=== PATIENT | male | born 1965 | race Caucasian/White ===

== ENCOUNTER → 2019-12-12 10:27 | Outpatient (BNVA) | payer OTHER, MEDICARE, SELFPAY | PROVIDERS: Family Provider Nurse Practitioner; PCP Nurse Practitioner; Visit Provider Nurse Practitioner | DX: E11.65 Type 2 diabetes mellitus with hyperglycemia (principal) | CPT/HCPCS: 80053; 80061; 81003; 82044; 83036 ==

== ENCOUNTER → 2020-04-13 14:04 | Outpatient (BNVA) | payer OTHER, MEDICARE, SELFPAY | PROVIDERS: Family Provider Nurse Practitioner; PCP Nurse Practitioner; Visit Provider Nurse Practitioner | DX: E11.65 Type 2 diabetes mellitus with hyperglycemia (principal); I10 Essential (primary) hypertension; I25.10 Atherosclerotic heart disease of native coronary artery without angina pectoris; F41.9 Anxiety disorder, unspecified; E11.42 Type 2 diabetes mellitus with diabetic polyneuropathy | CPT/HCPCS: 80053; 80061; 81000; 83036 ==

== ENCOUNTER → 2020-07-15 09:10 | Outpatient (BNVA) | payer OTHER, MEDICARE, SELFPAY | PROVIDERS: Family Provider Nurse Practitioner; PCP Nurse Practitioner; Visit Provider Nurse Practitioner | DX: E11.65 Type 2 diabetes mellitus with hyperglycemia (principal); I10 Essential (primary) hypertension; F41.9 Anxiety disorder, unspecified; I25.10 Atherosclerotic heart disease of native coronary artery without angina pectoris | CPT/HCPCS: 80053; 80061; 81000; 83036 ==

== ENCOUNTER 2020-09-03 09:31 | Emergency (ER) | payer OTHER, MEDICARE, SELFPAY ==
[2020-09-03 09:47] VITALS: BP 98/57; PULSE 80; RESP 18; TEMP 36.6; O2SAT 94; BMI 44.3
--- NOTE | 2020-09-03 09:51 | ECG_ITS ---
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 Measurements Intervals [place] Rate: 79 P: -83 VT: 176 QRS: 99 QRSD: 96 T: 185 QT: 373 QTc: 429 Interpretive Statements ECTOPIC ATRIAL RHYTHM BORDERLINE RIGHT AXIS DEVIATION [QRS AXIS > 90] LOW QRS VOLTAGE IN PRECORDIAL LEADS [QRS DEFLECTION < 1.0 mV IN CHEST LEADS] MODERATE T-WAVE ABNORMALITY, CONSIDER INFERIOR ISCHEMIA [-0.1+ mV T WAVE IN II/aVF] No previous ECG available for comparison Electronically Signed On 09-03-2020 20:29:55 CDT by Tim Palma M.D. [id number]
[2020-09-03 10:06] VITALS: BP 125/58; PULSE 77; RESP 18; O2SAT 94
--- NOTE | 2020-09-03 10:10 | ED_ITS ---
HPI - General Adult General: Chief complaint: General Medical Stated complaint: low bp Time Seen by Provider: 09/03/20 09:52 Source: patient Mode of arrival: ambulatory Limitations: no limitations History of Present Illness: HPI narrative: Fariba is a very nice 55-year-old male who comes in with a complaint of generalized malaise and weakness. Patient started a new blood pressure medication yesterday and believes he may have accidentally taken 2 of these this morning. The prescription was by Dr. Helm for hydralazine. Patient denies any headache, chest pain, shortness of breath, abdominal pain, back pain, fever, cough or urinary symptoms. Patient states he thinks he does accidentally took too much of this medication and wanted to be certain that everything was going to be okay. Associated symptoms: Reports malaise; Deny chest pain, confusion, diaphoresis, dyspnea, headache(s), nausea, rash, palpitations, syncope or vomiting Review of Systems Const: Reports: malaise; Denies: fever(s), chills, body aches, fatigue or diaphoresis Eyes: Denies: change in vision, blurry vision, photophobia, eye discomfort, eye discharge, eye redness or yellow eyes ENMT: Denies: throat pain, odynophagia, hoarseness, swelling of lips/tongue, ear or mastoid pain, ear discharge, change in hearing or nasal discharge Card: Denies: chest pain, palpitations, irregular heart rhythm, edema, lightheadedness, syncope, pre-syncope, dyspnea on exertion or orthopnea Resp: Denies: dyspnea, productive cough, non-productive cough, wheezing, hemoptysis or chest congestion GI: Denies: abdominal pain, nausea, vomiting, hematemesis, coffee ground emesis, heartburn, diarrhea, constipation, GI cramping, hematochezia or melena : Denies: flank pain, dysuria, urinary frequency, urinary urgency or hematuria Musc: Denies: neck pain, back pain, extremity pain, extremity swelling, joint pain, joint swelling, joint redness, joint warmth or joint stiffness Skin/Breast: Denies: rash, pruritus, erythema, skin pain or skin tenderness Neuro: Denies: headache(s), numbness in extremities, weakness in extremities, sensory changes, lack of coordination, difficulty walking, dizziness, vertigo, confusion, Slurred speech present or seizure-like activity [place]y/Lymph: Denies: easy bruising, easy bleeding, petechiae, purpura or enlarged lymph nodes All/Imm: Denies: urticaria, throat swelling, tongue swelling, facial swelling or acute wheezing PFSH ED PFSH: Medical History Anxiety Arteriosclerotic coronary artery disease Diabetes mellitus type II, uncontrolled Dietary noncompliance Essential (primary) hypertension Neuropathy Surgical History H/O heart artery stent 09/2011 History of carpal tunnel surgery of right wrist 2011 History of colonoscopy Family History Father , AGE 74 Diabetes Heart disease Mother , LUNG CANCER AGE 55 Cancer Social History Smoking and tobacco status: former smoker Second hand smoke exposure: No Smoking risk assessment/counseling performed?: No Alcohol intake: current Alcohol intake frequency: holidays/special occasions only Desire information about alcohol rehabilitation?: No Counseling given: No Desire information about substance/drug rehabilitation?: No Counseling given: No Adopted: No Caregiver/support person: No Lives independently: Yes Household members: spouse Housing: House Marital status: Number of children: 2 service: No Current occupational status: disabled Pets and animals: Yes History of recent travel: No Current gender identity: Male and Female Physical Exam Const: COMMON NORMALS: no acute distress, patient oriented x3, no limitations and alert GENERAL APPEARANCE: cooperative HENMT: COMMON NORMALS: normocephalic, atraumatic, external ears normal, EAC's normal and Normal external nose present HEAD & SCALP: normal to inspection, normocephalic and atraumatic FACE & SINUS: normal facial exam and face symmetric NOSE: Normal external nose present and Normal nares present EXTERNAL EAR: Yes external ears normal EXTERNAL AUDITORY CANAL: EAC's normal MOUTH: Normal oral and palatal mucosa present, lip normal and tongue normal Eye: COMMON NORMALS: Equal, round and reactive pupils present and conjunctivae normal GENERAL EYE: appearance normal, both eyes and all related structures ALIGNMENT: Yes alignment normal PERIORBITAL: periorbital findings normal EYELID: eyelids normal CONJUNCTIVA: Yes conjunctivae normal SCLERA: sclerae normal PUPIL: Yes Equal, round and reactive pupils present Neck/C-Spine: COMMON NORMALS: full ROM, no lymphadenopathy, supple, no meningeal signs and no JVD GENERAL: Yes normal visual inspection and Yes trachea midline Chest: COMMONS NORMALS: normal inspection of the chest and normal palpation of entire chest wall Resp: COMMON NORMALS: normal respiratory effort, No retractions, No use of accessory muscles and clear to auscultation bilaterally EFFORT & INSPECTION: Yes able to speak in complete sentences and Yes symmetric chest movement AUS CULTATION: clear to auscultation bilaterally, no crackles, no rales, no rhonchi and no wheezes Cardio: COMMON NORMALS: no JVD, regular rate, regular rhythm, S1 normal heart sound present and S2 normal heart sound present RATE: regular rate RHYTHM: regular rhythm HEART SOUNDS: S1 normal heart sound present, S2 normal heart sound present, no click, no gallops, no murmurs and no rubs GI: COMMON NORMALS: Soft to palpation and No hepatosplenomegaly present PALPATION: Yes Soft to palpation, No Tenderness to palpation present (GI), No Guarding due to palpation present (GI), No Rigid due to palpation, Yes No hepatosplenomegaly present, No Hernia present, No Palpable mass present and No Pulsatile mass present : COMMON NORMALS: Yes no CVA tenderness BLADDER/KIDNEY EXAM: Yes no CVA tenderness Back/Pelvis: COMMON NORMALS: no CVA tenderness, thoracic and lumbar spine normal to inspection, no thoracic nor lumbar tenderness and thoraco-lumbar ROM normal Extremity: COMMON NORMALS: normal to inspection, full ROM, capillary refill normal, no joint enlargement, no clubbing, cyanosis or edema and no calf tenderness Neuro: COMMON NORMALS: patient oriented x3, CN's II-XII intact bilaterally, moves all extremities, no focal motor deficits and no sensory deficits noted SENSORIUM/ORIENTATION: Yes alert MENINGEAL SIGNS: Yes no meningeal signs SPEECH: speech normal Psych: COMMON NORMALS: mental status grossly normal, Normal thought process present, cooperative, normal affect, speech normal and activity/motor behavior normal SPEECH: Yes normal speech THOUGHT PROCESS: Normal thought process present Skin: COMMON NORMALS: no rashes or lesions noted, turgor normal, no jaundice, no petechiae and no mottling GENERAL SKIN EXAM: no rashes or lesions noted and turgor normal Course Vital Signs: Vital signs: Vital Signs Temperature 97.9 F 09/03/20 09:47 Pulse Rate 79 09/03/20 13:38 Respiratory Rate 19 H 09/03/20 13:38 Blood Pressure 147/98 09/03/20 13:38 Pulse Oximetry 94 09/03/20 13:38 MDM - General Adult MDM Narrative: Medical decision making narrative: 1313 -the patient's case had been previously reviewed with poison control. They recommended the patient skip his nighttime dose of hydralazine but otherwise they felt the peak was long since passed and the patient would likely be okay. I elected to keep him for a second EKG and troponin. He is completely asymptomatic as far as any cardiac symptoms go. He denies any current fatigue or malaise he states his symptoms have resolved. I have no old EKG to compare to he does have some T wave inversions but he is not having chest pain or shortness of breath. EKGs have not changed. His baseline troponin is slightly elevated but trended down on his second. Patient denies any complaints or concerns at this time. I offered to put him in the hospital for further observation but he refuses. He states he is going to go home and pick his of after work he states he feels fine. He understands he needs to hold his next dose of hydralazine but he will follow-up with his doctor if he continues to have further problems but he also understands he can return here at any time. Lab Data: Attestation: I reviewed the patient's lab results. Labs: Lab Results 09/03/20 09/03/20 09/03/20 Range/Units 10:24 10:24 10:24 WBC 8.4 (4.0-10.0) 10^3/ uL RBC 4.48 (4.1-5.3) 10^6/u L Hgb 12.8 (11.7-16.6) g/dL Hct 39.8 L (42.0-52.0) % MCV 88.8 (80-94) fL MCH 28.6 (28.0-34.0) pg MCHC 32.2 (30.0-36.0) g/dL RDW 13.7 (12.1-15.1) % Plt Count 302 (130-400) 10^3/c mm MPV 9.8 (7.4-10.4) fL Neut % (Auto) 66.4 % Lymph % (Auto) 24.4 % [place] % (Auto) 6.8 % Eos % (Auto) 1.8 % Baso % (Auto) 0.4 % Neut # (Auto) 5.59 (1.8-7.7) 10^3/u L Lymph # (Auto) 2.1 (0.8-4.8) 10^3/u L [place] # (Auto) 0.6 (0.2-0.9) 10^3/u L Eos # (Auto) 0.2 (0.0-0.8) 10^3/u L Baso # (Auto) 0.0 (0.0-0.1) 10^3/u L Nucleated RBC % (a uto) 0 % Nucleated RBCs # 0.0 /100WBC Sodium 139 (136-145) mmol/L Potassium 3.8 (3.5-5.1) mmol/L Chloride 101 (98-107) mmol/L Carbon Dioxide 26 (22-29) mmol/L Anion Gap 15.8 (5-19) BUN 21 H (6-20) mg/dL Creatinine 0.8 (0.7-1.2) mg/dL GFR Calculation 100.0 (90-130) mL/min Glucose 209 H (65-115) mg/dL Calculated Osmolal ity 297 H (285-295) mOsm/k g Lactic Acid (0.5-2.2) mmol/L Calcium 9.1 (8.5-10.5) mg/dL Total Bilirubin 0.3 (0.15-1.2) mg/dL AST 17 (0-40) U/L ALT 23 (0-41) U/L Alkaline Phosphata se 113 (40-130) IU/L Troponin T Baselin e 35 H (0-15) ng/L Troponin T 120 Min [place] (0-15) ng/L Delta Troponin T (0-10) ABS# Total Protein 6.7 (6.6-8.7) g/dL Albumin 4.0 (3.5-5.2) g/dL Globulin 2.7 (1.3-4.6) g/dL 09/03/20 09/03/20 Range/Units 10:43 12:28 WBC (4.0-10.0) 10^3/ uL RBC (4.1-5.3) 10^6/u L Hgb (11.7-16.6) g/dL Hct (42.0-52.0) % MCV (80-94) fL MCH (28.0-34.0) pg MCHC (30.0-36.0) g/dL RDW (12.1-15.1) % Plt Count (130-400) 10^3/c mm MPV (7.4-10.4) fL Neut % (Auto) % Lymph % (Auto) % [place] % (Auto) % Eos % (Auto) % Baso % (Auto) % Neut # (Auto) (1.8-7.7) 10^3/u L Lymph # (Auto) (0.8-4.8) 10^3/u L [place] # (Auto) (0.2-0.9) 10^3/u L Eos # (Auto) (0.0-0.8) 10^3/u L Baso # (Auto) (0.0-0.1) 10^3/u L Nucleated RBC % (a uto) % Nucleated RBCs # /100WBC Sodium (136-145) mmol/L Potassium (3.5-5.1) mmol/L Chloride (98-107) mmol/L Carbon Dioxide (22-29) mmol/L Anion Gap (5-19) BUN (6-20) mg/dL Creatinine (0.7-1.2) mg/dL GFR Calculation (90-130) mL/min Glucose (65-115) mg/dL Calculated Osmolal ity (285-295) mOsm/k g Lactic Acid 2.0 (0.5-2.2) mmol/L Calcium (8.5-10.5) mg/dL Total Bilirubin (0.15-1.2) mg/dL AST (0-40) U/L ALT (0-41) U/L Alkaline Phosphata se (40-130) IU/L Troponin T Baselin e (0-15) ng/L Troponin T 120 Min [place] 31.27 H (0-15) ng/L Delta Troponin T -3.73 L (0-10) ABS# Total Protein (6.6-8.7) g/dL Albumin (3.5-5.2) g/dL Globulin (1.3-4.6) g/dL EKG Data^: EKG 1: Attestation: I personally reviewed and interpreted this EKG as follows: EKG interpretation date: 09/03/20 EKG interpretation time: 09:59 Interpretation: Normal sinus rhythm at 79 beats a minute, no blocks, normal intervals, T waves inverted in room and rolled to and aVF along with T wave inversions in V5 and V6. No old for comparison. EKG 2: Attestation: I personally reviewed and interpreted this EKG as follows: EKG interpretation date: 09/03/20 EKG interpretation time: 12:08 Interpretation: Normal sinus rhythm at 74 beats a minute, first-degree AV block, otherwise normal intervals, T wave inversions II, aVF, V5 and V6. Unchanged from previous. Discharge Plan Discharge Patient Disposition: Home Clinical Impression: Overdose Qualifiers: Encounter type: initial encounter Injury intent: accidental or unintentional Qualified Code(s): T50.901A - Poisoning by unspecified drugs, medicaments and biological substances, accidental (unintentional), initial encounter Condition: Stable Prescriptions: No Action amlodipine [Norvasc] 10 mg tablet 10 mg PO DAILY Qty: 90 RF: 0 empagliflozin 25 mg tablet 25 mg PO QAM Qty: 30 RF: 2 doxepin 10 mg capsule 10 mg PO TID Qty: 270 RF: 0 fluoxetine [Prozac] 20 mg capsule 20 mg PO BID Qty: 180 RF: 0 furosemide [Lasix] 20 mg tablet 20 mg PO BID Qty: 180 RF: 0 Levemir FlexTouch U-100 Insuln 100 unit/mL (3 mL) insulin pen 30 unit SUBCUT BID Qty: 15 RF: 2 Novolin R Flexpen 100 unit/mL (3 mL) insulin pen 18 - 32 unit SUBCUT DAILY Qty: 15 RF: 2 losartan 100 mg tablet 100 mg PO DAILY Qty: 90 RF: 0 magnesium oxide 400 mg magnesium capsule 400 mg PO DAILY Qty: 90 RF: 0 metformin 500 mg tablet extended release 24 hr 2,000 mg PO DAILY Qty: 360 RF: 0 propranolol 80 mg capsule,extended release 24 hr 80 mg PO DAILY Qty: 90 RF: 0 Ozempic 1 mg/dose (2 mg/1.5 mL) pen injector 1 mg SUBCUT .weekly Qty: 3 RF: 2 atorvastatin 40 mg tablet 40 mg PO DAILY Qty: 90 RF: 0 aspirin [Aspir-Elvia] 325 mg tablet,delayed release (DR/EC) 325 mg PO DAILY RF: 0 albuterol sulfate 2.5 mg /3 mL (0.083 %) solution for nebulization 2.5 mg INHALATION QID PRN (Reason: bronchospasm) RF: 0 lidocaine 5 % adhesive patch,medicated 1 patch TOPICAL .COMPLEX RF: 0 nystatin-triamcinolone Cream TOPICAL RF: 0 budesonide [Pulmicort] 0.5 mg/2 mL suspension for nebulization 0.5 mg INHALATION BID RF: 0 triamcinolone acetonide 0.1 % cream 1 applic TOPICAL BID RF: 0 levalbuterol tartrate [Xopenex HFA] 45 mcg/actuation HFA aerosol inhaler 2 inh INHALATION Q4H RF: 0 tadalafil [Cialis] 20 mg tablet 20 mg PO QDAY PRNRF: 0 (DME) OneTouch Ultra Blue Test Strip Strip See Rx Instructions .ROUTE .MEDSUPPLY Qty: 200 RF: 5 (DME) lancets [OneTouch Delica Lancets] 33 gauge misc See Rx Instructions .ROUTE .MEDSUPPLY Qty: 200 RF: 5 (DME) blood-glucose meter [OneTouch Ultra2 Meter] Kit See Rx Instructions .ROUTE .MEDSUPPLY Qty: 1 RF: 0 hydralazine 100 mg tablet 100 mg PO BID Qty: 90 RF: 0 Discharge Orders: Discharge Order (Routine); Ordered 09/03/20 Ordered By: Fabiola Ho Referrals: Mateo Sifuentes, STATION ATTENDANT-C [Primary Care Provider] - 1-3 days Discharge Diet: Advance as tolerated Discharge Activity: Increase activity as tolerated Activity Restrictions/Additional Instructions: Please return to the ER immediately for any of the signs or symptoms listed on your discharge instruction sheets, worsening/changing of your symptoms, you are not getting better as quickly as expected, or for ANY other cause or concerns. Do not take your nighttime dose of hydralazine, skip it tonight but she can resume the medication tomorrow as prescribed. Return to the ER for chest pain, shortness of breath, weakness, or for any other cause for concern. Discharge Date/Time: 09/03/20 13:38 Coding Level of Care Code ED Record Producer for Chg Fwd Exam Comprehensive
[2020-09-03] MEDS: sodium chloride 0.9% 1,000 ML 100 ML IV (10:34)
[2020-09-03 10:37] LABS: Basophils % 0.4 %; Eosinophils # 0.2 10^3/uL (0.0-0.8); Eosinophils % 1.8 %; Hematocrit 39.8 % (42.0-52.0); Hemoglobin 12.8 g/dL (11.7-16.6); Lymphocytes # 2.1 10^3/uL (0.8-4.8); Lymphocytes % 24.4 %; Mean Corpuscular HGB Conc 32.2 g/dL (30.0-36.0); Mean Corpuscular Hemoglobin 28.6 pg (28.0-34.0); Mean Corpuscular Volume 88.8 fL (80-94); Mean Platelet Volume 9.8 fL (7.4-10.4); Monocytes # 0.6 10^3/uL (0.2-0.9); Monocytes % 6.8 %; Neutrophils # 5.59 10^3/uL (1.8-7.7); Neutrophils % 66.4 %; Nucleated Red Blood Cells % 0 %; Platelet Count 302 10^3/cmm (130-400); Red Blood Count 4.48 10^6/uL (4.1-5.3); Red Cell Distribution Width 13.7 % (12.1-15.1); White Blood Count 8.4 10^3/uL (4.0-10.0)
[2020-09-03 10:53] LABS: Alanine Aminotransferase 23 U/L (0-41); Alkaline Phosphatase 113 IU/L (40-130); Anion Gap 15.8 (5-19); Aspartate Amino Transferase 17 U/L (0-40); Blood Urea Nitrogen 21 mg/dL (6-20); Calcium 9.1 mg/dL (8.5-10.5); Carbon Dioxide 26 mmol/L (22-29); Chloride 101 mmol/L (98-107); Globulin 2.7 g/dL (1.3-4.6); Glucose 209 mg/dL (65-115); Osmolality Calculated 297 mOsm/kg (285-295); Potassium 3.8 mmol/L (3.5-5.1); Sodium 139 mmol/L (136-145); Total Bilirubin 0.3 mg/dL (0.15-1.2); Total Protein 6.7 g/dL (6.6-8.7)
[2020-09-03 10:56] LABS: Troponin(5th) Baseline 35 ng/L (0-15)
[2020-09-03 11:00] VITALS: BP 123/65; PULSE 73; RESP 14; O2SAT 94
[2020-09-03 12:00] VITALS: BP 154/82; PULSE 76; RESP 15; O2SAT 95
[2020-09-03 12:52] LABS: Troponin 5 2HR 31.27 ng/L (0-15)
[2020-09-03 12:58] LABS: Troponin 5 2HR Delta -3.73 ABS# (0-10)
[2020-09-03 13:38] VITALS: BP 147/98; PULSE 79; RESP 19; O2SAT 94
--- NOTE | 2020-09-03 15:51 | ECG_ITS ---
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 Measurements Intervals [place] Rate: 74 P: 25 [place]: 233 QRS: 102 QRSD: 93 T: 211 QT: 387 QTc: 430 Interpretive Statements SINUS RHYTHM WITH FIRST DEGREE AV BLOCK RIGHT AXIS DEVIATION [QRS AXIS > 100] LOW QRS VOLTAGE IN PRECORDIAL LEADS [QRS DEFLECTION < 1.0 mV IN CHEST LEADS] INCOMPLETE RIGHT BUNDLE BRANCH BLOCK [90+ ms QRS DURATION, TERMINAL R IN V1/V2, 40+ ms S IN I/aVL/V4/V5/V6] POSSIBLE ANTERIOR MYOCARDIAL INFARCTION , OF INDETERMINATE AGE [30 ms Q WAVE IN V3/V4, OR R < 0.2 mV IN V4] MODERATE T-WAVE ABNORMALITY, CONSIDER INFERIOR ISCHEMIA [-0.1+ mV T WAVE IN II/aVF] Compared to ECG 09/03/2020 09:59:54 First degree AV block now present Myocardial infarct finding now present.Ectopic atrial rhythm no longer present T-wave abnormality still present.Possible ischemia still present Electronically Signed On 09-03-2020 20:38:13 CDT by Tim Palma M.D. [id number]
== END 2020-09-03 13:38 | disposition home or self-care (01) ==
PROVIDERS: Emergency Provider Emergency Medicine; Family Provider Nurse Practitioner; PCP Nurse Practitioner
DX: T50.901A Poisoning by unspecified drugs, medicaments and biological substances, accidental (unintentional), initial encounter (principal); Z79.82 Long term (current) use of aspirin; Z79.4 Long term (current) use of insulin; I10 Essential (primary) hypertension; E11.40 Type 2 diabetes mellitus with diabetic neuropathy, unspecified; Z87.891 Personal history of nicotine dependence
CPT/HCPCS: 12345; 80053; 83605; 84484; 85025; 93005; 99283; J7030

== ENCOUNTER → 2020-09-09 15:40 | Outpatient (BNVA) | payer OTHER, MEDICARE, SELFPAY | PROVIDERS: Family Provider Nurse Practitioner; PCP Nurse Practitioner; Visit Provider Nurse Practitioner Family | DX: Z11.59 Encounter for screening for other viral diseases (principal) | CPT/HCPCS: 87635 ==

== ENCOUNTER → 2020-10-21 15:35 | Outpatient (BNVA) | payer OTHER, MEDICARE, SELFPAY | PROVIDERS: Family Provider Nurse Practitioner; PCP Nurse Practitioner; Visit Provider Nurse Practitioner | DX: E11.65 Type 2 diabetes mellitus with hyperglycemia (principal); I10 Essential (primary) hypertension; I25.10 Atherosclerotic heart disease of native coronary artery without angina pectoris; F41.9 Anxiety disorder, unspecified | CPT/HCPCS: 80053; 81000; 83036 ==

== ENCOUNTER → 2020-12-01 10:43 | Outpatient (BNVA) | payer OTHER, MEDICARE, SELFPAY | PROVIDERS: Family Provider Nurse Practitioner; PCP Nurse Practitioner; Visit Provider Nurse Practitioner | DX: R06.02 Shortness of breath (principal); E11.65 Type 2 diabetes mellitus with hyperglycemia; I25.10 Atherosclerotic heart disease of native coronary artery without angina pectoris; I70.90 Unspecified atherosclerosis; I51.7 Cardiomegaly | CPT/HCPCS: 71046; 80053; 83880; 85025; 85379 ==

== ENCOUNTER 2020-12-06 14:28 | Outpatient (CLI) | payer OTHER, MEDICARE, SELFPAY | END 2020-12-06 15:00 | disposition home or self-care (01) | LOC: LAB 08-25 12:36 | PROVIDERS: PCP Nurse Practitioner; Visit Provider Nurse Practitioner | DX: D64.9 Anemia, unspecified (principal) | CPT/HCPCS: 82607; 82746; 83550 ==

== ENCOUNTER → 2020-12-20 11:53 | Outpatient (BNVA) | payer OTHER, MEDICARE, SELFPAY | PROVIDERS: PCP Nurse Practitioner; Visit Provider Nurse Practitioner | DX: D64.9 Anemia, unspecified (principal) | CPT/HCPCS: 82270 ==

== ENCOUNTER → 2021-01-18 09:01 | Outpatient (BNVA) | payer OTHER, MEDICARE, SELFPAY | PROVIDERS: PCP Nurse Practitioner; Visit Provider Nurse Practitioner | DX: I10 Essential (primary) hypertension (principal); I25.10 Atherosclerotic heart disease of native coronary artery without angina pectoris; E11.65 Type 2 diabetes mellitus with hyperglycemia; F41.9 Anxiety disorder, unspecified; J98.09 Other diseases of bronchus, not elsewhere classified; F39 Unspecified mood [affective] disorder | CPT/HCPCS: 80053; 80061; 81000; 82043; 83036 ==

== ENCOUNTER → 2021-04-19 08:50 | Outpatient (BNVA) | payer OTHER, MEDICARE, SELFPAY | PROVIDERS: PCP Nurse Practitioner; Visit Provider Nurse Practitioner | DX: E11.65 Type 2 diabetes mellitus with hyperglycemia (principal); I10 Essential (primary) hypertension; I25.10 Atherosclerotic heart disease of native coronary artery without angina pectoris; F41.9 Anxiety disorder, unspecified; J98.09 Other diseases of bronchus, not elsewhere classified | CPT/HCPCS: 80053; 81000; 83036 ==

== ENCOUNTER 2021-05-04 12:13 | Outpatient (CLI) | payer OTHER, MEDICARE, SELFPAY ==
--- NOTE | 2021-05-04 12:45 | USCV_ITS ---
Fariba Rossi Age: 55 Gender: M : 1965 Exam Date: 05/04/2021 12:37 Ordering Phys: Mateo Sifuentes Technologist: Exam Location: [place] Indication: HX OF STENTS CAD BP: 150 / 101 HR: 85 Rhythm: Sinus Technical Quality: Poor MEASUREMENTS (Male / Female) Normal Values 2D ECHO LV Diastolic Diameter PLAX 3.9 cm 4.2 - 5.9 / 3.9 - 5.3 cm LV Systolic Diameter PLAX 2.4 cm IVS Diastolic Thickness 1.2 cm 0.6 - 1.0 / 0.6 - 0.9 cm IVS Systolic Thickness 1.8 cm LVPW Diastolic Thickness 1.0 cm 0.6 - 1.0 / 0.6 - 0.9 cm LVPW Systolic Thickness 1.7 cm LVOT Diameter 2.0 cm LV Ejection Fraction 2D Teich 68.3 % LV Ejection Fraction MOD 2C 56.4 % LV Ejection Fraction 2C AL 56.7 % LA Diameter 5.2 cm LA Width 4.2 cm LA Height 4.3 cm RA Width 3.8 cm RA Height 4.3 cm Aorta at Sinotubular Diameter 3.4 cm DOPPLER AV Peak Velocity 243.0 cm/s LVOT Peak Velocity 87.0 cm/s AV Area Cont Eq vti 1.2 cm squared AV Area Cont Eq pk 1.2 cm squared MV Area PHT 5.0 cm squared Mitral E to A Ratio 2.2 MV E' Velocity 64.5 cm/s Mitral E to MV E' Ratio 19.1 Mitral E to LV E' Lateral Ratio 18.0 Mitral E to LV E' Septal Ratio 20.4 TR Peak Velocity 131.3 cm/s TR Peak Gradient 6.9 mmHg TV Peak E Velocity 93.0 cm/s Right Atrial Pressure 3.0 mmHg Pulmonary Artery Systolic Pressu 9.9 mmHg FINDINGS Left Ventricle Normal left ventricular cavity size. Normal left ventricular systolic function. Left ventricular ejection fraction is estimated at 60 %. Although no diagnostic regional wall motion abnormality could be advised, this possibility cannot be completely excluded based on the study. Grade II diastolic dysfunction, moderately elevated filling pressures. Right Ventricle Normal right ventricular size and systolic function. RVSP could not be calculated due to incomplete tricuspid regurgitation velocity profile. Right Atrium Normal right atrial size. Left Atrium Left atrium not well visualized. Probably normal left atrial size. Mitral Valve Grossly normal mitral valve. No mitral valve stenosis. No significant mitral valve regurgitation. Aortic Valve Aortic valve not well visualized. Possibly sclerotic aortic valve. Tricuspid Valve Tricuspid valve not well visualized. Pulmonic Valve Pulmonic valve not well visualized. No pulmonary valve stenosis. Pericardium No pericardial effusion. Aorta Normal size aortic root and proximal ascending aorta. CONCLUSIONS 1. This is a technically very difficult study. 2. Normal left ventricular cavity size and systolic function. Left ventricular ejection fraction is estimated at 60 %. Although no diagnostic regional wall motion abnormality could be advised, this possibility cannot be completely excluded based on the study. Grade II diastolic dysfunction, moderately elevated filling pressures. 3. Normal right ventricular size and systolic function. 4. Possibly sclerotic aortic valve. Interpretation limited by poor visualization of the valve. 5. No significant change when compared to prior echocardiogram report from 20 April 2016. Betty Harrison MD (Electronically Signed) Final Date: 06 May 2021 15:08 S
== END 2021-05-04 12:14 | disposition home or self-care (01) ==
LOC: RAD 12:17
PROVIDERS: PCP Nurse Practitioner; Visit Provider Nurse Practitioner
DX: I25.10 Atherosclerotic heart disease of native coronary artery without angina pectoris (principal); R06.02 Shortness of breath; I50.9 Heart failure, unspecified
CPT/HCPCS: 93306

== ENCOUNTER → 2021-07-12 08:41 | Outpatient (BNVA) | payer OTHER, MEDICARE, SELFPAY | PROVIDERS: PCP Nurse Practitioner; Visit Provider Nurse Practitioner | DX: E11.65 Type 2 diabetes mellitus with hyperglycemia (principal); E61.1 Iron deficiency; E55.9 Vitamin D deficiency, unspecified; I10 Essential (primary) hypertension; I25.10 Atherosclerotic heart disease of native coronary artery without angina pectoris; F41.9 Anxiety disorder, unspecified; J98.09 Other diseases of bronchus, not elsewhere classified; G62.9 Polyneuropathy, unspecified | CPT/HCPCS: 80053; 80061; 81000; 82306; 83036; 83540; 83721 ==

== ENCOUNTER 2021-09-08 08:50 | Emergency (ER) | payer OTHER, MEDICARE, SELFPAY ==
--- NOTE | 2021-09-08 09:59 | XR_ITS ---
WS: [id number] Exam: XR chest 1V portable [id number] Date/Time of Exam: 09/08/2021 10:07 AM Reason For Exam: dyspnea/cough Comparison 12/01/2020. The lungs are clear and fully expanded. Cardiomediastinal structures are unremarkable for portable [place]. No pleural effusions. There may be an old fracture deformity of the superior right scapula. Remaining bony structures are intact. XR/XR chest 1V portable [id number] IMPRESSION: 1. No acute cardiopulmonary finding.
[2021-09-08 10:19] VITALS: PULSE 81
[2021-09-08 10:21] VITALS: TEMP 37.1
[2021-09-08 10:26] VITALS: BMI 45.1
--- NOTE | 2021-09-08 10:27 | ED_ITS ---
HPI - SOB/Dyspnea General: Chief Complaint: Shortness of Breath/Dyspnea Stated Complaint: SOB PAIN ALL OVER Time Seen by Provider: 09/08/21 08:59 History of Present Illness: HPI Narrative: 56-year-old male presents emergency room complaining of shortness of breath and all over pain. Generalized aches and pains he has not had any fever sweats or chills she is not had a productive cough he has history of diabetes mellitus and hypertension he also has a history of heart disease. He is not normally on oxygen he is not requiring any at this time. He denies any recent medication changes MD elicited complaint: shortness of breath Pertinent past history: COPD Onset (ago): day(s) Context: recent illness Timing: constant Severity: mild Exacerbating factors: exertion and coughing Relieving factors: rest Known history of: COPD Associated symptoms: Deny abdominal pain, chest congestion, chest pain, cough, diaphoresis, dizziness, extremity pain, fever(s), hemoptysis, lightheadedness, myalgias, nausea, orthopnea, palpitations, paresthesias, polydipsia, polyuria, rash, sense of impending doom, syncope or vomiting Treatment prior to arrival: none Review of Systems Const: Denies: fever(s) or diaphoresis ENMT: Denies: throat pain, ear or mastoid pain, nasal discharge or nasal congestion Card: Denies: chest pain, palpitations, lightheadedness, syncope or orthopnea Resp: Denies: hemoptysis or chest congestion GI: Denies: abdominal pain, nausea or vomiting : Denies: flank pain, dysuria, urinary frequency or urinary urgency Musc: Denies: extremity pain Skin/Breast: Denies: rash or pruritus Neuro: Denies: dizziness Endo: Denies: polyuria or polydipsia PFSH ED PFSH: Medical History Anxiety Arteriosclerotic coronary artery disease Diabetes mellitus type II, uncontrolled Dietary noncompliance Essential (primary) hypertension Iron deficiency Neuropathy Recurrent bronchospasm Surgical History H/O heart artery stent 09/2011 History of carpal tunnel surgery of right wrist 2011 History of colonoscopy Family History Father , AGE 74 Diabetes Heart disease Mother , LUNG CANCER AGE 55 Cancer Social History Smoking and tobacco status: never smoked Second hand smoke exposure: No Smoking risk assessment/counseling performed?: No Alcohol intake: current Alcohol intake frequency: holidays/special occasions only Desire information about alcohol rehabilitation?: No Counseling given: No Desire information about substance/drug rehabilitation?: No Counseling given: No Adopted: No Caregiver/support person: No Lives independently: Yes Household members: spouse Housing: House Marital status: Number of children: 2 service: No Current occupational status: disabled Pets and animals: Yes History of recent travel: No Current gender identity: Male and Female Physical Exam Const: COMMON NORMALS: no acute distress GENERAL APPEARANCE: cooperative and comfortable ORIENTATION/CONSCIOUSNESS: Yes awake, Yes oriented to person, Yes oriented to place and Yes oriented to time HENMT: COMMON NORMALS: normocephalic, atraumatic and hearing grossly normal bilaterally HEAD & SCALP: normocephalic and atraumatic Neck/C-Spine: COMMON NORMALS: no JVD Resp: AUSCULTATION: wheezes Cardio: COMMON NORMALS: no JVD, regular rate, regular rhythm and No murmurs present (Cardio) RATE: regular rate RHYTHM: regular rhythm GI: COMMON NORMALS: Soft to palpation and No hepatosplenomegaly present AUSCULTATION: Yes normoactive bowel sounds PALPATION: Yes Soft to palpation, No Tenderness to palpation present (GI), No Guarding due to palpation present (GI) and Yes No hepatosplenomegaly present Extremity: COMMON NORMALS: normal to inspection, capillary refill normal, no clubbing, cyanosis or edema, no calf tenderness and no pedal edema Neuro: SENSORIUM/ORIENTATION: Yes oriented to person, Yes oriented to place and Yes oriented to time Skin: COMMON NORMALS: no rashes or lesions noted GENERAL SKIN EXAM: no rashes or lesions noted Course Vital Signs: Vital signs: Vital Signs Temperature 98.8 F 09/08/21 10:36 Pulse Rate 84 09/08/21 13:39 Respiratory Rate 16 09/08/21 13:39 Blood Pressure 125/70 09/08/21 10:36 Pulse Oximetry 93 09/08/21 13:39 MDM - SOB/Dyspnea MDM Narrative: Medical decision making narrative: Proved with nebulizers. Will start steroid taper doxycycline encourage regular use of albuterol if any worsening or change return. Lab Data: Labs: Lab Results 09/08/21 09/08/21 09/08/21 10:15 10:15 10:15 WBC 8.5 10^3/uL 10^3/ uL (4.0-10.0) RBC 4.81 10^6/uL 10^6 /uL (4.1-5.3) Hgb 14.2 g/dL g/dL (11.7-16.6) Hct 43.5 % % (42.0-52.0) MCV 90.4 fl fl (80-94) MCH 29.5 pg pg (28.0-34.0) MCHC 32.6 g/dL g/dL (30.0-36.0) RDW 13.3 % % (12.1-15.1) Plt Count 304 10^3/cmm 10^3 /cmm (130-400) MPV 9.9 fL fL (7.4-10.4) Neut % (Auto) 68.9 % % Lymph % (Auto) 22.2 % % Garrett % (Auto) 6.7 % % Eos % (Auto) 1.6 % % Baso % (Auto) 0.4 % % Neut # (Auto) 5.86 10^3/uL 10^3 /uL (1.8-7.7) Lymph # (Auto) 1.9 10^3/uL 10^3/ uL (0.8-4.8) Garrett # (Auto) 0.6 10^3/uL 10^3/ uL (0.2-0.9) Eos # (Auto) 0.1 10^3/uL 10^3/ uL (0.0-0.8) Baso # (Auto) 0.0 10^3/uL 10^3/ uL (0.0-0.1) Nucleated RBC % (a uto) 0 % % Nucleated RBCs # 0.0 /100WBC /100W BC Sodium 138 mmol/L mmol/L (136-145) Potassium 3.7 mmol/L mmol/L (3.5-5.1) Chloride 98 mmol/L mmol/L (98-107) Carbon Dioxide 31 mmol/L H mmol/ L (22-29) Anion Gap 12.7 (5-19) BUN 18 mg/dL mg/dL (6-20) Creatinine 0.8 mg/dL mg/dL (0.7-1.2) GFR Calculation 99.6 mL/min mL/mi n (90-130) Glucose 247 mg/dL H mg/dL (65-115) Calculated Osmolal ity 296 mOsm/kg H mOs m/kg (285-295) Lactic Acid 2.4 mmol/L H mmol /L (0.5-2.2) Calcium 9.2 mg/dL mg/dL (8.5-10.5) Total Bilirubin 0.3 mg/dL mg/dL (0.15-1.2) AST 14 U/L U/L (0-40) ALT 21 U/L U/L (0-41) Alkaline Phosphata se 90 IU/L IU/L (40-130) Creatine Kinase 167 U/L U/L (39-308) Total Protein 6.5 g/dL L g/dL (6.6-8.7) Albumin 4.2 g/dL g/dL (3.5-5.2) Globulin 2.3 g/dL g/dL (1.3-4.6) Urine Color Urine Appearance Urine pH Ur Specific Gravit y Urine Protein Urine Glucose (UA) Urine Ketones Urine Blood Urine Nitrate Urine Bilirubin Urine Urobilinogen Ur Leukocyte Felicia ase 09/08/21 10:25 WBC RBC Hgb Hct MCV MCH MCHC RDW Plt Count MPV Neut % (Auto) Lymph % (Auto) Garrett % (Auto) Eos % (Auto) Baso % (Auto) Neut # (Auto) Lymph # (Auto) Garrett # (Auto) Eos # (Auto) Baso # (Auto) Nucleated RBC % (a uto) Nucleated RBCs # Sodium Potassium Chloride Carbon Dioxide Anion Gap BUN Creatinine GFR Calculation Glucose Calculated Osmolal ity Lactic Acid Calcium Total Bilirubin AST ALT Alkaline Phosphata se Creatine Kinase Total Protein Albumin Globulin Urine Color Straw (Yellow) Urine Appearance Clear (CLEAR) Urine pH 5 (5-7) Ur Specific Gravit y 1.005 (1.005-1.030) Urine Protein Neg (Negative) Urine Glucose (UA) 4+ H (Normal) Urine Ketones Negative (Negative) Urine Blood Neg (Negative) Urine Nitrate Negative (Negative) Urine Bilirubin Neg (Negative) Urine Urobilinogen Norm mg/dL mg/dL (Negative) Ur Leukocyte Felicia ase Negative (Negative) Discharge Plan Discharge Patient Disposition: Home Clinical Impression: Acute exacerbation of chronic obstructive airways disease Condition: Stable Prescriptions: New doxycycline hyclate 100 mg capsule 100 mg PO BID 10 Days Qty: 20 RF: 0 Medrol (Elan) 4 mg tablets,dose pack See Rx Instructions .ROUTE .COMPLEX Qty: 21 RF: 0 No Action aspirin [Aspir-Elvia] 325 mg tablet,delayed release (DR/EC) 325 mg PO DAILY RF: 0 amlodipine 5 mg tablet 5 mg PO DAILY Qty: 90 RF: 0 atorvastatin 40 mg tablet 40 mg PO DAILY Qty: 90 RF: 0 doxepin 50 mg capsule 50 mg PO TID Qty: 270 RF: 0 empagliflozin 25 mg tablet 25 mg PO QAM Qty: 30 RF: 2 fluoxetine [Prozac] 20 mg capsule 20 mg PO BID Qty: 180 RF: 0 Flovent HFA 110 mcg/actuation HFA aerosol inhaler 2 puff inhalation BID Qty: 12 RF: 2 furosemide [Lasix] 20 mg tablet 20 mg PO BID Qty: 180 RF: 0 hydralazine 100 mg tablet 100 mg PO TID Qty: 270 RF: 0 Levemir FlexTouch U-100 Insuln 100 unit/mL (3 mL) insulin pen 30 unit SUBCUT BID Qty: 15 RF: 2 Novolin R Flexpen 100 unit/mL (3 mL) insulin pen 18 - 32 unit SUBCUT DAILY Qty: 15 RF: 2 levalbuterol tartrate [Xopenex HFA] 45 mcg/actuation HFA aerosol inhaler 2 inh INHALATION Q4H Qty: 15 RF: 2 losartan 100 mg tablet 100 mg PO DAILY Qty: 90 RF: 0 magnesium oxide 400 mg magnesium capsule 400 mg PO DAILY Qty: 90 RF: 0 metformin 500 mg tablet extended release 24 hr 2,000 mg PO DAILY Qty: 360 RF: 0 propranolol 80 mg capsule,extended release 24 hr 80 mg PO DAILY Qty: 90 RF: 0 Ozempic 1 mg/dose (2 mg/1.5 mL) pen injector 1 mg SUBCUT .weekly Qty: 3 RF: 2 lidocaine 5 % adhesive patch,medicated 1 patch TOPICAL .COMPLEX RF: 0 nystatin-triamcinolone Cream TOPICAL RF: 0 triamcinolone acetonide 0.1 % cream 1 applic TOPICAL BID RF: 0 (DME) lancets [OneTouch Delica Lancets] 33 gauge misc See Rx Instructions .ROUTE .MEDSUPPLY Qty: 200 RF: 5 budesonide [Pulmicort] 0.5 mg/2 mL suspension for nebulization 0.5 mg INHALATION BID PRN (Reason: wheezing) Qty: 60 RF: 2 Mucinex 1,200 mg tablet extended release 12hr 1,200 mg PO Q12H Qty: 20 RF: 0 (DME) OneTouch Ultra Blue Test Strip Strip See Rx Instructions .ROUTE .MEDSUPPLY Qty: 200 RF: 5 (DME) blood-glucose meter [OneTouch Ultra2 Meter] Kit See Rx Instructions .ROUTE .MEDSUPPLY Qty: 1 RF: 0 albuterol sulfate 2.5 mg /3 mL (0.083 %) solution for nebulization 2.5 mg INHALATION QID PRN (Reason: bronchospasm) Qty: 75 RF: 3 Discharge Orders: Discharge ED (Routine); Ordered 09/08/21 Ordered By: Byron Krause Referrals: Mateo Sifuentes, CHIEF OF SERVICE-C [Primary Care Provider] - Discharge Diet: Usual diet Discharge Activity: Increase activity as tolerated Patient Instructions: Opioid Safety Activity Restrictions/Additional Instructions: Follow-up with your primary care doctor if not improving the next 3 days. If worsens return to emergency room Coding Level of Care Code ED Slurry Mixer for Alycia Fwgordo Exam Comprehensive
[2021-09-08 10:30] LABS: Charge for UA Resulting for Rev
[2021-09-08 10:35] LABS: Basophils % 0.4 %; Eosinophils # 0.1 10^3/uL (0.0-0.8); Eosinophils % 1.6 %; Hematocrit 43.5 % (42.0-52.0); Hemoglobin 14.2 g/dL (11.7-16.6); Lymphocytes # 1.9 10^3/uL (0.8-4.8); Lymphocytes % 22.2 %; Mean Corpuscular HGB Conc 32.6 g/dL (30.0-36.0); Mean Corpuscular Hemoglobin 29.5 pg (28.0-34.0); Mean Corpuscular Volume 90.4 fl (80-94); Mean Platelet Volume 9.9 fL (7.4-10.4); Monocytes # 0.6 10^3/uL (0.2-0.9); Monocytes % 6.7 %; Neutrophils # 5.86 10^3/uL (1.8-7.7); Neutrophils % 68.9 %; Nucleated Red Blood Cells % 0 %; Platelet Count 304 10^3/cmm (130-400); Red Blood Count 4.81 10^6/uL (4.1-5.3); Red Cell Distribution Width 13.3 % (12.1-15.1); White Blood Count 8.5 10^3/uL (4.0-10.0)
[2021-09-08 10:36] VITALS: BP 125/70; PULSE 88; RESP 17; TEMP 37.1; O2SAT 92
[2021-09-08 10:45] LABS: Protein Urine Neg (Negative); Urine Appearance Clear (CLEAR); pH Urine 5 (5-7)
[2021-09-08 10:46] LABS: Bilirubin Urine Neg (Negative); Blood Urine Neg (Negative); Leukocyte Esterase Urine Negative (Negative); Nitrate Urine Negative (Negative)
[2021-09-08 10:52] LABS: Lactic Sepsis W/Reflex 2.4 mmol/L (0.5-2.2)
[2021-09-08 10:53] LABS: Alanine Aminotransferase 21 U/L (0-41); Albumin Level 4.2 g/dL (3.5-5.2); Alkaline Phosphatase 90 IU/L (40-130); Anion Gap 12.7 (5-19); Aspartate Amino Transferase 14 U/L (0-40); Blood Urea Nitrogen 18 mg/dL (6-20); Calcium 9.2 mg/dL (8.5-10.5); Carbon Dioxide 31 mmol/L (22-29); Chloride 98 mmol/L (98-107); Creatine Phosphokinase 167 U/L (39-308); Globulin 2.3 g/dL (1.3-4.6); Glomerular Filtration Rate 99.6 mL/min (90-130); Glucose 247 mg/dL (65-115); Osmolality Calculated 296 mOsm/kg (285-295); Potassium 3.7 mmol/L (3.5-5.1); Sodium 138 mmol/L (136-145); Total Bilirubin 0.3 mg/dL (0.15-1.2); Total Protein 6.5 g/dL (6.6-8.7)
--- NOTE | 2021-09-08 11:59 | ECG_ITS ---
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 Measurements Intervals [place] Rate: 79 P: 67 CA: 267 QRS: 115 QRSD: 99 T: 228 QT: 389 QTc: 447 Interpretive Statements SINUS RHYTHM WITH FIRST DEGREE AV BLOCK POSSIBLE RIGHT VENTRICULAR HYPERTROPHY [SOME/ALL OF: PROMINENT R IN V1, LATE TRANSITION, RAD, FLOR, SSS] MODERATE T-WAVE ABNORMALITY, CONSIDER INFERIOR ISCHEMIA [-0.1+ mV T-WAVE IN II/aVF] Compared to ECG 09/03/2020 12:08:47 Right-axis deviation no longer present Incomplete right bundle-branch block no longer present Myocardial infarct finding no longer present T-wave abnormality still present Possible ischemia still present Electronically Signed On 09-08-2021 23:56:30 CDT by Tim Palma M.D. [email or web address]
[2021-09-08 12:18] LABS: Reflex Lactate Order REFLEX LACTIC ORDERD
[2021-09-08] MEDS: sodium chloride 0.9% 1,000 ML 999 ML IV (12:57)
[2021-09-08 13:23] LABS: Urine Color Straw (Yellow)
[2021-09-08 13:24] LABS: Specific Gravity, Urine 1.005 (1.005-1.030)
[2021-09-08 13:25] LABS: Glucose Urine UA 4+ (Normal); Ketones Urine Negative (Negative); Urobilinogen Urine Norm (Negative)
[2021-09-08 13:30] LABS: Add Urine Microscopic? NO
[2021-09-08] MEDS: ipratropium-albuterol 3 mL Neb INHALATION (13:32)
[2021-09-08 13:34] VITALS: PULSE 81; RESP 16; O2SAT 93
[2021-09-08 13:39] VITALS: PULSE 84; RESP 16; O2SAT 93
== END 2021-09-08 14:41 | disposition home or self-care (01) ==
PROVIDERS: Emergency Provider Family Medicine; PCP Nurse Practitioner
DX: J44.1 Chronic obstructive pulmonary disease with (acute) exacerbation (principal); F41.9 Anxiety disorder, unspecified; E11.9 Type 2 diabetes mellitus without complications; I10 Essential (primary) hypertension; I25.10 Atherosclerotic heart disease of native coronary artery without angina pectoris; Z79.82 Long term (current) use of aspirin; Z79.84 Long term (current) use of oral hypoglycemic drugs
CPT/HCPCS: 71045; 80053; 81003; 82550; 83605; 85025; 93005; 94640; 96361; 96374; 99284; 99291; J2930; J7030

== ENCOUNTER → 2021-09-16 09:46 | Outpatient (BNVA) | payer OTHER, MEDICARE, SELFPAY | PROVIDERS: PCP Nurse Practitioner; Visit Provider Internal Medicine | DX: R06.02 Shortness of breath (principal) | CPT/HCPCS: 80048 ==

== ENCOUNTER → 2021-10-11 10:46 | Outpatient (BNVA) | payer OTHER, MEDICARE, SELFPAY | PROVIDERS: PCP Nurse Practitioner; Visit Provider Nurse Practitioner | DX: E11.65 Type 2 diabetes mellitus with hyperglycemia (principal); E61.1 Iron deficiency; E55.9 Vitamin D deficiency, unspecified; I10 Essential (primary) hypertension; I25.10 Atherosclerotic heart disease of native coronary artery without angina pectoris; F41.9 Anxiety disorder, unspecified; J98.09 Other diseases of bronchus, not elsewhere classified; I50.9 Heart failure, unspecified; G62.9 Polyneuropathy, unspecified; E66.9 Obesity, unspecified | CPT/HCPCS: 80053; 80061; 81000; 83036 ==

== ENCOUNTER 2021-10-24 11:40 | Outpatient (CLI) | payer OTHER, MEDICARE, SELFPAY ==
[2021-10-24 12:23] LABS: Basophils % 0.5 %; Eosinophils # 0.1 10^3/uL (0.0-0.8); Eosinophils % 1.7 %; Hematocrit 41.2 % (42.0-52.0); Hemoglobin 13.3 g/dL (11.7-16.6); Lymphocytes # 1.6 10^3/uL (0.8-4.8); Lymphocytes % 20.7 %; Mean Corpuscular HGB Conc 32.3 g/dL (30.0-36.0); Mean Corpuscular Hemoglobin 29.5 pg (28.0-34.0); Mean Corpuscular Volume 91.4 fl (80-94); Mean Platelet Volume 9.8 fL (7.4-10.4); Monocytes # 0.7 10^3/uL (0.2-0.9); Monocytes % 8.6 %; Neutrophils # 5.16 10^3/uL (1.8-7.7); Neutrophils % 67.8 %; Nucleated Red Blood Cells % 0 %; Platelet Count 328 10^3/cmm (130-400); Red Blood Count 4.51 10^6/uL (4.1-5.3); Red Cell Distribution Width 14.2 % (12.1-15.1); White Blood Count 7.6 10^3/uL (4.0-10.0)
[2021-10-25 16:07] LABS: Immunoglobulin E 167 kU/L (<OR=114)
[2021-10-25 16:13] LABS: Alternaria Alternata (M6) Ige <0.10 kU/L; Alternaria Class 0; Bermuda Class 0; Bermuda Grass (G2) Ige <0.10 kU/L; Cat Dander (E1) Ige <0.10 kU/L; Cat Dander Class 0; Common Ragweed (Short) (W1) Ig <0.10 kU/L; D. Farinae Class 0/1; Dermatophagoides Class 0; Dermatophagoides Farinae (D2) 0.22 kU/L; Dermatophagoides Pteronyssinus <0.10 kU/L; Dog Dander (E5) Ige <0.10 kU/L; Dog Dander Class 0; Elm (T8) Ige <0.10 kU/L; Elm Class 0; English Plantain (W9) Ige 0.14 kU/L; English Plantain Class 0/1; House Dust (Greer) (H1) Ige 0.12 kU/L; House Dust (Hollister- Stier) 0.51 kU/L; House Dust Class 0/1; House Dust Class 1; Immunoglobulin E 160 kU/L (<OR=114); Johnson Grass (G10) Ige <0.10 kU/L; Johnson Grass Cl 0; June Grass Class 0; June Grass(Kentucky Blue) (G8) <0.10 kU/L; Lamb'S Quarters (Goose Foot) 0.15 kU/L; Lamb'S Quarters Class 0/1; Maple (Box Elder) (T1) Ige <0.10 kU/L; Maple Class 0; Meadow Fescue (G4) Ige <0.10 kU/L; Meadow Fescue Class 0; Mucor Racemosus Class 0; Oak (T7) Ige 0.11 kU/L; Oak Class 0/1; Orchard Grass (Cocksfoot) (G3) <0.10 kU/L; Penicillium Class 0; Penicillium Notatum (M1) Ige <0.10 kU/L; Perennial Rye Grass (G5) Ige <0.10 kU/L; Perennial Rye Grass Class 0; Ragweeed Class 0; Rough Marsh Elder (W16) Ige <0.10 kU/L; Rough Marsh Elder Class 0; Sweet Vernal Class 0; Sweet Vernal Grass (G1) Ige <0.10 kU/L; Timothy Grass (G6) Ige <0.10 kU/L; Timothy Grass Class 0
[2021-10-27 22:53] LABS: Aspergillus Fumigatus, Igg Ab, <3.0 mg/L (<=102)
== END 2021-10-24 11:41 | disposition home or self-care (01) ==
LOC: LAB 11:43
PROVIDERS: PCP Nurse Practitioner; Visit Provider Internal Medicine Pulmonary Disease
DX: E66.9 Obesity, unspecified (principal); G47.33 Obstructive sleep apnea (adult) (pediatric); I50.9 Heart failure, unspecified; J44.9 Chronic obstructive pulmonary disease, unspecified; J45.909 Unspecified asthma, uncomplicated; R06.02 Shortness of breath
CPT/HCPCS: 36415; 82785; 85025; 86003

== ENCOUNTER → 2021-11-30 10:35 | Outpatient (BNVA) | payer OTHER, MEDICARE, SELFPAY | PROVIDERS: PCP Nurse Practitioner; Visit Provider Nurse Practitioner | DX: Z20.822 Contact with and (suspected) exposure to COVID-19 (principal); R05.9 Cough, unspecified | CPT/HCPCS: 87635 ==

== ENCOUNTER 2021-12-14 10:37 | Emergency (ER) | payer OTHER, MEDICARE, SELFPAY ==
[2021-12-14 10:42] VITALS: BP 119/59; PULSE 84; RESP 18; TEMP 36.6; O2SAT 97; BMI 43.7
--- NOTE | 2021-12-14 10:58 | XR_ITS ---
WS: [id number] XR chest 1V portable [id number] REASON FOR EXAM: sob, hypoxia FINDINGS: The chest is unchanged compared to previous examination of 09/08/2021. Mild/moderate tortuosity and ectasia of the thoracic aorta. Mild cardiomegaly. Calcified granulomatous disease in both hemithoraces. Chronic reticular nodular opacities predominating in the right lung. No acute pulmonary parenchymal o r pleural abnormality. There is prominence of the central pulmonary veins in the upper lobes. XR/XR chest 1V portable [id number] IMPRESSION: No acute chest abnormality.
[2021-12-14 11:12] LABS: Basophils % 0.6 %; Eosinophils # 0.1 10^3/uL (0.0-0.8); Eosinophils % 1.5 %; Hematocrit 42.6 % (42.0-52.0); Hemoglobin 13.4 g/dL (11.7-16.6); Lymphocytes # 1.8 10^3/uL (0.8-4.8); Mean Corpuscular HGB Conc 31.5 g/dL (30.0-36.0); Mean Corpuscular Hemoglobin 27.9 pg (28.0-34.0); Mean Corpuscular Volume 88.6 fl (80-94); Mean Platelet Volume 9.8 fL (7.4-10.4); Monocytes # 0.7 10^3/uL (0.2-0.9); Monocytes % 10.9 %; Neutrophils # 4.14 10^3/uL (1.8-7.7); Neutrophils % 60.7 %; Nucleated Red Blood Cells % 0 %; Platelet Count 399 10^3/cmm (130-400); Red Blood Count 4.81 10^6/uL (4.1-5.3); Red Cell Distribution Width 13.6 % (12.1-15.1); White Blood Count 6.8 10^3/uL (4.0-10.0)
--- NOTE | 2021-12-14 11:31 | ECG_ITS ---
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 Measurements Intervals [place] Rate: 80 P: GA: QRS: 117 QRSD: 87 T: 141 QT: 379 QTc: 439 Interpretive Statements ATRIAL FIBRILLATION POSSIBLE RIGHT VENTRICULAR HYPERTROPHY [SOME/ALL OF: PROMINENT R IN V1, LATE TRANSITION, RAD, FLOR, SSS] NONSPECIFIC T-WAVE ABNORMALITY Compared to ECG 09/08/2021 13:19:53 Sinus rhythm no longer present First degree AV block no longer present Possible ischemia no longer present T-wave abnormality still present Electronically Signed On 12-14-2021 18:28:36 SLICE PLUG CUTTER OPERATOR by Denis Helm M.D. [id number]
--- NOTE | 2021-12-14 11:39 | ED_ITS ---
HPI - General Adult General: Chief complaint: Shortness of Breath/Dyspnea Stated complaint: SOB/ DIZZY Time Seen by Provider: 12/14/21 11:10 History of Present Illness: Patient is a 56-year-old male with history of CHF, CAD s/p stents x 2, recent Covid infection 1 month aog who presents emergency room with complaints of acute onset dyspnea since 7 AM this morning. Patient woke up this morning feeling short of breath. Since, patient has had productive cough and phlegm. Patient tells me that he takes Lasix 60 mg daily. Denies any leg swelling, orthopnea or recent weight gain. Patient denies any associated chest pain, exertional chest pain, pleuritic chest pain, nausea/vomiting fever. Patient reports mild chills, denies any abdominal complaints with nausea/vomiting, diarrhea, melena/hematochezia, or abdominal pain. No urinary complaints at this time. Onset: earlier today Duration:ongoing for the last 4 hrs Location:home Severity:moderate Associated symptoms: Reports dyspnea; Deny chest pain, nausea, rash, palpitations or vomiting Review of Systems Const: Denies: fever(s) or chills Eyes: Denies: change in vision ENMT: Denies: mouth pain Card: Denies: chest pain or palpitations Resp: Reports: dyspnea and productive cough GI: Denies: abdominal pain, nausea, vomiting or diarrhea : Denies: dysuria Musc: Denies: extremity pain Skin/Breast: Denies: rash or new lesions Neuro: Denies: weakness in extremities Psych: Reports: other (Normal mood) Eddy/Lymph: Denies: easy bruising PFSH ED PFSH: Medical History Anxiety Arteriosclerotic coronary artery disease Diabetes mellitus type II, uncontrolled Dietary noncompliance Essential (primary) hypertension Iron deficiency Neuropathy Recurrent bronchospasm Surgical History H/O heart artery stent 09/2011 History of carpal tunnel surgery of right wrist 2011 History of colonoscopy Family History Father , AGE 74 Diabetes Heart disease Mother , LUNG CANCER AGE 55 Cancer CAD (coronary artery disease) Lung disease Heart disease Grandmother CAD (coronary artery disease) Cancer Dementia Heart disease Family/Other CAD (coronary artery disease) Heart disease Grandfather CAD (coronary artery disease) Heart disease Diabetes Sister Lung disease Denies family history of Clotting disorder Chronic kidney disease (CKD) Suicide Anesthesia complication Bleeding disorder Stroke Social History Smoking and tobacco status: former smoker Quit status (tobacco): has quit using tobacco Year quit tobacco: 2000 Former quit date comment: 4ppd x 22 years Second hand smoke exposure: No Smoking risk assessment/counseling performed?: No Alcohol intake: current Alcohol intake frequency: holidays/special occasions only Desire information about alcohol rehabilitation?: No Counseling given: No Desire information about substance/drug rehabilitation?: No Counseling given: No Adopted: No Caregiver/support person: No Lives independently: Yes Household members: spouse Housing: House Marital status: Number of children: 2 service: No Current occupational status: disabled Pets and animals: Yes History of recent travel: No Current gender identity: Male and Female Physical Exam Const: COMMON NORMALS: alert HENMT: COMMON NORMALS: atraumatic HEAD & SCALP: atraumatic MOUTH: moist mucous membranes not abnormal Eye: COMMON NORMALS: EOMs intact bilaterally and conjunctivae normal CONJUNCTIVA: Yes conjunctivae normal Neck/C-Spine: COMMON NORMALS: full ROM and supple Resp: COMMON NORMALS: normal respiratory effort OTHER: +coarse breath sounds b/l Cardio: COMMON NORMALS: regular rate RATE: regular rate GI: COMMON NORMALS: Soft to palpation and non-tender PALPATION: Yes Soft to palpation Extremity: COMMON NORMALS: full ROM Neuro: SENSORIUM/ORIENTATION: Yes alert MOTOR EXAM: No Abnormal motor strength present and Other motor observations present (no focal motor deficits) Psych: COMMON NORMALS: speech normal SPEECH: Yes normal speech MOOD & AFFECT: Yes euthymic mood Course Vital Signs: Vital signs: Vital Signs Temperature 97.9 F 12/14/21 10:42 Pulse Rate 84 12/14/21 12:48 Respiratory Rate 18 12/14/21 12:48 Blood Pressure 119/59 12/14/21 12:48 Pulse Oximetry 95 12/14/21 12:48 [facility] - General Adult Medical Decision Making Patient is a 56-year-old male who presents emergency room for evaluation of acute onset of dyspnea since 7 AM this morning with productive cough. On exam, patient is afebrile, lungs appears to be clear to auscultation. Patient satting well on room air without increased work of breathing. Work-up today showed troponin initial 50 with delta of 6. He has no active complaints of chest pain. BNP dimer within normal limit. Covid negative. X- ray did not show any focal signs of pneumonia. Given minimal white count, do not suspect acute infection at this time. No suspicion for aortic dissection given no widened mediastinum, 2+ upper extremity pulses, or tearing pain. No suspicion for PE given no pleuritic chest pain, recent immobilization or surgery hemoptysis, or other VTE risk factors. EKG is non-ischemic. XR normal. Patient was found to have a troponin with delta of 6. At 1:45pm, patient is likes to go home. Explained to the patient that normally when there is a delta of 6, patient needs a 6-hour troponin. However, upon hearing this, tells me that the weather is not looking fever when he would like to go home. Patient electing to leave AMA. Patient counseled regarding risks of leaving including severe morbidity, brain , hypoxia, arrythmia, , chest pain, or any other unwanted consequences of leaving against medical advice today. Patient verbalizes understanding of the risks and still wishes to leave AMA. Signed AMA paperwork. Patient advised that patient is welcome to return at any time. Was instructed that patient may come back if symptoms continue to persist and that emergent adverse conditions have not fully been ruled out. Patient is A&Ox3 and has capacity and is of sound mind to make decisions. I have given patient follow up with our employment case manager to be seen by Dr. Zarate for evaluation of angina equivalence of dyspnea. Patient aware of a call from our employment case manager to schedule for appointment(s) and verbalizes understanding of the importance of following up. Disposition: AMA Lab Data : 12/14/21 09:58 12/14/21 09:58 Radiology Impressions Chest X-Ray 12/14/21 10:58 IMPRESSION: No acute chest abnormality. Laboratory Results WBC 6.8 10^3/uL (4.0-10.0) 12/14/21 09:58 RBC 4.81 10^6/uL (4.1-5.3) 12/14/21 09:58 Hgb 13.4 g/dL (11.7-16.6) 12/14/21 09:58 Hct 42.6 % (42.0-52.0) 12/14/21 09:58 MCV 88.6 fl (80-94) 12/14/21 09:58 MCH 27.9 pg (28.0-34.0) L 12/14/21 09:58 MCHC 31.5 g/dL (30.0-36.0) 12/14/21 09:58 RDW 13.6 % (12.1-15.1) 12/14/21 09:58 Plt Count 399 10^3/cmm (130-400) 12/14/21 09:58 MPV 9.8 fL (7.4-10.4) 12/14/21 09:58 Neut % (Auto) 60.7 % 12/14/21 09:58 Lymph % (Auto) 26.0 % 12/14/21 09:58 Hughes % (Auto) 10.9 % 12/14/21 09:58 Eos % (Auto) 1.5 % 12/14/21 09:58 Baso % (Auto) 0.6 % 12/14/21 09:58 Neut # (Auto) 4.14 10^3/uL (1.8-7.7) 12/14/21 09:58 Lymph # (Auto) 1.8 10^3/uL (0.8-4.8) 12/14/21 09:58 Hughes # (Auto) 0.7 10^3/uL (0.2-0.9) 12/14/21 09:58 Eos # (Auto) 0.1 10^3/uL (0.0-0.8) 12/14/21 09:58 Baso # (Auto) 0.0 10^3/uL (0.0-0.1) 12/14/21 09:58 Nucleated RBC % (auto) 0 % 12/14/21 09:58 Nucleated RBCs # 0.0 /100WBC 12/14/21 09:58 D-Dimer <= 0.27 ug/mIFEU (0-0.59) 12/14/21 09:58 Sodium 136 mmol/L (136-145) 12/14/21 09:58 Potassium 4.0 mmol/L (3.5-5.1) 12/14/21 09:58 Chloride 101 mmol/L (98-107) 12/14/21 09:58 Carbon Dioxide 19 mmol/L (22-29) L 12/14/21 09:58 Anion Gap 20.0 (5-19) H 12/14/21 09:58 BUN 17 mg/dL (6-20) 12/14/21 09:58 Creatinine 0.8 mg/dL (0.7-1.2) 12/14/21 09:58 GFR Calculation 99.6 mL/min (90-130) 12/14/21 09:58 Glucose 236 mg/dL (65-115) H 12/14/21 09:58 Calculated Osmolality 291 mOsm/kg (285-295) 12/14/21 09:58 Lactic Acid 1.8 mmol/L (0.5-2.2) 12/14/21 11:23 Calcium 9.4 mg/dL (8.5-10.5) 12/14/21 09:58 Total Bilirubin 0.3 mg/dL (0.15-1.2) 12/14/21 09:58 AST 16 U/L (0-40) 12/14/21 09:58 ALT 18 U/L (0-41) 12/14/21 09:58 Alkaline Phosphatase 84 IU/L (40-130) 12/14/21 09:58 Troponin T Baseline 50 ng/L (0-15) H 12/14/21 09:58 Troponin T 120 Minute 56.88 ng/L (0-15) H 12/14/21 11:40 Delta Troponin T 6.88 ABS# (0-10) 12/14/21 11:40 NT-Pro-B Natriuret Pep 327 pg/mL (0-125) H 12/14/21 09:58 Total Protein 6.4 g/dL (6.6-8.7) L 12/14/21 09:58 Albumin 4.0 g/dL (3.5-5.2) 12/14/21 09:58 Globulin 2.4 g/dL (1.3-4.6) 12/14/21 09:58 Procalcitonin 0.04 ng/mL (0-0.5) 12/14/21 09:58 SARS-CoV-2 Ag (Rapid) Negative (Negative) 12/14/21 12:41 Imaging Data Other Imaging: Radiologist's impression: [address] [place] [address] XRay Report Signed Patient: Fariba Rossi Unit #: [id number] : 1965 Age/Sex: 56 / M ADM Date: 12/14/21 Loc: ER Room/Bed: Attending Dr: Ordering Provider/Ordering MD: Coty Olivier Date of Service: 12/14/21 Procedure(s): XR chest 1V portable [id number] Accession Number(s): [id number] Report Number: [id number] WS: [id number] XR chest 1V portable [id number] REASON FOR EXAM: sob, hypoxia FINDINGS: The chest is unchanged compared to previous examination of 09/08/2021. Mild/moderate tortuosity and ectasia of the thoracic aorta. Mild cardiomegaly. Calcified granulomatous disease in both hemithoraces. Chronic reticular nodular opacities predominating in the right lung. No acute pulmonary parenchymal or pleural abnormality.? There is prominence of the central pulmonary veins in the upper lobes. XR/XR chest 1V portable [id number] IMPRESSION: No acute chest abnormality. ? ? Dictated By: Christiano Ozuna Jr, MD Signed By: Christiano Ozuna Jr, MD Signed Date/Time: 12/14/21 1146 DD/ 1140 Discharge Plan Discharge Patient Disposition: Left Against Medical Advice Clinical Impression: Cough, Dyspnea Condition: Stable Prescriptions: No Action aspirin [Aspir-Elvia] 325 mg tablet,delayed release (DR/EC) 325 mg PO DAILY 0RF budesonide [Pulmicort] 0.5 mg/2 mL suspension for nebulization 0.5 mg INHALATION BID PRN (Reason: wheezing) Qty: 60 2RF lidocaine 5 % adhesive patch,medicated 1 patch TOPICAL .COMPLEX 0RF Rx Instructions: 1 patch topical ; nystatin-triamcinolone Cream TOPICAL 0RF triamcinolone acetonide 0.1 % cream 1 applic TOPICAL BID 0RF (DME) lancets [OneTouch Delica Lancets] 33 gauge misc See Rx Instructions .ROUTE .MEDSUPPLY Qty: 200 5RF Rx Instructions: 4 times daily Mucinex 1,200 mg tablet extended release 12hr 1,200 mg PO Q12H Qty: 20 0RF amlodipine 5 mg tablet 5 mg PO DAILY Qty: 90 0RF atorvastatin 40 mg tablet 40 mg PO DAILY Qty: 90 0RF (DME) OneTouch Ultra Blue Test Strip Strip See Rx Instructions .ROUTE .MEDSUPPLY Qty: 200 5RF Rx Instructions: 4 times a day as needed doxepin 50 mg capsule 50 mg PO TID Qty: 270 0RF empagliflozin 25 mg tablet 25 mg PO QAM Qty: 30 2RF fluoxetine [Prozac] 20 mg capsule 20 mg PO BID Qty: 180 0RF Flovent HFA 110 mcg/actuation HFA aerosol inhaler 2 puff inhalation BID Qty: 12 2RF Hold Instructions: Use nebulizer steroid hydralazine 100 mg tablet 100 mg PO TID Qty: 270 0RF Novolin R Flexpen 100 unit/mL (3 mL) insulin pen 18 - 32 unit SUBCUT DAILY Qty: 15 2RF Rx Instructions: 110-129=18U 130-150=20U 151-200=22U 201-250=24U 251-300=26U 301-350=28U 351-400=30U >400= 32U levalbuterol tartrate [Xopenex HFA] 45 mcg/actuation HFA aerosol inhaler 2 inh INHALATION Q4H Qty: 15 2RF magnesium oxide 400 mg magnesium capsule 400 mg PO DAILY Qty: 90 0RF metformin 500 mg tablet extended release 24 hr 2,000 mg PO DAILY Qty: 360 0RF propranolol 80 mg capsule,extended release 24 hr 80 mg PO DAILY Qty: 90 0RF semaglutide 1 mg/dose (4 mg/3 mL) pen injector 1 mg SUBCUT .weekly Qty: 3 2RF Entresto 49-51 mg tablet 1 tab PO BID Qty: 60 2RF Rx Instructions: Left ventricular ejection fraction is estimated at 60 %. (DME) blood-glucose meter [OneTouch Ultra2 Meter] Kit See Rx Instructions .ROUTE .MEDSUPPLY Qty: 1 0RF Rx Instructions: use daily albuterol sulfate 2.5 mg /3 mL (0.083 %) solution for nebulization 2.5 mg INHALATION QID PRN (Reason: bronchospasm) Qty: 75 3RF Levemir FlexTouch U-100 Insuln 100 unit/mL (3 mL) insulin pen 40 unit SUBCUT BID Qty: 30 2RF furosemide [Lasix] 20 mg tablet 20 mg PO TID Qty: 180 0RF Discharge Orders: Discharge ED (Routine); Ordered 12/14/21 Ordered By: Samira Murray Referrals: Mateo Sifuentes, [employer] [Primary Care Provider] - Patient Instructions: Dyspnea (ED) Activity Restrictions/Additional Instructions: Come back to the emergency room if your chest pain worsens, have any fever or chills, worsening shortness of breath, worsening exertional lightheadedness, or any new or concerning complaints. Coding Level of Care Code ED Hematology Oncology Consultant for Alycia Fwd Exam Comprehensive
[2021-12-14 11:44] LABS: NT Pro B Type Natriuretic Pept 327 pg/mL (0-125); Procalcitonin 0.04 ng/mL (0-0.5)
[2021-12-14 11:55] LABS: Alanine Aminotransferase 18 U/L (0-41); Alkaline Phosphatase 84 IU/L (40-130); Aspartate Amino Transferase 16 U/L (0-40); Blood Urea Nitrogen 17 mg/dL (6-20); Calcium 9.4 mg/dL (8.5-10.5); Carbon Dioxide 19 mmol/L (22-29); Chloride 101 mmol/L (98-107); Globulin 2.4 g/dL (1.3-4.6); Glomerular Filtration Rate 99.6 mL/min (90-130); Glucose 236 mg/dL (65-115); Osmolality Calculated 291 mOsm/kg (285-295); Sodium 136 mmol/L (136-145); Total Bilirubin 0.3 mg/dL (0.15-1.2); Total Protein 6.4 g/dL (6.6-8.7)
[2021-12-14 12:05] LABS: Lactic Sepsis W/Reflex 1.8 mmol/L (0.5-2.2)
[2021-12-14 12:08] LABS: D Dimer <= 0.27 ug/mIFEU (0-0.59)
[2021-12-14 12:15] LABS: Troponin 5 2HR 56.88 ng/L (0-15)
[2021-12-14 12:15] LABS: Troponin(5th) Baseline 50 ng/L (0-15)
[2021-12-14 12:16] LABS: Troponin 5 2HR Delta 6.88 ABS# (0-10)
[2021-12-14 12:48] VITALS: BP 119/59; PULSE 84; RESP 18; O2SAT 95
[2021-12-14 13:07] LABS: SARS Covid-2 Antigen Negative (Negative)
[2021-12-14 14:00] VITALS: BP 125/80; PULSE 82; RESP 17; O2SAT 94
--- NOTE | 2021-12-20 12:33 | DCPLANNER ---
Addendum entered by Marcy Lyle 01/02/22 15:54: Patient had an appointment scheduled for 12.28.21 with [facility] - patient did not attend appointment. Original Note: assistant casino shift manager had message to schedule a follow up appointment for patient with [facility]. assistant casino shift manager called [facility], spoke with Mary, gave clinic patients information. A follow up appointment was scheduled for Sunday, December 28, 2021 at 9:00 with Yolanda Taylor. assistant casino shift manager called patient and left a voicemail for patient with the appointment information.
== END 2021-12-14 13:57 | disposition left against medical advice (07) ==
PROVIDERS: Physician Assistant; Emergency Provider Emergency Medicine; PCP Nurse Practitioner
DX: R05.9 Cough, unspecified (principal); R06.00 Dyspnea, unspecified; Z53.21 Procedure and treatment not carried out due to patient leaving prior to being seen by health care provider; Z79.82 Long term (current) use of aspirin; Z79.4 Long term (current) use of insulin; I25.10 Atherosclerotic heart disease of native coronary artery without angina pectoris; E11.9 Type 2 diabetes mellitus without complications; I10 Essential (primary) hypertension; Z87.891 Personal history of nicotine dependence; Z20.822 Contact with and (suspected) exposure to COVID-19
CPT/HCPCS: 36415; 71045; 80053; 83605; 83880; 84145; 84484; 85025; 85378; 87426; 93005; 99283

== ENCOUNTER → 2021-12-28 12:17 | Outpatient (BNVA) | payer OTHER, MEDICARE, SELFPAY | PROVIDERS: PCP Nurse Practitioner; Visit Provider Internal Medicine Pulmonary Disease | DX: Z01.812 Encounter for preprocedural laboratory examination (principal); Z20.822 Contact with and (suspected) exposure to COVID-19 | CPT/HCPCS: 87635 ==

== ENCOUNTER → 2022-01-02 10:38 | Outpatient (BNVA) | payer OTHER, MEDICARE, SELFPAY | PROVIDERS: PCP Nurse Practitioner; Visit Provider Nurse Practitioner | DX: E11.65 Type 2 diabetes mellitus with hyperglycemia (principal) | CPT/HCPCS: 81000 ==

== ENCOUNTER 2022-01-03 13:46 | Outpatient (CLI) | payer OTHER, MEDICARE, SELFPAY ==
--- NOTE | 2022-01-03 14:27 | PFTS_ITS ---
Date of Study:01/03/22 Date of Dictation: MECHANICS: Forced vital capacity (FVC) is reduced. Forced expiratory volume in one second (FEV1) is reduced. FEV1/FVC is reduced. FLOW VOLUME LOOP: Reduced flow at all lung volumes with scooping. LUNG VOLUMES: Total lung capacity (TLC) is increased. Residual volume (RV) is increased. DIFFUSING CAPACITY FOR CARBON MONOXIDE: Mildly reduced. INTERPRETATION: The pulmonary function tests are consistent with severe airflow obstruction. No significant postbronchodilator response is present. Lung volumes are consistent with hyperinflation and air trapping. Gas exchange (DLCO) is mildly reduced. MTDD
== END 2022-01-03 13:47 | disposition home or self-care (01) ==
LOC: RT 13:47
PROVIDERS: PCP Nurse Practitioner; Visit Provider Internal Medicine Pulmonary Disease
DX: J44.9 Chronic obstructive pulmonary disease, unspecified (principal)
CPT/HCPCS: 94060; 94618; 94726; 94729; J7611

== ENCOUNTER → 2022-03-23 08:53 | Outpatient (BNVA) | payer OTHER, MEDICARE, SELFPAY | PROVIDERS: PCP Nurse Practitioner; Visit Provider Nurse Practitioner | DX: J06.9 Acute upper respiratory infection, unspecified (principal); E11.65 Type 2 diabetes mellitus with hyperglycemia; I11.0 Hypertensive heart disease with heart failure; I50.9 Heart failure, unspecified; I25.10 Atherosclerotic heart disease of native coronary artery without angina pectoris; F41.9 Anxiety disorder, unspecified; J98.09 Other diseases of bronchus, not elsewhere classified | CPT/HCPCS: 80053; 80061; 81000; 83036; 85025 ==

== ENCOUNTER 2022-04-22 12:26 | Emergency (ER) | payer OTHER, MEDICARE, SELFPAY ==
[2022-04-22 12:32] VITALS: BP 132/75; PULSE 110; RESP 16; TEMP 36.7; O2SAT 94; BMI 44.4
--- NOTE | 2022-04-22 12:38 | XRR_ITS ---
PROCEDURE INFORMATION: Exam: XR Chest Exam date and time: 04/22/2022 12:50 PM Age: 56 years old Clinical indication: Shortness of breath; Additional info: Cp TECHNIQUE: Imaging protocol: XR of the chest. Views: 1 view. COMPARISON: CR XR chest 1V portable [id number] 12/14/2021 11:02 AM FINDINGS: Lungs: Unremarkable. No consolidation. Pleural spaces: Unremarkable. No pleural effusion. No pneumothorax. Heart/Mediastinum: Unremarkable. No cardiomegaly. Bones/joints: Unremarkable. XR/XR chest 1V portable [id number] IMPRESSION: No acute findings.
--- NOTE | 2022-04-22 12:38 | ECG_ITS ---
[facility] Test Date: 2022-04-22 Pat Name: Fariba Rossi Department: Room: Gender: Male National Secretary: : 1965 Requested By: Pravin Sampson Order Number: [id number] Marion MD: Tim Palma M.D. Measurements Intervals [place] Rate: 97 P: 268 CO: 158 QRS: 106 QRSD: 82 T: -38 QT: 339 QTc: 432 Interpretive Statements SINUS RHYTHM POSSIBLE RIGHT VENTRICULAR HYPERTROPHY [SOME/ALL OF: PROMINENT R IN V1, LATE TRANSITION, RAD, FLOR, SSS] ANTEROSEPTAL MYOCARDIAL INFARCTION , OF INDETERMINATE AGE [40+ ms Q WAVE IN V1-V4] MODERATE T-WAVE ABNORMALITY, CONSIDER INFERIOR ISCHEMIA [-0.1+ mV T-WAVE IN II/aVF] Compared to ECG 12/14/2021 11:53:03 Myocardial infarct finding now present Possible ischemia now present Atrial fibrillation no longer present T-wave abnormality still present Electronically Signed On 04-22-2022 19:03:49 CDT by Tim Palma M.D. [id number]
[2022-04-22 13:07] VITALS: BP 110/72; PULSE 99; RESP 22; O2SAT 92
[2022-04-22 14:00] VITALS: BP 105/77; PULSE 98; RESP 24; O2SAT 94
--- NOTE | 2022-04-22 14:38 | ECG_ITS ---
[facility] Test Date: 2022-04-22 Pat Name: Fariba Rossi Department: Room: Gender: Male Machine Tailer: : 1965 Requested By: Pravin Sampson Order Number: [id number] Marion MD: Tim Palma M.D. Measurements Intervals [place] Rate: 87 P: 73 [place]: 240 QRS: 109 QRSD: 73 T: 150 QT: 360 QTc: 435 Interpretive Statements SINUS RHYTHM WITH FIRST DEGREE AV BLOCK. RIGHT AXIS DEVIATION [QRS AXIS > 100].LOW QRS VOLTAGE IN EXTREMITY LEADS [QRS DEFLECTION < 0.5 mV IN LIMB LEADS].POSSIBLE ANTERIOR MYOCARDIAL INFARCTION , OF INDETERMINATE AGE [30 ms Q WAVE INV3/V4, OR R < 0.2 mV IN V4] MODERATE T-WAVE ABNORMALITY, CONSIDER LATERAL ISCHEMIA [-0.1+ mV T-WAVE IN I/aVL/V5/V6] INTERPRETATION BASED ON A DEFAULT AGE OF 40 YEARS Compared to ECG 04/22/2022 12:43:59 First degree AV block now present.Right-axis deviation now present Low QRS voltage now present.Atrial abnormality no longer present Myocardial infarct finding still present.T-wave abnormality still present Possible ischemia still present Electronically Signed On 04-22-2022 19:07:11 CDT by Tim Palma M.D. [id number]
--- NOTE | 2022-04-22 14:52 | W.ED.CHESTPA ---
HPI - Chest Pain General: Chief Complaint: Chest Pain Stated Complaint: CP; UE pain; SOB Time Seen by Provider: 04/22/22 14:42 Source: patient Mode of arrival: ambulatory Limitations: no limitations History of Present Illness: This patient presents to emergency department because he thought he might be having a heart attack. He states that approximately 11 AM today when he was getting ready to lay down with his grandchildren he felt pain in his chest that he described as a heartburn type sensation. He states the pain seemed to radiate to his right arm and into his left arm and then somewhere in his neck. He states that he continue to have the symptoms until approximately 230 today so for a total of approximately 3-1/2 hours. He presented to the emergency department with the symptoms. He states he is taking his usual medication this morning. He admits to a history of coronary artery disease having had a stent placed approximately 11 years ago. He states he occasionally has chest pains but nothing like he had today. He denied any injury, cough, or recent illness. He does not smoke and have has quit approximately 20 years ago. He is a diabetic and states he has been faithful to hold his medications. He did take 325 mg of aspirin today. He did not take nitroglycerin. He takes furosemide daily as well. MD complaint: chest pain Pertinent past history: coronary artery disease Timing of current episode: constant Prior episodes: Yes Onset: during rest Pain location: substernal Pain radiation: right arm, left arm and neck Quality: burning Relieving factors: nothing Exacerbating factors: nothing Associated symptoms: Reports no associated symptoms; Deny abdominal pain, dyspnea, fever(s), nausea, palpitations, syncope or vomiting Review of Systems Const: Denies: fever(s), chills or body aches Eyes: Denies: change in vision ENMT: Denies: throat pain, odynophagia or nasal congestion Card: Denies: palpitations, irregular heart rhythm, lightheadedness or syncope Resp: Denies: dyspnea, productive cough or non-productive cough GI: Denies: abdominal pain, nausea, vomiting or diarrhea : Denies: flank pain, difficulty urinating, dysuria or urinary frequency Musc: Denies: neck pain, back pain, extremity pain or extremity swelling Skin/Breast: Denies: rash Neuro: Denies: headache(s), numbness in extremities or weakness in extremities Psych: Denies: anxiety Endo: Denies: polyuria or polydipsia PFSH ED PFSH: Medical History Anxiety Arteriosclerotic coronary artery disease Diabetes mellitus type II, uncontrolled Dietary noncompliance Essential (primary) hypertension Iron deficiency Neuropathy Recurrent bronchospasm Surgical History H/O heart artery stent 09/2011 History of carpal tunnel surgery of right wrist 2011 History of colonoscopy Family History Father , AGE 74 Diabetes Heart disease Mother , LUNG CANCER AGE 55 Cancer CAD (coronary artery disease) Lung disease Heart disease Grandmother CAD (coronary artery disease) Cancer Dementia Heart disease Family/Other CAD (coronary artery disease) Heart disease Grandfather CAD (coronary artery disease) Heart disease Diabetes Sister Lung disease Denies family history of Clotting disorder Chronic kidney disease (CKD) Suicide Anesthesia complication Bleeding disorder Stroke Social History Smoking and tobacco status: former smoker Quit status (tobacco): has quit using tobacco Year quit tobacco: 2000 Former quit date comment: 4ppd x 22 years Second hand smoke exposure: No Smoking risk assessment/counseling performed?: No Alcohol intake: current Alcohol intake frequency: holidays/special occasions only Desire information about alcohol rehabilitation?: No Counseling given: No Desire information about substance/drug rehabilitation?: No Counseling given: No Adopted: No Caregiver/support person: No Lives independently: Yes Household members: spouse Housing: House Marital status: Number of children: 2 service: No Current occupational status: disabled Pets and animals: Yes History of recent travel: No Current gender identity: Male and Female Physical Exam Narrative: EXAM NARRATIVE: Patient is alert makes good eye contact is no acute distress. He answers questions in a goal-directed fashion. Const: COMMON NORMALS: no acute distress and patient oriented x3 GENERAL APPEARANCE: comfortable NUTRITIONAL APPEARANCE: overweight HENMT: COMMON NORMALS: normocephalic, atraumatic, Normal nasal mucous membranes and turbinates present and moist oral mucous membranes HEAD & SCALP: normocephalic and atraumatic NOSE: Normal nasal mucous membranes and turbinates present Eye: COMMON NORMALS: Equal, round and reactive pupils present, EOMs intact bilaterally and conjunctivae normal CONJUNCTIVA: Yes conjunctivae normal PUPIL: Yes Equal, round and reactive pupils present Neck/C-Spine: COMMON NORMALS: full ROM, supple, no JVD and No carotid bruits Chest: COMMONS NORMALS: normal inspection of the chest and normal palpation of entire chest wall Resp: COMMON NORMALS: normal respiratory effort, No retractions, No use of accessory muscles and clear to auscultation bilaterally AUSCULTATION: clear to auscultation bilaterally Cardio: COMMON NORMALS: no JVD, regular rate, regular rhythm, No murmurs present (Cardio) and Peripheral pulses 2+ throughout RATE: regular rate RHYTHM: regular rhythm PERIPHERAL PULSES: Peripheral pulses 2+ throughout GI: COMMON NORMALS: Soft to palpation and non-tender PALPATION: Yes Soft to palpation : COMMON NORMALS: Yes no CVA tenderness BLADDER/KIDNEY EXAM: Yes no CVA tenderness Back/Pelvis: COMMON NORMALS: no CVA tenderness, thoracic and lumbar spine normal to inspection and no thoracic nor lumbar tenderness Extremity: COMMON NORMALS: normal to inspection, full ROM, capillary refill normal, no calf tenderness and no pedal edema Neuro: COMMON NORMALS: patient oriented x3, moves all extremities, no focal motor deficits and no sensory deficits noted Psych: COMMON NORMALS: mental status grossly normal and cooperative Skin: COMMON NORMALS: no rashes or lesions noted, turgor normal and no jaundice GENERAL SKIN EXAM: no rashes or lesions noted and turgor normal Course Reevaluation(s): Reevaluation #1: Patient remained clinically stable. His initial troponin was slightly elevated with a EKG that was essentially unchanged from prior EKGs. The patient had no ongoing chest pain symptoms. The patient has decided to leave the emergency department prior to completion of his second troponin which actually was scheduled to be drawn at this time. I discussed with the patient that he has not had a complete evaluation and we have been information as to whether he is having any ongoing cardiac ischemia. He responded that he did not think he was having a heart attack at this time and wanted to go home. He appeared to be not under the influence and could repeat that he understood that there was risks to leaving and that certainly he could have undiagnosed cardiac ischemia etc. that might result in loss of current lifestyle and/or . Time: 18:37 Vital Signs: Vital signs: Vital Signs Temperature 98.0 F 04/22/22 12:32 Pulse Rate 110 H 04/22/22 12:32 Respiratory Rate 16 04/22/22 12:32 Blood Pressure 132/75 04/22/22 12:32 Pulse Oximetry 94 04/22/22 12:32 MDM - Chest Pain Medical Decision Making Patient with history of coronary disease presented to our emergency department with chest pain approximately 3 hours duration prior to arrival but was having no chest pain symptoms at the time of his emergency department evaluation. The patient is initial troponin was elevated and the patient decided to leave prior to completion of a repeat troponin to in both her on trending to determine if there is any ongoing ischemia, etc. Despite counseling to the patient and with the patient regarding his incomplete evaluation he has decided to leave the emergency department prior to completion of treatment. He displayed no signs or clinical findings to suggest he had impaired decision-making capacity at this time and was welcome back to the emergency department at any time. Medical Records I reviewed the patient's medical records. Lab Data I reviewed the patient's lab results. : 04/22/22 15:00 04/22/22 16:32 Radiology Impressions Chest X-Ray 04/22/22 12:38 IMPRESSION: No acute findings. Laboratory Results WBC 7.4 10^3/uL (4.0-10.0) 04/22/22 15:00 RBC 5.05 10^6/uL (4.1-5.3) 04/22/22 15:00 Hgb 14.0 g/dL (11.7-16.6) 04/22/22 15:00 Hct 41.4 % (42.0-52.0) L 04/22/22 15:00 MCV 82.0 fl (80-94) 04/22/22 15:00 MCH 27.7 pg (28.0-34.0) L 04/22/22 15:00 MCHC 33.8 g/dL (30.0-36.0) 04/22/22 15:00 RDW 15.1 % (12.1-15.1) 04/22/22 15:00 Plt Count 348 10^3/cmm (130-400) 04/22/22 15:00 MPV 10.2 fL (7.4-10.4) 04/22/22 15:00 Neut % (Auto) 60.5 % 04/22/22 15:00 Lymph % (Auto) 27.7 % 04/22/22 15:00 [place] % (Auto) 8.3 % 04/22/22 15:00 Eos % (Auto) 2.2 % 04/22/22 15:00 Baso % (Auto) 0.8 % 04/22/22 15:00 Neut # (Auto) 4.47 10^3/uL (1.8-7.7) 04/22/22 15:00 Lymph # (Auto) 2.1 10^3/uL (0.8-4.8) 04/22/22 15:00 [place] # (Auto) 0.6 10^3/uL (0.2-0.9) 04/22/22 15:00 Eos # (Auto) 0.2 10^3/uL (0.0-0.8) 04/22/22 15:00 Baso # (Auto) 0.1 10^3/uL (0.0-0.1) 04/22/22 15:00 Nucleated RBC % (auto) 0 % 04/22/22 15:00 Nucleated RBCs # 0.0 /100WBC 04/22/22 15:00 Sodium 139 mmol/L (136-145) 04/22/22 16:32 Potassium 3.5 mmol/L (3.5-5.1) 04/22/22 16:32 Chloride 99 mmol/L (98-107) 04/22/22 16:32 Carbon Dioxide 26 mmol/L (22-29) 04/22/22 16:32 Anion Gap 17.5 (5-19) 04/22/22 16:32 BUN 15 mg/dL (6-20) 04/22/22 16:32 Creatinine 0.7 mg/dL (0.7-1.2) 04/22/22 16:32 GFR Calculation 116.2 mL/min (90-130) 04/22/22 16:32 Glucose 117 mg/dL (65-115) H 04/22/22 16:32 Calculated Osmolality 290 mOsm/kg (285-295) 04/22/22 16:32 Calcium 9.2 mg/dL (8.5-10.5) 04/22/22 16:32 Total Bilirubin 0.3 mg/dL (0.15-1.2) 04/22/22 16:32 AST 17 U/L (0-40) 04/22/22 16:32 ALT 27 U/L (0-41) 04/22/22 16:32 Alkaline Phosphatase 95 IU/L (40-130) 04/22/22 16:32 Troponin T Baseline 39 ng/L (0-15) H 04/22/22 16:32 NT-Pro-B Natriuret Pep 296 pg/mL (0-125) H 04/22/22 16:32 Total Protein 7.7 g/dL (6.6-8.7) 04/22/22 16:32 Albumin 4.2 g/dL (3.5-5.2) 04/22/22 16:32 Globulin 3.5 g/dL (1.3-4.6) 04/22/22 16:32 EKG Data EKG 1: I personally reviewed and interpreted this EKG as follows: Interpretation: His EKG reveals ventricular rate of 87 bpm. He has a prolonged MA interval of 240 ms consistent with a first-degree AV block. He has normal QRS duration and normal QTc interval. He has a leftward axis consistent with a left anterior hemiblock. He has some nonspecific ST-T wave changes noted in the precordial leads. Compared with prior EKG of December 2021 he has no longer in atrial fibrillation. His ST changes seem to be consistent with those on the previous EKG. Discharge Plan Discharge Patient Disposition: Home Clinical Impression: Chest pain Condition: Stable Prescriptions: No Action aspirin [Aspir-Elvia] 325 mg tablet,delayed release (DR/EC) 325 mg PO QAM 0RF lidocaine 5 % adhesive patch,medicated 1 patch TOPICAL .COMPLEX 0RF Rx Instructions: apply one patch daily as needed for pain (on for 12 hours and off for 12 hours) triamcinolone acetonide 0.1 % cream 1 applic TOPICAL BID PRN (Reason: Rash) 0RF (DME) lancets [OneTouch Delica Lancets] 33 gauge misc See Rx Instructions .ROUTE .MEDSUPPLY Qty: 200 5RF Rx Instructions: 4 times daily (DME) OneTouch Ultra Blue Test Strip Strip See Rx Instructions .ROUTE .MEDSUPPLY Qty: 200 5RF Rx Instructions: 4 times a day as needed Entresto 49-51 mg tablet 1 tab PO BID Qty: 60 2RF Rx Instructions: Left ventricular ejection fraction is estimated at 60 %. doxepin 50 mg capsule 50 mg PO TID Qty: 270 0RF empagliflozin 25 mg tablet 25 mg PO QAM Qty: 30 2RF fluoxetine [Prozac] 20 mg capsule 20 mg PO BID Qty: 180 0RF furosemide [Lasix] 20 mg tablet 20 mg PO TID Qty: 180 0RF hydralazine 100 mg tablet 100 mg PO TID Qty: 270 0RF Levemir FlexTouch U-100 Insuln 100 unit/mL (3 mL) insulin pen 40 unit SUBCUT BID Qty: 30 2RF metformin 500 mg tablet extended release 24 hr 2,000 mg PO DAILY Qty: 360 0RF budesonide-formoterol [Symbicort] 80-4.5 mcg/actuation HFA aerosol inhaler 2 puff inhalation BID Qty: 10.2 3RF albuterol sulfate [Ventolin HFA] 90 mcg/actuation HFA aerosol inhaler 1 inh inhalation QID PRN (Reason: shortness of breath or wheezing) Qty: 8.5 3RF (DME) blood-glucose meter [OneTouch Ultra2 Meter] Kit See Rx Instructions .ROUTE .MEDSUPPLY Qty: 1 0RF Rx Instructions: use daily albuterol sulfate 2.5 mg /3 mL (0.083 %) solution for nebulization 2.5 mg INHALATION QID PRN (Reason: bronchospasm) Qty: 75 3RF cholecalciferol (vitamin D3) 1,250 mcg (50,000 unit) Capsule 50,000 unit PO .TWICE A WEEK 0RF Rx Instructions: on sun and sun bisacodyl 5 mg Tablet 5 mg PO DAILY PRN (Reason: Constipation) 0RF atorvastatin 40 mg tablet 40 mg PO QAM 0RF amlodipine 5 mg tablet 5 mg PO QAM 0RF propranolol 80 mg capsule,extended release 24 hr 80 mg PO QAM 0RF Novolin R Flexpen 100 unit/mL (3 mL) insulin pen See Rx Instructions .ROUTE .COMPLEX 0RF Rx Instructions: sliding scale up to qid [id number]>400= 32U Mucinex 1,200 mg tablet extended release 12hr 1,200 mg PO Q12H PRN (Reason: Congestion) 0RF magnesium oxide 400 mg magnesium capsule 400 mg PO QAM 0RF semaglutide 1 mg/dose (4 mg/3 mL) pen injector 1 mg SUBCUT Q7D 0RF Rx Instructions: on sat Discharge Orders: Discharge ED (Routine); Ordered 04/22/22 Ordered By: Pravin Sampson Referrals: Mateo Sifuentes, [facility] [Primary Care Provider] - Discharge Activity: Increase activity as tolerated Patient Instructions: Opioid Safety Activity Restrictions/Additional Instructions: As we discussed your initial blood test for your heart were slightly elevated but you have decided to leave the emergency department prior to completion of your treatment. You are welcome to return to the emergency department at any time should you develop any ongoing chest pain or other concerns that you feel need evaluated. It is important that you continue all your usual medications. Should also understand that you have not received a complete evaluation today there may be ongoing condition that is currently undiagnosed. Coding Level of Care Code ED [employer] for [facility]lycia Fwg[facility] Exam Comprehensive
[2022-04-22 15:07] LABS: Basophils # 0.1 10^3/uL (0.0-0.1); Basophils % 0.8 %; Eosinophils # 0.2 10^3/uL (0.0-0.8); Eosinophils % 2.2 %; Hematocrit 41.4 % (42.0-52.0); Lymphocytes # 2.1 10^3/uL (0.8-4.8); Lymphocytes % 27.7 %; Mean Corpuscular HGB Conc 33.8 g/dL (30.0-36.0); Mean Corpuscular Hemoglobin 27.7 pg (28.0-34.0); Mean Platelet Volume 10.2 fL (7.4-10.4); Monocytes # 0.6 10^3/uL (0.2-0.9); Monocytes % 8.3 %; Neutrophils # 4.47 10^3/uL (1.8-7.7); Neutrophils % 60.5 %; Nucleated Red Blood Cells % 0 %; Platelet Count 348 10^3/cmm (130-400); Red Blood Count 5.05 10^6/uL (4.1-5.3); Red Cell Distribution Width 15.1 % (12.1-15.1); White Blood Count 7.4 10^3/uL (4.0-10.0)
[2022-04-22 15:37] VITALS: BP 154/72; PULSE 89; RESP 16; O2SAT 93
[2022-04-22 16:58] LABS: Troponin(5th) Baseline 39 ng/L (0-15)
[2022-04-22 17:04] LABS: Alanine Aminotransferase 27 U/L (0-41); Albumin Level 4.2 g/dL (3.5-5.2); Alkaline Phosphatase 95 IU/L (40-130); Anion Gap 17.5 (5-19); Aspartate Amino Transferase 17 U/L (0-40); Blood Urea Nitrogen 15 mg/dL (6-20); Calcium 9.2 mg/dL (8.5-10.5); Carbon Dioxide 26 mmol/L (22-29); Chloride 99 mmol/L (98-107); Globulin 3.5 g/dL (1.3-4.6); Glomerular Filtration Rate 116.2 mL/min (90-130); Glucose 117 mg/dL (65-115); NT Pro B Type Natriuretic Pept 296 pg/mL (0-125); Osmolality Calculated 290 mOsm/kg (285-295); Potassium 3.5 mmol/L (3.5-5.1); Sodium 139 mmol/L (136-145); Total Bilirubin 0.3 mg/dL (0.15-1.2); Total Protein 7.7 g/dL (6.6-8.7)
--- NOTE | 2022-04-22 18:46 | PC.NURSE ---
PT placed on continuous NIBP, SpO2, and cm
== END 2022-04-22 18:48 | disposition home or self-care (01) ==
PROVIDERS: Emergency Provider Emergency Medicine; PCP Nurse Practitioner
DX: R07.9 Chest pain, unspecified (principal); Z53.29 Procedure and treatment not carried out because of patient's decision for other reasons; I25.10 Atherosclerotic heart disease of native coronary artery without angina pectoris; I10 Essential (primary) hypertension; E11.9 Type 2 diabetes mellitus without complications; Z79.4 Long term (current) use of insulin; Z87.891 Personal history of nicotine dependence; Z79.82 Long term (current) use of aspirin; Z79.84 Long term (current) use of oral hypoglycemic drugs
CPT/HCPCS: 71045; 80053; 83880; 84484; 85025; 93005; 99284

== ENCOUNTER → 2022-06-15 08:54 | Outpatient (BNVA) | payer OTHER, MEDICARE, SELFPAY | PROVIDERS: PCP Nurse Practitioner; Visit Provider Nurse Practitioner | DX: E11.65 Type 2 diabetes mellitus with hyperglycemia (principal); I11.0 Hypertensive heart disease with heart failure; I50.9 Heart failure, unspecified; F41.9 Anxiety disorder, unspecified | CPT/HCPCS: 80053; 80061; 81000; 83036 ==

== ENCOUNTER → 2022-09-06 09:11 | Outpatient (BNVA) | payer OTHER, MEDICARE, SELFPAY | PROVIDERS: PCP Nurse Practitioner; Visit Provider Nurse Practitioner | DX: E11.65 Type 2 diabetes mellitus with hyperglycemia (principal); D64.9 Anemia, unspecified; E55.9 Vitamin D deficiency, unspecified; I11.0 Hypertensive heart disease with heart failure; I50.9 Heart failure, unspecified; F41.9 Anxiety disorder, unspecified | CPT/HCPCS: 80053; 80061; 81000; 82306; 83036; 85025 ==

== ENCOUNTER 2022-11-07 07:49 | Emergency (ER) | payer OTHER, MEDICARE, SELFPAY ==
[2022-11-07 07:53] VITALS: BP 149/76; PULSE 83; TEMP 36.5; O2SAT 92; BMI 44.3
--- NOTE | 2022-11-07 08:23 | XR_ITS ---
WS: [id number] Portable AP upright chest, 11/07/2022 Clinical Data: dyspnea/cough Comparison: Portable chest, 04/22/2022 Findings: There are bilateral patchy pulmonary opacities mostly in the lower lobes. The heart is enla rged. There are no nodules or masses but there may be small bilateral effusions. The aortic arch show s calcification. XR/XR chest 1V portable 25101 Impression: 1. Bilateral patchy pulmonary opacities consistent with pneumonia. 2. Cardiomegaly, atherosclerosis and small pleural effusions.
--- NOTE | 2022-11-07 08:36 | ED_ITS ---
HPI - SOB/Dyspnea General: Chief Complaint: Shortness of Breath/Dyspnea Stated Complaint: SOB Time Seen by Provider: 11/07/22 08:02 Source: patient Mode of arrival: ambulatory History of Present Illness: HPI Narrative: 49-year-old male who presents to the emergency room with complaints of shortness of breath despite his home nebulizer treatments. Is a history of COPD at rest he sats remain normal but anytime he gets up he desats to the low 80s. He is noticeably short of breath he does not get any particular chest pain. This began 3 nights ago and has gotten progressively worse. He does have a history of cardiac disease. He is getting short of breath with exertion but no chest pain no fever sweats chills mildly productive cough. MD elicited complaint: shortness of breath and cough Pertinent past history: COPD Timing: constant Severity: mild Exacerbating factors: exertion and coughing Known history of: COPD Associated symptoms: Deny abdominal pain, chest congestion, chest pain, cough, diaphoresis, dizziness, extremity pain, fever(s), hemoptysis, lightheadedness, myalgias, nausea, orthopnea, palpitations, paresthesias, polydipsia, polyuria, rash, sense of impending doom, syncope or vomiting Treatment prior to arrival: none Review of Systems Const: Denies: fever(s), chills, fatigue, malaise or diaphoresis ENMT: Denies: throat pain, ear or mastoid pain, nasal discharge or nasal congestion Card: Denies: chest pain, palpitations, lightheadedness, syncope or orthopnea Resp: Reports: dyspnea, non-productive cough and wheezing; Denies: productive cough, hemoptysis or chest congestion GI: Denies: abdominal pain, nausea or vomiting : Denies: flank pain, difficulty urinating, dysuria, urinary frequency or urinary urgency Musc: Denies: extremity pain, extremity swelling, joint pain or joint swelling Skin/Breast: Denies: rash or pruritus Neuro: Denies: dizziness Endo: Denies: polyuria or polydipsia PFSH ED PFSH: Medical History Anxiety Arteriosclerotic coronary artery disease Diabetes mellitus type II, uncontrolled Dietary noncompliance Essential (primary) hypertension Iron deficiency Neuropathy Recurrent bronchospasm Surgical History H/O heart artery stent 09/2011 History of carpal tunnel surgery of right wrist 2011 History of colonoscopy Family History Father , AGE 74 Diabetes Heart disease Mother , LUNG CANCER AGE 55 Cancer CAD (coronary artery disease) Lung disease Heart disease Grandmother CAD (coronary artery disease) Cancer Dementia Heart disease Family/Other CAD (coronary artery disease) Heart disease Grandfather CAD (coronary artery disease) Heart disease Diabetes Sister Lung disease Denies family history of Clotting disorder Chronic kidney disease (CKD) Suicide Anesthesia complication Bleeding disorder Stroke Social History Smoking and tobacco status: former smoker Quit status (tobacco): has quit using tobacco Year quit tobacco: 2000 Former quit date comment: 4ppd x 22 years Second hand smoke exposure: No Smoking risk assessment/counseling performed?: No Alcohol intake: current Alcohol intake frequency: holidays/special occasions only Desire information about alcohol rehabilitation?: No Counseling given: No Desire information about substance/drug rehabilitation?: No Counseling given: No Adopted: No Caregiver/support person: No Lives independently: Yes Household members: spouse Housing: House Marital status: Number of children: 2 service: No Current occupational status: disabled Pets and animals: Yes History of recent travel: No Current gender identity: Male and Female Physical Exam Const: COMMON NORMALS: no acute distress GENERAL APPEARANCE: cooperative and comfortable ORIENTATION/CONSCIOUSNESS: Yes awake, Yes oriented to person, Yes oriented to place and Yes oriented to time HENMT: COMMON NORMALS: normocephalic, atraumatic and hearing grossly normal bilaterally HEAD & SCALP: normocephalic and atraumatic Resp: COMMON NORMALS: normal respiratory effort, No retractions and No use of accessory muscles AUSCULTATION: rhonchi and wheezes Cardio: COMMON NORMALS: regular rate, regular rhythm and No murmurs present (Cardio) RATE: regular rate RHYTHM: regular rhythm GI: COMMON NORMALS: Soft to palpation and No hepatosplenomegaly present AUSCULTATION: Yes normoactive bowel sounds PALPATION: Yes Soft to palpation, No Tenderness to palpation present (GI), No Guarding due to palpation present (GI) and Yes No hepatosplenomegaly present Extremity: COMMON NORMALS: normal to inspection, capillary refill normal, no clubbing, cyanosis or edema, no calf tenderness and no pedal edema Neuro: SENSORIUM/ORIENTATION: Yes oriented to person, Yes oriented to place and Yes oriented to time Skin: COMMON NORMALS: no rashes or lesions noted GENERAL SKIN EXAM: no rashes or lesions noted Course Vital Signs: Vital signs: Vital Signs Temperature 97.7 F 11/07/22 07:53 Pulse Rate 76 11/07/22 11:26 Respiratory Rate 17 11/07/22 11:26 Blood Pressure 125/78 11/07/22 11:26 Pulse Oximetry 90 11/07/22 11:26 Oxygen Delivery Me thod 11/07/22 11:26 Oxygen Flow Rate 3 11/07/22 09:00 MDM - SOB/Dyspnea Medical Decision Making Patient improved with nebulizers he does qualify for 3 L per nasal cannula at discharge him home with 3 L nasal cannula steroid taper taxis likely and DuoNebs every 4 hours while awake follow-up with primary care within the week Medical Records I reviewed the patient's medical records. Lab Data I reviewed the patient's lab results. 11/07/22 08:35 11/07/22 08:35 Labs/Radiology: Radiology Impressions Chest X-Ray 11/07/22 08:23 Impression: 1. Bilateral patchy pulmonary opacities consistent with pneumonia. 2. Cardiomegaly, atherosclerosis and small pleural effusions. Laboratory Results WBC 7.8 10^3/uL (4.0-10.0) 11/07/22 08:35 RBC 3.82 10^6/uL (4.1-5.3) L 11/07/22 08:35 Hgb 10.9 g/dL (11.7-16.6) L 11/07/22 08:35 Hct 34.6 % (42.0-52.0) L 11/07/22 08:35 MCV 90.6 fl (80-94) 11/07/22 08:35 MCH 28.5 pg (28.0-34.0) 11/07/22 08:35 MCHC 31.5 g/dL (30.0-36.0) 11/07/22 08:35 RDW 14.0 % (12.1-15.1) 11/07/22 08:35 Plt Count 406 10^3/cmm (130-400) H 11/07/22 08:35 MPV 8.8 fL (7.4-10.4) 11/07/22 08:35 Neut % (Auto) 69.8 % 11/07/22 08:35 Lymph % (Auto) 18.4 % 11/07/22 08:35 [place] % (Auto) 7.6 % 11/07/22 08:35 Eos % (Auto) 1.9 % 11/07/22 08:35 Baso % (Auto) 0.5 % 11/07/22 08:35 Neut # (Auto) 5.45 10^3/uL (1.8-7.7) 11/07/22 08:35 Lymph # (Auto) 1.4 10^3/uL (0.8-4.8) 11/07/22 08:35 [place] # (Auto) 0.6 10^3/uL (0.2-0.9) 11/07/22 08:35 Eos # (Auto) 0.2 10^3/uL (0.0-0.8) 11/07/22 08:35 Baso # (Auto) 0.0 10^3/uL (0.0-0.1) 11/07/22 08:35 Nucleated RBC % (auto) 0.4 % 11/07/22 08:35 Nucleated RBCs # 0.0 /100WBC 11/07/22 08:35 Specimen Type Arterial 11/07/22 08:40 Sample Site Radial, left 11/07/22 08:40 ABG pH 7.44 (7.35-7.45) 11/07/22 08:40 ABG pCO2 48.5 mmHg (35-45) H 11/07/22 08:40 ABG pO2 56.1 mmHg (80.0-100.0) L 11/07/22 08:40 ABG HCO3 32.8 mmol/L (22-26) H 11/07/22 08:40 ABG O2 Saturation 89.1 11/07/22 08:40 ABG Base Excess 7.5 mmol/L (-2.0-2.0) H 11/07/22 08:40 Alex Test Pos 11/07/22 08:40 A-a O2 Gradient 4.7 mmHg (5-10) L 11/07/22 08:40 Hematocrit 34.0 % (42-52) L 11/07/22 08:40 Hgb O2 Saturation 87.2 % (95-100) L 11/07/22 08:40 Carboxyhemoglobin 1.7 %THgb (0.4-20.1) 11/07/22 08:40 Methemoglobin 0.4 % (0.4-1.5) 11/07/22 08:40 Total Hemoglobin 11.1 g/dL (14-18) L 11/07/22 08:40 Sodium 141.0 mmol/L (131-143) 11/07/22 08:40 Potassium 3.3 mmol/L (3.5-5.0) L 11/07/22 08:40 Glucose 145.0 mg/dL (70-115) H 11/07/22 08:40 Ionized Calcium 1.2 mmol/L (1.1-1.4) 11/07/22 08:40 O2 Delivery Device None 11/07/22 08:40 FiO2 21.0 % 11/07/22 08:40 Residential Mortgage Manager ID [place] 11/07/22 08:40 Sodium 140 mmol/L (136-145) 11/07/22 08:35 Potassium 3.4 mmol/L (3.5-5.1) L 11/07/22 08:35 Chloride 101 mmol/L (98-107) 11/07/22 08:35 Carbon Dioxide 30 mmol/L (22-29) H 11/07/22 08:35 Anion Gap 12.4 (5-19) 11/07/22 08:35 BUN 17 mg/dL (6-20) 11/07/22 08:35 Creatinine 0.7 mg/dL (0.7-1.2) 11/07/22 08:35 GFR Calculation 115.8 mL/min (90-130) 11/07/22 08:35 Glucose 145 mg/dL (65-115) H 11/07/22 08:35 Calculated Osmolality 294 mOsm/kg (285-295) 11/07/22 08:35 Calcium 8.6 mg/dL (8.5-10.5) 11/07/22 08:35 Total Bilirubin 0.6 mg/dL (0.15-1.2) 11/07/22 08:35 AST 15 U/L (0-40) 11/07/22 08:35 ALT 27 U/L (0-41) 11/07/22 08:35 Alkaline Phosphatase 102 U/L (40-130) 11/07/22 08:35 Total Protein 7.1 g/dL (6.6-8.7) 11/07/22 08:35 Albumin 3.5 g/dL (3.5-5.2) 11/07/22 08:35 Globulin 3.6 g/dL (1.3-4.6) 11/07/22 08:35 Urine Color Mel (Yellow) 11/07/22 08:35 Urine Appearance Clear (CLEAR) 11/07/22 08:35 Urine pH 6 (5-7) 11/07/22 08:35 Ur Specific [place] 1.020 (1.005-1.030) 11/07/22 08:35 Urine Protein Neg (Negative) 11/07/22 08:35 Urine Glucose (UA) 4+ (Normal) H 11/07/22 08:35 Urine Ketones Negative (Negative) 11/07/22 08:35 Urine Blood Neg (Negative) 11/07/22 08:35 Urine Nitrate Negative (Negative) 11/07/22 08:35 Urine Bilirubin Neg (Negative) 11/07/22 08:35 Urine Urobilinogen 8 mg/dL (Negative) H 11/07/22 08:35 Ur Leukocyte Esterase Negative (Negative) 11/07/22 08:35 Discharge Plan Discharge Patient Disposition: Home Clinical Impression: Acute exacerbation of chronic obstructive airways disease Condition: Stable Prescriptions: New prednisone 20 mg tablet 20 mg PO TID Qty: 15 0RF Rx Instructions: 1 p.o. 3 times daily x3 days, 1 p.o. twice daily x2 days, 1 p.o. daily x2 days ipratropium-albuterol 0.5 mg-3 mg(2.5 mg base)/3 mL solution for nebulization 3 ml inhalation Q4H PRN (Reason: shortness of breath or wheezing) Qty: 180 0RF Rx Instructions: until breathing returns to target peak flow/parameters doxycycline hyclate 100 mg capsule 100 mg PO BID 10 Days Qty: 20 0RF No Action aspirin [Aspir-Elvia] 325 mg tablet,delayed release (DR/EC) 325 mg PO QAM lidocaine 5 % adhesive patch,medicated 1 patch TOPICAL .COMPLEX Rx Instructions: apply one patch daily as needed for pain (on for 12 hours and off for 12 hours) triamcinolone acetonide 0.1 % cream 1 applic TOPICAL BID PRN (Reason: Rash) (DME) lancets [OneTouch Delica Lancets] 33 gauge misc See Rx Instructions .ROUTE .MEDSUPPLY Qty: 200 5RF Rx Instructions: 4 times daily (DME) OneTouch Ultra Blue Test Strip Strip See Rx Instructions .ROUTE .MEDSUPPLY Qty: 200 5RF Rx Instructions: 4 times a day as needed albuterol sulfate [Ventolin HFA] 90 mcg/actuation HFA aerosol inhaler 1 inh inhalation QID PRN (Reason: shortness of breath or wheezing) Qty: 8.5 3RF amlodipine 5 mg tablet 5 mg PO QAM Qty: 90 0RF atorvastatin 40 mg tablet 40 mg PO QAM Qty: 90 0RF doxepin 50 mg capsule 50 mg PO TID Qty: 270 0RF empagliflozin 25 mg tablet 25 mg PO QAM Qty: 30 2RF fluoxetine [Prozac] 20 mg capsule 20 mg PO BID Qty: 180 0RF furosemide [Lasix] 20 mg tablet 20 mg PO TID Qty: 180 0RF hydralazine 100 mg tablet 100 mg PO TID Qty: 270 0RF Levemir FlexTouch U-100 Insuln 100 unit/mL (3 mL) insulin pen 40 unit SUBCUT BID Qty: 30 2RF Novolin R Flexpen 100 unit/mL (3 mL) insulin pen See Rx Instructions .ROUTE .COMPLEX Qty: 15 2RF Rx Instructions: sliding scale up to qid 1 10-833=[id number]=13S>400 = 32U metformin 500 mg tablet extended release 24 hr 1,000 mg PO DAILY Qty: 180 0RF propranolol 80 mg capsule,extended release 24 hr 80 mg PO QAM Qty: 90 0RF Entresto 49-51 mg tablet 1 tab PO BID Qty: 60 2RF Rx Instructions: Left ventricular ejection fraction is estimated at 60 %. budesonide-formoterol [Symbicort] 160-4.5 mcg/actuation HFA aerosol inhaler 2 puff inhalation BID Qty: 10.2 3RF (DME) blood-glucose meter [OneTouch Ultra2 Meter] Kit See Rx Instructions .ROUTE .MEDSUPPLY Qty: 1 0RF Rx Instructions: use daily albuterol sulfate 2.5 mg /3 mL (0.083 %) solution for nebulization 2.5 mg INHALATION QID PRN (Reason: bronchospasm) Qty: 75 3RF Mounjaro 2.5 mg/0.5 mL pen injector 7.5 mg SUBCUT .weekly Qty: 2 2RF montelukast [Singulair] 10 mg tablet 10 mg PO DAILY Qty: 30 3RF cholecalciferol (vitamin D3) 1,250 mcg (50,000 unit) Capsule 50,000 unit PO .TWICE A WEEK Rx Instructions: on sun and sun bisacodyl 5 mg Tablet 5 mg PO DAILY PRN (Reason: Constipation) Hold Instructions: Loose stools Mucinex 1,200 mg tablet extended release 12hr 1,200 mg PO Q12H PRN (Reason: Congestion) magnesium oxide 400 mg magnesium capsule 400 mg PO QAM Discharge Orders: Discharge ED (Routine); Ordered 11/07/22 Ordered By: Byron Krause Other Ambulatory Orders: DME: Oxygen (Order) Location: None Selected Ordered By: Byron Krause Referrals: Mateo Sifuentes, CASTING MACHINE OPERATORLashaunC [Primary Care Provider] - Discharge Diet: Usual diet Discharge Activity: Resume usual activity Patient Instructions: Opioid Safety, Pain Management Coding Level of Care Code ED Boiler Engineer for Alycia Ivy
[2022-11-07 08:48] LABS: Basophils % 0.5 %; Eosinophils # 0.2 10^3/uL (0.0-0.8); Eosinophils % 1.9 %; Hematocrit 34.6 % (42.0-52.0); Hemoglobin 10.9 g/dL (11.7-16.6); Lymphocytes # 1.4 10^3/uL (0.8-4.8); Lymphocytes % 18.4 %; Mean Corpuscular HGB Conc 31.5 g/dL (30.0-36.0); Mean Corpuscular Hemoglobin 28.5 pg (28.0-34.0); Mean Corpuscular Volume 90.6 fl (80-94); Mean Platelet Volume 8.8 fL (7.4-10.4); Monocytes # 0.6 10^3/uL (0.2-0.9); Monocytes % 7.6 %; Neutrophils # 5.45 10^3/uL (1.8-7.7); Neutrophils % 69.8 %; Nucleated Red Blood Cells % 0.4 %; Platelet Count 406 10^3/cmm (130-400); Red Blood Count 3.82 10^6/uL (4.1-5.3); White Blood Count 7.8 10^3/uL (4.0-10.0)
[2022-11-07 08:51] LABS: ABG PCO2 48.5 mmHg (35-45); ABG PH Result 7.44 (7.35-7.45); Alveolar-Arterial Oxygen Gradi 4.7 mmHg (5-10); Base Excess ABG 7.5 mmol/L (-2.0-2.0); Blood Gas Allen Test Pos; Blood Gas Operator Identificat WALCI; Blood Gas Sample Site Radial, left; Blood Gas Sample Type Arterial; Carboxyhemoglobin 1.7 %THgb (0.4-20.1); HCO3 ABG 32.8 mmol/L (22-26); HGB O2 Sat 87.2 % (95-100); Ionized Calcium Level - ABG 1.2 mmol/L (1.1-1.4); Methemoglobin 0.4 % (0.4-1.5); Oxygen Saturation ABG 89.1; PO2 ABG 56.1 mmHg (80.0-100.0); Potassium Level - ABG 3.3 mmol/L (3.5-5.0); Total Hemoglobin 11.1 g/dL (14-18)
[2022-11-07 08:56] LABS: Add Urine Microscopic? NO; Charge for UA Resulting for Rev
[2022-11-07 08:58] LABS: Bilirubin Urine Neg (Negative); Blood Urine Neg (Negative); Glucose Urine UA 4+ (Normal); Ketones Urine Negative (Negative); Leukocyte Esterase Urine Negative (Negative); Nitrate Urine Negative (Negative); Protein Urine Neg (Negative); Urine Appearance Clear (CLEAR); Urine Color Amber (Yellow); Urobilinogen Urine 8 mg/dL (Negative); pH Urine 6 (5-7)
[2022-11-07 09:00] VITALS: O2SAT 87; O2SAT 89; O2SAT 94
[2022-11-07 09:07] LABS: Alanine Aminotransferase 27 U/L (0-41); Albumin Level 3.5 g/dL (3.5-5.2); Alkaline Phosphatase 102 U/L (40-130); Anion Gap 12.4 (5-19); Aspartate Amino Transferase 15 U/L (0-40); Blood Urea Nitrogen 17 mg/dL (6-20); Calcium 8.6 mg/dL (8.5-10.5); Carbon Dioxide 30 mmol/L (22-29); Chloride 101 mmol/L (98-107); Globulin 3.6 g/dL (1.3-4.6); Glomerular Filtration Rate 115.8 mL/min (90-130); Glucose 145 mg/dL (65-115); Osmolality Calculated 294 mOsm/kg (285-295); Potassium 3.4 mmol/L (3.5-5.1); Sodium 140 mmol/L (136-145); Total Bilirubin 0.6 mg/dL (0.15-1.2); Total Protein 7.1 g/dL (6.6-8.7)
[2022-11-07 11:26] VITALS: BP 125/78; PULSE 76; RESP 17; O2SAT 90
== END 2022-11-07 13:36 | disposition home or self-care (01) ==
PROVIDERS: Emergency Provider Family Medicine; PCP Nurse Practitioner
DX: J44.1 Chronic obstructive pulmonary disease with (acute) exacerbation (principal); Z79.84 Long term (current) use of oral hypoglycemic drugs; Z79.82 Long term (current) use of aspirin; Z79.4 Long term (current) use of insulin; Z87.891 Personal history of nicotine dependence; E11.9 Type 2 diabetes mellitus without complications; I10 Essential (primary) hypertension
CPT/HCPCS: 36600; 71045; 80051; 80053; 81003; 82330; 82805; 85025; 99284

== ENCOUNTER → 2022-11-29 08:28 | Outpatient (BNVA) | payer OTHER, MEDICARE, SELFPAY | PROVIDERS: PCP Nurse Practitioner; Visit Provider Nurse Practitioner | DX: J44.9 Chronic obstructive pulmonary disease, unspecified (principal); E55.9 Vitamin D deficiency, unspecified; E11.65 Type 2 diabetes mellitus with hyperglycemia | CPT/HCPCS: 80053; 80061; 81000; 82306; 83036; 85025 ==

== ENCOUNTER 2022-12-01 14:04 | Outpatient (CLI) | payer OTHER, MEDICARE, SELFPAY ==
--- NOTE | 2022-12-01 14:00 | CT_ITS ---
WS: [id number] CT CHEST TECHNIQUE: Noncontrast CT of the chest with coronal and sagittal reformatted images. CLINICAL INFORMATION: J44.9 - Chronic obstructive pulmonary disease, unspecified COMPARISON: CT chest December 01, 2022 DLP: 748.[address] scans at [facility] use at least one of these dose optimization techniques: automated e xposure control; mA and/or kV adjustment per patient size (includes targeted exams where dose is matc hed to clinical indication); or iterative reconstruction. FINDINGS: Tiny LEFT greater than RIGHT pleural effusions. Mild chronic emphysematous changes. Tiny pericardial effusion. Aortic calcification. Coronary calcification. Anterior mediastinal and peribronchial lympha denopathy. RIGHT greater than LEFT hilar lymphadenopathy. Enlarged subcarinal lymph nodes measuring u p to 2.6 cm. Enlarged anterior mediastinal lymph node measuring 2.3 CM. Diffuse bilateral hazy groundglass infiltrates with interstitial thickening in the lung bases. No foc al consolidation. No axillary lymphadenopathy. Mild enlargement of the RIGHT hepatic lobe. Adrenal glands are normal. S mall esophageal hiatal hernia. Mild hypertrophic changes thoracic spine. CT/CT chest wo con [id number] IMPRESSION: 1. Tiny LEFT greater than RIGHT pleural effusions. 2. Cardiomegaly with small pericardial effusion. 3. Diffuse hazy groundglass infiltrates in both lungs with interstitial thicke ann in the lung bases. Some of this is likely due to edema but diffuse groundg lass infiltrates suspicious for superimposed viral pneumonia. Recommend correla tion with infection. 4. Enlarged anterior mediastinal, RIGHT greater than LEFT hilar, and subcarina l lymph nodes described above likely reactive. Recommend 3-6 month interval fol low-up. 5. Tiny esophageal hiatal hernia. 6. No other acute findings.
== END 2022-12-01 14:05 | disposition home or self-care (01) ==
LOC: RAD 14:04
PROVIDERS: PCP Nurse Practitioner; Visit Provider Nurse Practitioner
DX: J44.9 Chronic obstructive pulmonary disease, unspecified (principal); J90 Pleural effusion, not elsewhere classified
CPT/HCPCS: 71250

== ENCOUNTER 2022-12-18 07:46 | Inpatient (IN) | payer MEDICARE, SELFPAY ==
[2022-12-18] VITALS (30 sets, daily range): BP systolic 88–152; BP diastolic 50–87; PULSE 79–112; RESP 12–22; TEMP 36.5–36.8; O2SAT 85–99; BMI 45.6; BMI 47.3
--- NOTE | 2022-12-18 08:12 | ECG_ITS ---
[facility] Test Date: 2022-12-18 Pat Name: Fariba Rossi Department: Room: Gender: Male Supervisor Whipped Topping: : 1965 Requested By: Byron Hedrick Order Number: [id number] [place] MD: Betty Harrison M.D. Measurements Intervals [place] Rate: 115 P: 0 MN: 0 QRS: 112 QRSD: 108 T: -62 QT: 324 QTc: 450 Interpretive Statements ATRIAL FIBRILLATION WITH RAPID VENTRICULAR RESPONSE POSSIBLE RIGHT VENTRICULAR HYPERTROPHY ANTEROSEPTAL MYOCARDIAL INFARCTION , PROBABLY OLD [40+ ms Q WAVE IN V1-V4] MODERATE T-WAVE ABNORMALITY, CONSIDER INFERIOR ISCHEMIA Compared to ECG 04/22/2022 13:59:20 Sinus rhythm no longer present First degree AV block no longer present Right-axis deviation no longer present Myocardial infarct finding still present T-wave abnormality still present Possible ischemia still present Electronically Signed On 12-18-2022 20:50:27 BRICKLAYER by Betty Harrison M.D. [id number]
--- NOTE | 2022-12-18 08:26 | PC.NURSE ---
PT PLACED ON CONTINUOUS SPO2, NIBP, AND CM.
--- NOTE | 2022-12-18 08:43 | XR_ITS ---
WS: [id number] PORTABLE CHEST HISTORY: dyspnea/cough COMPARISON: 11/07/2022 Diffuse interstitial thickening and reticulations. No dense areas of consolidation. Suspect mild to m oderate CHF. Very minimal blunting of the costophrenic angles. Suspicious for small effusions. Cardiac size: Mildly enlarged. Mediastinum/Aorta: Mild atherosclerosis aorta. No osseous abnormality seen. XR/XR chest 1V portable [id number] IMPRESSION: Findings are most consistent with [id number] CHF.
[2022-12-18 08:47] LABS: ABG PH Result 7.43 (7.35-7.45); Alveolar-Arterial Oxygen Gradi 2.5 mmHg (5-10); Arterial Blood Gas Hematocrit 35.2 % (42-52); Blood Gas Allen Test Pos; Blood Gas Operator Identificat WALCI; Blood Gas Sample Site Radial, left; Blood Gas Sample Type Arterial; Carboxyhemoglobin 1.5 %THgb (0.4-20.1); HCO3 ABG 33.5 mmol/L (22-26); Ionized Calcium Level - ABG 1.2 mmol/L (1.1-1.4); Methemoglobin 0.8 % (0.4-1.5); Oxygen Device NC; Oxygen Saturation ABG 94.1; PO2 ABG 69.4 mmHg (80.0-100.0); Potassium Level - ABG 3.2 mmol/L (3.5-5.0); Total Hemoglobin 11.5 g/dL (14-18)
--- NOTE | 2022-12-18 08:53 | PC.NURSE ---
PROVIDED PT WITH URINAL AND INFORMED HIM OF NEED OF UA. PT VERBALIZED UNDERSTANDING.
[2022-12-18 09:04] LABS: Basophils # 0.1 10^3/uL (0.0-0.1); Basophils % 0.6 %; Eosinophils # 0.1 10^3/uL (0.0-0.8); Eosinophils % 1.4 %; Hematocrit 36.9 % (42.0-52.0); Hemoglobin 11.2 g/dL (11.7-16.6); Lymphocytes % 11.6 %; Mean Corpuscular HGB Conc 30.4 g/dL (30.0-36.0); Mean Corpuscular Hemoglobin 27.7 pg (28.0-34.0); Mean Corpuscular Volume 91.3 fl (80-94); Mean Platelet Volume 9.8 fL (7.4-10.4); Monocytes # 0.6 10^3/uL (0.2-0.9); Monocytes % 7.3 %; Neutrophils # 6.79 10^3/uL (1.8-7.7); Neutrophils % 78.4 %; Nucleated Red Blood Cells % 0 %; Platelet Count 365 10^3/cmm (130-400); Red Blood Count 4.04 10^6/uL (4.1-5.3); Red Cell Distribution Width 14.8 % (12.1-15.1); White Blood Count 8.7 10^3/uL (4.0-10.0)
[2022-12-18 09:27] LABS: Alanine Aminotransferase 22 U/L (0-41); Albumin Level 3.9 g/dL (3.5-5.2); Alkaline Phosphatase 90 U/L (40-130); Aspartate Amino Transferase 16 U/L (0-40); Blood Urea Nitrogen 10 mg/dL (6-20); Calcium 8.8 mg/dL (8.5-10.5); Carbon Dioxide 29 mmol/L (22-29); Chloride 100 mmol/L (98-107); Globulin 2.7 g/dL (1.3-4.6); Glomerular Filtration Rate 99.3 mL/min (90-130); Glucose 123 mg/dL (65-115); Magnesium 1.8 mg/dL (1.7-2.3); NT Pro B Type Natriuretic Pept 1178 pg/mL (0-125); Osmolality Calculated 286 mOsm/kg (285-295); Sodium 138 mmol/L (136-145); Total Bilirubin 0.7 mg/dL (0.15-1.2); Total Protein 6.6 g/dL (6.6-8.7)
[2022-12-18 09:37] LABS: Anion Gap 12.4 (5-19); Potassium 3.4 mmol/L (3.5-5.1)
[2022-12-18] MEDS: FUROsemide 10 mg/mL SDV 4mL 40 MG IVP ×2 (09:43→20:12)
--- NOTE | 2022-12-18 10:32 | W.ED.SOB ---
HPI - SOB/Dyspnea General: Chief Complaint: Shortness of Breath/Dyspnea Stated Complaint: SOB, PAin in both arms Time Seen by Provider: 12/18/22 08:21 Source: patient Mode of arrival: ambulatory History of Present Illness: HPI Narrative: 57-year-old male presents emergency room with complaint of shortness of breath began this morning. Increased shortness of breath with any exertion. He normally wears oxygen at 3 L/min. He had chest discomfort radiating bilaterally into the arms he presented with an O2 sat 85% on 4 L, he is able to maintain sats in the mid 90s while at rest on 4 L while he is in bed. He has increased orthopnea which is chronic to some extent he has also noticed increased swelling in his legs. He is on Lasix has not missed any doses recently, although his states he usually takes 3 tablets once a day his medicine list has not met 1 tablet 3 times a day. MD elicited complaint: shortness of breath and cough Pertinent past history: congestive heart failure Onset (ago): hour(s) Timing: constant Severity: moderate Exacerbating factors: lying flat and exertion Relieving factors: oxygen, rest and upright position Known history of: congestive heart failure Associated symptoms: Reports chest congestion, chest pain and orthopnea; Deny abdominal pain, cough, diaphoresis, dizziness, extremity pain, fever(s), hemoptysis, lightheadedness, myalgias, nausea, palpitations, paresthesias, polydipsia, polyuria, rash, sense of impending doom, syncope or vomiting Treatment prior to arrival: oxygen Review of Systems Const: Denies: fever(s), chills, fatigue, malaise or diaphoresis ENMT: Denies: throat pain, ear or mastoid pain, nasal discharge or nasal congestion Card: Reports: chest pain and orthopnea; Denies: palpitations, lightheadedness or syncope Resp: Reports: dyspnea and chest congestion; Denies: productive cough, non-productive cough, wheezing or hemoptysis GI: Denies: abdominal pain, nausea or vomiting : Denies: flank pain, dysuria, urinary frequency or urinary urgency Musc: Denies: extremity pain Skin/Breast: Denies: rash or pruritus Neuro: Denies: dizziness Endo: Denies: polyuria or polydipsia [facility] ED PFSH: Medical History Anxiety Arteriosclerotic coronary artery disease CHF (congestive heart failure) COPD (chronic obstructive pulmonary disease) Diabetes mellitus type II, uncontrolled Dietary noncompliance Essential (primary) hypertension Iron deficiency Neuropathy Obstructive sleep apnea Recurrent bronchospasm Surgical History H/O heart artery stent 09/2011 History of carpal tunnel surgery of right wrist 2011 History of colonoscopy Family History Father , AGE 74 Diabetes Heart disease Mother , LUNG CANCER AGE 55 Cancer CAD (coronary artery disease) Lung disease Heart disease Grandmother CAD (coronary artery disease) Cancer Dementia Heart disease Family/Other CAD (coronary artery disease) Heart disease Grandfather CAD (coronary artery disease) Heart disease Diabetes Sister Lung disease Denies family history of Clotting disorder Chronic kidney disease (CKD) Suicide Anesthesia complication Bleeding disorder Stroke Social History Smoking and tobacco status: former smoker Quit status (tobacco): has quit using tobacco Year quit tobacco: 2000 Former quit date comment: 4ppd x 22 years Second hand smoke exposure: No Smoking risk assessment/counseling performed?: No Alcohol intake: current Alcohol intake frequency: holidays/special occasions only Desire information about alcohol rehabilitation?: No Counseling given: No Desire information about substance/drug rehabilitation?: No Counseling given: No Adopted: No Caregiver/support person: No Lives independently: Yes Household members: spouse Housing: House Marital status: Number of children: 2 service: No Current occupational status: disabled Pets and animals: Yes History of recent travel: No Current gender identity: Male and Female Physical Exam Const: GENERAL APPEARANCE: cooperative and comfortable ORIENTATION/CONSCIOUSNESS: Yes awake, Yes oriented to person, Yes oriented to place and Yes oriented to time HENMT: COMMON NORMALS: normocephalic, atraumatic and hearing grossly normal bilaterally HEAD & SCALP: normocephalic and atraumatic Resp: COMMON NORMALS: normal respiratory effort, No retractions and No use of accessory muscles AUSCULTATION: crackles Cardio: COMMON NORMALS: regular rate, regular rhythm and No murmurs present (Cardio) RATE: regular rate RHYTHM: regular rhythm GI: COMMON NORMALS: Soft to palpation and No hepatosplenomegaly present AUSCULTATION: Yes normoactive bowel sounds PALPATION: Yes Soft to palpation, No Tenderness to palpation present (GI), No Guarding due to palpation present (GI) and Yes No hepatosplenomegaly present Extremity: COMMON NORMALS: normal to inspection, capillary refill normal and no calf tenderness GENERAL: Yes edema (2+ edema to the level of the knees with presacral edema as well) Neuro: SENSORIUM/ORIENTATION: Yes oriented to person, Yes oriented to place and Yes oriented to time Skin: COMMON NORMALS: no rashes or lesions noted GENERAL SKIN EXAM: no rashes or lesions noted Course Vital Signs: Vital signs: Vital Signs Temperature 97.6 F 12/21/22 10:52 Pulse Rate 92 12/21/22 10:52 Respiratory Rate 20 H 12/21/22 10:52 Blood Pressure 118/64 12/21/22 10:52 Pulse Oximetry 98 12/21/22 10:52 Oxygen Delivery Me thod 12/21/22 10:52 Oxygen Flow Rate 2 12/21/22 07:51 MDM - SOB/Dyspnea Medical Decision Making Acute congestive heart failure likely worsening by underlying COPD. Patient given Lasix in the ER discussed with hospitalist will admit orders written. Medical Records I reviewed the patient's medical records. Lab Data I reviewed the patient's lab results. 12/18/22 08:17 12/18/22 08:17 Labs/Radiology: Radiology Impressions Chest X-Ray 12/18/22 08:43 IMPRESSION: Findings are most consistent with [id number] CHF. Laboratory Results WBC 8.7 10^3/uL (4.0-10.0) 12/18/22 08:17 RBC 4.04 10^6/uL (4.1-5.3) L 12/18/22 08:17 Hgb 11.2 g/dL (11.7-16.6) L 12/18/22 08:17 Hct 36.9 % (42.0-52.0) L 12/18/22 08:17 MCV 91.3 fl (80-94) 12/18/22 08:17 MCH 27.7 pg (28.0-34.0) L 12/18/22 08:17 MCHC 30.4 g/dL (30.0-36.0) 12/18/22 08:17 RDW 14.8 % (12.1-15.1) 12/18/22 08:17 Plt Count 365 10^3/cmm (130-400) 12/18/22 08:17 MPV 9.8 fL (7.4-10.4) 12/18/22 08:17 Neut % (Auto) 78.4 % 12/18/22 08:17 Lymph % (Auto) 11.6 % 12/18/22 08:17 [place]uel % (Auto) 7.3 % 12/18/22 08:17 Eos % (Auto) 1.4 % 12/18/22 08:17 Baso % (Auto) 0.6 % 12/18/22 08:17 Neut # (Auto) 6.79 10^3/uL (1.8-7.7) 12/18/22 08:17 Lymph # (Auto) 1.0 10^3/uL (0.8-4.8) 12/18/22 08:17 Deuel # (Auto) 0.6 10^3/uL (0.2-0.9) 12/18/22 08:17 Eos # (Auto) 0.1 10^3/uL (0.0-0.8) 12/18/22 08:17 Baso # (Auto) 0.1 10^3/uL (0.0-0.1) 12/18/22 08:17 Nucleated RBC % (auto) 0 % 12/18/22 08:17 Nucleated RBCs # 0.0 /100WBC 12/18/22 08:17 Specimen Type Arterial 12/18/22 08:36 Sample Site Radial, left 12/18/22 08:36 ABG pH 7.43 (7.35-7.45) 12/18/22 08:36 ABG pCO2 50.0 mmHg (35-45) H 12/18/22 08:36 ABG pO2 69.4 mmHg (80.0-100.0) L 12/18/22 08:36 ABG HCO3 33.5 mmol/L (22-26) H 12/18/22 08:36 ABG O2 Saturation 94.1 12/18/22 08:36 ABG Base Excess 8.0 mmol/L (-2.0-2.0) H 12/18/22 08:36 Alex Test Pos 12/18/22 08:36 A-a O2 Gradient 2.5 mmHg (5-10) L 12/18/22 08:36 Hematocrit 35.2 % (42-52) L 12/18/22 08:36 Hgb O2 Saturation 92.0 % (95-100) L 12/18/22 08:36 Carboxyhemoglobin 1.5 %THgb (0.4-20.1) 12/18/22 08:36 Methemoglobin 0.8 % (0.4-1.5) 12/18/22 08:36 Total Hemoglobin 11.5 g/dL (14-18) L 12/18/22 08:36 Sodium 143.0 mmol/L (131-143) 12/18/22 08:36 Potassium 3.2 mmol/L (3.5-5.0) L 12/18/22 08:36 Glucose 120.0 mg/dL (70-115) H 12/18/22 08:36 Ionized Calcium 1.2 mmol/L (1.1-1.4) 12/18/22 08:36 O2 Delivery Device Nc 12/18/22 08:36 O2 Liters/Min 5.0 % 12/18/22 08:36 Digital Asset Specialist ID [place] 12/18/22 08:36 Sodium 138 mmol/L (136-145) 12/18/22 08:17 Potassium 3.4 mmol/L (3.5-5.1) L 12/18/22 08:17 Chloride 100 mmol/L (98-107) 12/18/22 08:17 Carbon Dioxide 29 mmol/L (22-29) 12/18/22 08:17 Anion Gap 12.4 (5-19) 12/18/22 08:17 BUN 10 mg/dL (6-20) 12/18/22 08:17 Creatinine 0.8 mg/dL (0.7-1.2) 12/18/22 08:17 GFR Calculation 99.3 mL/min (90-130) 12/18/22 08:17 Glucose 123 mg/dL (65-115) H 12/18/22 08:17 Calculated Osmolality 286 mOsm/kg (285-295) 12/18/22 08:17 Calcium 8.8 mg/dL (8.5-10.5) 12/18/22 08:17 Magnesium 1.8 mg/dL (1.7-2.3) 12/18/22 08:17 Total Bilirubin 0.7 mg/dL (0.15-1.2) 12/18/22 08:17 AST 16 U/L (0-40) 12/18/22 08:17 ALT 22 U/L (0-41) 12/18/22 08:17 Alkaline Phosphatase 90 U/L (40-130) 12/18/22 08:17 Troponin T Baseline 38 ng/L (0-15) H 12/18/22 08:17 NT-Pro-B Natriuret Pep 1178 pg/mL (0-125) H 12/18/22 08:17 Total Protein 6.6 g/dL (6.6-8.7) 12/18/22 08:17 Albumin 3.9 g/dL (3.5-5.2) 12/18/22 08:17 Globulin 2.7 g/dL (1.3-4.6) 12/18/22 08:17 Urine Color Yellow (Yellow) 12/18/22 11:10 Urine Appearance Clear (CLEAR) 12/18/22 11:10 Urine pH 6 (5-7) 12/18/22 11:10 Ur Specific [place] 1.010 (1.005-1.030) 12/18/22 11:10 Urine Protein Neg (Negative) 12/18/22 11:10 Urine Glucose (UA) 4+ (Normal) H 12/18/22 11:10 Urine Ketones Negative (Negative) 12/18/22 11:10 Urine Blood Neg (Negative) 12/18/22 11:10 Urine Nitrate Negative (Negative) 12/18/22 11:10 Urine Bilirubin Neg (Negative) 12/18/22 11:10 Urine Urobilinogen Neg mg/dL (Negative) 12/18/22 11:10 Ur Leukocyte Esterase Negative (Negative) 12/18/22 11:10 Discharge Plan Discharge Patient Disposition: Admitted As Inpatient Admit Provider: William Worley Clinical Impression: CHF (congestive heart failure), Diabetes mellitus type II, uncontrolled, COPD (chronic obstructive pulmonary disease), Atrial fibrillation, Obstructive sleep apnea, Essential (primary) hypertension Condition: Stable Coding Level of Care Code 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
[2022-12-18 10:51] LABS: Troponin(5th) Baseline 38 ng/L (0-15)
[2022-12-18 11:28] LABS: Add Urine Microscopic? NO; Charge for UA Resulting for Rev
[2022-12-18 11:31] LABS: Protein Urine Neg (Negative); Urine Appearance Clear (CLEAR); Urine Color Yellow (Yellow); pH Urine 6 (5-7)
[2022-12-18 11:32] LABS: Bilirubin Urine Neg (Negative); Blood Urine Neg (Negative); Glucose Urine UA 4+ (Normal); Ketones Urine Negative (Negative); Leukocyte Esterase Urine Negative (Negative); Nitrate Urine Negative (Negative); Urobilinogen Urine Neg (Negative)
--- NOTE | 2022-12-18 11:37 | PM.HP ---
Providers/Chief Complaint Admitting Physician: William Worley MD Primary Care Provider: Mateo Sifuentes, ELEMENTARY SCHOOL ART TEACHER-C Chief Complaint: SOB, PAin in both arms History of Present Illness Fariba Rossi is a 57 year old male presenting with 1 month of SOB acutely worsening this morning. He states he was seen in the ED 1 month prior for the same sx and was discharged on 3L home O2 to be used PRN. However, he states that he has required consistent use of the O2 and has had about 2-3 episodes of severe SOB weekly since being discharged. Today, he had another episode while walking that was initially relieved by his combination of O2, nebulized Albuterol, and Symbicort. Shortly after he developed sudden onset of cyanosis reported by spouse, headache, dizziness, and CP with radiation down both arms. He cannot described the CP due to his neuropathy but states that he has never had this or other accompanying sx before with his SOB. He does, however, report a past MN requiring PCI and says that he did not have CP at that time. There is no other radiation of his CP and he currently states that he feels at baseline. He did not take anything for his pain. The patient is on prophylactic anticoagulation for unspecified reason, and says he has been compliant with all medications. The pt notes chronic sensory changes to his BLE from his hx of DM. He denies fever, syncope, palpitations, fatigue, or any other sx at this time. No recent illness. Reports past history of tobacco use. Does state he wheezes on occasion. I personally visited with the ER physician regarding the patient's ER plan, and transition to the floor. The ER did give him Lasix 40 mg IV x1. Review of Systems Narrative: Constitutional: Denies fever, nausea, weakness, or fatigue. HEENT: Reports headache. Denies sore throat, rhinorrhea, visual changes. Skin: Reports cyanosis. Chest: Denies trauma. Cardiovascular: Reports chest pain. Denies palpitations. Respiratory: Reports shortness of breath. Denies cough. Abdomen: Denies tenderness, acute distention, Medications/Allergies Home Medications Medication Instructions Recorded Confirmed Last Taken Type lidocaine 5 % topical patch 1 patch topical .COMPLEX 11/13/19 12/18/22 Unknown History blood-glucose meter (OneTouch #1 ea 01/04/20 12/18/22 Unknown Rx Ultra2 Meter kit) lancets 33 gauge (OneTouch Delica #200 ea 04/13/20 12/18/22 Unknown Rx Lancets) guaifenesin 1,200 mg tablet, 1,200 mg PO Q12H PRN Congestion 04/22/22 12/18/22 12/18/22 History extended release 12 hr (Mucinex) magnesium oxide 400 mg PO QAM 04/22/22 12/18/22 12/18/22 History budesonide-formoterol HFA 160 2 puff inhalation BID #10.2 grams 06/21/22 12/18/22 12/18/22 Rx mcg-4.5 mcg/actuation aerosol inhaler (Symbicort) montelukast 10 mg tablet 10 mg PO DAILY #30 tabs 10/16/22 12/18/22 12/18/22 Rx (Singulair) ipratropium 0.5 mg-albuterol 3 mg 3 ml inhalation Q4H PRN shortness 11/07/22 12/18/22 12/18/22 Rx (2.5 mg base)/3 mL nebulization of breath or wheezing #180 mL soln albuterol sulfate 2.5 mg/3 mL 2.5 mg (3 mL) inhalation QID PRN 11/29/22 12/18/22 12/18/22 Rx (0.083 %) solution for nebulization bronchospasm #75 mL amlodipine 5 mg tablet 5 mg PO QAM #90 tabs 11/29/22 12/18/22 12/18/22 Rx atorvastatin 40 mg tablet 40 mg PO QAM #90 tabs 11/29/22 12/18/22 12/18/22 Rx blood sugar diagnostic #200 ea 11/29/22 12/18/22 Unknown Rx doxepin 50 mg capsule 50 mg PO TID #270 caps 11/29/22 12/18/22 12/18/22 Rx empagliflozin 25 mg tablet 25 mg PO QAM #30 tabs 11/29/22 12/18/22 12/18/22 Rx fluoxetine 20 mg capsule (Prozac) 20 mg PO BID #180 caps 11/29/22 12/18/22 12/18/22 Rx furosemide 20 mg tablet (Lasix) 20 mg PO TID #180 tabs 0112/18/22 12/18/22 Rx hydralazine 100 mg tablet 100 mg PO TID #270 tabs 11/29/22 12/18/22 12/18/22 Rx insulin detemir U-100 100 unit/mL 40 unit (0.4 mL) SUBCUT BID #30 mL 11/29/22 12/18/22 12/18/22 Rx (3 mL) subcutaneous pen (Levemir FlexTouch U-100 Insulin) insulin regular human 100 unit/mL See Rx Instructions .Route 11/29/22 12/18/22 12/18/22 Rx (3 mL) subcutaneous pen (Novolin R .COMPLEX #15 mL FlexPen) metformin 500 mg tablet,extended 1,000 mg PO DAILY #180 tabs 11/29/22 12/18/22 12/18/22 Rx release 24 hr propranolol 80 mg capsule,24 80 mg PO QAM #90 caps 11/29/22 12/18/22 12/18/22 Rx hr,extended release rivaroxaban 2.5 mg tablet (Xarelto) 2.5 mg PO BID #180 tabs 11/29/22 12/18/22 12/18/22 Rx sacubitril 97 mg-valsartan 103 mg 1 tab PO BID #60 tabs 11/29/22 12/18/22 12/18/22 Rx tablet (Entresto) tirzepatide 2.5 mg/0.5 mL 7.5 mg (1.5 mL) SUBCUT .weekly #2 11/29/22 12/18/22 12/15/22 Rx subcutaneous pen injector mL (Mounjaro) Allergies Allergy/AdvReac Type Severity Reaction Status Date / Time No Known Drug Allergies Allergy Unknown Unknown Verified 12/18/22 10:08 PFSH Acute PFSH: Medical History (Updated 12/18/22 @ 14:24 by William Worley MD) Anxiety Arteriosclerotic coronary artery disease CHF (congestive heart failure) COPD (chronic obstructive pulmonary disease) Diabetes mellitus type II, uncontrolled Dietary noncompliance Essential (primary) hypertension Iron deficiency Neuropathy Obstructive sleep apnea Recurrent bronchospasm Surgical History H/O heart artery stent 09/2011 History of carpal tunnel surgery of right wrist 2012 History of colonoscopy Family History Father , AGE 74 Diabetes Heart disease Mother , LUNG CANCER AGE 55 Cancer CAD (coronary artery disease) Lung disease Heart disease Grandmother CAD (coronary artery disease) Cancer Dementia Heart disease Family/Other CAD (coronary artery disease) Heart disease Grandfather CAD (coronary artery disease) Heart disease Diabetes Sister Lung disease Denies family history of Clotting disorder Chronic kidney disease (CKD) Suicide Anesthesia complication Bleeding disorder Stroke Social History Smoking and tobacco status: former smoker Quit status (tobacco): has quit using tobacco Year quit tobacco: 2000 Former quit date comment: 4ppd x 22 years Second hand smoke exposure: No Smoking risk assessment/counseling performed?: No Alcohol intake: current Alcohol intake frequency: holidays/special occasions only Desire information about alcohol rehabilitation?: No Counseling given: No Desire information about substance/drug rehabilitation?: No Counseling given: No Adopted: No Caregiver/support person: No Lives independently: Yes Household members: spouse Housing: House Marital status: Number of children: 2 service: No Current occupational status: disabled Pets and animals: Yes History of recent travel: No Current gender identity: Male and Female Vitals/I&O/Wt Last Vital Signs Temp 97.7 F 12/18/22 08:10 Pulse 94 12/18/22 11:00 Resp 20 H 12/18/22 11:00 BP 124/58 12/18/22 11:00 Pulse Ox 97 12/18/22 11:00 O2 Del Method 12/18/22 08:10 O2 Flow Rate 4 12/18/22 08:10 Weight last 48 hrs Weight 136.078 kg Physical Exam Narrative: Constitutional: Obese male appears in mild respiratory distress on 3 L of oxygen, no distress HEENT: Head atraumatic, normocephalic. Moist oral mucosa. PERRLA, EOM's intact, no scleral icterus. Skin: No cyanosis. Good skin turgor. Normal capillary refill. Cardiovascular: Normal rate, rhythm. Chest is nontender to palpation. No murmurs, rubs, or gallops. No JVD noted. Respiratory: Coarse, diminished breath sounds bilaterally. Mild end expiratory wheeze noted. No significant crackles. No stridor, rhonchi. GI: Abdomen is large. No abdominal tenderness. No obvious organomegaly but difficult to tell secondary to weight Extremities: Bilateral pitting edema in lower extremities, to knees. Neuro: A&O x4, sensation is intact bilaterally. Normal strength bilaterally. Data 12/18/22 08:17 12/18/22 08:17 Other Labs: ABG demonstrates pH 7.43, PCO2 50, PO2 of 69 on 5 L. Magnesium 1.8, calcium 8.8 LFTs normal Initial troponin 38 BNP 1178 UA negative with the exception of 4+ glucose Previous chest CT demonstrated cardiomegaly, tiny bilateral pleural effusions, small hiatal hernia Chest x-ray I reviewed personally demonstrated cardiomegaly, interstitial changes mainly at the base of the lungs, atherosclerotic of the aortic arch EKG demonstrates atrial fibrillation, initial rate of 115(rate is now 85). Right axis deviation is noted. Flipped T waves are noted inferiorly, V6. No evidence of ST elevation. I personally reviewed and interpreted this EKG. A&P Assessment and plan (1) CHF (congestive heart failure): Patient presents with acute exacerbation of congestive heart failure. He has been given Lasix 40 mg IV by the emergency department. Will continue this every 12 hours. Discontinue Entresto at this point Fluid restriction, 1200 cc Cardiac diet Follow electrolytes daily Qualifiers: Heart failure type: unspecified (2) COPD (chronic obstructive pulmonary disease): Patient with history of COPD/asthma. Discontinue propranolol DuoNeb every 6 hours Budesonide twice daily He appears to have some CO2 retention. Oxygen saturations should be approximately 90 to 92% to prevent CO2 retention. Qualifiers: COPD type: unspecified COPD Qualified Code(s): J44.9 - Chronic obstructive pulmonary disease, unspecified (3) Diabetes mellitus type II, uncontrolled: Sliding scale insulin Continue long-acting insulin, 40 units twice daily Consistent carb diet Qualifiers: Glycemic state: with hyperglycemia Qualified Code(s): E11.65 - Type 2 diabetes mellitus with hyperglycemia (4) Essential (primary) hypertension: Continue many of his home medications with the exception of Entresto Secondary to history of asthma in the past change propranolol to metoprolol (5) Arteriosclerotic coronary artery disease: Continue statin, beta-joy Add aspirin Serial troponins. Elevation appears to be type II currently. (6) Atrial fibrillation: Patient's EKG demonstrated atrial fibrillation with rapid ventricular rate on arrival to the ER. Since then rate is come under control. Continue full dose anticoagulation. I believe that someone likely started this on him for paroxysmal atrial fibrillation. It is unclear if patient has been told he has a past history of atrial fibrillation. Metoprolol will be used for rate control This may have led to decompensation of his heart failure Plan Multiple other medical problems as outlined in past medical history Full code Eliquis will suffice for DVT prophylaxis. Attestations Medical Necessity Statement*: Will require greater than 2 midnight stay for evaluation and treatment of congestive heart failure with need for IV diuresis and daily electrolyte management Coding Level of Care Code 72910 High MDM includes risk/complexity, reviewing test results, ordering lab/other test(s) and independently interpretating test(s) (not separately recorded) Diagnoses CHF (congestive heart failure) I50.9 Heart failure type: unspecified COPD (chronic obstructive pulmonary disease) J44.9 COPD type: unspecified COPD Diabetes mellitus type II, uncontrolled E11.65 Glycemic state: with hyperglycemia Essential (primary) hypertension I10 Arteriosclerotic coronary artery disease I25.10 Atrial fibrillation I48.91 Time Spent (min) 45
--- NOTE | 2022-12-18 12:26 | ECG_ITS ---
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 Measurements Intervals [place] Rate: 76 P: 0 ME: 0 QRS: 83 QRSD: 76 T: 124 QT: 388 QTc: 438 Interpretive Statements ATRIAL FIBRILLATION LOW QRS VOLTAGE IN EXTREMITY LEADS [QRS DEFLECTION < 0.5 mV IN LIMB LEADS] ANTEROSEPTAL MYOCARDIAL INFARCTION , OF INDETERMINATE AGE [40+ ms Q WAVE IN V1-V4] MODERATE T-WAVE ABNORMALITY, CONSIDER LATERAL ISCHEMIA [-0.1+ mV T-WAVE IN I/aVL/V5/V6] Compared to ECG 12/18/2022 08:20:38 Low QRS voltage now present Myocardial infarct finding still present T-wave abnormality still present Possible ischemia still present Electronically Signed On 12-18-2022 22:09:18 MANUFACTURING MECHANIC by Betty Harrison M.D. [id number]
[2022-12-18 13:15] LABS: Troponin 5 2HR 76.81 ng/L (0-15)
[2022-12-18 13:21] LABS: Troponin 5 2HR Delta 38.81 ABS# (0-10)
--- NOTE | 2022-12-18 14:13 | PC.NURSE ---
admitted into room 111-1 from er via stretcher at 1340.oriented to room environment.afib at controlled rate on monitor.denies cp or sob at this time.instructed to notify staff for any cp,sob,or for any concern at all.pt verb understanding of instructions
[2022-12-18] MEDS: doxepin 50 mg Capsule PO ×2 (15:00→20:12)
[2022-12-18] MEDS: potassium chloride ER 20 mEq Tablet 40 MEQ PO ×2 (15:00→20:12)
[2022-12-18] MEDS: hyDRALAzine 50 mg Tablet 100 MG PO ×2 (15:01→20:11)
[2022-12-18] MEDS: aspirin 81 mg EC Tablet PO (15:02)
[2022-12-18] MEDS: ipratropium-albuterol 3 mL Neb INHALATION ×2 (15:19→20:16)
--- NOTE | 2022-12-18 16:26 | ECG_ITS ---
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 Measurements Intervals [place] Rate: 79 P: 0 TN: 0 QRS: 101 QRSD: 90 T: 151 QT: 381 QTc: 439 Interpretive Statements ATRIAL FIBRILLATION POSSIBLE RIGHT VENTRICULAR HYPERTROPHY [SOME/ALL OF: PROMINENT R IN V1, LATE TRANSITION, RAD, FLOR, SSS] ANTEROSEPTAL MYOCARDIAL INFARCTION , OF INDETERMINATE AGE [40+ ms Q WAVE IN V1-V4] Compared to ECG 12/18/2022 12:38:29 T-wave abnormality no longer present Possible ischemia no longer present Myocardial infarct finding still present Electronically Signed On 12-18-2022 22:06:27 MEDICAL AFFAIRS DIRECTOR by Betty Harrison M.D. [id number]
[2022-12-18 16:45] LABS: Glucose Point of Care 128 mg/dL (70-110)
[2022-12-18] MEDS: insulin glargine 100 units/1 mL 40 UNIT SUBCUT (17:15)
[2022-12-18] MEDS: fluoxetine 20 mg Capsule PO (17:15)
[2022-12-18 17:59] LABS: Troponin 5 6HR 197.2 ng/L (0-15); Troponin 5 6HR Delta 159.2 ng/L (0-12)
[2022-12-18] MEDS: enoxaparin 150 mg/mL Syringe SUBCUT (18:41)
--- NOTE | 2022-12-18 19:29 | PM.CONSULT ---
Providers/Reason For Consult Consulting Physician/Specialty*: Denis Helm MD/ Cardiology Reason for Consult*: NSTEMI Requesting Physician: Dr Worley Attending Physician: William Worley MD Primary Care Provider: JAQUI Garcia History of Present Illness History of Present Illness Fariba Rossi is a 57 year old male with past medical history of hypertension, coronary artery disease with prior LAD stent in 2010, diabetes was presented to hospital with worsening shortness of breath for the last 1 month. He was seen in the emergency room last month as well. Patient is in atrial fibrillation with controlled heart rate. He also reports that yesterday he had chest pain symptoms with substernal discomfort radiating to the left arm and jaw. He was also having diaphoresis with it. His initial troponin was 38 that trended upto 197 at 6 hours. NT proBNP is elevated at 1178. Review of Systems Const: Denies: fatigue Card: Reports: palpitations, irregular heart rhythm, swelling of feet/ankles and dyspnea on exertion (better since starting new inhalers); Denies: chest pain, lightheadedness, syncope, pre-syncope or orthopnea Resp: Reports: dyspnea (at rest on occasion) and wheezing; Denies: productive cough or non-productive cough Musc: Denies: neck pain or back pain Neuro: Denies: headache(s) or dizziness Psych: Denies: anxiety, depression, suicidal ideation or homicidal ideation Eddy/Lymph: Denies: easy bruising or easy bleeding Medications/Allergies Home Medications Medication Instructions Recorded Confirmed Last Taken Type lidocaine 5 % topical patch 1 patch topical .COMPLEX 11/13/19 12/18/22 Unknown History blood-glucose meter (OneTouch #1 ea 01/04/20 12/18/22 Unknown Rx Ultra2 Meter kit) lancets 33 gauge (OneTouch Delica #200 ea 04/13/20 12/18/22 Unknown Rx Lancets) guaifenesin 1,200 mg tablet, 1,200 mg PO Q12H PRN Congestion 04/22/22 12/18/22 12/18/22 History extended release 12 hr (Mucinex) magnesium oxide 400 mg PO QAM 04/22/22 12/18/22 12/18/22 History budesonide-formoterol HFA 160 2 puff inhalation BID #10.2 grams 06/21/22 12/18/22 12/18/22 Rx mcg-4.5 mcg/actuation aerosol inhaler (Symbicort) montelukast 10 mg tablet 10 mg PO DAILY #30 tabs 10/16/22 12/18/22 12/18/22 Rx (Singulair) ipratropium 0.5 mg-albuterol 3 mg 3 ml inhalation Q4H PRN shortness 11/07/22 12/18/22 12/18/22 Rx (2.5 mg base)/3 mL nebulization of breath or wheezing #180 mL soln albuterol sulfate 2.5 mg/3 mL 2.5 mg (3 mL) inhalation QID PRN 11/29/22 12/18/22 12/18/22 Rx (0.083 %) solution for nebulization bronchospasm #75 mL amlodipine 5 mg tablet 5 mg PO QAM #90 tabs 11/29/22 12/18/22 12/18/22 Rx atorvastatin 40 mg tablet 40 mg PO QAM #90 tabs 11/29/22 12/18/22 12/18/22 Rx blood sugar diagnostic #200 ea 11/29/22 12/18/22 Unknown Rx doxepin 50 mg capsule 50 mg PO TID #270 caps 11/29/22 12/18/22 12/18/22 Rx empagliflozin 25 mg tablet 25 mg PO QAM #30 tabs 11/29/22 12/18/22 12/18/22 Rx fluoxetine 20 mg capsule (Prozac) 20 mg PO BID #180 caps 11/29/22 12/18/22 12/18/22 Rx furosemide 20 mg tablet (Lasix) 20 mg PO TID #180 tabs 11/29/22 12/18/22 12/18/22 Rx hydralazine 100 mg tablet 100 mg PO TID #270 tabs 11/29/22 12/18/22 12/18/22 Rx insulin detemir U-100 100 unit/mL 40 unit (0.4 mL) SUBCUT BID #30 mL 11/29/22 12/18/22 12/18/22 Rx (3 mL) subcutaneous pen (Levemir FlexTouch U-100 Insulin) insulin regular human 100 unit/mL See Rx Instructions .Route 11/29/22 12/18/22 12/18/22 Rx (3 mL) subcutaneous pen (Novolin R .COMPLEX #15 mL FlexPen) metformin 500 mg tablet,extended 1,000 mg PO DAILY #180 tabs 11/29/22 12/18/22 12/18/22 Rx release 24 hr propranolol 80 mg capsule,24 80 mg PO QAM #90 caps 11/29/22 12/18/22 12/18/22 Rx hr,extended release rivaroxaban 2.5 mg tablet (Xarelto) 2.5 mg PO BID #180 tabs 11/29/22 12/18/22 12/18/22 Rx sacubitril 97 mg-valsartan 103 mg 1 tab PO BID #60 tabs 11/29/22 12/18/22 12/18/22 Rx tablet (Entresto) tirzepatide 2.5 mg/0.5 mL 7.5 mg (1.5 mL) SUBCUT .weekly #2 11/29/22 12/18/22 12/15/22 Rx subcutaneous pen injector mL (Ger) Allergies Allergy/AdvReac Type Severity Reaction Status Date / Time No Known Drug Allergies Allergy Unknown Unknown Verified 12/18/22 10:08 lisinopril Allergy ADR-Cough Verified 12/19/22 05:11 Current Medications Generic Name Dose Route Start Last Admin Trade Name Freq PRN Reason Stop Dose Admin Albuterol/Ipratropium 3 ml 12/18/22 16:00 12/18/22 15:19 Ipratropium-Albuterol 3 Ml Neb INHALATION 3 ml Q4H.RESPIRATORY MANAN Administration Aspirin 81 mg 12/18/22 14:40 12/18/22 15:02 Aspirin 81 Mg Ec Tablet PO 81 mg DAILY MANAN Administration Doxepin HCl 50 mg 12/18/22 15:00 12/18/22 15:00 Doxepin 50 Mg Capsule PO 50 mg TID MANAN Administration Enoxaparin Sodium 150 mg 12/18/22 18:30 12/18/22 18:41 Enoxaparin 150 Mg/Ml Syringe SUBCUT 150 mg Q12H MANAN Administration Fluoxetine HCl 20 mg 12/18/22 18:00 12/18/22 17:15 Fluoxetine 20 Mg Capsule PO 20 mg BID MANAN Administration Hydralazine HCl 100 mg 12/18/22 15:00 12/18/22 15:01 Hydralazine 50 Mg Tablet PO 100 mg TID MANAN Administration Insulin Glargine 40 unit 12/18/22 18:00 12/18/22 17:15 Insulin Glargine 100 Units/1 Ml SUBCUT 40 unit BID MANAN Administration PFSH Acute PFSH: Medical History Anxiety Arteriosclerotic coronary artery disease CHF (congestive heart failure) COPD (chronic obstructive pulmonary disease) Diabetes mellitus type II, uncontrolled Dietary noncompliance Essential (primary) hypertension Iron deficiency Neuropathy Obstructive sleep apnea Recurrent bronchospasm Surgical History H/O heart artery stent 09/2011 History of carpal tunnel surgery of right wrist 2011 History of colonoscopy Family History Father , AGE 74 Diabetes Heart disease Mother , LUNG CANCER AGE 55 Cancer CAD (coronary artery disease) Lung disease Heart disease Grandmother CAD (coronary artery disease) Cancer Dementia Heart disease Family/Other CAD (coronary artery disease) Heart disease Grandfather CAD (coronary artery disease) Heart disease Diabetes Sister Lung disease Denies family history of Clotting disorder Chronic kidney disease (CKD) Suicide Anesthesia complication Bleeding disorder Stroke Social History Smoking and tobacco status: former smoker Quit status (tobacco): has quit using tobacco Year quit tobacco: 2000 Former quit date comment: 4ppd x 22 years Second hand smoke exposure: No Smoking risk assessment/counseling performed?: No Alcohol intake: current Alcohol intake frequency: holidays/special occasions only Desire information about alcohol rehabilitation?: No Counseling given: No Desire information about substance/drug rehabilitation?: No Counseling given: No Adopted: No Caregiver/support person: No Lives independently: Yes Household members: spouse Housing: House Marital status: Number of children: 2 service: No Current occupational status: disabled Pets and animals: Yes History of recent travel: No Current gender identity: Male and Female Vitals/I&O/Wt Last Vital Signs Temp 97.7 F 12/18/22 08:10 Pulse 87 12/18/22 16:00 Resp 17 12/18/22 16:00 BP 105/65 12/18/22 16:00 Pulse Ox 93 12/18/22 16:00 O2 Del Method 12/18/22 16:00 O2 Flow Rate 4 12/18/22 15:19 12/18/22 12/18/22 12/18/22 06:59 14:59 22:59 Intake Total 240 / 240 Balance 240 / 240 Weight last 48 hrs Weight 320 lb 9 oz Weight 300 lb Physical Exam Narrative: GENERAL: Patient is alert, awake and oriented x3. [] NECK: No jugular vein distension. [] HEENT: No cyanosis. No icterus. No pallor. [] HEART: Irregularly irregular S1 and S2. LUNGS: Clear to auscultate bilaterally. [] ABDOMEN: Soft CENTRAL NERVOUS SYSTEM: Grossly nonfocal. [] EXTREMITIES: Lower extremities with 1+ edema bilaterally. Pulses palpable in the lower extremities, both dorsalis pedis and posterior tibial. [] Data 12/18/22 08:17 12/18/22 08:17 A&P Assessment and plan (1) NSTEMI (non-ST elevated myocardial infarction): (2) Atrial fibrillation: (3) COPD (chronic obstructive pulmonary disease): Qualifiers: COPD type: unspecified COPD Qualified Code(s): J44.9 - Chronic obstructive pulmonary disease, unspecified (4) Obstructive sleep apnea: (5) CHF (congestive heart failure): Qualifiers: Heart failure type: unspecified (6) Essential (primary) hypertension: (7) Arteriosclerotic coronary artery disease: (8) Diabetes mellitus type II, uncontrolled: Qualifiers: Glycemic state: with hyperglycemia Qualified Code(s): E11.65 - Type 2 diabetes mellitus with hyperglycemia Plan Patient has a history of prior CAD. His symptoms are likely secondary to congestive heart failure but troponin elevation is significant and he did have typical chest pain episode. We will proceed with coronary angiogram with possible percutaneous coronary intervention. N.p.o. past midnight. Risks and benefits of the procedure have been discussed with the patient. He understands the risks and benefits and wants to proceed with it. For atrial fibrillation continue anticoagulation. He will need long-term anticoagulation. Continue aspirin. Ordered echocardiogram Low-sodium diet Strict I&O's. Continue IV diuretics. Thank you for involving us in the care of this patient. We will continue to follow. Please call with questions. Consult Attestations Medical Necessity Statement: Care expected to cross 2 midnights. Coding Level of Care Code Acute Code for Chg Fwd Diagnoses NSTEMI (non-ST elevated myocardial infarction) I21.4 Atrial fibrillation I48.91 COPD (chronic obstructive pulmonary disease) J44.9 COPD type: unspecified COPD Obstructive sleep apnea G47.33 CHF (congestive heart failure) I50.9 Heart failure type: unspecified Essential (primary) hypertension I10 Arteriosclerotic coronary artery disease I25.10 Diabetes mellitus type II, uncontrolled E11.65 Glycemic state: with hyperglycemia
[2022-12-18] MEDS: metoprolol tartrate 25 mg Tablet PO (20:12)
[2022-12-18] MEDS: budesonide 0.5 mg/2 mL Neb INHALATION (20:16)
[2022-12-19] VITALS (19 sets, daily range): BP systolic 114–146; BP diastolic 65–86; PULSE 71–85; RESP 12–21; TEMP 36.4–37.2; O2SAT 92–99
[2022-12-19] MEDS: ipratropium-albuterol 3 mL Neb INHALATION ×6 (00:01→20:03)
[2022-12-19] MEDS: diphenhydrAMINE 50 mg Capsule PO (05:09)
[2022-12-19] MEDS: sodium chloride 0.9% 1,000 ML 50 ML IV (05:09)
[2022-12-19] MEDS: atorvastatin 40 mg Tablet PO (05:09)
[2022-12-19] MEDS: magnesium oxide 400 mg tablet PO (05:09)
[2022-12-19] MEDS: amlodipine 5 mg Tablet PO (05:09)
[2022-12-19 05:12] LABS: Basophils # 0.1 10^3/uL (0.0-0.1); Basophils % 0.7 %; Eosinophils # 0.1 10^3/uL (0.0-0.8); Eosinophils % 1.2 %; Hematocrit 35.8 % (42.0-52.0); Hemoglobin 10.8 g/dL (11.7-16.6); Lymphocytes # 2.3 10^3/uL (0.8-4.8); Lymphocytes % 30.1 %; Mean Corpuscular HGB Conc 30.2 g/dL (30.0-36.0); Mean Corpuscular Hemoglobin 27.5 pg (28.0-34.0); Mean Corpuscular Volume 91.1 fl (80-94); Mean Platelet Volume 9.3 fL (7.4-10.4); Monocytes # 0.7 10^3/uL (0.2-0.9); Monocytes % 8.8 %; Neutrophils # 4.45 10^3/uL (1.8-7.7); Neutrophils % 59.1 %; Nucleated Red Blood Cells % 0 %; Platelet Count 358 10^3/cmm (130-400); Red Blood Count 3.93 10^6/uL (4.1-5.3); Red Cell Distribution Width 15.3 % (12.1-15.1); White Blood Count 7.5 10^3/uL (4.0-10.0)
--- NOTE | 2022-12-19 05:23 | XACV_ITS ---
Exam Room: [facility] Ht: 175 cm Wt: 145 kg BSA: 2.74 m2 Gender: Male : 1965 Exam Priority: Routine Procedure(s): Procedure Description: Diagnostic procedure Procedure Description: Left Heart Catheterization Procedure Description: Coronary Angiography Diagnostic Cath Status: Urgent Diagnostic Findings * Left main artery: Patent LAD: Has a patent proximal stent. Has mild to moderate luminal irregularities Left circumflex artery: Patent RCA: Patent. * Coronary angiography shows right dominance. PCI Status: Elective Conclusions 1. Nonobstructive CAD. 2. Left main artery: Patent LAD: Has a patent proximal stent. Has mild to moderate luminal irregularities Left circumflex artery: Patent RCA: Patent. Recommendations * Aggressive risk factor modification. * Outpatient cardiology follow-up in 4 weeks. Interventional RX Recommendation: medical therapy and/or counseling Diagnostic RX Recommendation: medical therapy and/or counseling Anticoagulation: Heparin Pressures Phase:Rest AO : 107 / 78 ( 92 ) @ 6:17:00 AM 107 / 80 ( 92 ) @ 6:18:00 AM 109 / 82 ( 96 ) @ 6:27:00 AM 135 / 90 ( 108 ) @ 6:34:00 AM 139 / 88 ( 110 ) @ 6:34:00 AM LV : 165 / 21 / 36 @ 6:34:00 AM 161 / 4 / 35 @ 6:34:00 AM Valves Phase:DefaultPhase AV : 26.0 @ 6:43:28 AM 26.0 @ 6:43:28 AM AV Mean Gradient: 18.0 @ 6:43:28 AM 18.0 @ 6:43:28 AM Clinical Evaluation EBL: 5mL-10mL Procedural Details Procedure Consent Obtained. Admit Source: In Patient. Pre-Procedure Time Out. Identified patient by full name and date of as verbalized by the patient/guarantor. Does the consent match the physician's order: Yes. Accurate & Complete Informed Consent: Yes. Inpatient/Outpatient History & Physical on Chart: Yes. If H&P is completed, is and addenduem needed: No; If yes, is the addendum complete: N/A. Visualize and Verify Site with Patient/Guarantor: N/A. Relevant Radiology Images available: N/A. The risks, benefits, and alternatives of sedation and/or procedure were discussed by physician. The patient agrees to continue. Procedure started. PERRLA. Strong, equal hand field care coordinator bilaterally. Lungs clear x 5 lobes. IV Site on Arrival: 20 gauge in the right anticubital. IV Fluids: 0.9% NaCl at KVO. 0 mL infused prior to carpenter/labor. Pre Procedural Pulses: bilateral dorsalis pedis was 3+. Pre Procedural Pulses: bilateral radial was 3+. Oxygen started at 3liters/min via nasal canula. right groin was prepped with chloroprep then draped in the usual sterile fashion. right radial was prepped with chloroprep then draped in the usual sterile fashion. Physician notified. Baseline sample Acquired. HR: 79 BPM. [facility] Clinical Fraility Score: 3: Managing Well. Chest Pain Symptom Assessment: Atypical Angina. Citrix Consultant Indications: NSTEMI. Correct patient, site and procedure confirmed by cath team. Physician arrived. Physician scrubbed in. Immediate Pre-Procedure Time Out. Correct Patient: Yes; Correct Procedure: Yes; Correct Site: Yes; Correct Patient Position: Yes; Correct Supplies: Yes; Dried Flammable Prep: Yes; Blood Products Available: N/A;. Lidocaine 1% infiltrated to the right radial. Arterial access obtained. A 5 montenegrin TIG catheter in over wire. Multiple views taken of right coronary artery. Catheter redirected to the LCA. Catheter removed over the exchange wire. A 5 montenegrin JL3.5 catheter in over wire. Catheter removed over the exchange wire. A 5 montenegrin JL4 catheter in over wire. Multiple views taken of left coronary artery. Physician review of cine films. Catheter removed over the exchange wire. A 5 montenegrin Angled Pig catheter in over wire. EDP Sample taken: LV 165/21,36; HR: 77 BPM; SpO2: Off%. Pullback taken: LV 161/4,35; AO 135/90(108); Mean: 18mmHg, Peak to Peak: 26mmHg, SEP: 16sec/min; HR: 80 BPM; SpO2: Off%. Catheter removed over the exchange wire. A TR Band was successful obtaining hemostatsis at the Right Radial artery insertion site. PERRLA. Strong, equal hand field care coordinator bilaterally. No VTE prophylaxis required. Medication's Wasted: Nitro = 49.8 mg. Medication's Wasted: Lidocaine 1% = 2 mL. Medication's Wasted: Other = fentanyl 50 mcg. Total IV fluids: 40 mL. Post-op diagnosis: non obstructive CAD. Complications: none. Estimated blood loss: 5mL-10mL. Responsiveness - Normal response to verbal stimuli; alert and oriented, PERRLA. Airway - Unaffected, no intervention required; spontaneous ventilation. Circulation: W/N/L, pulses unchanged. Nausea/Vomiting: No. Patient transferred by bed to CPRU. Medication's Wasted: Heparin = 1000 units. Vital chart was stopped. Access Site Site: Right Radial artery Sheath Size: 6 Fr Hemostasis Method: TR Band Hemostasis Success: Successful Procedure Medications Start: 6:08 AM Stop: 6:08 AM Medication: Versed Amount: 1 mg Route: I.V. Start: 6:08 AM Stop: 6:08 AM Medication: Fentanyl Amount: 50 mcg Route: I.V. Start: 6:12 AM Stop: 6:12 AM Medication: Versed Amount: 1 mg Route: I.V. Start: 6:14 AM Stop: 6:14 AM Medication: Nitrogylcerin Amount: 200 mcg Route: I.A. Start: 6:16 AM Stop: 6:16 AM Medication: Heparin Amount: 5000 units Route: I.V. I, the attending physician, have reviewed and verified all procedure medications. Yes, all medications given per verbal order History/Risk Factors Hypertension: Yes Dyslipidemia: No Peripheral Arterial Disease (PAD): No Myocardial Infarction (FL): No Obesity: Yes Tobacco Use: Former Prior Interventions PCI: Yes CABG: No Valve Surgery: No Date of PCI: 09/12/2011 Report Signatures Finalized by Denis Helm MD on 01/02/2023 11:45 AM
[2022-12-19 05:32] LABS: Anion Gap 11.4 (5-19); Blood Urea Nitrogen 15 mg/dL (6-20); Calcium 8.9 mg/dL (8.5-10.5); Carbon Dioxide 32 mmol/L (22-29); Chloride 101 mmol/L (98-107); Glomerular Filtration Rate 99.3 mL/min (90-130); Glucose 131 mg/dL (65-115); Osmolality Calculated 295 mOsm/kg (285-295); Potassium 3.4 mmol/L (3.5-5.1); Sodium 141 mmol/L (136-145)
--- NOTE | 2022-12-19 06:09 | W.PM.OPSUD ---
Surgery/Procedure H&P Update DATE OF PROCEDURE: December 19, 2022 DATE H&P PERFORMED: 12/18/22 H&P UPDATE INFORMATION: I have reviewed H&P completed within last 30 days, I have examined patient prior to procedure and No changes to prior documentation PREOP DIAGNOSIS: NSTEMI PRIMARY INDICATION FOR PROCEDURE: NSTEMI PLANNED PROCEDURE: Left heart cath with possible percutaneous coronary intervention PATIENT REASSESSED PRIOR TO SEDATION, WITH NO CHANGE NOTED: Yes PHYSICAL EXAM: alert, oriented x 3, clear to auscultation bilaterally and regular rate & rhythm AIRWAY EVAL/ANESTHESIA PLAN: normal airway, ASA III, Local Anesthesia, Risks, benefits & alternatives of sedation and/or procedure discussed and Patient agrees to continue as planned ADDITIONAL INFORMATION: Moderate sedation
[2022-12-19 06:27] LABS: Glucose Point of Care 155 mg/dL (70-110)
--- NOTE | 2022-12-19 06:50 | PC.NURSE ---
Pt arrived to CPRU 4 for initial post cath recovery. Pt alert and oriented X 4. Breathing even and non-labored on 3L nc. Pt placed on bedside cardiac rn. Denies pain at this time. Right wrist has TR band in place. Site is asymptomatic, no signs of bleeding or hematoma noted. Pt educated on right arm restrictions, verbalized understanding.
--- NOTE | 2022-12-19 07:16 | PC.NURSE ---
Pt transferred to CSU room via w/c and oxygen. Pt denies pain, TR band in place, site asymptomatic.
[2022-12-19 07:37] LABS: Glucose Point of Care 134 mg/dL (70-110)
[2022-12-19] MEDS: budesonide 0.5 mg/2 mL Neb INHALATION ×2 (07:43→20:03)
--- NOTE | 2022-12-19 07:52 | USCV_ITS ---
Fairba Rossi Age: 57 Gender: M : 1965 Exam Date: 12/19/2022 13:39 Ordering Phys: Denis Helm M.D ([email or web address]) Technologist: Dusty Siddiqui [place] [facility] [place] Indication: chf as BP: 124 / 66 HR: 74 Rhythm: Sinus Technical Quality: Poor because of body habitus MEASUREMENTS (Male / Female) Normal Values 2D ECHO LV Diastolic Diameter PLAX 5.4 cm 4.2 - 5.9 / 3.9 - 5.3 cm LV Systolic Diameter PLAX 2.9 cm IVS Diastolic Thickness 1.5 cm 0.6 - 1.0 / 0.6 - 0.9 cm IVS Systolic Thickness 1.8 cm LVPW Diastolic Thickness 1.2 cm 0.6 - 1.0 / 0.6 - 0.9 cm LVPW Systolic Thickness 1.8 cm LVOT Diameter 2.2 cm LV Ejection Fraction 2D Teich 77.6 % LV Ejection Fraction MOD 2C 65.1 % LV Ejection Fraction 2C AL 65.4 % LA Diameter 4.8 cm Aorta at Sinotubular Diameter 2.9 cm M-MODE Aortic Annulus Diameter 3.6 cm LA Ao Ratio MM 1.4 MV E Point Septal Separation 1.1 cm DOPPLER AV Peak Velocity 297.0 cm/s LVOT Peak Velocity 105.0 cm/s AV Area Cont Eq vti 1.4 cm squared AV Area Cont Eq pk 1.3 cm squared MV Area PHT 3.1 cm squared Mitral E to A Ratio 3.8 MV E' Velocity 78.5 cm/s Mitral E to MV E' Ratio 15.9 Mitral E to LV E' Lateral Ratio 11.7 Mitral E to LV E' Septal Ratio 25.4 TR Peak Velocity 177.3 cm/s TR Peak Gradient 12.6 mmHg TV Peak E Velocity 94.0 cm/s Right Atrial Pressure 3.0 mmHg Pulmonary Artery Systolic Pressu 15.6 mmHg RV Acceleration Time 0.1 s FINDINGS Left Ventricle Left ventricle is normal size. LV systolic function is normal with EF of 55 to 60%. No regional wall motion abnormalities are seen. Right Ventricle Normal in size and function Right Atrium Normal in size Left Atrium Dilated Mitral Valve Grossly normal. Trace mitral regurgitation. Aortic Valve Aortic valve is thickened. Mild aortic stenosis with LEONARD of 1.39cm2 and mean gradient across the aortic valve is 16.3mmHg. Tricuspid Valve Trace tricuspid regurgitation. Insufficient TR jet to calculate RVSP Pulmonic Valve Trace pulmonic regurgitation. Pericardium Grossly normal Aorta Normal in size IVC Appears to be normal CONCLUSIONS Technically limited quality echocardiogram because of poor ultrasonic windows. LV systolic function is normal with EF of 55 to 60%. Left atrium is dilated Trace mitral regurgitation Mild aortic stenosis Trace tricuspid regurgitation Trace pulmonic regurgitation Compared to prior echocardiogram from 2016, patient now has mild aortic stenosis Denis Helm MD (Electronically Signed) Final Date: 19 December 2022 18:05 S
--- NOTE | 2022-12-19 07:58 | P.PN_ITS ---
Subjective Subjective: He underwent coronary angiogram today that showed patent prior stent and no significant CAD. His LVEDP is elevated. Will need continued diuresis. Vitals/I&O/Wt Last Vital Signs Temp 98.7 F 12/19/22 04:00 Pulse 76 12/19/22 07:54 Resp 18 12/19/22 07:44 BP 139/86 12/19/22 07:10 Pulse Ox 93 12/19/22 07:44 O2 Del Method 12/19/22 07:44 O2 Flow Rate 3 12/19/22 07:44 12/18/22 12/19/22 12/19/22 22:59 06:59 14:59 Intake Total 480 / 480 Output Total 875 / 875 300 / 1175 Balance -395 / -395 -300 / -695 Weight last 48 hrs Weight 320 lb 9 oz Weight 300 lb Physical Exam Narrative: GENERAL: Patient is alert, awake and oriented x3. [] NECK: No jugular vein distension. [] HEENT: No cyanosis. No icterus. No pallor. [] HEART: Irregularly irregular S1 and S2. LUNGS: Clear to auscultate bilaterally. [] ABDOMEN: Soft CENTRAL NERVOUS SYSTEM: Grossly nonfocal. [] EXTREMITIES: Lower extremities with 1+ edema bilaterally. Pulses palpable in the lower extremities, both dorsalis pedis and posterior tibial. [] Data 12/19/22 04:50 12/19/22 04:50 A&P Assessment and plan (1) NSTEMI (non-ST elevated myocardial infarction): (2) Atrial fibrillation: (3) COPD (chronic obstructive pulmonary disease): Qualifiers: COPD type: unspecified COPD Qualified Code(s): J44.9 - Chronic obstructive pulmonary disease, unspecified (4) Obstructive sleep apnea: (5) CHF (congestive heart failure): Qualifiers: Heart failure type: unspecified (6) Essential (primary) hypertension: (7) Arteriosclerotic coronary artery disease: (8) Diabetes mellitus type II, uncontrolled: Qualifiers: Glycemic state: with hyperglycemia Qualified Code(s): E11.65 - Type 2 diabetes mellitus with hyperglycemia Plan Coronary angiogram did not show critical CAD. Symptoms secondary to congestive heart failure. Continue IV diuresis. For atrial fibrillation continue anticoagulation. He will need long-term anticoagulation. Echocardiogram performed shows normal LV systolic function with mild aortic stenosis. Low-sodium diet Strict I&O's. Thank you for involving us in the care of this patient. We will continue to follow. Please call with questions. Attestations Medical Necessity Statement*: Care expected to cross 2 midnights. Coding Level of Care Code Acute Code for [facility] Fwd Diagnoses NSTEMI (non-ST elevated myocardial infarction) I21.4 Atrial fibrillation I48.91 COPD (chronic obstructive pulmonary disease) J44.9 COPD type: unspecified COPD Obstructive sleep apnea G47.33 CHF (congestive heart failure) I50.9 Heart failure type: unspecified Essential (primary) hypertension I10 Arteriosclerotic coronary artery disease I25.10 Diabetes mellitus type II, uncontrolled E11.65 Glycemic state: with hyperglycemia
--- NOTE | 2022-12-19 08:39 | PM.PN ---
Subjective Subjective: Fariba reports he feels little bit better. He has had no recurrence of chest discomfort. Last night with his increase in troponin, history of chest discomfort on admission I consulted cardiology for evaluation. An angiogram was indicated after discussion, and he went for an angiogram this morning. It did not demonstrate any flow-limiting lesions. He did have high pressures consistent with congestive heart failure. Medications: Reviewed: Yes Vitals/I&O/Wt Last Vital Signs Temp 98.0 F 12/19/22 08:00 Pulse 71 12/19/22 08:00 Resp 18 12/19/22 08:00 BP 118/76 12/19/22 08:00 Pulse Ox 94 12/19/22 08:00 O2 Del Method 12/19/22 08:00 O2 Flow Rate 3 12/19/22 07:44 12/18/22 12/19/22 12/19/22 22:59 06:59 14:59 Intake Total 480 / 480 Output Total 875 / 875 300 / 1175 Balance -395 / -395 -300 / -695 Weight last 48 hrs Weight 145.405 kg Weight 136.078 kg Physical Exam Narrative: General exam no distress Neck supple, obese Cardiovascular irregular, irregular without murmur Lungs coarse at the bases. Improved aeration. Less wheezing. Abdomen is soft obese nontender Extremities 1+ edema bilaterally Skin without rash Data 12/19/22 04:50 12/19/22 04:50 A&P Assessment and plan (1) CHF (congestive heart failure): Patient presents with acute exacerbation of congestive heart failure. He has been given Lasix 40 mg IV by the emergency department. Continue Lasix 40 mg IV every 12 hours. Monitor electrolytes for any renal injury during this time. Repeat BMP tomorrow. Holding Entresto Continue fluid restriction, 1200 cc Cardiac diet Echocardiogram ordered by cardiology, await their evaluation. Suspect quality will be poor. Qualifiers: Heart failure type: unspecified (2) COPD (chronic obstructive pulmonary disease): Patient with history of COPD/asthma. Discontinue propranolol DuoNeb every 6 hours Budesonide twice daily He appears to have some CO2 retention. Oxygen saturations should be approximately 90 to 92% to prevent CO2 retention. Wean oxygen as tolerated today Qualifiers: COPD type: unspecified COPD Qualified Code(s): J44.9 - Chronic obstructive pulmonary disease, unspecified (3) Diabetes mellitus type II, uncontrolled: Sliding scale insulin Continue long-acting insulin, 40 units twice daily Consistent carb diet Qualifiers: Glycemic state: with hyperglycemia Qualified Code(s): E11.65 - Type 2 diabetes mellitus with hyperglycemia (4) Essential (primary) hypertension: Continue many of his home medications with the exception of Entresto Secondary to history of asthma in the past change propranolol to metoprolol (5) Arteriosclerotic coronary artery disease: Continue statin, beta-joy Add aspirin Serial troponins. Elevation appears to be type II currently. (6) Atrial fibrillation: Patient's EKG demonstrated atrial fibrillation with rapid ventricular rate on arrival to the ER. Since then rate is come under control. Changes Lovenox back to Eliquis later tonight It is unclear if patient has been told he has a past history of atrial fibrillation. Continue metoprolol for weight control This may have led to decompensation of his heart failure Plan Mild hypokalemia, supplement today. Anemia, repeat CBC tomorrow as he is also getting anticoagulation. Multiple other medical problems as outlined in past medical history Full code Eliquis will suffice for DVT prophylaxis. Attestations Medical Necessity Statement*: Needs continued hospitalization for diuresis secondary to heart failure Coding Level of Care Code 16735 High MDM includes risk/complexity, reviewing test results, ordering lab/other test(s) and discussion of management or test(s) w/ other healthcare professional Diagnoses CHF (congestive heart failure) I50.9 Heart failure type: unspecified COPD (chronic obstructive pulmonary disease) J44.9 COPD type: unspecified COPD Diabetes mellitus type II, uncontrolled E11.65 Glycemic state: with hyperglycemia Essential (primary) hypertension I10 Arteriosclerotic coronary artery disease I25.10 Atrial fibrillation I48.91 Time Spent (min) 21
[2022-12-19] MEDS: aspirin 81 mg EC Tablet PO (08:54)
[2022-12-19] MEDS: fluoxetine 20 mg Capsule PO ×2 (08:54→17:26)
[2022-12-19] MEDS: montelukast sodium 10 mg Tablet PO (08:55)
[2022-12-19] MEDS: potassium chloride ER 20 mEq Tablet 40 MEQ PO ×2 (08:55→15:02)
[2022-12-19] MEDS: hyDRALAzine 50 mg Tablet 100 MG PO ×3 (08:55→20:54)
[2022-12-19] MEDS: metoprolol tartrate 25 mg Tablet PO ×2 (08:55→20:55)
[2022-12-19] MEDS: doxepin 50 mg Capsule PO ×3 (08:55→20:54)
[2022-12-19] MEDS: FUROsemide 10 mg/mL SDV 4mL 40 MG IVP ×2 (08:58→20:55)
[2022-12-19] MEDS: insulin glargine 100 units/1 mL 40 UNIT SUBCUT ×2 (08:58→17:26)
--- NOTE | 2022-12-19 09:41 | PC.NURSE ---
received from cardiac general production laborer via w/c at 0725.report received.pt is alert and awake and oriented x 4.denies pain at present.afib at controlled rate on monitor.right radial tr band on and inflated .right hand is warm to touch and with brisk capillary refill.no hematoma noted.palpable radial pulse noted distal to tr band.pt instructed in activity restrictions s/p radial artery procedure..and instructed to notify staff for any bleeding,pain,numbness,sob,dizziness..or for any concerns at all.pt verb understanding of instructions.
[2022-12-19 11:34] LABS: Glucose Point of Care 252 mg/dL (70-110)
--- NOTE | 2022-12-19 14:02 | PC.NURSE ---
tr band slowly deflated and finally removed at 12:00.no hematoma formation noted.right hand remains warm to touch and with brisk capillary refill.palpable radial pulse noted.pt instructed in activity restrictions s/p tr band removal...and instructedd to notify staff for any bleeding,pain,sob..or for any concerns at all.pt verb understanding of instructions
[2022-12-19 17:05] LABS: Glucose Point of Care 141 mg/dL (70-110)
[2022-12-19] MEDS: apixaban 5 mg Tablet 2.5 MG PO (20:55)
[2022-12-19 21:26] LABS: Glucose Point of Care 293 mg/dL (70-110)
[2022-12-20] VITALS (22 sets, daily range): BP systolic 124–142; BP diastolic 60–85; PULSE 68–84; RESP 14–20; TEMP 36.6–37.1; O2SAT 91–98
[2022-12-20] MEDS: ipratropium-albuterol 3 mL Neb INHALATION ×7 (00:36→23:10)
[2022-12-20 05:02] LABS: Basophils % 0.5 %; Eosinophils # 0.1 10^3/uL (0.0-0.8); Eosinophils % 2.1 %; Hematocrit 36.7 % (42.0-52.0); Hemoglobin 11.1 g/dL (11.7-16.6); Lymphocytes # 1.5 10^3/uL (0.8-4.8); Lymphocytes % 24.9 %; Mean Corpuscular HGB Conc 30.2 g/dL (30.0-36.0); Mean Corpuscular Hemoglobin 28.1 pg (28.0-34.0); Mean Corpuscular Volume 92.9 fl (80-94); Mean Platelet Volume 9.4 fL (7.4-10.4); Monocytes # 0.6 10^3/uL (0.2-0.9); Monocytes % 9.9 %; Neutrophils # 3.81 10^3/uL (1.8-7.7); Neutrophils % 62.1 %; Nucleated Red Blood Cells % 0 %; Platelet Count 340 10^3/cmm (130-400); Red Blood Count 3.95 10^6/uL (4.1-5.3); Red Cell Distribution Width 15.4 % (12.1-15.1); White Blood Count 6.1 10^3/uL (4.0-10.0)
[2022-12-20 05:19] LABS: Anion Gap 12.6 (5-19); Blood Urea Nitrogen 17 mg/dL (6-20); Calcium 9.1 mg/dL (8.5-10.5); Carbon Dioxide 32 mmol/L (22-29); Chloride 100 mmol/L (98-107); Glomerular Filtration Rate 86.7 mL/min (90-130); Glucose 195 mg/dL (65-115); Magnesium 2.1 mg/dL (1.7-2.3); Osmolality Calculated 299 mOsm/kg (285-295); Potassium 3.6 mmol/L (3.5-5.1); Sodium 141 mmol/L (136-145)
[2022-12-20] MEDS: atorvastatin 40 mg Tablet PO (06:30)
[2022-12-20] MEDS: amlodipine 5 mg Tablet PO (06:30)
[2022-12-20] MEDS: magnesium oxide 400 mg tablet PO (06:30)
[2022-12-20 06:35] LABS: Glucose Point of Care 176 mg/dL (70-110)
[2022-12-20] MEDS: budesonide 0.5 mg/2 mL Neb INHALATION ×2 (07:14→20:17)
--- NOTE | 2022-12-20 08:01 | PM.PN ---
Subjective Subjective: Patient is feeling better. Shortness of breath is improved. Coronary angiogram did not reveal significant CAD. Vitals/I&O/Wt Last Vital Signs Temp 98.5 F 12/19/22 20:00 Pulse 79 12/20/22 07:35 Resp 20 H 12/20/22 07:35 BP 140/82 12/20/22 07:35 Pulse Ox 92 12/20/22 07:35 O2 Del Method 12/20/22 07:35 O2 Flow Rate 2 12/20/22 07:35 12/19/22 12/20/22 12/20/22 22:59 06:59 14:59 Intake Total 120 / 600 1070.833 / 1670.833 Balance 120 / 600 1070.833 / 1670.833 Weight last 48 hrs Weight 320 lb 9 oz Weight 300 lb Physical Exam Narrative: GENERAL: Patient is alert, awake and oriented x3. [] NECK: No jugular vein distension. [] HEENT: No cyanosis. No icterus. No pallor. [] HEART: Irregularly irregular S1 and S2. LUNGS: Clear to auscultate bilaterally. [] ABDOMEN: Soft CENTRAL NERVOUS SYSTEM: Grossly nonfocal. [] EXTREMITIES: Lower extremities with 1+ edema bilaterally. Pulses palpable in the lower extremities, both dorsalis pedis and posterior tibial. [] Data 12/20/22 04:24 12/20/22 04:24 A&P Assessment and plan (1) NSTEMI (non-ST elevated myocardial infarction): (2) Atrial fibrillation: (3) COPD (chronic obstructive pulmonary disease): Qualifiers: COPD type: unspecified COPD Qualified Code(s): J44.9 - Chronic obstructive pulmonary disease, unspecified (4) Obstructive sleep apnea: (5) CHF (congestive heart failure): Qualifiers: Heart failure type: unspecified (6) Essential (primary) hypertension: (7) Arteriosclerotic coronary artery disease: (8) Diabetes mellitus type II, uncontrolled: Qualifiers: Glycemic state: with hyperglycemia Qualified Code(s): E11.65 - Type 2 diabetes mellitus with hyperglycemia Plan Coronary angiogram did not show critical CAD. Continue IV diuresis. Strict I&O's. For atrial fibrillation continue anticoagulation. He will need long-term anticoagulation. Echocardiogram performed shows normal LV systolic function with mild aortic stenosis. Low-sodium diet Thank you for involving us in the care of this patient. We will continue to follow. Please call with questions. Attestations Medical Necessity Statement*: Care expected to cross 2 midnights. Coding Level of Care Code Acute Code for g Fwd Diagnoses NSTEMI (non-ST elevated myocardial infarction) I21.4 Atrial fibrillation I48.91 COPD (chronic obstructive pulmonary disease) J44.9 COPD type: unspecified COPD Obstructive sleep apnea G47.33 CHF (congestive heart failure) I50.9 Heart failure type: unspecified Essential (primary) hypertension I10 Arteriosclerotic coronary artery disease I25.10 Diabetes mellitus type II, uncontrolled E11.65 Glycemic state: with hyperglycemia
--- NOTE | 2022-12-20 08:56 | PC.CHAP ---
Pastoral Care Encounter/Spiritual Assessment Type of Contact [] Declined [place] se[place] visit [] Patient/Family/Request visit [] Outpatient visit [] Follow-up visit [] Physician referral [] Code/Alert [x] Routine visit [] Staff referral [] Actively dying [] Patient sleeping [] Family support [] [] Out of room [] Palliative care [] [x] Receiving care in room [] Pre-surgical visit [] Trauma [] Long length of stay [] ICU visit [] Other: Relational/Emotional Strength [] Patient feels connected with others/family/visitors/staff [] Distress [] Loneliness/isolation [] Abandonment Spirituality of Patient [] Person of Kizzy [] Attends Faith of their Kizzy [] Believes in Prayer [] Reads Bible or Mu-Ism materials [] There are Spiritual issues to be addressed 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 [] Prayer [] Active listening [] Non-anxious presence [] Spiritual/emotional support [] Crisis/trauma care [] Spiritual counseling [] Bereavement support [] Provided bereavement packet [] Provided Bible/devotional materials [] Provided toy/stuffed animal, coloring book to patient or family member [] Provided Communion [] Anointing/[place] [] Salvation [] Completed spiritual assessment [] Other: Impact on Illness or Injury [] Angry [] Fearful [] Anxious [] Often cries [] Exhaustion [] Unable to work [] Unable to attend oriental orthodox [] Unable to walk/stand [] Unable to read [] Unable to drive [] Unable to eat/drink [] Unable to sleep [] Unable to be with family [] Patient intubated [] Other: Summary Time spent with patient
--- NOTE | 2022-12-20 09:11 | PM.PN ---
Subjective Subjective: Juancho reports his shortness of breath is somewhat better. Ins and outs were not recorded. Oxygen requirement has reduced to 2 L. No chest discomfort overnight. No issues with his right wrist, despite the fact he took off his own band from angiogram site. Medications: Reviewed: Yes Vitals/I&O/Wt Last Vital Signs Temp 98.5 F 12/19/22 20:00 Pulse 79 12/20/22 07:35 Resp 20 H 12/20/22 07:35 BP 140/82 12/20/22 07:35 Pulse Ox 92 12/20/22 07:35 O2 Del Method 12/20/22 07:35 O2 Flow Rate 2 12/20/22 07:35 12/19/22 12/20/22 12/20/22 22:59 06:59 14:59 Intake Total 120 / 600 1070.833 / 1670.833 360 / 360 Balance 120 / 600 1070.833 / 1670.833 360 / 360 Weight last 48 hrs Weight 145.405 kg Physical Exam Narrative: General exam no distress Neck supple, obese Cardiovascular irregular, irregular without murmur Lungs coarse at the bases. No crackles. Abdomen is soft obese nontender Extremities 1+ edema bilaterally, right wrist without significant hematoma Skin without rash Data 12/20/22 04:24 12/20/22 04:24 A&P Assessment and plan (1) CHF (congestive heart failure): Patient presents with acute exacerbation of congestive heart failure. Patient can benefit from further IV diuresis. Discussed in detail with cardiology today who agrees. Continue Lasix 40 mg IV every 12 hours, monitoring electrolytes closely for any renal injury and repeating BMP tomorrow Continue to hold Entresto at this point Continue fluid restriction, 1200 cc Cardiac diet Echocardiogram comes back poor quality, EF 55 to 60% possible mild aortic stenosis currently. Qualifiers: Heart failure type: unspecified (2) COPD (chronic obstructive pulmonary disease): Patient with history of COPD/asthma. Discontinue propranolol DuoNeb every 6 hours Budesonide twice daily He appears to have some CO2 retention. Oxygen saturations should be approximately 90 to 92% to prevent CO2 retention. Oxygen has been weaned to 2 L Qualifiers: COPD type: unspecified COPD Qualified Code(s): J44.9 - Chronic obstructive pulmonary disease, unspecified (3) Diabetes mellitus type II, uncontrolled: Sliding scale insulin Continue long-acting insulin, 40 units twice daily Consistent carb diet Qualifiers: Glycemic state: with hyperglycemia Qualified Code(s): E11.65 - Type 2 diabetes mellitus with hyperglycemia (4) Essential (primary) hypertension: Continue many of his home medications with the exception of Entresto Secondary to history of asthma in the past change propranolol to metoprolol (5) Arteriosclerotic coronary artery disease: Continue statin, beta-joy Add aspirin Serial troponins. Elevation appears to be type II currently. (6) Atrial fibrillation: Patient's EKG demonstrated atrial fibrillation with rapid ventricular rate on arrival to the ER. Since then rate is come under control. Eliquis has been resumed It is unclear if patient has been told he has a past history of atrial fibrillation. Continue metoprolol Plan Mild hypokalemia, resolved Anemia, stable Multiple other medical problems as outlined in past medical history Full code Eliquis will suffice for DVT prophylaxis. Attestations Medical Necessity Statement*: Needs continued hospitalization for further IV diuresis Coding Level of Care Code 29368 High MDM includes risk/complexity, reviewing test results, ordering lab/other test(s), independently interpretating test(s) (not separately recorded) and discussion of management or test(s) w/ other healthcare professional Diagnoses CHF (congestive heart failure) I50.9 Heart failure type: unspecified COPD (chronic obstructive pulmonary disease) J44.9 COPD type: unspecified COPD Diabetes mellitus type II, uncontrolled E11.65 Glycemic state: with hyperglycemia Essential (primary) hypertension I10 Arteriosclerotic coronary artery disease I25.10 Atrial fibrillation I48.91 Time Spent (min) 27
[2022-12-20] MEDS: potassium chloride ER 20 mEq Tablet 40 MEQ PO (10:21)
[2022-12-20] MEDS: hyDRALAzine 50 mg Tablet 100 MG PO ×3 (10:22→20:57)
[2022-12-20] MEDS: fluoxetine 20 mg Capsule PO ×2 (10:22→18:13)
[2022-12-20] MEDS: aspirin 81 mg EC Tablet PO (10:23)
[2022-12-20] MEDS: metoprolol tartrate 25 mg Tablet PO ×2 (10:23→20:57)
[2022-12-20] MEDS: montelukast sodium 10 mg Tablet PO (10:23)
[2022-12-20] MEDS: doxepin 50 mg Capsule PO ×3 (10:24→20:58)
[2022-12-20] MEDS: insulin glargine 100 units/1 mL 40 UNIT SUBCUT ×2 (10:24→18:13)
[2022-12-20] MEDS: apixaban 5 mg Tablet 2.5 MG PO ×2 (10:24→20:57)
[2022-12-20] MEDS: FUROsemide 10 mg/mL SDV 4mL 40 MG IVP ×2 (10:25→20:57)
[2022-12-20 11:51] LABS: Glucose Point of Care 179 mg/dL (70-110)
[2022-12-20 17:11] LABS: Glucose Point of Care 127 mg/dL (70-110)
[2022-12-20 21:15] LABS: Glucose Point of Care 141 mg/dL (70-110)
[2022-12-21 03:41] VITALS: BP 130/81; PULSE 69; RESP 19; TEMP 37.1; O2SAT 90
[2022-12-21 05:39] LABS: Anion Gap 12.5 (5-19); Blood Urea Nitrogen 21 mg/dL (6-20); Calcium 9.1 mg/dL (8.5-10.5); Carbon Dioxide 31 mmol/L (22-29); Chloride 100 mmol/L (98-107); Glomerular Filtration Rate 99.3 mL/min (90-130); Glucose 110 mg/dL (65-115); Magnesium 2.1 mg/dL (1.7-2.3); Osmolality Calculated 294 mOsm/kg (285-295); Potassium 3.5 mmol/L (3.5-5.1); Sodium 140 mmol/L (136-145)
[2022-12-21 06:00] VITALS: PULSE 73
[2022-12-21] MEDS: magnesium oxide 400 mg tablet PO (06:19)
[2022-12-21] MEDS: atorvastatin 40 mg Tablet PO (06:19)
[2022-12-21] MEDS: amlodipine 5 mg Tablet PO (06:19)
[2022-12-21 06:37] LABS: Glucose Point of Care 105 mg/dL (70-110)
--- NOTE | 2022-12-21 07:38 | P.PN_ITS ---
Subjective Subjective: Patient is doing well. no chest pain Vitals/I&O/Wt Last Vital Signs Temp 98.7 F 12/21/22 03:41 Pulse 69 12/21/22 03:41 Resp 19 H 12/21/22 03:41 BP 130/81 12/21/22 03:41 Pulse Ox 90 12/21/22 03:41 O2 Del Method 12/21/22 03:41 O2 Flow Rate 2 12/20/22 23:15 12/20/22 12/21/22 12/21/22 22:59 06:59 14:59 Intake Total 720 / 1680 240 / 1920 Output Total 320 / 640 150 / 790 Balance 400 / 1040 90 / 1130 Physical Exam Narrative: GENERAL: Patient is alert, awake and oriented x3. [] NECK: No jugular vein distension. [] HEENT: No cyanosis. No icterus. No pallor. [] HEART: Irregularly irregular S1 and S2. LUNGS: Clear to auscultate bilaterally. [] ABDOMEN: Soft CENTRAL NERVOUS SYSTEM: Grossly nonfocal. [] EXTREMITIES: Lower extremities with 1+ edema bilaterally. Pulses palpable in the lower extremities, both dorsalis pedis and posterior tibial. [] Data 12/20/22 04:24 12/21/22 04:19 A&P Assessment and plan (1) NSTEMI (non-ST elevated myocardial infarction): (2) Atrial fibrillation: (3) COPD (chronic obstructive pulmonary disease): (4) Obstructive sleep apnea: (5) CHF (congestive heart failure): (6) Essential (primary) hypertension: (7) Arteriosclerotic coronary artery disease: (8) Diabetes mellitus type II, uncontrolled: Plan Patient is stable. Can switch to p.o. diuretics. Continue [facility]Patient cardiology follow-up. Please call with questions. Attestations Medical Necessity Statement*: Care expected to cross 2 midnights. Coding Level of Care Code Acute Code for [facility] Diagnoses NSTEMI (non-ST elevated myocardial infarction) I21.4 Atrial fibrillation I48.91 COPD (chronic obstructive pulmonary disease) J44.9 Obstructive sleep apnea G47.33 CHF (congestive heart failure) I50.9 Essential (primary) hypertension I10 Arteriosclerotic coronary artery disease I25.10 Diabetes mellitus type II, uncontrolled E11.65
[2022-12-21 07:45] VITALS: BP 144/77; PULSE 86; RESP 18; TEMP 36.6; O2SAT 93
[2022-12-21] MEDS: budesonide 0.5 mg/2 mL Neb INHALATION (07:50)
[2022-12-21] MEDS: ipratropium-albuterol 3 mL Neb INHALATION (07:50)
[2022-12-21 07:51] VITALS: PULSE 73; RESP 18; O2SAT 93
[2022-12-21 07:56] VITALS: PULSE 77
[2022-12-21] MEDS: fluoxetine 20 mg Capsule PO (08:20)
[2022-12-21] MEDS: apixaban 5 mg Tablet 2.5 MG PO (08:20)
[2022-12-21] MEDS: hyDRALAzine 50 mg Tablet 100 MG PO (08:20)
[2022-12-21] MEDS: montelukast sodium 10 mg Tablet PO (08:20)
[2022-12-21] MEDS: doxepin 50 mg Capsule PO (08:21)
[2022-12-21] MEDS: FUROsemide 10 mg/mL SDV 4mL 40 MG IVP (08:21)
[2022-12-21] MEDS: metoprolol tartrate 25 mg Tablet PO (08:21)
[2022-12-21] MEDS: insulin glargine 100 units/1 mL 40 UNIT SUBCUT (08:23)
[2022-12-21] MEDS: aspirin 81 mg EC Tablet PO (08:33)
--- NOTE | 2022-12-21 09:05 | PC.SOCIAL ---
IMM update IMM updated with patient. Verbalized an understanding. Copy Pg 2 provided. Initialled, dated, timed, and placed in chart.
--- NOTE | 2022-12-21 09:40 | PM.DCS ---
Discharge Providers Date of Admission: 12/18/22 11:16 Date of Discharge: December 21, 2022 Attending Provider at Admission: William Worley MD Attending Provider at Discharge: William Worley MD Primary Care Provider: JAQUI Garcia Diagnoses at Discharge Discharge Diagnosis (1) NSTEMI (non-ST elevated myocardial infarction): Status: Acute (2) Atrial fibrillation: Status: Acute (3) COPD (chronic obstructive pulmonary disease): Status: Chronic Qualifiers: COPD type: unspecified COPD Qualified Code(s): J44.9 - Chronic obstructive pulmonary disease, unspecified (4) Obstructive sleep apnea: Status: Acute (5) CHF (congestive heart failure): Status: Chronic Qualifiers: Heart failure type: unspecified (6) Essential (primary) hypertension: Status: Chronic (7) Arteriosclerotic coronary artery disease: Status: Chronic (8) Diabetes mellitus type II, uncontrolled: Status: Chronic Qualifiers: Glycemic state: with hyperglycemia Qualified Code(s): E11.65 - Type 2 diabetes mellitus with hyperglycemia Reason for Visit Reason for Visit: SOB, PAin in both arms Hospital Course Hospital Course Fariba is a 57-year-old white male who presented to the hospital with complaints of shortness of breath, and chest discomfort. He was requiring a significant amount of oxygen. He was diagnosed with congestive heart failure. Troponin elevation, and delta troponin was concerning for non-ST elevation myocardial infarction. His anticoagulation was changed to Lovenox. Propranolol was changed to metoprolol. Aspirin was given. Cardiology consultation was obtained. Angiogram was performed on December 19 demonstrating no need for intervention, no flow-limiting lesions. Diuresis continued to occur and eventually was able to wean down to 2 L of oxygen from 4 L he required on admission. Echo was done which demonstrated preserved EF but was of poor quality. With significant improvement in clinical exam it was thought he could be discharged on December 21. Multiple medication changes occurred which were explained in detail. Patient will follow-up with cardiology in 7 to 10 days, primary care provider 3 to 5 days. Patient and his were given an opportunity to ask questions, and agreed with the plan set forth. Angiogram site had no significant hematoma on discharge. Physical Exam Narrative: General exam no distress Neck is supple no lymphadenopathy thyromegaly Cardiovascular regular in rhythm without murmur Lungs diminished breath sounds bilaterally but clear Abdomen is soft obese nontender Extremities only trace edema Discharge Data Studies Completed and Pending Completed Studies During Hospitalization Category Date Time Status XR chest 1V portable [id number] Stat Exams 12/18/22 08:43 Completed CV. 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 Laboratory Results WBC 6.1 10^3/uL (4.0-10.0) 12/20/22 04:24 RBC 3.95 10^6/uL (4.1-5.3) L 12/20/22 04:24 Hgb 11.1 g/dL (11.7-16.6) L 12/20/22 04:24 Hct 36.7 % (42.0-52.0) L 12/20/22 04:24 MCV 92.9 fl (80-94) 12/20/22 04:24 MCH 28.1 pg (28.0-34.0) 12/20/22 04:24 MCHC 30.2 g/dL (30.0-36.0) 12/20/22 04:24 RDW 15.4 % (12.1-15.1) H 12/20/22 04:24 Plt Count 340 10^3/cmm (130-400) 12/20/22 04:24 MPV 9.4 fL (7.4-10.4) 12/20/22 04:24 Neut % (Auto) 62.1 % 12/20/22 04:24 Lymph % (Auto) 24.9 % 12/20/22 04:24 [place] % (Auto) 9.9 % 12/20/22 04:24 Eos % (Auto) 2.1 % 12/20/22 04:24 Baso % (Auto) 0.5 % 12/20/22 04:24 Neut # (Auto) 3.81 10^3/uL (1.8-7.7) 12/20/22 04:24 Lymph # (Auto) 1.5 10^3/uL (0.8-4.8) 12/20/22 04:24 [place] # (Auto) 0.6 10^3/uL (0.2-0.9) 12/20/22 04:24 Eos # (Auto) 0.1 10^3/uL (0.0-0.8) 12/20/22 04:24 Baso # (Auto) 0.0 10^3/uL (0.0-0.1) 12/20/22 04:24 Nucleated RBC % (auto) 0 % 12/20/22 04:24 Nucleated RBCs # 0.0 /100WBC 12/20/22 04:24 Specimen Type Arterial 12/18/22 08:36 Sample Site Radial, left 12/18/22 08:36 ABG pH 7.43 (7.35-7.45) 12/18/22 08:36 ABG pCO2 50.0 mmHg (35-45) H 12/18/22 08:36 ABG pO2 69.4 mmHg (80.0-100.0) L 12/18/22 08:36 ABG HCO3 33.5 mmol/L (22-26) H 12/18/22 08:36 ABG O2 Saturation 94.1 12/18/22 08:36 ABG Base Excess 8.0 mmol/L (-2.0-2.0) H 12/18/22 08:36 Alex Test Pos 12/18/22 08:36 A-a O2 Gradient 2.5 mmHg (5-10) L 12/18/22 08:36 Hematocrit 35.2 % (42-52) L 12/18/22 08:36 Hgb O2 Saturation 92.0 % (95-100) L 12/18/22 08:36 Carboxyhemoglobin 1.5 %THgb (0.4-20.1) 12/18/22 08:36 Methemoglobin 0.8 % (0.4-1.5) 12/18/22 08:36 Total Hemoglobin 11.5 g/dL (14-18) L 12/18/22 08:36 Sodium 143.0 mmol/L (131-143) 12/18/22 08:36 Potassium 3.2 mmol/L (3.5-5.0) L 12/18/22 08:36 Glucose 120.0 mg/dL (70-115) H 12/18/22 08:36 Ionized Calcium 1.2 mmol/L (1.1-1.4) 12/18/22 08:36 O2 Delivery Device Nc 12/18/22 08:36 O2 Liters/Min 5.0 % 12/18/22 08:36 Manufacturing Technology Professor ID Mirian 12/18/22 08:36 Sodium 140 mmol/L (136-145) 12/21/22 04:19 Potassium 3.5 mmol/L (3.5-5.1) 12/21/22 04:19 Chloride 100 mmol/L (98-107) 12/21/22 04:19 Carbon Dioxide 31 mmol/L (22-29) H 12/21/22 04:19 Anion Gap 12.5 (5-19) 12/21/22 04:19 BUN 21 mg/dL (6-20) H 12/21/22 04:19 Creatinine 0.8 mg/dL (0.7-1.2) 12/21/22 04:19 GFR Calculation 99.3 mL/min (90-130) 12/21/22 04:19 Glucose 110 mg/dL (65-115) 12/21/22 04:19 POC Glucose 105 mg/dL (70-110) 12/21/22 06:18 Calculated Osmolality 294 mOsm/kg (285-295) 12/21/22 04:19 Calcium 9.1 mg/dL (8.5-10.5) 12/21/22 04:19 Magnesium 2.1 mg/dL (1.7-2.3) 12/21/22 04:19 Total Bilirubin 0.7 mg/dL (0.15-1.2) 12/18/22 08:17 AST 16 U/L (0-40) 12/18/22 08:17 ALT 22 U/L (0-41) 12/18/22 08:17 Alkaline Phosphatase 90 U/L (40-130) 12/18/22 08:17 Troponin T Baseline 38 ng/L (0-15) H 12/18/22 08:17 Troponin T 120 Minute 76.81 ng/L (0-15) H 12/18/22 12:25 Delta Troponin T 38.81 ABS# (0-10) H* 12/18/22 12:25 Troponin T Hi Sens 6Hr 197.2 ng/L (0-15) H 12/18/22 17:08 Troponin T Hi Sens 6Hr Delta 159.2 ng/L (0-12) H* 12/18/22 17:08 NT-Pro-B Natriuret Pep 1178 pg/mL (0-125) H 12/18/22 08:17 Total Protein 6.6 g/dL (6.6-8.7) 12/18/22 08:17 Albumin 3.9 g/dL (3.5-5.2) 12/18/22 08:17 Globulin 2.7 g/dL (1.3-4.6) 12/18/22 08:17 Urine Color Yellow (Yellow) 12/18/22 11:10 Urine Appearance Clear (CLEAR) 12/18/22 11:10 Urine pH 6 (5-7) 12/18/22 11:10 Ur Specific [place] 1.010 (1.005-1.030) 12/18/22 11:10 Urine Protein Neg (Negative) 12/18/22 11:10 Urine Glucose (UA) 4+ (Normal) H 12/18/22 11:10 Urine Ketones Negative (Negative) 12/18/22 11:10 Urine Blood Neg (Negative) 12/18/22 11:10 Urine Nitrate Negative (Negative) 12/18/22 11:10 Urine Bilirubin Neg (Negative) 12/18/22 11:10 Urine Urobilinogen Neg mg/dL (Negative) 12/18/22 11:10 Ur Leukocyte Esterase Negative (Negative) 12/18/22 11:10 Vitals Last Vital Signs Temp 98 F 12/21/22 07:45 Pulse 77 12/21/22 07:56 Resp 18 12/21/22 07:51 BP 144/77 12/21/22 07:45 Pulse Ox 93 12/21/22 07:51 O2 Del Method 12/21/22 07:51 O2 Flow Rate 2 12/21/22 07:51 Discharge Plan Discharge Patient Disposition: Home Condition: Stable Prescriptions: New losartan 50 mg tablet 50 mg PO DAILY Qty: 30 0RF aspirin 81 mg Tablet,Delayed Release (Dr/Ec) 81 mg PO DAILY Qty: 30 0RF metoprolol tartrate 25 mg Tablet 25 mg PO BID@0900,2100 Qty: 60 0RF Eliquis 2.5 mg tablet 2.5 mg PO BID Qty: 60 0RF bumetanide 1 mg tablet 1 mg PO BID Qty: 60 0RF Continued lidocaine 5 % adhesive patch,medicated 1 patch TOPICAL .COMPLEX Rx Instructions: apply one patch daily as needed for pain (on for 12 hours and off for 12 hours) (DME) lancets [OneTouch Delica Lancets] 33 gauge misc See Rx Instructions .ROUTE .MEDSUPPLY Qty: 200 5RF Rx Instructions: 4 times daily budesonide-formoterol [Symbicort] 160-4.5 mcg/actuation HFA aerosol inhaler 2 puff inhalation BID Qty: 10.2 3RF albuterol sulfate 2.5 mg /3 mL (0.083 %) solution for nebulization 2.5 mg INHALATION QID PRN (Reason: bronchospasm) Qty: 75 3RF amlodipine 5 mg tablet 5 mg PO QAM Qty: 90 0RF atorvastatin 40 mg tablet 40 mg PO QAM Qty: 90 0RF (DME) blood sugar diagnostic Strip See Rx Instructions .ROUTE .MEDSUPPLY Qty: 200 5RF Rx Instructions: 4 times a day as needed doxepin 50 mg capsule 50 mg PO TID Qty: 270 0RF empagliflozin 25 mg tablet 25 mg PO QAM Qty: 30 2RF fluoxetine [Prozac] 20 mg capsule 20 mg PO BID Qty: 180 0RF hydralazine 100 mg tablet 100 mg PO TID Qty: 270 0RF Levemir FlexTouch U-100 Insuln 100 unit/mL (3 mL) insulin pen 40 unit SUBCUT BID Qty: 30 2RF Novolin R FlexPen 100 unit/mL (3 mL) insulin pen See Rx Instructions .ROUTE .COMPLEX Qty: 15 2RF Rx Instructions: sliding scale up to qid 110-985=61L120-032=02H402-074=99A854-793=[id number]=49D273-674=98F452-274=16K>400= 32U metformin 500 mg tablet extended release 24 hr 1,000 mg PO DAILY Qty: 180 0RF Mounjaro 2.5 mg/0.5 mL pen injector 7.5 mg SUBCUT .weekly Qty: 2 2RF Rx Instructions: ON FRIDAYS (DME) blood-glucose meter [[employer] Labsuch Ultra2 Meter] Kit See Rx Instructions .ROUTE .MEDSUPPLY Qty: 1 0RF Rx Instructions: use daily montelukast [Singulair] 10 mg tablet 10 mg PO DAILY Qty: 30 3RF magnesium oxide 400 mg magnesium capsule 400 mg PO QAM ipratropium-albuterol 0.5 mg-3 mg(2.5 mg base)/3 mL solution for nebulization 3 ml inhalation Q4H PRN (Reason: shortness of breath or wheezing) Qty: 180 0RF Rx Instructions: until breathing returns to target peak flow/parameters Discontinued Entresto 97-103 mg tablet 1 tab PO BID Qty: 60 2RF furosemide [Lasix] 20 mg tablet 20 mg PO TID Qty: 180 0RF propranolol 80 mg capsule,extended release 24hr 80 mg PO QAM Qty: 90 0RF Xarelto 2.5 mg tablet 2.5 mg PO BID Qty: 180 0RF Mucinex 1,200 mg tablet extended release 12hr 1,200 mg PO Q12H PRN (Reason: Congestion) Discharge Orders: Discharge Order (Routine); Ordered 12/21/22 Ordered By: William Worley Referrals: Mateo Sifuentes FNP-C [Primary Care Provider] - 4-7 days Yolanda Taylor FNP [Nurse Practitioner] - 7-10 days Patient Instructions: Congestive Heart Failure, Angiogram (DC), Opioid Safety Activity Restrictions/Additional Instructions: Resume your home oxygen Do not take your metformin until December 23 Note that you have had multiple medication changes including discontinuation of Entresto, Lasix, propranolol, Xarelto and additions as noted Weigh yourself daily, call your primary care provider or chief knowledge officer if weight goes up by more than 2 pounds in 2 days in a row Low-salt diet Follow-up with cardiologyYolanda, 7 to 10 days Follow-up with your primary care provider 3 to 5 days. Patient's Health Concerns: Shortness of breath and chest discomfort Assessment: Congestive heart failure Plan of Treatment: Multiple medication changes, to promote fluid balance Discharge Attestations Time Spent in Discharge Care*: greater than 30 min Quality Metrics Clinical Quality Measures [ No reported AMI, CVA or VTE this stay] Coding Level of Care Code 13464 Total time (in minutes) for Discharge: 36 Diagnoses NSTEMI (non-ST elevated myocardial infarction) I21.4 Atrial fibrillation I48.91 COPD (chronic obstructive pulmonary disease) J44.9 COPD type: unspecified COPD Obstructive sleep apnea G47.33 CHF (congestive heart failure) I50.9 Heart failure type: unspecified Essential (primary) hypertension I10 Arteriosclerotic coronary artery disease I25.10 Diabetes mellitus type II, uncontrolled E11.65 Glycemic state: with hyperglycemia
--- NOTE | 2022-12-21 10:06 | PC.NURSE ---
meds to bed called [facility].
[2022-12-21 10:52] VITALS: BP 118/64; PULSE 92; RESP 20; TEMP 36.4; O2SAT 98
--- NOTE | 2022-12-21 12:17 | PC.NURSE ---
discharge to home Discharge Note Patient discharged to home via private vehicle accompanied by . Discharge instructions reviewed with patient and/or provider service representative. Mobile pharmacy medications and/or prescriptions provided. Belongings/home medications returned.
== END 2022-12-21 11:30 | disposition home or self-care (01) | DRG 287 ==
LOC: ER 10:34 → CSU 13:05
PROVIDERS: Internal Medicine; Admitting Provider Internal Medicine; Emergency Provider Family Medicine; PCP Nurse Practitioner; Visit Provider Internal Medicine
PROC: 4A023N7 Measurement of Cardiac Sampling and Pressure, Left Heart, Percutaneous Approach (ICD-10-PCS; principal; 2022-12-19 06:00)
DX: I11.0 Hypertensive heart disease with heart failure (principal); I50.9 Heart failure, unspecified; I25.10 Atherosclerotic heart disease of native coronary artery without angina pectoris; Z95.5 Presence of coronary angioplasty implant and graft; Z79.51 Long term (current) use of inhaled steroids; Z79.4 Long term (current) use of insulin; Z79.84 Long term (current) use of oral hypoglycemic drugs; Z99.81 Dependence on supplemental oxygen; I25.2 Old myocardial infarction; E11.40 Type 2 diabetes mellitus with diabetic neuropathy, unspecified; E11.65 Type 2 diabetes mellitus with hyperglycemia; F41.9 Anxiety disorder, unspecified; J44.9 Chronic obstructive pulmonary disease, unspecified; Z91.119 Patient's noncompliance with dietary regimen due to unspecified reason; G47.33 Obstructive sleep apnea (adult) (pediatric); Z87.891 Personal history of nicotine dependence; D64.9 Anemia, unspecified; E87.6 Hypokalemia; I35.0 Nonrheumatic aortic (valve) stenosis; I48.0 Paroxysmal atrial fibrillation
CPT/HCPCS: 36415; 36416; 36600; 71045; 80048; 80051; 80053; 81003; 82330; 82805; 82962; 83735; 83880; 84484; 85025; 93005; 93306; 93458; 94640; 96372; 96374; 96376; 99152; 99153; 99285; C1769; C1887; C1894; J1644; J1650; J1815; J1940; J2250; J3010; J3490; J7030; J7626; Q0163; Q9967

== ENCOUNTER → 2022-12-29 14:26 | Outpatient (BNVA) | payer MEDICARE, OTHER, SELFPAY | PROVIDERS: PCP Nurse Practitioner; Visit Provider Nurse Practitioner | DX: Z01.810 Encounter for preprocedural cardiovascular examination (principal); I50.9 Heart failure, unspecified | CPT/HCPCS: 80048; 83880 ==

== ENCOUNTER 2023-02-08 14:10 | Emergency (ER) | payer MEDICARE, OTHER, SELFPAY ==
[2023-02-08 14:13] VITALS: BP 109/67; PULSE 125; RESP 24; TEMP 36.3; O2SAT 93; BMI 44.3
--- NOTE | 2023-02-08 14:23 | ECG_ITS ---
[facility] Test Date: 2023-02-08 Pat Name: Fariba Rossi Department: Room: Gender: Male Support Coordinator: : 1965 Requested By: Byron Hedrick Order Number: [id number] [place] MD: Denis Helm M.D. Measurements Intervals [place] Rate: 102 P: 0 DE: 0 QRS: 119 QRSD: 100 T: 265 QT: 341 QTc: 444 Interpretive Statements ATRIAL FIBRILLATION WITH RAPID VENTRICULAR RESPONSE PATTERN CONSISTENT WITH PULMONARY DISEASE POSSIBLE RIGHT VENTRICULAR HYPERTROPHY [SOME/ALL OF: PROMINENT R IN V1, LATE TRANSITION, RAD, FLOR, SSS] SEPTAL MYOCARDIAL INFARCTION , OF INDETERMINATE AGE [40+ ms Q WAVE IN V1/V2] WARNING: DATA QUALITY MAY AFFECT INTERPRETATION Compared to ECG 12/18/2022 15:34:00 No significant changes Electronically Signed On 02-08-2023 18:42:09 CDT by Denis Helm M.D. [email or web address]
--- NOTE | 2023-02-08 14:45 | XR_ITS ---
WS: [id number] Exam: XR chest 1V portable [id number] Date/Time of Exam: 02/08/2023 2:45 PM Reason For Exam: chest pain Comparison 12/18/2022. There is marked cardiac enlargement with pulmonary vascular congestion and pulmonary edema suggesting CHF. No pleural effusions are seen. No consolidating infiltrates. Prominent SVC. The bony thorax is intact. XR/XR chest 1V portable [id number] IMPRESSION: 1. Cardiac enlargement with marked pulmonary vascular congestion and mild pulmo nary edema suggesting CHF.
--- NOTE | 2023-02-08 14:46 | ECG_ITS ---
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 Measurements Intervals [place] Rate: 102 P: 0 [place]: 0 QRS: 119 QRSD: 100 T: 265 QT: 341 QTc: 444 Interpretive Statements ATRIAL FIBRILLATION WITH RAPID VENTRICULAR RESPONSE PATTERN CONSISTENT WITH PULMONARY DISEASE POSSIBLE RIGHT VENTRICULAR HYPERTROPHY [SOME/ALL OF: PROMINENT R IN V1, LATE TRANSITION, RAD, FLOR, SSS] SEPTAL MYOCARDIAL INFARCTION , OF INDETERMINATE AGE [40+ ms Q WAVE IN V1/V2] WARNING: DATA QUALITY MAY AFFECT INTERPRETATION Compared to ECG 12/18/2022 15:34:00 No significant changes Electronically Signed On 02-08-2023 18:41:57 CDT by Denis Helm M.D. [email or web address]
--- NOTE | 2023-02-08 14:58 | ED_ITS ---
Documented by User: Byron Krause DO 02/09/23 07:04 HPI - Chest Pain General: Chief Complaint: Chest Pain Stated Complaint: SOB, Chest Pain, Both arm pain Time Seen by Provider: 02/08/23 14:44 Source: patient Mode of arrival: ambulatory History of Present Illness: 57-year-old male who presents to the emergency room with complaints of shortness of breath. With nearly any activity shortness of breath and has had some chest discomfort as well. He had some heartburn symptoms that began about an hour ago and became quite intense. He is getting discomfort that radiates into the arms bilaterally. He is admitted with congestive heart failure and was thought to be an NSTEMI in December underwent angiography there was no coronary artery disease noted at that time. He still is on oxygen supplementation MD complaint: chest discomfort Onset (ago): hour(s) Timing of current episode: episodic Prior episodes: Yes Pain location: left chest Pain radiation: right arm, left arm, left shoulder and right shoulder Severity: moderate Quality: aching and heaviness Relieving factors: nothing Exacerbating factors: nothing Associated symptoms: Deny abdominal pain, diaphoresis, dyspnea, fever(s), leg edema, nausea, palpitations, sense of impending doom, syncope or vomiting Treatment prior to arrival: none Review of Systems Const: Denies: fever(s), chills, body aches or diaphoresis ENMT: Denies: throat pain, ear or mastoid pain, nasal discharge or nasal congestion Card: Denies: chest pain, palpitations or syncope Resp: Denies: dyspnea GI: Denies: abdominal pain, nausea or vomiting : Denies: flank pain, dysuria, urinary frequency or urinary urgency Skin/Breast: Denies: rash or pruritus PFSH ED PFSH: Medical History Anxiety Arteriosclerotic coronary artery disease CHF (congestive heart failure) COPD (chronic obstructive pulmonary disease) Diabetes mellitus type II, uncontrolled Dietary noncompliance Essential (primary) hypertension Iron deficiency Neuropathy Obstructive sleep apnea Recurrent bronchospasm Surgical History H/O heart artery stent 09/2011 History of carpal tunnel surgery of right wrist 2011 History of colonoscopy Family History Father , AGE 74 Diabetes Heart disease Mother , LUNG CANCER AGE 55 Cancer CAD (coronary artery disease) Lung disease Heart disease Grandmother CAD (coronary artery disease) Cancer Dementia Heart disease Family/Other CAD (coronary artery disease) Heart disease Grandfather CAD (coronary artery disease) Heart disease Diabetes Sister Lung disease Denies family history of Clotting disorder Chronic kidney disease (CKD) Suicide Anesthesia complication Bleeding disorder Stroke Social History Smoking and tobacco status: former smoker Quit status (tobacco): has quit using tobacco Year quit tobacco: 2000 Former quit date comment: 4ppd x 22 years Second hand smoke exposure: No Smoking risk assessment/counseling performed?: No Alcohol intake: current Alcohol intake frequency: holidays/special occasions only Desire information about alcohol rehabilitation?: No Counseling given: No Desire information about substance/drug rehabilitation?: No Counseling given: No Adopted: No Caregiver/support person: No Lives independently: Yes Household members: spouse Housing: House Marital status: Number of children: 2 service: No Current occupational status: disabled Pets and animals: Yes Current gender identity: Male and Female Physical Exam Const: COMMON NORMALS: no acute distress GENERAL APPEARANCE: cooperative and comfortable ORIENTATION/CONSCIOUSNESS: Yes awake, Yes oriented to person, Yes oriented to place and Yes oriented to time HENMT: COMMON NORMALS: normocephalic, atraumatic and hearing grossly normal bilaterally HEAD & SCALP: normocephalic and atraumatic Resp: COMMON NORMALS: normal respiratory effort, No retractions, No use of accessory muscles and clear to auscultation bilaterally AUSCULTATION: clear to auscultation bilaterally Cardio: COMMON NORMALS: regular rate, regular rhythm and No murmurs present (Cardio) RATE: regular rate RHYTHM: regular rhythm GI: COMMON NORMALS: Soft to palpation and No hepatosplenomegaly present AUSCULTATION: Yes normoactive bowel sounds PALPATION: Yes Soft to palpation, No Tenderness to palpation present (GI), No Guarding due to palpation present (GI) and Yes No hepatosplenomegaly present Extremity: COMMON NORMALS: normal to inspection, capillary refill normal and no calf tenderness OTHER: 1+ edema lower extremities Neuro: SENSORIUM/ORIENTATION: Yes oriented to person, Yes oriented to place and Yes oriented to time Skin: COMMON NORMALS: no rashes or lesions noted GENERAL SKIN EXAM: no rashes or lesions noted Course Vital Signs: Vital signs: Vital Signs Temperature 97.3 F L 02/08/23 14:13 Pulse Rate 114 H 02/08/23 15:32 Respiratory Rate 24 H 02/08/23 14:13 Blood Pressure 121/88 02/08/23 18:05 Pulse Oximetry 98 02/08/23 18:05 Oxygen Delivery Me thod 02/08/23 18:05 Oxygen Flow Rate 3 02/08/23 18:05 MDM - Chest Pain Medical Decision Making Mild CHF patient was known disease. Some mild increased pulmonary vascular given dose of Lasix waiting on second troponin. Care signed out to Dr. Saini at change of shift. See final notes for diagnosis and disposition. Patient presents for chest pain its atypical in nature troponins here are normal he is well-appearing here and stable for discharge. Medical Records I reviewed the patient's medical records. Lab Data I reviewed the patient's lab results. 02/08/23 15:30 02/08/23 15:30 Radiology Impressions Chest X-Ray 02/08/23 14:45 IMPRESSION: 1. Cardiac enlargement with marked pulmonary vascular congestion and mild pulmon hyacinth edema suggesting CHF. Laboratory Results WBC 8.0 10^3/uL (4.0-10.0) 02/08/23 15:30 RBC 4.18 10^6/uL (4.1-5.3) 02/08/23 15:30 Hgb 11.3 g/dL (11.7-16.6) L 02/08/23 15:30 Hct 37.5 % (42.0-52.0) L 02/08/23 15:30 MCV 89.7 fl (80-94) 02/08/23 15:30 MCH 27.0 pg (28.0-34.0) L 02/08/23 15: MCHC 30.1 g/dL (30.0-36.0) 02/08/23 15:30 RDW 15.5 % (12.1-15.1) H 02/08/23 15:30 Plt Count 347 10^3/cmm (130-400) 02/08/23 15:30 MPV 9.1 fL (7.4-10.4) 02/08/23 15:30 Neut % (Auto) 72.1 % 02/08/23 15:30 Lymph % (Auto) 18.4 % 02/08/23 15:30 [place] % (Auto) 7.6 % 02/08/23 15:30 Eos % (Auto) 0.9 % 02/08/23 15:30 Baso % (Auto) 0.4 % 02/08/23 15:30 Neut # (Auto) 5.78 10^3/uL (1.8-7.7) 02/08/23 15:30 Lymph # (Auto) 1.5 10^3/uL (0.8-4.8) 02/08/23 15:30 [place] # (Auto) 0.6 10^3/uL (0.2-0.9) 02/08/23 15:30 Eos # (Auto) 0.1 10^3/uL (0.0-0.8) 02/08/23 15:30 Baso # (Auto) 0.0 10^3/uL (0.0-0.1) 02/08/23 15:30 Nucleated RBC % (auto) 0 % 02/08/23 15: Nucleated RBCs # 0.0 /100WBC 02/08/23 15:30 Sodium 132 mmol/L (136-145) L 02/08/23 15:30 Potassium 3.0 mmol/L (3.5-5.1) L 02/08/23 15:30 Chloride 92 mmol/L (98-107) L 02/08/23 15:30 Carbon Dioxide 30 mmol/L (22-29) H 02/08/23 15:30 Anion Gap 13.0 (5-19) 02/08/23 15:30 BUN 18 mg/dL (6-20) 02/08/23 15:30 Creatinine 1.1 mg/dL (0.7-1.2) 02/08/23 15:30 GFR Calculation 68.8 mL/min (90-130) L 02/08/23 15:30 Glucose 298 mg/dL (65-115) H 02/08/23 15:30 Calculated Osmolality 287 mOsm/kg (285-295) 02/08/23 15:30 Calcium 8.8 mg/dL (8.5-10.5) 02/08/23 15:30 Total Bilirubin 0.6 mg/dL (0.15-1.2) 02/08/23 15:30 AST 18 U/L (0-40) 02/08/23 15:30 ALT 21 U/L (0-41) 02/08/23 15:30 Alkaline Phosphatase 99 U/L (40-130) 02/08/23 15:30 Creatine Kinase 222 U/L (39-308) 02/08/23 15:30 Troponin T Baseline 72 ng/L (0-15) H 02/08/23 15:30 Troponin T 120 Minute 70.14 ng/L (0-15) H 02/08/23 17:29 Delta Troponin T -1.86 ABS# (0-10) L 02/08/23 17:29 NT-Pro-B Natriuret Pep 995 pg/mL (0-125) H 02/08/23 15:30 Total Protein 7.2 g/dL (6.6-8.7) 02/08/23 15:30 Albumin 3.9 g/dL (3.5-5.2) 02/08/23 15:30 Globulin 3.3 g/dL (1.3-4.6) 02/08/23 15:30 Discharge Plan Discharge Patient Disposition: Home Clinical Impression: Chest pain Condition: Stable Prescriptions: No Action lidocaine 5 % adhesive patch,medicated 1 patch TOPICAL .COMPLEX Rx Instructions: apply one patch daily as needed for pain (on for 12 hours and off for 12 hours) (DME) lancets [OneTouch Delica Lancets] 33 gauge misc See Rx Instructions .ROUTE .MEDSUPPLY Qty: 200 5RF Rx Instructions: 4 times daily budesonide-formoterol [Symbicort] 160-4.5 mcg/actuation HFA aerosol inhaler 2 puff inhalation BID Qty: 10.2 3RF albuterol sulfate 2.5 mg /3 mL (0.083 %) solution for nebulization 2.5 mg INHALATION QID PRN (Reason: bronchospasm) Qty: 75 3RF amlodipine 5 mg tablet 5 mg PO QAM Qty: 90 0RF atorvastatin 40 mg tablet 40 mg PO QAM Qty: 90 0RF (DME) blood sugar diagnostic Strip See Rx Instructions .ROUTE .MEDSUPPLY Qty: 200 5RF Rx Instructions: 4 times a day as needed doxepin 50 mg capsule 50 mg PO TID Qty: 270 0RF empagliflozin 25 mg tablet 25 mg PO QAM Qty: 30 2RF fluoxetine [Prozac] 20 mg capsule 20 mg PO BID Qty: 180 0RF hydralazine 100 mg tablet 100 mg PO TID Qty: 270 0RF Levemir FlexTouch U-100 Insuln 100 unit/mL (3 mL) insulin pen 40 unit SUBCUT BID Qty: 30 2RF Novolin R FlexPen 100 unit/mL (3 mL) insulin pen See Rx Instructions .ROUTE .COMPLEX Qty: 15 2RF Rx Instructions: sliding scale up to qid 110-602=[id number] =[id number]=[id number]=17U>400= 32U metformin 500 mg tablet extended release 24 hr 1,000 mg PO DAILY Qty: 180 0RF Mounjaro 2.5 mg/0.5 mL pen injector 7.5 mg SUBCUT .weekly Qty: 2 2RF Rx Instructions: ON FRIDAYS furosemide [Lasix] 40 mg tablet 40 mg PO BID Qty: 60 0RF (DME) blood-glucose meter [OneTouch Ultra2 Meter] Kit See Rx Instructions .ROUTE .MEDSUPPLY Qty: 1 0RF Rx Instructions: use daily magnesium oxide 400 mg magnesium capsule 400 mg PO QAM aspirin 81 mg Tablet,Delayed Release (Dr/Ec) 81 mg PO DAILY Qty: 30 0RF ipratropium-albuterol 0.5 mg-3 mg(2.5 mg base)/3 mL solution for nebulization 3 ml inhalation Q4H PRN (Reason: shortness of breath or wheezing) Qty: 180 0RF Rx Instructions: until breathing returns to target peak flow/parameters Xarelto 2.5 mg tablet 2.5 mg PO BID Discharge Orders: Discharge ED (Routine); Ordered 02/08/23 Ordered By: Valerie Saini Referrals: Mateo Sifuentes, RN PRIOR AUTHORIZATION-C [Primary Care Provider] - Discharge Diet: Advance as tolerated Discharge Activity: Resume usual activity Patient Instructions: Chest Pain (ED) Coding Level of Care Code ED Sales Assistant for Chg Fwd Documented by User: Valerie Saini MD 02/08/23 18:45 HPI - Chest Pain General: Chief Complaint: Chest Pain Stated Complaint: SOB, Chest Pain, Both arm pain Time Seen by Provider: 02/08/23 14:44 PFSH ED PFSH: Medical History Anxiety Arteriosclerotic coronary artery disease CHF (congestive heart failure) COPD (chronic obstructive pulmonary disease) Diabetes mellitus type II, uncontrolled Dietary noncompliance Essential (primary) hypertension Iron deficiency Neuropathy Obstructive sleep apnea Recurrent bronchospasm Surgical History H/O heart artery stent 09/2011 History of carpal tunnel surgery of right wrist 2011 History of colonoscopy Family History Father , AGE 74 Diabetes Heart disease Mother , LUNG CANCER AGE 55 Cancer CAD (coronary artery disease) Lung disease Heart disease Grandmother CAD (coronary artery disease) Cancer Dementia Heart disease Family/Other CAD (coronary artery disease) Heart disease Grandfather CAD (coronary artery disease) Heart disease Diabetes Sister Lung disease Denies family history of Clotting disorder Chronic kidney disease (CKD) Suicide Anesthesia complication Bleeding disorder Stroke Social History Smoking and tobacco status: former smoker Quit status (tobacco): has quit using tobacco Year quit tobacco: 2000 Former quit date comment: 4ppd x 22 years Second hand smoke exposure: No Smoking risk assessment/counseling performed?: No Alcohol intake: current Alcohol intake frequency: holidays/special occasions only Desire information about alcohol rehabilitation?: No Counseling given: No Desire information about substance/drug rehabilitation?: No Counseling given: No Adopted: No Caregiver/support person: No Lives independently: Yes Household members: spouse Housing: House Marital status: Number of children: 2 service: No Current occupational status: disabled Pets and animals: Yes Current gender identity: Male and Female Course Vital Signs: Vital signs: Vital Signs Temperature 97.3 F L 02/08/23 14:13 Pulse Rate 114 H 02/08/23 15:32 Respiratory Rate 24 H 02/08/23 14:13 Blood Pressure 121/88 02/08/23 18:05 Pulse Oximetry 98 02/08/23 18:05 Oxygen Delivery Me thod 02/08/23 18:05 Oxygen Flow Rate 3 02/08/23 18:05 MDM - Chest Pain Medical Decision Making Patient presents for chest pain its atypical in nature troponins here are normal he is well-appearing here and stable for discharge. Lab Data 02/08/23 15:30 02/08/23 15:30 Radiology Impressions Chest X-Ray 02/08/23 14:45 IMPRESSION: 1. Cardiac enlargement with marked pulmonary vascular congestion and mild pulmonary edema suggesting CHF. Laboratory Results WBC 8.0 10^3/uL (4.0-10.0) 02/08/23 15:30 RBC 4.18 10^6/uL (4.1-5.3) 02/08/23 15:30 Hgb 11.3 g/dL (11.7-16.6) L 02/08/23 15:30 Hct 37.5 % (42.0-52.0) L 02/08/23 15:30 MCV 89.7 fl (80-94) 02/08/23 15:30 MCH 27.0 pg (28.0-34.0) L 02/08/23 15: MCHC 30.1 g/dL (30.0-36.0) 02/08/23 15:30 RDW 15.5 % (12.1-15.1) H 02/08/23 15:30 Plt Count 347 10^3/cmm (130-400) 02/08/23 15:30 MPV 9.1 fL (7.4-10.4) 02/08/23 15:30 Neut % (Auto) 72.1 % 02/08/23 15:30 Lymph % (Auto) 18.4 % 02/08/23 15:30 [place] % (Auto) 7.6 % 02/08/23 15:30 Eos % (Auto) 0.9 % 02/08/23 15:30 Baso % (Auto) 0.4 % 02/08/23 15:30 Neut # (Auto) 5.78 10^3/uL (1.8-7.7) 02/08/23 15:30 Lymph # (Auto) 1.5 10^3/uL (0.8-4.8) 02/08/23 15:30 [place] # (Auto) 0.6 10^3/uL (0.2-0.9) 02/08/23 15:30 Eos # (Auto) 0.1 10^3/uL (0.0-0.8) 02/08/23 15:30 Baso # (Auto) 0.0 10^3/uL (0.0-0.1) 02/08/23 15:30 Nucleated RBC % (auto) 0 % 02/08/23 15:30 Nucleated RBCs # 0.0 /100WBC 02/08/23 15:30 Sodium 132 mmol/L (136-145) L 02/08/23 15:30 Potassium 3.0 mmol/L (3.5-5.1) L 02/08/23 15:30 Chloride 92 mmol/L (98-107) L 02/08/23 15:30 Carbon Dioxide 30 mmol/L (22-29) H 02/08/23 15:30 Anion Gap 13.0 (5-19) 02/08/23 15:30 BUN 18 mg/dL (6-20) 02/08/23 15:30 Creatinine 1.1 mg/dL (0.7-1.2) 02/08/23 15:30 GFR Calculation 68.8 mL/min (90-130) L 02/08/23 15:30 Glucose 298 mg/dL (65-115) H 02/08/23 15:30 Calculated Osmolality 287 mOsm/kg (285-295) 02/08/23 15:30 Calcium 8.8 mg/dL (8.5-10.5) 02/08/23 15:30 Total Bilirubin 0.6 mg/dL (0.15-1.2) 02/08/23 15:30 AST 18 U/L (0-40) 02/08/23 15:30 ALT 21 U/L (0-41) 02/08/23 15:30 Alkaline Phosphatase 99 U/L (40-130) 02/08/23 15:30 Creatine Kinase 222 U/L (39-308) 02/08/23 15:30 Troponin T Baseline 72 ng/L (0-15) H 02/08/23 15:30 Troponin T 120 Minute 70.14 ng/L (0-15) H 02/08/23 17:29 Delta Troponin T -1.86 ABS# (0-10) L 02/08/23 17:29 NT-Pro-B Natriuret Pep 995 pg/mL (0-125) H 02/08/23 15:30 Total Protein 7.2 g/dL (6.6-8.7) 02/08/23 15:30 Albumin 3.9 g/dL (3.5-5.2) 02/08/23 15:30 Globulin 3.3 g/dL (1.3-4.6) 02/08/23 15:30 Discharge Plan Discharge Patient Disposition: Home Clinical Impression: Chest pain Condition: Stable Prescriptions: No Action lidocaine 5 % adhesive patch,medicated 1 patch TOPICAL .COMPLEX Rx Instructions: apply one patch daily as needed for pain (on for 12 hours and off for 12 hours) (DME) lancets [OneTouch Delica Lancets] 33 gauge misc See Rx Instructions .ROUTE .MEDSUPPLY Qty: 200 5RF Rx Instructions: 4 times daily budesonide-formoterol [Symbicort] 160-4.5 mcg/actuation HFA aerosol inhaler 2 puff inhalation BID Qty: 10.2 3RF albuterol sulfate 2.5 mg /3 mL (0.083 %) solution for nebulization 2.5 mg INHALATION QID PRN (Reason: bronchospasm) Qty: 75 3RF amlodipine 5 mg tablet 5 mg PO QAM Qty: 90 0RF atorvastatin 40 mg tablet 40 mg PO QAM Qty: 90 0RF (DME) blood sugar diagnostic Strip See Rx Instructions .ROUTE .MEDSUPPLY Qty: 200 5RF Rx Instructions: 4 times a day as needed doxepin 50 mg capsule 50 mg PO TID Qty: 270 0RF empagliflozin 25 mg tablet 25 mg PO QAM Qty: 30 2RF fluoxetine [Prozac] 20 mg capsule 20 mg PO BID Qty: 180 0RF hydralazine 100 mg tablet 100 mg PO TID Qty: 270 0RF Levemir FlexTouch U-100 Insuln 100 unit/mL (3 mL) insulin pen 40 unit SUBCUT BID Qty: 30 2RF Novolin R FlexPen 100 unit/mL (3 mL) insulin pen See Rx Instructions .ROUTE .COMPLEX Qty: 15 2RF Rx Instructions: sliding scale up to qid 110-780=[id number]=[id number]=[id number]=34Q>40 0= 32U metformin 500 mg tablet extended release 24 hr 1,000 mg PO DAILY Qty: 180 0RF Mounjaro 2.5 mg/0.5 mL pen injector 7.5 mg SUBCUT .weekly Qty: 2 2RF Rx Instructions: ON FRIDAYS furosemide [Lasix] 40 mg tablet 40 mg PO BID Qty: 60 0RF (DME) blood-glucose meter [test companyTouch Ultra2 Meter] Kit See Rx Instructions .ROUTE .MEDSUPPLY Qty: 1 0RF Rx Instructions: use daily magnesium oxide 400 mg magnesium capsule 400 mg PO QAM aspirin 81 mg Tablet,Delayed Release (Dr/Ec) 81 mg PO DAILY Qty: 30 0RF ipratropium-albuterol 0.5 mg-3 mg(2.5 mg base)/3 mL solution for nebulization 3 ml inhalation Q4H PRN (Reason: shortness of breath or wheezing) Qty: 180 0RF Rx Instructions: until breathing returns to target peak flow/parameters Xarelto 2.5 mg tablet 2.5 mg PO BID Discharge Orders: Discharge ED (Routine); Ordered 02/08/23 Ordered By: Valerie Saini Referrals: Mateo Sifuentes, RN PRIOR AUTHORIZATION-C [Primary Care Provider] - Discharge Diet: Advance as tolerated Discharge Activity: Resume usual activity Patient Instructions: Chest Pain (ED) Coding Level of Care Code ED Sales Assistant for Alycia Ivy
[2023-02-08 15:32] VITALS: PULSE 114; O2SAT 97
[2023-02-08 15:58] LABS: Basophils % 0.4 %; Eosinophils # 0.1 10^3/uL (0.0-0.8); Eosinophils % 0.9 %; Hematocrit 37.5 % (42.0-52.0); Hemoglobin 11.3 g/dL (11.7-16.6); Lymphocytes # 1.5 10^3/uL (0.8-4.8); Lymphocytes % 18.4 %; Mean Corpuscular HGB Conc 30.1 g/dL (30.0-36.0); Mean Corpuscular Volume 89.7 fl (80-94); Mean Platelet Volume 9.1 fL (7.4-10.4); Monocytes # 0.6 10^3/uL (0.2-0.9); Monocytes % 7.6 %; Neutrophils # 5.78 10^3/uL (1.8-7.7); Neutrophils % 72.1 %; Nucleated Red Blood Cells % 0 %; Platelet Count 347 10^3/cmm (130-400); Red Blood Count 4.18 10^6/uL (4.1-5.3); Red Cell Distribution Width 15.5 % (12.1-15.1)
[2023-02-08 16:30] LABS: Troponin(5th) Baseline 72 ng/L (0-15)
[2023-02-08 16:39] LABS: Alanine Aminotransferase 21 U/L (0-41); Albumin Level 3.9 g/dL (3.5-5.2); Alkaline Phosphatase 99 U/L (40-130); Aspartate Amino Transferase 18 U/L (0-40); Blood Urea Nitrogen 18 mg/dL (6-20); Calcium 8.8 mg/dL (8.5-10.5); Carbon Dioxide 30 mmol/L (22-29); Chloride 92 mmol/L (98-107); Creatine Phosphokinase 222 U/L (39-308); Globulin 3.3 g/dL (1.3-4.6); Glomerular Filtration Rate 68.8 mL/min (90-130); Glucose 298 mg/dL (65-115); NT Pro B Type Natriuretic Pept 995 pg/mL (0-125); Osmolality Calculated 287 mOsm/kg (285-295); Sodium 132 mmol/L (136-145); Total Bilirubin 0.6 mg/dL (0.15-1.2); Total Protein 7.2 g/dL (6.6-8.7)
[2023-02-08 17:13] VITALS: O2SAT 97
--- NOTE | 2023-02-08 17:28 | ECG_ITS ---
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 Measurements Intervals [place] Rate: 94 P: 0 MT: 0 QRS: 117 QRSD: 95 T: 117 QT: 367 QTc: 461 Interpretive Statements ATRIAL FIBRILLATION POSSIBLE RIGHT VENTRICULAR HYPERTROPHY [SOME/ALL OF: PROMINENT R IN V1, LATE TRANSITION, RAD, FLOR, SSS] ANTEROSEPTAL MYOCARDIAL INFARCTION , OF INDETERMINATE AGE [40+ ms Q WAVE IN V1-V4] Compared to ECG 02/08/2023 14:18:58 No significant changes Electronically Signed On 02-08-2023 18:43:53 CDT by Denis Helm M.D. [id number]
[2023-02-08] MEDS: potassium chloride oral liq 20 mEq/15 mL UDC 40 MEQ PO (17:37)
[2023-02-08] MEDS: FUROsemide 10 mg/mL SDV 10mL 60 MG IVP (17:40)
[2023-02-08 18:05] VITALS: BP 121/88; O2SAT 98
[2023-02-08 18:05] LABS: Troponin 5 2HR 70.14 ng/L (0-15); Troponin 5 2HR Delta -1.86 ABS# (0-10)
== END 2023-02-08 18:51 | disposition home or self-care (01) ==
PROVIDERS: Family Medicine; Emergency Provider Emergency Medicine; PCP Nurse Practitioner
DX: R07.9 Chest pain, unspecified (principal); Z79.82 Long term (current) use of aspirin; Z79.4 Long term (current) use of insulin; Z87.891 Personal history of nicotine dependence; I25.10 Atherosclerotic heart disease of native coronary artery without angina pectoris; I11.0 Hypertensive heart disease with heart failure; I50.9 Heart failure, unspecified; J44.9 Chronic obstructive pulmonary disease, unspecified; E11.9 Type 2 diabetes mellitus without complications
CPT/HCPCS: 36415; 71045; 80053; 82550; 83880; 84484; 85025; 93005; 96374; 99285; J1940

== ENCOUNTER 2023-02-19 21:16 | Emergency (ER) | payer MEDICARE, OTHER, SELFPAY ==
--- NOTE | 2023-02-19 21:19 | XRR_ITS ---
PROCEDURE INFORMATION: Exam: XR Chest Exam date and time: 02/19/2023 9:44 PM Age: 57 years old Clinical indication: Shortness of breath; Additional info: SOB TECHNIQUE: Imaging protocol: Radiologic exam of the chest. Views: 1 view. COMPARISON: CR XR chest 1V portable [id number] 02/08/2023 3:04 PM FINDINGS: Lungs: Mild to moderate interstitial pulmonary edema, improved compared with the prior chest radiograph. Pleural spaces: No pleural effusion. No pneumothorax. Heart/Mediastinum: Stable marked enlargement of the cardiac silhouette. Mediastinal contours are unremarkable. Vasculature: Stable vascular calcifications in the aorta. Bones/joints: Unremarkable for age. XR/XR chest 1V portable [id number] IMPRESSION: 1. Mild to moderate interstitial pulmonary edema, improved compared with the prior chest radiograph. 2. Incidental/nonacute findings are listed in the report.
[2023-02-19 21:23] VITALS: BP 183/96; PULSE 91; RESP 22; TEMP 36.3; O2SAT 93; BMI 49.6
--- NOTE | 2023-02-19 21:41 | ECG_ITS ---
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 Measurements Intervals [place] Rate: 92 P: 0 VT: 0 QRS: 119 QRSD: 95 T: 240 QT: 387 QTc: 481 Interpretive Statements ATRIAL FIBRILLATION POSSIBLE RIGHT VENTRICULAR HYPERTROPHY [SOME/ALL OF: PROMINENT R IN V1, LATE TRANSITION, RAD, FLOR, SSS] ANTEROLATERAL MYOCARDIAL INFARCTION , OF INDETERMINATE AGE [40+ ms Q WAVE IN I/aVL/V3-V6] Compared to ECG 02/08/2023 17:28:18 No significant changes Electronically Signed On 02-19-2023 23:45:33 CDT by Tim Palma M.D. [id number]
[2023-02-19 21:47] LABS: Basophils % 0.5 %; Eosinophils # 0.1 10^3/uL (0.0-0.8); Eosinophils % 1.9 %; Hematocrit 37.5 % (42.0-52.0); Hemoglobin 10.8 g/dL (11.7-16.6); Lymphocytes # 1.5 10^3/uL (0.8-4.8); Lymphocytes % 19.9 %; Mean Corpuscular HGB Conc 28.8 g/dL (30.0-36.0); Mean Corpuscular Hemoglobin 25.9 pg (28.0-34.0); Mean Corpuscular Volume 89.9 fl (80-94); Monocytes # 0.5 10^3/uL (0.2-0.9); Monocytes % 7.2 %; Neutrophils # 5.28 10^3/uL (1.8-7.7); Neutrophils % 70.1 %; Nucleated Red Blood Cells % 0 %; Platelet Count 372 10^3/cmm (130-400); Red Blood Count 4.17 10^6/uL (4.1-5.3); Red Cell Distribution Width 16.5 % (12.1-15.1); White Blood Count 7.5 10^3/uL (4.0-10.0)
[2023-02-19 22:00] VITALS: BP 161/77; PULSE 83; RESP 16
--- NOTE | 2023-02-19 22:00 | ED_ITS ---
Documented by User: Lucho Khan DO 02/19/23 22:05 HPI - SOB/Dyspnea General: Chief Complaint: Shortness of Breath/Dyspnea Stated Complaint: sob Time Seen by Provider: 02/19/23 21:31 History of Present Illness: HPI Narrative: Patient presents to the ER with complaints of worsening shortness of breath and lower extremity edema. Patient also states he feels like his have urinary retention has not able to fully empty his bladder. Patient has had all these problems in the past. They have consistently got worse. Patient's states he is probably gained 20 pounds over the last week just in excess fluid. MD elicited complaint: shortness of breath Pertinent past history: congestive heart failure Onset (ago): day(s) Timing: constant and progressively worsening Severity: moderate Exacerbating factors: lying flat Relieving factors: nothing Known history of: congestive heart failure Associated symptoms: Reports orthopnea; Deny abdominal pain, chest pain, fever(s), nausea, palpitations or vomiting Treatment prior to arrival: oxygen Review of Systems General: Reports: 10 or more systems reviewed and unremarkable except in HPI and below Const: Denies: fever(s) or chills Eyes: Denies: change in vision ENMT: Denies: throat pain or odynophagia Card: Reports: edema, swelling of feet/ankles and orthopnea; Denies: chest pain, palpitations or irregular heart rhythm Resp: Reports: dyspnea; Denies: productive cough or non-productive cough GI: Denies: abdominal pain, nausea, vomiting or diarrhea : Reports: difficulty urinating, urinary dribbling and difficulty starting urination; Denies: flank pain Musc: Denies: neck pain or back pain Skin/Breast: Denies: rash or pruritus Neuro: Denies: headache(s), numbness in extremities or weakness in extremities PFSH ED PFSH: Medical History Anxiety Arteriosclerotic coronary artery disease CHF (congestive heart failure) COPD (chronic obstructive pulmonary disease) Diabetes mellitus type II, uncontrolled Dietary noncompliance Essential (primary) hypertension Iron deficiency Neuropathy Obstructive sleep apnea Recurrent bronchospasm Surgical History H/O heart artery stent 09/2011 History of carpal tunnel surgery of right wrist 2011 History of colonoscopy Family History Father , AGE 74 Diabetes Heart disease Mother , LUNG CANCER AGE 55 Cancer CAD (coronary artery disease) Lung disease Heart disease Grandmother CAD (coronary artery disease) Cancer Dementia Heart disease Family/Other CAD (coronary artery disease) Heart disease Grandfather CAD (coronary artery disease) Heart disease Diabetes Sister Lung disease Denies family history of Clotting disorder Chronic kidney disease (CKD) Suicide Anesthesia complication Bleeding disorder Stroke Social History Smoking and tobacco status: former smoker Quit status (tobacco): has quit using tobacco Year quit tobacco: 2000 Former quit date comment: 4ppd x 22 years Second hand smoke exposure: No Smoking risk assessment/counseling performed?: No Alcohol intake: current Alcohol intake frequency: holidays/special occasions only Desire information about alcohol rehabilitation?: No Counseling given: No Desire information about substance/drug rehabilitation?: No Counseling given: No Adopted: No Caregiver/support person: No Lives independently: Yes Household members: spouse Housing: House Marital status: Number of children: 2 service: No Current occupational status: disabled Pets and animals: Yes Current gender identity: Male and Female Physical Exam Const: COMMON NORMALS: no acute distress, patient oriented x3, no limitations, alert and well nourished HENMT: COMMON NORMALS: normocephalic, atraumatic, hearing grossly normal bilaterally, external ears normal, Normal external nose present and moist oral mucous membranes HEAD & SCALP: normocephalic and atraumatic NOSE: Normal external nose present EXTERNAL EAR: Yes external ears normal Neck/C-Spine: COMMON NORMALS: full ROM, no lymphadenopathy, supple, no meningeal signs, no JVD and Thyroid normal THYROID: Thyroid normal Chest: COMMONS NORMALS: normal inspection of the chest and normal palpation of entire chest wall Resp: EFFORT & INSPECTION: Yes able to speak in complete sentences and Yes symmetric chest movement AUSCULTATION: diminished lung sounds bilateral and diffuse Cardio: COMMON NORMALS: no JVD, regular rate, regular rhythm, S1 normal heart sound present and S2 normal heart sound present RATE: regular rate RHYTHM: regular rhythm HEART SOUNDS: S1 normal heart sound present and S2 normal heart sound present GI: COMMON NORMALS: Normal to inspection, nondistended, normoactive bowel sounds present, Soft to palpation, non-tender, No hepatosplenomegaly present and no masses PALPATION: Yes Soft to palpation and Yes No hepatosplenomegaly present Extremity: NARRATIVE EXTREMITY EXAM: 2+ pitting edema bilateral lower extremities Neuro: COMMON NORMALS: patient oriented x3, CN's II-XII intact bilaterally, moves all extremities, no focal motor deficits and no sensory deficits noted SENSORIUM/ORIENTATION: Yes alert MENINGEAL SIGNS: Yes no meningeal signs Course Vital Signs: Vital signs: Vital Signs Temperature 97.4 F L 02/19/23 21:23 Pulse Rate 83 02/19/23 23:26 Respiratory Rate 22 H 02/19/23 23:26 Blood Pressure 168/77 02/19/23 23:26 Pulse Oximetry 96 02/19/23 23:26 Oxygen Delivery Me thod 02/19/23 23: Oxygen Flow Rate 3 02/19/23 23:26 MDM - SOB/Dyspnea Differential Diagnosis Likely acute exacerbation of chronic obstructive airways disease and congestive heart failure; Unlikely community acquired pneumonia, asthma with exacerbation or pulmonary embolism Lab Data 02/19/23 21:38 02/19/23 21:38 Labs/Radiology: Radiology Impressions Chest X-Ray 02/19/23 21:19 IMPRESSION: 1. Mild to moderate interstitial pulmonary edema, improved compared with the prior chest radiograph. 2. Incidental/nonacute findings are listed in the report. Laboratory Results WBC 7.5 10^3/uL (4.0-10.0) 02/19/23 21:38 RBC 4.17 10^6/uL (4.1-5.3) 02/19/23 21:38 Hgb 10.8 g/dL (11.7-16.6) L 02/19/23 21:38 Hct 37.5 % (42.0-52.0) L 02/19/23 21: MCV 89.9 fl (80-94) 02/19/23 21: MCH 25.9 pg (28.0-34.0) L 02/19/23 21: MCHC 28.8 g/dL (30.0-36.0) L 02/19/23 21: RDW 16.5 % (12.1-15.1) H 02/19/23 21:38 Plt Count 372 10^3/cmm (130-400) 02/19/23 21:38 MPV 9.0 fL (7.4-10.4) 02/19/23 21:38 Neut % (Auto) 70.1 % 02/19/23 21:38 Lymph % (Auto) 19.9 % 02/19/23 21:38 [place] % (Auto) 7.2 % 02/19/23 21:38 Eos % (Auto) 1.9 % 02/19/23 21:38 Baso % (Auto) 0.5 % 02/19/23 21:38 Neut # (Auto) 5.28 10^3/uL (1.8-7.7) 02/19/23 21: Lymph # (Auto) 1.5 10^3/uL (0.8-4.8) 02/19/23 21:38 [place] # (Auto) 0.5 10^3/uL (0.2-0.9) 02/19/23 21:38 Eos # (Auto) 0.1 10^3/uL (0.0-0.8) 02/19/23 21:38 Baso # (Auto) 0.0 10^3/uL (0.0-0.1) 02/19/23 21: Nucleated RBC % (auto) 0 % 02/19/23 21: Nucleated RBCs # 0.0 /100WBC 02/19/23 21:38 PT 14.60 SECONDS (12.1-14.9) 02/19/23 21:38 INR 1.11 (0.8-1.2) 02/19/23 21:38 Sodium 139 mmol/L (136-145) 02/19/23 21:38 Potassium 3.8 mmol/L (3.5-5.1) 02/19/23 21:38 Chloride 96 mmol/L (98-107) L 02/19/23 21:38 Carbon Dioxide 28 mmol/L (22-29) 02/19/23 21:38 Anion Gap 18.8 (5-19) 02/19/23 21:38 BUN 20 mg/dL (6-20) 02/19/23 21:38 Creatinine 1.3 mg/dL (0.7-1.2) H 02/19/23 21:38 GFR Calculation 56.7 mL/min (90-130) L 02/19/23 21:38 Glucose 320 mg/dL (65-115) H 02/19/23 21:38 Calculated Osmolality 303 mOsm/kg (285-295) H 02/19/23 21:38 Calcium 9.0 mg/dL (8.5-10.5) 02/19/23 21:38 Magnesium 2.3 mg/dL (1.7-2.3) 02/19/23 21:38 Total Bilirubin 0.7 mg/dL (0.15-1.2) 02/19/23 21:38 AST 25 U/L (0-40) 02/19/23 21:38 ALT 21 U/L (0-41) 02/19/23 21:38 Alkaline Phosphatase 111 U/L (40-130) 02/19/23 21:38 Troponin T Baseline 74 ng/L (0-15) H 02/19/23 21:38 Troponin T 120 Minute 70.09 ng/L (0-15) H 02/19/23 23:43 Delta Troponin T -3.91 ABS# (0-10) L 02/19/23 23:43 NT-Pro-B Natriuret Pep 996 pg/mL (0-125) H 02/19/23 21:38 Total Protein 7.2 g/dL (6.6-8.7) 02/19/23 21:38 Albumin 4.0 g/dL (3.5-5.2) 02/19/23 21:38 Globulin 3.2 g/dL (1.3-4.6) 02/19/23 21:38 Urine Color Yellow (Yellow) 02/19/23 22:50 Urine Appearance Clear (CLEAR) 02/19/23 22:50 Urine pH 6 (5-7) 02/19/23 22:50 Ur Specific [place] 1.010 (1.005-1.030) 02/19/23 22:50 Urine Protein Neg (Negative) 02/19/23 22:50 Urine Glucose (UA) 4+ (Normal) H 02/19/23 22:50 Urine Ketones Negative (Negative) 02/19/23 22:50 Urine Blood Neg (Negative) 02/19/23 22:50 Urine Nitrate Negative (Negative) 02/19/23 22:50 Urine Bilirubin Neg (Negative) 02/19/23 22:50 Urine Urobilinogen Neg mg/dL (Negative) 02/19/23 22:50 Ur Leukocyte Esterase Negative (Negative) 02/19/23 22:50 EKG Data EKG 1: I personally reviewed and interpreted this EKG as follows: EKG Interpretation Date: 02/19/23 EKG interpretation time: 21:41 Prior EKG tracings: not available for review Interpretation: EKG shows A-fib with a ventricular rate of 92 bpm, QRS duration 95, QTc of 437, Discharge Plan Discharge Patient Disposition: Home Clinical Impression: CHF (congestive heart failure), Dyspnea Condition: Stable Prescriptions: No Action lidocaine 5 % adhesive patch,medicated 1 patch TOPICAL .COMPLEX Rx Instructions: apply one patch daily as needed for pain (on for 12 hours and off for 12 hours) (DME) lancets [OneTouch Delica Lancets] 33 gauge misc See Rx Instructions .ROUTE .MEDSUPPLY Qty: 200 5RF Rx Instructions: 4 times daily budesonide-formoterol [Symbicort] 160-4.5 mcg/actuation HFA aerosol inhaler 2 puff inhalation BID Qty: 10.2 3RF albuterol sulfate 2.5 mg /3 mL (0.083 %) solution for nebulization 2.5 mg INHALATION QID PRN (Reason: bronchospasm) Qty: 75 3RF amlodipine 5 mg tablet 5 mg PO QAM Qty: 90 0RF atorvastatin 40 mg tablet 40 mg PO QAM Qty: 90 0RF (DME) blood sugar diagnostic Strip See Rx Instructions .ROUTE .MEDSUPPLY Qty: 200 5RF Rx Instructions: 4 times a day as needed doxepin 50 mg capsule 50 mg PO TID Qty: 270 0RF empagliflozin 25 mg tablet 25 mg PO QAM Qty: 30 2RF fluoxetine [Prozac] 20 mg capsule 20 mg PO BID Qty: 180 0RF hydralazine 100 mg tablet 100 mg PO TID Qty: 270 0RF Levemir FlexTouch U-100 Insuln 100 unit/mL (3 mL) insulin pen 40 unit SUBCUT BID Qty: 30 2RF Novolin R FlexPen 100 unit/mL (3 mL) insulin pen See Rx Instructions .ROUTE .COMPLEX Qty: 15 2RF Rx Instructions: sliding scale up to qid 110-250=[id number]=42G> 400= 32U metformin 500 mg tablet extended release 24 hr 1,000 mg PO DAILY Qty: 180 0RF Mounjaro 2.5 mg/0.5 mL pen injector 7.5 mg SUBCUT .weekly Qty: 2 2RF Rx Instructions: ON FRIDAYS furosemide [Lasix] 40 mg tablet 40 mg PO BID Qty: 60 0RF (DME) blood-glucose meter [OneTouch Ultra2 Meter] Kit See Rx Instructions .ROUTE .MEDSUPPLY Qty: 1 0RF Rx Instructions: use daily magnesium oxide 400 mg magnesium capsule 400 mg PO QAM aspirin 81 mg Tablet,Delayed Release (Dr/Ec) 81 mg PO DAILY Qty: 30 0RF ipratropium-albuterol 0.5 mg-3 mg(2.5 mg base)/3 mL solution for nebulization 3 ml inhalation Q4H PRN (Reason: shortness of breath or wheezing) Qty: 180 0RF Rx Instructions: until breathing returns to target peak flow/parameters Xarelto 2.5 mg tablet 2.5 mg PO BID Discharge Orders: Discharge ED (Routine); Ordered 02/20/23 Ordered By: Valerie Saini Referrals: Mateo Sifuentes, ARGELIAC [Primary Care Provider] - 1-3 days Discharge Diet: Advance as tolerated Discharge Activity: Resume usual activity Patient Instructions: Dyspnea (ED) Coding Level of Care Code ED Flight Instructor for Chg Fwd Documented by User: Valerie Saini MD 02/20/23 00:28 HPI - SOB/Dyspnea General: Chief Complaint: Shortness of Breath/Dyspnea Stated Complaint: sob Time Seen by Provider: 02/19/23 21:31 PFSH ED PFSH: Medical History Anxiety Arteriosclerotic coronary artery disease CHF (congestive heart failure) COPD (chronic obstructive pulmonary disease) Diabetes mellitus type II, uncontrolled Dietary noncompliance Essential (primary) hypertension Iron deficiency Neuropathy Obstructive sleep apnea Recurrent bronchospasm Surgical History H/O heart artery stent 09/2011 History of carpal tunnel surgery of right wrist 2011 History of colonoscopy Family History Father , AGE 74 Diabetes Heart disease Mother , LUNG CANCER AGE 55 Cancer CAD (coronary artery disease) Lung disease Heart disease Grandmother CAD (coronary artery disease) Cancer Dementia Heart disease Family/Other CAD (coronary artery disease) Heart disease Grandfather CAD (coronary artery disease) Heart disease Diabetes Sister Lung disease Denies family history of Clotting disorder Chronic kidney disease (CKD) Suicide Anesthesia complication Bleeding disorder Stroke Social History Smoking and tobacco status: former smoker Quit status (tobacco): has quit using tobacco Year quit tobacco: 2000 Former quit date comment: 4ppd x 22 years Second hand smoke exposure: No Smoking risk assessment/counseling performed?: No Alcohol intake: current Alcohol intake frequency: holidays/special occasions only Desire information about alcohol rehabilitation?: No Counseling given: No Desire information about substance/drug rehabilitation?: No Counseling given: No Adopted: No Caregiver/support person: No Lives independently: Yes Household members: spouse Housing: House Marital status: Number of children: 2 service: No Current occupational status: disabled Pets and animals: Yes Current gender identity: Male and Female Course Vital Signs: Vital signs: Vital Signs Temperature 97.4 F L 02/19/23 21:23 Pulse Rate 83 02/19/23 23:26 Respiratory Rate 22 H 02/19/23 23:26 Blood Pressure 168/77 02/19/23 23:26 Pulse Oximetry 96 02/19/23 23:26 Oxygen Delivery Me thod 02/19/23 23:26 Oxygen Flow Rate 3 02/19/23 23:26 MDM - SOB/Dyspnea Medical Decision Making Patient presents here with dyspnea likely from his CHF he had a catheter placed here he may have had some urinary retention as well as he states he had a hard time urinating after the catheter and Lasix he had over a liter out he feels improved BNP is at his baseline he is in no distress here no signs of severe exacerbation his troponins are normal no signs of acute coronary syndrome he is stable for discharge he is to follow-up PCP and return if worsening we will discharge him with a leg bag he understands agrees to plan. Medical Records I reviewed the patient's medical records. Lab Data I reviewed the patient's lab results. 02/19/23 21:38 02/19/23 21:38 Labs/Radiology: Radiology Impressions Chest X-Ray 02/19/23 21:19 IMPRESSION: 1. Mild to moderate interstitial pulmonary edema, improved compared with the prior chest radiograph. 2. Incidental/nonacute findings are listed in the report. Laboratory Results WBC 7.5 10^3/uL (4.0-10.0) 02/19/23 21:38 RBC 4.17 10^6/uL (4.1-5.3) 02/19/23 21:38 Hgb 10.8 g/dL (11.7-16.6) L 02/19/23 21:38 Hct 37.5 % (42.0-52.0) L 02/19/23 21:38 MCV 89.9 fl (80-94) 02/19/23 21:38 MCH 25.9 pg (28.0-34.0) L 02/19/23 21:38 MCHC 28.8 g/dL (30.0-36.0) L 02/19/23 21:38 RDW 16.5 % (12.1-15.1) H 02/19/23 21:38 Plt Count 372 10^3/cmm (130-400) 02/19/23 21:38 MPV 9.0 fL (7.4-10.4) 02/19/23 21:38 Neut % (Auto) 70.1 % 02/19/23 21:38 Lymph % (Auto) 19.9 % 02/19/23 21:38 [place] % (Auto) 7.2 % 02/19/23 21:38 Eos % (Auto) 1.9 % 02/19/23 21:38 Baso % (Auto) 0.5 % 02/19/23 21:38 Neut # (Auto) 5.28 10^3/uL (1.8-7.7) 02/19/23 21:38 Lymph # (Auto) 1.5 10^3/uL (0.8-4.8) 02/19/23 21:38 [place] # (Auto) 0.5 10^3/uL (0.2-0.9) 02/19/23 21:38 Eos # (Auto) 0.1 10^3/uL (0.0-0.8) 02/19/23 21:38 Baso # (Auto) 0.0 10^3/uL (0.0-0.1) 02/19/23 21:38 Nucleated RBC % (auto) 0 % 02/19/23 21:38 Nucleated RBCs # 0.0 /100WBC 02/19/23 21:38 PT 14.60 SECONDS (12.1-14.9) 02/19/23 21:38 INR 1.11 (0.8-1.2) 02/19/23 21:38 Sodium 139 mmol/L (136-145) 02/19/23 21:38 Potassium 3.8 mmol/L (3.5-5.1) 02/19/23 21:38 Chloride 96 mmol/L (98-107) L 02/19/23 21:38 Carbon Dioxide 28 mmol/L (22-29) 02/19/23 21:38 Anion Gap 18.8 (5-19) 02/19/23 21:38 BUN 20 mg/dL (6-20) 02/19/23 21:38 Creatinine 1.3 mg/dL (0.7-1.2) H 02/19/23 21:38 GFR Calculation 56.7 mL/min (90-130) L 02/19/23 21:38 Glucose 320 mg/dL (65-115) H 02/19/23 21:38 Calculated Osmolality 303 mOsm/kg (285-295) H 02/19/23 21:38 Calcium 9.0 mg/dL (8.5-10.5) 02/19/23 21:38 Magnesium 2.3 mg/dL (1.7-2.3) 02/19/23 21:38 Total Bilirubin 0.7 mg/dL (0.15-1.2) 02/19/23 21:38 AST 25 U/L (0-40) 02/19/23 21:38 ALT 21 U/L (0-41) 02/19/23 21:38 Alkaline Phosphatase 111 U/L (40-130) 02/19/23 21:38 Troponin T Baseline 74 ng/L (0-15) H 02/19/23 21:38 Troponin T 120 Minute 70.09 ng/L (0-15) H 02/19/23 23:43 Delta Troponin T -3.91 ABS# (0-10) L 02/19/23 23:43 NT-Pro-B Natriuret Pep 996 pg/mL (0-125) H 02/19/23 21:38 Total Protein 7.2 g/dL (6.6-8.7) 02/19/23 21:38 Albumin 4.0 g/dL (3.5-5.2) 02/19/23 21:38 Globulin 3.2 g/dL (1.3-4.6) 02/19/23 21:38 Urine Color Yellow (Yellow) 02/19/23 22:50 Urine Appearance Clear (CLEAR) 02/19/23 22:50 Urine pH 6 (5-7) 02/19/23 22:50 Ur Specific [place] 1.010 (1.005-1.030) 02/19/23 22:50 Urine Protein Neg (Negative) 02/19/23 22:50 Urine Glucose (UA) 4+ (Normal) H 02/19/23 22:50 Urine Ketones Negative (Negative) 02/19/23 22:50 Urine Blood Neg (Negative) 02/19/23 22:50 Urine Nitrate Negative (Negative) 02/19/23 22:50 Urine Bilirubin Neg (Negative) 02/19/23 22:50 Urine Urobilinogen Neg mg/dL (Negative) 02/19/23 22:50 Ur Leukocyte Esterase Negative (Negative) 02/19/23 22:50 Discharge Plan Discharge Patient Disposition: Home Clinical Impression: CHF (congestive heart failure), Dyspnea Condition: Stable Prescriptions: No Action lidocaine 5 % adhesive patch,medicated 1 patch TOPICAL .COMPLEX Rx Instructions: apply one patch daily as needed for pain (on for 12 hours and off for 12 hours) (DME) lancets [OneTouch Delica Lancets] 33 gauge misc See Rx Instructions .ROUTE .MEDSUPPLY Qty: 200 5RF Rx Instructions: 4 times daily budesonide-formoterol [Symbicort] 160-4.5 mcg/actuation HFA aerosol inhaler 2 puff inhalation BID Qty: 10.2 3RF albuterol sulfate 2.5 mg /3 mL (0.083 %) solution for nebulization 2.5 mg INHALATION QID PRN (Reason: bronchospasm) Qty: 75 3RF amlodipine 5 mg tablet 5 mg PO QAM Qty: 90 0RF atorvastatin 40 mg tablet 40 mg PO QAM Qty: 90 0RF (DME) blood sugar diagnostic Strip See Rx Instructions .ROUTE .MEDSUPPLY Qty: 200 5RF Rx Instructions: 4 times a day as needed doxepin 50 mg capsule 50 mg PO TID Qty: 270 0RF empagliflozin 25 mg tablet 25 mg PO QAM Qty: 30 2RF fluoxetine [Prozac] 20 mg capsule 20 mg PO BID Qty: 180 0RF hydralazine 100 mg tablet 100 mg PO TID Qty: 270 0RF Levemir FlexTouch U-100 Insuln 100 unit/mL (3 mL) insulin pen 40 unit SUBCUT BID Qty: 30 2RF Novolin R FlexPen 100 unit/mL (3 mL) insulin pen See Rx Instructions .ROUTE .COMPLEX Qty: 15 2RF Rx Instructions: sliding scale up to qid 110-824=[id number]=99W>40 0= 32U metformin 500 mg tablet extended release 24 hr 1,000 mg PO DAILY Qty: 180 0RF Mounjaro 2.5 mg/0.5 mL pen injector 7.5 mg SUBCUT .weekly Qty: 2 2RF Rx Instructions: ON FRIDAYS furosemide [Lasix] 40 mg tablet 40 mg PO BID Qty: 60 0RF (DME) blood-glucose meter [OneTouch Ultra2 Meter] Kit See Rx Instructions .ROUTE .MEDSUPPLY Qty: 1 0RF Rx Instructions: use daily magnesium oxide 400 mg magnesium capsule 400 mg PO QAM aspirin 81 mg Tablet,Delayed Release (Dr/Ec) 81 mg PO DAILY Qty: 30 0RF ipratropium-albuterol 0.5 mg-3 mg(2.5 mg base)/3 mL solution for nebulization 3 ml inhalation Q4H PRN (Reason: shortness of breath or wheezing) Qty: 180 0RF Rx Instructions: until breathing returns to target peak flow/parameters Xarelto 2.5 mg tablet 2.5 mg PO BID Discharge Orders: Discharge ED (Routine); Ordered 02/20/23 Ordered By: Valerie Saini Referrals: Mateo Sifuentes, [employer] WASHER-C [Primary Care Provider] - 1-3 days Discharge Diet: Advance as tolerated Discharge Activity: Resume usual activity Patient Instructions: Dyspnea (ED) Coding Level of Care Code ED Flight Instructor for Alycia Ivy
[2023-02-19 22:05] LABS: Troponin(5th) Baseline 74 ng/L (0-15)
[2023-02-19 22:30] LABS: Alanine Aminotransferase 21 U/L (0-41); Alkaline Phosphatase 111 U/L (40-130); Anion Gap 18.8 (5-19); Aspartate Amino Transferase 25 U/L (0-40); Blood Urea Nitrogen 20 mg/dL (6-20); Carbon Dioxide 28 mmol/L (22-29); Chloride 96 mmol/L (98-107); Globulin 3.2 g/dL (1.3-4.6); Glomerular Filtration Rate 56.7 mL/min (90-130); Glucose 320 mg/dL (65-115); NT Pro B Type Natriuretic Pept 996 pg/mL (0-125); Osmolality Calculated 303 mOsm/kg (285-295); Potassium 3.8 mmol/L (3.5-5.1); Sodium 139 mmol/L (136-145); Total Bilirubin 0.7 mg/dL (0.15-1.2); Total Protein 7.2 g/dL (6.6-8.7)
[2023-02-19 22:36] LABS: Magnesium 2.3 mg/dL (1.7-2.3)
[2023-02-19 22:42] LABS: INR 1.11 (0.8-1.2)
[2023-02-19] MEDS: FUROsemide 10 mg/mL SDV 4mL 40 MG IVP (22:54)
[2023-02-19 22:55] LABS: Add Urine Microscopic? NO; Charge for UA Resulting for Rev
[2023-02-19 23:04] LABS: Protein Urine Neg (Negative); Urine Appearance Clear (CLEAR); Urine Color Yellow (Yellow); pH Urine 6 (5-7)
[2023-02-19 23:05] LABS: Bilirubin Urine Neg (Negative); Blood Urine Neg (Negative); Glucose Urine UA 4+ (Normal); Ketones Urine Negative (Negative); Leukocyte Esterase Urine Negative (Negative); Nitrate Urine Negative (Negative); Urobilinogen Urine Neg (Negative)
--- NOTE | 2023-02-19 23:19 | ECG_ITS ---
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 Measurements Intervals [place] Rate: 89 P: -77 [place]: 189 QRS: 122 QRSD: 96 T: 117 QT: 392 QTc: 477 Interpretive Statements SINUS RHYTHM POSSIBLE RIGHT VENTRICULAR HYPERTROPHY [SOME/ALL OF: PROMINENT R IN V1, LATE TRANSITION, RAD, FLOR, SSS] ANTEROLATERAL MYOCARDIAL INFARCTION , OF INDETERMINATE AGE [40+ ms Q WAVE IN I/aVL/V3-V6] Compared to ECG 02/19/2023 21:41:22 Atrial fibrillation no longer present Myocardial infarct finding still present Electronically Signed On 02-19-2023 23:53:46 CDT by Tim Palma M.D. [id number]
[2023-02-19 23:26] VITALS: BP 168/77; PULSE 83; RESP 22; O2SAT 96
[2023-02-20 00:13] LABS: Troponin 5 2HR 70.09 ng/L (0-15)
[2023-02-20 00:18] LABS: Troponin 5 2HR Delta -3.91 ABS# (0-10)
== END 2023-02-20 00:45 | disposition home or self-care (01) ==
PROVIDERS: Emergency Medicine; Emergency Provider Emergency Medicine; PCP Nurse Practitioner
DX: I11.0 Hypertensive heart disease with heart failure (principal); I50.9 Heart failure, unspecified; R06.00 Dyspnea, unspecified; Z79.4 Long term (current) use of insulin; Z79.82 Long term (current) use of aspirin; Z79.84 Long term (current) use of oral hypoglycemic drugs; Z87.891 Personal history of nicotine dependence; J44.9 Chronic obstructive pulmonary disease, unspecified; I25.10 Atherosclerotic heart disease of native coronary artery without angina pectoris; E11.9 Type 2 diabetes mellitus without complications
CPT/HCPCS: 51702; 71045; 80053; 81003; 83735; 83880; 84484; 85025; 85610; 93005; 96374; 99285; J1940

== ENCOUNTER 2023-02-22 17:28 | Emergency (ER) | payer MEDICARE, OTHER, SELFPAY ==
[2023-02-22 17:44] VITALS: PULSE 104; RESP 16; TEMP 36.6; O2SAT 91
[2023-02-22 17:51] VITALS: BP 135/72
--- NOTE | 2023-02-22 19:30 | ED_ITS ---
HPI - Male Genitourinary General: Chief complaint: Urogenital-Male Stated complaint: issues with cath Time Seen by Provider: 02/22/23 19:30 History of Present Illness: Mr. Mckay is a 57-year-old gentleman with history of recent catheter placement for acute urinary retention presenting to the emergency department for associated pain. He notes pain in his penis as well as lower abdomen and suprapubic region. He has also noticed just recently some possible blood in his urine. He was not discharged with any antispasmodic pain medication. Intensity symptoms is moderate. Course has worsened. No other specific changes in health, exacerbating, or alleviating factors identified. Duration: constant Severity: moderate Quality: burning and other Relieving factors: none Exacerbating factors: none Context: indwelling catheter Associated symptoms: Reports no associated symptoms Review of Systems General: Reports: 10 or more systems reviewed and unremarkable except in HPI and below PFSH ED PFSH: Medical History Anxiety Arteriosclerotic coronary artery disease CHF (congestive heart failure) COPD (chronic obstructive pulmonary disease) Diabetes mellitus type II, uncontrolled Dietary noncompliance Essential (primary) hypertension Iron deficiency Neuropathy Obstructive sleep apnea Recurrent bronchospasm Surgical History H/O heart artery stent 09/2011 History of carpal tunnel surgery of right wrist 2011 History of colonoscopy Family History Father , AGE 74 Diabetes Heart disease Mother , LUNG CANCER AGE 55 Cancer CAD (coronary artery disease) Lung disease Heart disease Grandmother CAD (coronary artery disease) Cancer Dementia Heart disease Family/Other CAD (coronary artery disease) Heart disease Grandfather CAD (coronary artery disease) Heart disease Diabetes Sister Lung disease Denies family history of Clotting disorder Chronic kidney disease (CKD) Suicide Anesthesia complication Bleeding disorder Stroke Social History Smoking and tobacco status: former smoker Quit status (tobacco): has quit using tobacco Year quit tobacco: 2000 Former quit date comment: 4ppd x 22 years Second hand smoke exposure: No Smoking risk assessment/counseling performed?: No Alcohol intake: current Alcohol intake frequency: holidays/special occasions only Desire information about alcohol rehabilitation?: No Counseling given: No Substance/Drug Use: never Desire information about substance/drug rehabilitation?: No Counseling given: No Adopted: No Caregiver/support person: No Lives independently: Yes Household members: spouse Housing: House Marital status: Number of children: 2 service: No Current occupational status: disabled Pets and animals: Yes Current gender identity: Male and Female Physical Exam Const: COMMON NORMALS: alert GENERAL APPEARANCE: cooperative and well developed HENMT: COMMON NORMALS: normocephalic and atraumatic HEAD & SCALP: normocephalic and atraumatic THROAT: posterior oropharynx normal Eye: COMMON NORMALS: conjunctivae normal CONJUNCTIVA: Yes conjunctivae normal SCLERA: sclerae normal Neck/C-Spine: COMMON NORMALS: supple GENERAL: Yes trachea midline Resp: COMMON NORMALS: clear to auscultation bilaterally EFFORT & INSPECTION: Yes able to speak in complete sentences AUSCULTATION: clear to auscultation bilaterally Cardio: COMMON NORMALS: regular rate and regular rhythm RATE: regular rate RHYTHM: regular rhythm GI: COMMON NORMALS: Soft to palpation PALPATION: Yes Soft to palpation and No Tenderness to palpation present (GI) : OTHER: Some penile tenderness palpation without obvious abnormality, no evidence of catheter erosion or external infection. Extremity: GENERAL: Yes normal exam except as noted and No edema Neuro: COMMON NORMALS: moves all extremities SENSORIUM/ORIENTATION: Yes alert and No Orientation impaired Psych: COMMON NORMALS: mental status grossly normal and Normal thought process present THOUGHT PROCESS: Normal thought process present Course Vital Signs: Vital signs: Vital Signs Temperature 97.9 F 02/22/23 22:34 Pulse Rate 85 02/22/23 22:34 Respiratory Rate 16 02/22/23 22:34 Blood Pressure 132/91 02/22/23 22:34 Pulse Oximetry 95 02/22/23 22:34 Oxygen Delivery Me thod Nasal Cannula 02/22/23 17:44 Oxygen Flow Rate 3 02/22/23 17:44 MDM - Male Medical Decision Making 57-year-old gentleman presenting to the ER for pain with recent catheter placement. He was not discharged with analgesia or antispasmodic. Exam as above. Hematuria without clear evidence of infection on urinalysis. No evidence of catheter at malfunction on renal bladder ultrasound. Patient improved with analgesia and oxybutynin. Most likely etiology of patient's symptoms is pain associated with catheter. The results of ED evaluation were discussed with the patient including prescriptions and/or symptomatic cares (if applicable) including appropriate and responsible use, followup plan, and return precautions. The patient verbalized understanding and felt safe for discharge. Medical Records I reviewed the patient's medical records. Lab Data I reviewed the patient's lab results. Radiology Impressions Renal Ultrasound 02/22/23 19:55 IMPRESSION: Unremarkable kidneys and bladder. Laboratory Results Urine Color Mel (Yellow) 02/22/23 19:39 Urine Appearance Cloudy (CLEAR) A 02/22/23 19:39 Urine pH 6 (5-7) 02/22/23 19:39 Ur Specific [place] 1.010 (1.005-1.030) 02/22/23 19:39 Urine Protein 1+ (Negative) H 02/22/23 19:39 Urine Glucose (UA) 4+ (Normal) H 02/22/23 19:39 Urine Ketones Negative (Negative) 02/22/23 19:39 Urine Blood 3+ (Negative) H 02/22/23 19:39 Urine Nitrate Negative (Negative) 02/22/23 19:39 Urine Bilirubin Neg (Negative) 02/22/23 19:39 Urine Urobilinogen Norm mg/dL (Negative) 02/22/23 19:39 Ur Leukocyte Esterase 1+ (Negative) H 02/22/23 19:39 Urine RBC Too numerous to cnt /hpf (0-2) H 02/22/23 19:39 Urine WBC 0-4 /hpf (0-5) H 02/22/23 19:39 Ur Squamous Epith Cells 0-4 /hpf (0-5) H 02/22/23 19:39 Amorphous Sediment Not Reportable 02/22/23 19:39 Urine Bacteria Trace /hpf (NONE) 02/22/23 19:39 Urine Mucus Trace /hpf 02/22/23 19:39 Discharge Plan Discharge Patient Disposition: Home Clinical Impression: Painful bladder spasm, Complication of Bailon catheter, Hematuria Condition: Stable Prescriptions: New oxybutynin chloride 5 mg tablet 5 mg PO Q6H PRN (Reason: bladder spasms) Qty: 30 0RF oxycodone 5 mg tablet 5 mg PO Q4H PRN (Reason: pain) Qty: 10 0RF No Action lidocaine 5 % adhesive patch,medicated 1 patch TOPICAL .COMPLEX Rx Instructions: apply one patch daily as needed for pain (on for 12 hours and off for 12 hours) (DME) lancets [OneTouch Delica Lancets] 33 gauge misc See Rx Instructions .ROUTE .MEDSUPPLY Qty: 200 5RF Rx Instructions: 4 times daily budesonide-formoterol [Symbicort] 160-4.5 mcg/actuation HFA aerosol inhaler 2 puff inhalation BID Qty: 10.2 3RF albuterol sulfate 2.5 mg /3 mL (0.083 %) solution for nebulization 2.5 mg INHALATION QID PRN (Reason: bronchospasm) Qty: 75 3RF (DME) blood sugar diagnostic Strip See Rx Instructions .ROUTE .MEDSUPPLY Qty: 200 5RF Rx Instructions: 4 times a day as needed Levemir FlexTouch U-100 Insuln 100 unit/mL (3 mL) insulin pen 40 unit SUBCUT BID Qty: 30 2RF furosemide [Lasix] 40 mg tablet 40 mg PO BID Qty: 60 2RF amlodipine 5 mg tablet 5 mg PO QAM Qty: 90 0RF atorvastatin 40 mg tablet 40 mg PO QAM Qty: 90 0RF doxepin 50 mg capsule 50 mg PO TID Qty: 270 0RF empagliflozin 25 mg tablet 25 mg PO QAM Qty: 30 2RF fluoxetine [Prozac] 20 mg capsule 20 mg PO BID Qty: 180 0RF hydralazine 100 mg tablet 100 mg PO TID Qty: 270 0RF Novolin R FlexPen 100 unit/mL (3 mL) insulin pen See Rx Instructions .ROUTE .COMPLEX Qty: 15 2RF Rx Instructions: sliding scale up to qid [id number]=[id number]=49H>40 0= 32U metformin 500 mg tablet extended release 24 hr 1,000 mg PO DAILY Qty: 180 0RF (DME) blood-glucose meter [OneTouch Ultra2 Meter] Kit See Rx Instructions .ROUTE .MEDSUPPLY Qty: 1 0RF Rx Instructions: use daily magnesium oxide 400 mg magnesium capsule 400 mg PO QAM aspirin 81 mg Tablet,Delayed Release (Dr/Ec) 81 mg PO DAILY Qty: 30 0RF ipratropium-albuterol 0.5 mg-3 mg(2.5 mg base)/3 mL solution for nebulization 3 ml inhalation Q4H PRN (Reason: shortness of breath or wheezing) Qty: 180 0RF Rx Instructions: until breathing returns to target peak flow/parameters Xarelto 2.5 mg tablet 2.5 mg PO BID Discharge Orders: Discharge ED (Routine); Ordered 02/22/23 Ordered By: Jimmie Pearson Referrals: Mateo Sifuentes, ARGELIAC [Primary Care Provider] - Discharge Diet: Usual diet Discharge Activity: Resume usual activity Patient Instructions: Oxybutynin (By mouth), Bailon Catheter Placement and Care (ED), Hematuria (ED), Abdominal Pain (ED), Opioid Safety Activity Restrictions/Additional Instructions: Thank you for visiting the emergency department. You were seen and evaluated for bladder pain associated with recent Bailon catheter placement. Most likely cause of this is irritation secondary to the Bailon catheter. We are pleased that you had improvement with treatment in the emergency department. I will prescribe the oxybutynin for bladder spasms, I will also give you a short course of oxycodone for uncontrolled pain. Use this cautiously as it is an opioid. I will message case management for follow-up and referral to urology. Return to the emergency department for Bailon catheter no longer draining, flank or abdominal pain that is uncontrolled, fevers, or anything else that you are concerned about and feel needs emergency department evaluation. Coding Level of Care Code ED Ammonia Refrigeration Technician for Alycia Ivy
[2023-02-22 19:34] VITALS: BP 157/79; PULSE 93; RESP 16; O2SAT 97
--- NOTE | 2023-02-22 19:55 | USR_ITS ---
PROCEDURE INFORMATION: Exam: US Retroperitoneal; Complete; Kidneys and Bladder Exam date and time: 02/22/2023 8:18 PM Age: 57 years old Clinical indication: Other: Recent orellana pain; Patient HX: Urine is grossly reddish (hematuria? ); Additional info: Pain, recent catheter placement, eval complication/placement TECHNIQUE: Imaging protocol: Real-time ultrasound of the retroperitoneum with image documentation. Complete exam focused on the kidneys and bladder. COMPARISON: CT chest wo con [id number] 12/01/2022 2:10 PM FINDINGS: Right kidney: Normal. No stones. No hydronephrosis. Left kidney: Normal. No stones. No hydronephrosis. Urinary bladder: Unremarkable. US/US renal BI* [id number] IMPRESSION: Unremarkable kidneys and bladder.
[2023-02-22 20:01] LABS: Bilirubin Urine Neg (Negative); Blood Urine 3+ (Negative); Glucose Urine UA 4+ (Normal); Ketones Urine Negative (Negative); Nitrate Urine Negative (Negative); Protein Urine 1+ (Negative); Urine Appearance Cloudy (CLEAR); Urine Color Amber (Yellow); Urobilinogen Urine Norm (Negative); pH Urine 6 (5-7)
[2023-02-22 20:02] LABS: Add Urine Culture? Yes; Add Urine Microscopic? YES; Bacteria Urine TRACE /hpf; Leukocyte Esterase Urine 1+ (Negative); Mucus Urine TRACE /hpf; RBC Urine TOO NUMEROUS TO CNT /hpf (0-2); Squamous Epithelial Cell Urine 0-4 /hpf (0-5); WBC Urine 0-4 /hpf (0-5)
[2023-02-22 20:08] VITALS: RESP 16; O2SAT 96
[2023-02-22] MEDS: ketorolac 30 mg/mL INJ 15 MG IVP (20:08)
[2023-02-22] MEDS: morphine 4 mg/mL SDV 1 mL IVP (20:08)
[2023-02-22] MEDS: oxybutynin 5 mg Tablet PO (20:08)
[2023-02-22 21:58] VITALS: BP 132/91; PULSE 85; RESP 16; O2SAT 95
[2023-02-22 22:34] VITALS: BP 132/91; PULSE 85; RESP 16; TEMP 36.6; O2SAT 95
--- NOTE | 2023-02-23 08:03 | DCPLANNER ---
Addendum entered by Marcy Lyle 02/27/23 11:50: client delivery manager received the following message from the urology clinic regarding follow up appointment: Pt. has an appt [facility] Original Note: client delivery manager had message to schedule a follow up appointment for patient with urology. client delivery manager sent patients information to the front office staff at urology. Patients information will be printed and reviewed. Clinic will call patient with appointment information.
== END 2023-02-22 22:37 | disposition home or self-care (01) ==
PROVIDERS: Nurse Practitioner Family; Emergency Provider Emergency Medicine; PCP Nurse Practitioner
DX: N32.89 Other specified disorders of bladder (principal); R31.9 Hematuria, unspecified; T83.9XXA Unspecified complication of genitourinary prosthetic device, implant and graft, initial encounter; Z79.82 Long term (current) use of aspirin; Z79.4 Long term (current) use of insulin; Z79.84 Long term (current) use of oral hypoglycemic drugs; Z87.891 Personal history of nicotine dependence; I25.10 Atherosclerotic heart disease of native coronary artery without angina pectoris; I11.0 Hypertensive heart disease with heart failure; I50.9 Heart failure, unspecified; J44.9 Chronic obstructive pulmonary disease, unspecified; E11.9 Type 2 diabetes mellitus without complications; Y73.8 Miscellaneous gastroenterology and urology devices associated with adverse incidents, not elsewhere classified
CPT/HCPCS: 76770; 81001; 87086; 96374; 96375; 99285; J1885; J2270

== ENCOUNTER 2023-02-28 16:26 | Outpatient (CLI) | payer MEDICARE, OTHER, SELFPAY ==
[2023-02-28] MEDS: iohexol 350 mg/mL 500 mL Btl (per mL) PO (17:04)
--- NOTE | 2023-02-28 17:30 | CT_ITS ---
WS: [id number] CT CHEST, ABDOMEN AND PELVIS WITHOUT CONTRAST. HISTORY: J44.9 - Chronic obstructive pulmonary disease, unspecified TECHNIQUE: Contiguous 5 mm axial imaging performed through the chest, abdomen and pelvis without IV c ontrast, oral contrast has been provided. Coronal and sagittal reformats chest. Coronal and sagittal reformats through the abdomen and pelvis. All CT scans at [facility] use at least one of thes e dose optimization techniques: automated exposure control; mA and/or kV adjustment per patient size (includes targeted exams where dose is matched to clinical indication); or iterative reconstruction. CONTRAST: None DLP: 1428.44 mGy.cm COMPARISON: Chest CT 12/01/[address]: Mild bilateral diffuse groundglass attenuation and haziness. There is a very small RIGHT pl eural effusion which has slightly increased in size. The LEFT pleural effusion has decreased and near ly completely resolved. No pneumonia. No pneumothorax. Small pericardial effusion. Mild cardiomegaly. Coronary artery stent LEFT anterior descending. Mediastinal and hilar lymph nodes are reidentified. The largest along the inferior RIGHT paratracheal measures 2.9 cm. Hilar lymph nodes are more difficu lt to appreciate without IV contrast. Mild soft tissue anasarca. No destructive bone lesions. Abdomen CT: Normal size liver and spleen. Mildly contracted gallbladder. Negative pancreas. No adrena l mass. Mild renal atrophy with no obstruction. Diffuse soft tissue anasarca and a small amount of as cites. Cellulitis along the lower abdominal wall. No GI tract obstruction. No wall thickening or ischemia. Appendix is normal. Pelvic CT: Soft tissue anasarca and a small amount of free fluid. Bailon catheter in a nondistended ur inary bladder. L5 anterolisthesis by 5 mm. RIGHT L5 pars defect. CT/[place] [id number] IMPRESSION: 1. Diffuse soft tissue anasarca and a small amount of ascites. 2. Small RIGHT pleural effusion with slight increase in size. LEFT pleural eff usion has nearly resolved. 3. Small circumferential pericardial effusion. 4. Atherosclerosis aorta. 5. No GI tract obstruction. 6. Bailon catheter in place. 7. Continued enlargement of the mediastinal lymph nodes. Likely reactive. Neop lastic is not excluded but there is no history of malignancy provided. 8. Diffuse hazy groundglass attenuation throughout both lungs. Edema versus pn eumonitis.
== END 2023-02-28 16:27 | disposition home or self-care (01) ==
PROVIDERS: PCP Nurse Practitioner; Visit Provider Nurse Practitioner
DX: J44.9 Chronic obstructive pulmonary disease, unspecified (principal); N18.30 Chronic kidney disease, stage 3 unspecified; R31.9 Hematuria, unspecified; R59.9 Enlarged lymph nodes, unspecified; J90 Pleural effusion, not elsewhere classified; I31.39 Other pericardial effusion (noninflammatory); I70.0 Atherosclerosis of aorta
CPT/HCPCS: 71250; 74176; Q9967

== ENCOUNTER 2023-03-06 12:56 | Observation (INO) | payer MEDICARE, OTHER, SELFPAY ==
[2023-03-06] VITALS (9 sets, daily range): BP systolic 111–118; BP diastolic 63–84; PULSE 67–135; RESP 16–24; TEMP 36.3–36.4; O2SAT 90–97; BMI 51.5
--- NOTE | 2023-03-06 13:11 | ED_ITS ---
HPI - SOB/Dyspnea General: Chief Complaint: Shortness of Breath/Dyspnea Stated Complaint: SOB Time Seen by Provider: 03/06/23 13:11 History of Present Illness: HPI Narrative: Mr. Rossi is a 57-year-old gentleman with history of COPD with chronic hypoxic respiratory failure, CHF likely diastolic presenting to the emergency department for concern over weight gain and increased shortness of breath. He reports essentially having decreased in function starting in November however over the past few days has noticed a marked increase in weight gain at least 10 pounds with increased lower extremity swelling, severe dyspnea on exertion, dyspnea at rest. He denies associated chest pain or infectious symptoms. He has seen primary care and his Lasix was increased 1 week ago however continues to worsen despite medication compliance. No other specific changes in health, exacerbating, or alleviating factors identified. Onset (ago): day(s) Timing: progressively worsening Severity: moderate Exacerbating factors: lying flat and exertion Known history of: COPD and congestive heart failure Associated symptoms: Reports orthopnea and other Review of Systems General: Reports: 10 or more systems reviewed and unremarkable except in HPI and below Card: Reports: orthopnea PFSH ED PFSH: Medical History Acute exacerbation of CHF (congestive heart failure) Anxiety Arteriosclerotic coronary artery disease Atrial fibrillation CHF (congestive heart failure) CKD (chronic kidney disease) stage 3, GFR 30-59 ml/min COPD (chronic obstructive pulmonary disease) Diabetes mellitus type II, uncontrolled Dietary noncompliance Dyspnea on exertion Essential (primary) hypertension Iron deficiency Neuropathy Obesity Obstructive sleep apnea Oxygen dependent Recurrent bronchospasm Surgical History H/O heart artery stent 09/2011 History of carpal tunnel surgery of right wrist 2011 History of colonoscopy Family History Father , AGE 74 Diabetes Heart disease Mother , LUNG CANCER AGE 55 Cancer CAD (coronary artery disease) Lung disease Heart disease Grandmother CAD (coronary artery disease) Cancer Dementia Heart disease Family/Other CAD (coronary artery disease) Heart disease Grandfather CAD (coronary artery disease) Heart disease Diabetes Sister Lung disease Denies family history of Clotting disorder Chronic kidney disease (CKD) Suicide Anesthesia complication Bleeding disorder Stroke Social History Smoking and tobacco status: former smoker Quit status (tobacco): has quit using tobacco Year quit tobacco: 2000 Former quit date comment: 4ppd x 22 years Second hand smoke exposure: No Smoking risk assessment/counseling performed?: No Alcohol intake: current Alcohol intake frequency: holidays/special occasions only Desire information about alcohol rehabilitation?: No Counseling given: No Substance/Drug Use: never Desire information about substance/drug rehabilitation?: No Counseling given: No Adopted: No Caregiver/support person: No Lives independently: Yes Household members: spouse Housing: House Marital status: Number of children: 2 service: No Current occupational status: disabled Pets and animals: Yes Do you think of yourself as: Straight/Heterosexual Current gender identity: Male and Female Physical Exam Const: COMMON NORMALS: alert GENERAL APPEARANCE: cooperative and well developed HENMT: COMMON NORMALS: normocephalic and atraumatic HEAD & SCALP: normocephalic and atraumatic Eye: COMMON NORMALS: conjunctivae normal CONJUNCTIVA: Yes conjunctivae nor mal SCLERA: sclerae normal Neck/C-Spine: COMMON NORMALS: supple GENERAL: Yes trachea midline Resp: EFFORT & INSPECTION: Yes able to speak in complete sentences AUSCULTATION: crackles (Trace bilateral lower), no wheezes and diminished lung sounds Cardio: COMMON NORMALS: regular rhythm RATE: tachycardic RHYTHM: regular rhythm GI: COMMON NORMALS: Soft to palpation PALPATION: Yes Soft to palpation and No Tenderness to palpation present (GI) Extremity: GENERAL: Yes normal exam except as noted and Yes edema Neuro: COMMON NORMALS: moves all extremities SENSORIUM/ORIENTATION: Yes alert and No Orientation impaired Psych: COMMON NORMALS: mental status grossly normal and Normal thought process present THOUGHT PROCESS: Normal thought process present Course Vital Signs: Vital signs: Vital Signs Temperature 97.6 F 03/08/23 04:00 Pulse Rate 98 03/08/23 13:01 Respiratory Rate 17 03/08/23 13:01 Blood Pressure 155/85 03/08/23 13:01 Pulse Oximetry 95 03/08/23 13:01 Oxygen Delivery Me thod Nasal Cannula 03/08/23 08:00 Oxygen Flow Rate 3 03/08/23 08:00 MDM - SOB/Dyspnea Medical Decision Making 57-year-old gentleman presenting with heart failure symptoms including significant weight gain despite outpatient management. Exam as above. Patient is nontoxic. EKG demonstrates atrial fibrillation with incomplete right bundle branch block, no STEMI. Labs with no leukocytosis, normocytic anemia, normal platelet count. Metabolic panel without significant derangement to explain symptoms. Negative range 2- hour delta troponin. BNP is elevated. Urinalysis pending. Chest x-ray with cardiomegaly. No lobar consolidation or pneumothorax. Patient has marked dyspnea with exertion and clinically appears volume overloaded despite compliance with medication regimen. He was given Lasix and requires further inpatient management for diuresis. The results of ED evaluation were discussed with the patient including plan for admission due to requirement for level of care not available if discharged to prevent significant worsening/deterioration. Patient agreeable with plan. Discussed with hospitalist service who was agreeable to admit patient. Medical Records I reviewed the patient's medical records. Lab Data I reviewed the patient's lab results. 03/06/23 13:30 03/08/23 04:35 Labs/Radiology: Radiology Impressions Chest X-Ray 03/06/23 13:19 IMPRESSION: 1. Cardiac enlargement unchanged. No acute process noted at this time. Laboratory Results WBC 5.8 10^3/uL (4.0-10.0) 03/06/23 13:30 RBC 3.95 10^6/uL (4.1-5.3) L 03/06/23 13:30 Hgb 10.3 g/dL (11.7-16.6) L 03/06/23 13:30 Hct 35.3 % (42.0-52.0) L 03/06/23 13:30 MCV 89.4 fl (80-94) 03/06/23 13:30 MCH 26.1 pg (28.0-34.0) L 03/06/23 13:30 MCHC 29.2 g/dL (30.0-36.0) L 03/06/23 13:30 RDW 16.5 % (12.1-15.1) H 03/06/23 13:30 Plt Count 355 10^3/cmm (130-400) 03/06/23 13:30 MPV 9.4 fL (7.4-10.4) 03/06/23 13:30 Neut % (Auto) 68.1 % 03/06/23 13:30 Lymph % (Auto) 21.4 % 03/06/23 13:30 [place] % (Auto) 8.1 % 03/06/23 13:30 Eos % (Auto) 1.2 % 03/06/23 13:30 Baso % (Auto) 0.7 % 03/06/23 13:30 Neut # (Auto) 3.95 10^3/uL (1.8-7.7) 03/06/23 13:30 Lymph # (Auto) 1.2 10^3/uL (0.8-4.8) 03/06/23 13:30 [place] # (Auto) 0.5 10^3/uL (0.2-0.9) 03/06/23 13:30 Eos # (Auto) 0.1 10^3/uL (0.0-0.8) 03/06/23 13:30 Baso # (Auto) 0.0 10^3/uL (0.0-0.1) 03/06/23 13:30 Nucleated RBC % (auto) 0 % 03/06/23 13:30 Nucleated RBCs # 0.0 /100WBC 03/06/23 13:30 Sodium 138 mmol/L (136-145) 03/06/23 13:30 Potassium 4.0 mmol/L (3.5-5.1) 03/06/23 13:30 Chloride 99 mmol/L (98-107) 03/06/23 13:30 Carbon Dioxide 29 mmol/L (22-29) 03/06/23 13:30 Anion Gap 14.0 (5-19) 03/06/23 13:30 BUN 26 mg/dL (6-20) H 03/06/23 13:30 Creatinine 1.2 mg/dL (0.7-1.2) 03/06/23 13:30 GFR Calculation 62.2 mL/min (90-130) L 03/06/23 13:30 Glucose 201 mg/dL (65-115) H 03/06/23 13:30 Calculated Osmolality 296 mOsm/kg (285-295) H 03/06/23 13:30 Calcium 8.3 mg/dL (8.5-10.5) L 03/06/23 13:30 Total Bilirubin 0.4 mg/dL (0.15-1.2) 03/06/23 13:30 AST 22 U/L (0-40) 03/06/23 13:30 ALT 21 U/L (0-41) 03/06/23 13:30 Alkaline Phosphatase 94 U/L (40-130) 03/06/23 13:30 Troponin T Baseline 56 ng/L (0-15) H 03/06/23 13:30 Troponin T 120 Minute 57.09 ng/L (0-15) H 03/06/23 15:37 Delta Troponin T 1.09 ABS# (0-10) 03/06/23 15:37 NT-Pro-B Natriuret Pep 1800 pg/mL (0-125) H 03/06/23 13:30 Total Protein 6.5 g/dL (6.6-8.7) L 03/06/23 13:30 Albumin 3.8 g/dL (3.5-5.2) 03/06/23 13:30 Globulin 2.7 g/dL (1.3-4.6) 03/06/23 13:30 TSH 4.65 uIU/mL (0.27-4.20) H 03/06/23 15:37 Urine Color Yellow (Yellow) 03/06/23 15:08 Urine Appearance Hazy (CLEAR) A 03/06/23 15:08 Urine pH 5 (5-7) 03/06/23 15:08 Ur Specific [place] 1.020 (1.005-1.030) 03/06/23 15:08 Urine Protein Trace (Negative) 03/06/23 15:08 Urine Glucose (UA) 4+ (Normal) H 03/06/23 15:08 Urine Ketones Negative (Negative) 03/06/23 15:08 Urine Blood Neg (Negative) 03/06/23 15:08 Urine Nitrate Negative (Negative) 03/06/23 15:08 Urine Bilirubin Neg (Negative) 03/06/23 15:08 Urine Urobilinogen Neg mg/dL (Negative) 03/06/23 15:08 Ur Leukocyte Esterase Negative (Negative) 03/06/23 15:08 Urine RBC Rare /hpf (0-2) 03/06/23 15:08 Urine WBC Rare /hpf (0-5) 03/06/23 15:08 Ur Squamous Epith Cells 0-4 /hpf (0-5) H 03/06/23 15:08 Amorphous Sediment 1+ /hpf 03/06/23 15:08 Urine Bacteria None /hpf (NONE) 03/06/23 15:08 Urine Sperm 2+ /hpf 03/06/23 15:08 Discharge Plan Discharge Patient Disposition: Admitted As Inpatient Admit Provider: Megan Gonzalez Clinical Impression: Acute exacerbation of CHF (congestive heart failure), Dyspnea on exertion Condition: Stable Discharge Diet: Cardiac Discharge Activity: Increase activity as tolerated Coding Level of Care Code ED Appian Developer for Alycia Ivy
--- NOTE | 2023-03-06 13:19 | XR_ITS ---
WS: [id number] Exam: XR chest 1V portable [id number] Date/Time of Exam: 03/06/2023 1:21 PM Reason For Exam: sob Comparison 02/19/2023. The lungs are fully expanded and clear. Cardiac enlargement unchanged. No pleur al effusions or pneumothorax. The mediastinum is normal in contour. Bony structures are intact. XR/XR chest 1V portable [id number] IMPRESSION: 1. Cardiac enlargement unchanged. No acute process noted at this time.
[2023-03-06 13:50] LABS: Basophils % 0.7 %; Eosinophils # 0.1 10^3/uL (0.0-0.8); Eosinophils % 1.2 %; Hematocrit 35.3 % (42.0-52.0); Hemoglobin 10.3 g/dL (11.7-16.6); Lymphocytes # 1.2 10^3/uL (0.8-4.8); Lymphocytes % 21.4 %; Mean Corpuscular HGB Conc 29.2 g/dL (30.0-36.0); Mean Corpuscular Hemoglobin 26.1 pg (28.0-34.0); Mean Corpuscular Volume 89.4 fl (80-94); Mean Platelet Volume 9.4 fL (7.4-10.4); Monocytes # 0.5 10^3/uL (0.2-0.9); Monocytes % 8.1 %; Neutrophils # 3.95 10^3/uL (1.8-7.7); Neutrophils % 68.1 %; Nucleated Red Blood Cells % 0 %; Platelet Count 355 10^3/cmm (130-400); Red Blood Count 3.95 10^6/uL (4.1-5.3); Red Cell Distribution Width 16.5 % (12.1-15.1); White Blood Count 5.8 10^3/uL (4.0-10.0)
[2023-03-06 14:13] LABS: Troponin(5th) Baseline 56 ng/L (0-15)
--- NOTE | 2023-03-06 14:14 | PC.PHAR ---
pt states he takes care of his own medications-pt states the losartan 50mg daily filled 12/21/22 90d/s,bumex 1mg bid filled 12/21/22 15d/s and metoprolol tartrate 25mg bid filled 12/21/22 30d/s was dced-pt states a er dr dced his blood thinners pt states no longer taking eliquis 2.5mg bid filled 12/21/22 30d/s or xarelto 2.5mg bid filled 11/19/22 90d/s states he was told to take aspirin daily- pt had entresto 97-103 bid filled 11/29/22 but states not taking not in med corporate planner entresto was dced on discharge orders from 12/21/22-discharge orders from 12-21-22 also shows propranolol er 80mg qam dced but pt states still taking-notes are made in the pharmacy comments
--- NOTE | 2023-03-06 14:18 | ECG_ITS ---
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 Measurements Intervals [place] Rate: 108 P: 0 UT: 0 QRS: 132 QRSD: 118 T: -46 QT: 353 QTc: 474 Interpretive Statements ATRIAL FIBRILLATION WITH RAPID VENTRICULAR RESPONSE INCOMPLETE RIGHT BUNDLE BRANCH BLOCK [90+ ms QRS DURATION, TERMINAL R IN V1/V2, 40+ ms S IN I/aVL/V4/V5/V6] POSSIBLE RIGHT VENTRICULAR HYPERTROPHY [SOME/ALL OF: PROMINENT R IN V1, LATE TRANSITION, RAD, FLOR, SSS] ST DEVIATION AND MODERATE T-WAVE ABNORMALITY, CONSIDER INFERIOR ISCHEMIA [-0.1+ mV T-WAVE IN II/aVF] Compared to ECG 02/19/2023 23:15:50 Incomplete right bundle-branch block now present T-wave abnormality now present Possible ischemia now present Sinus rhythm no longer present Myocardial infarct finding no longer present Electronically Signed On 03-06-2023 20:40:39 CDT by Denis Helm M.D. [id number]
[2023-03-06 14:22] LABS: Alanine Aminotransferase 21 U/L (0-41); Albumin Level 3.8 g/dL (3.5-5.2); Alkaline Phosphatase 94 U/L (40-130); Aspartate Amino Transferase 22 U/L (0-40); Blood Urea Nitrogen 26 mg/dL (6-20); Calcium 8.3 mg/dL (8.5-10.5); Carbon Dioxide 29 mmol/L (22-29); Chloride 99 mmol/L (98-107); Globulin 2.7 g/dL (1.3-4.6); Glomerular Filtration Rate 62.2 mL/min (90-130); Glucose 201 mg/dL (65-115); NT Pro B Type Natriuretic Pept 1800 pg/mL (0-125); Osmolality Calculated 296 mOsm/kg (285-295); Sodium 138 mmol/L (136-145); Total Bilirubin 0.4 mg/dL (0.15-1.2); Total Protein 6.5 g/dL (6.6-8.7)
[2023-03-06] MEDS: FUROsemide 10 mg/mL SDV 4mL 40 MG IVP (14:33)
[2023-03-06 15:45] LABS: Add Urine Microscopic? YES; Bilirubin Urine Neg (Negative); Blood Urine Neg (Negative); Glucose Urine UA 4+ (Normal); Ketones Urine Negative (Negative); Leukocyte Esterase Urine Negative (Negative); Nitrate Urine Negative (Negative); Protein Urine Trace (Negative); RBC Urine RARE /hpf (0-2); Squamous Epithelial Cell Urine 0-4 /hpf (0-5); Urine Appearance Hazy (CLEAR); Urine Color Yellow (Yellow); Urobilinogen Urine Neg (Negative); WBC Urine RARE /hpf (0-5); pH Urine 5 (5-7)
[2023-03-06 15:46] LABS: Add Urine Culture? No; Amorphous Sediment Urine 1+ /hpf; Sperm Urine 2+ /hpf
[2023-03-06 16:16] LABS: Troponin 5 2HR 57.09 ng/L (0-15)
[2023-03-06 16:19] LABS: Troponin 5 2HR Delta 1.09 ABS# (0-10)
--- NOTE | 2023-03-06 16:55 | PM.HP ---
Providers/Chief Complaint Admitting Physician: Megan Gonzalez MD Primary Care Provider: JAQUI Garcia Chief Complaint: SOB History of Present Illness Fariba Rossi is a 57 year old male history of diabetes, A-fib, takes aspirin, diastolic CHF presented with chief: Worsening shortness of breath and weight gain. Patient is stating that he has not experienced any chest pain fever nausea or vomiting but he is getting short of breath gradually in the last 2 weeks, his Lasix dose which is 40 mg twice a day is not helping him to relieve symptoms. He tries to eat healthier at home, drinks 100 ounces a day. His last echo was done in December which showed preserved ejection fraction. He does not smoke, drinks occasionally. He uses 3 L of oxygen [id number] Review of Systems Const: Reports: fatigue; Denies: fever(s) Eyes: Denies: change in vision ENMT: Denies: throat pain Card: Reports: irregular heart rhythm, swelling of feet/ankles, dyspnea on exertion and orthopnea Resp: Reports: dyspnea GI: Denies: abdominal pain : Denies: flank pain Musc: Denies: neck pain Skin/Breast: Denies: rash Neuro: Denies: headache(s) Psych: Reports: anxiety Endo: Denies: polyuria Eddy/Lymph: Denies: easy bruising All/Imm: Denies: urticaria Medications/Allergies Home Medications Medication Instructions Recorded Confirmed Last Taken Type lidocaine 5 % topical patch 1 patch topical .COMPLEX 11/13/19 03/06/23 Unknown History blood-glucose meter (Netcents SystemsTouch #1 ea 01/04/20 03/06/23 Unknown Rx Ultra2 Meter kit) lancets 33 gauge (OneTouch Delica #200 ea 04/13/20 03/06/23 Unknown Rx Lancets) magnesium oxide 400 mg PO QAM 04/22/22 03/06/23 1 Week Ago History ~02/27/23 budesonide-formoterol HFA 160 2 puff inhalation BID #10.2 grams 06/21/22 03/06/23 02/08/23 Rx mcg-4.5 mcg/actuation aerosol inhaler (Symbicort) ipratropium 0.5 mg-albuterol 3 mg 3 ml inhalation Q4H PRN shortness 11/07/22 03/06/2312/18/23 Rx (2.5 mg base)/3 mL nebulization of breath or wheezing #180 mL soln albuterol sulfate 2.5 mg/3 mL 2.5 mg (3 mL) inhalation QID PRN 11/29/22 03/06/23 12/18/22 Rx (0.083 %) solution for nebulization bronchospasm #75 mL blood sugar diagnostic #200 ea 11/29/22 03/06/23 Unknown Rx insulin detemir U-100 100 unit/mL 40 unit (0.4 mL) SUBCUT BID #30 mL 11/29/22 03/06/23 03/05/23 Rx (3 mL) subcutaneous pen (Levemir FlexTouch U-100 Insulin) amlodipine 5 mg tablet 5 mg PO QAM #90 tabs 02/21/23 03/06/23 03/06/23 Rx atorvastatin 40 mg tablet 40 mg PO QAM #90 tabs 02/21/23 03/06/23 03/06/23 Rx doxepin 50 mg capsule 50 mg PO TID #270 caps 02/21/23 03/06/23 03/06/23 13:00 Rx empagliflozin 25 mg tablet 25 mg PO QAM #30 tabs 02/21/23 03/06/23 03/06/23 Rx fluoxetine 20 mg capsule (Prozac) 20 mg PO BID #180 caps 02/21/23 03/06/23 03/06/23 Rx furosemide 40 mg tablet (Lasix) 40 mg PO BID #60 tabs 02/21/23 03/06/23 03/06/23 Rx hydralazine 100 mg tablet 100 mg PO TID #270 tabs 02/21/23 03/06/23 03/06/23 13:00 Rx insulin regular human 100 unit/mL See Rx Instructions .Route 02/21/23 03/06/23 03/05/23 Rx (3 mL) subcutaneous pen (Novolin R .COMPLEX #15 mL FlexPen) oxybutynin chloride 5 mg tablet 5 mg PO Q6H PRN bladder spasms #30 02/22/23 03/06/23 Unknown Rx tabs oxycodone 5 mg tablet 5 mg PO Q4H PRN pain #10 tabs 02/22/23 03/06/23 Unknown Rx aspirin 325 mg tablet 325 mg PO QAM 03/06/23 03/06/23 03/06/23 History cholecalciferol (vitamin D3) 1,250 50,000 unit PO .TWICE A WEEK 03/06/23 03/06/23 Unknown History mcg (50,000 unit) capsule docusate sodium 250 mg capsule 500 mg PO DAILY 03/06/23 03/06/23 03/06/23 History metformin 500 mg tablet,extended 1,000 mg PO QAM 03/06/23 03/06/23 03/06/23 History release 24 hr montelukast 10 mg tablet 10 mg PO DAILY 03/06/23 03/06/23 03/02/23 History see pharmacy comment propranolol 80 mg capsule,24 80 mg PO QAM 03/06/23 03/06/23 03/06/23 History hr,extended release see pharmacy comment sulfamethoxazole 800 1 tab PO BID 03/06/23 03/06/23 03/06/23 History mg-trimethoprim 160 mg tablet tamsulosin 0.4 mg capsule 0.4 mg PO BEDTIME 03/06/23 03/06/23 03/05/23 History Allergies Allergy/AdvReac Type Severity Reaction Status Date / Time lisinopril Allergy ADR-Cough Verified 02/25/23 12:04 PFSH Acute PFSH: Medical History Anxiety Arteriosclerotic coronary artery disease CHF (congestive heart failure) COPD (chronic obstructive pulmonary disease) Diabetes mellitus type II, uncontrolled Dietary noncompliance Essential (primary) hypertension Iron deficiency Neuropathy Obstructive sleep apnea Recurrent bronchospasm Surgical History H/O heart artery stent 09/2011 History of carpal tunnel surgery of right wrist 2011 History of colonoscopy Family History Father , AGE 74 Diabetes Heart disease Mother , LUNG CANCER AGE 55 Cancer CAD (coronary artery disease) Lung disease Heart disease Grandmother CAD (coronary artery disease) Cancer Dementia Heart disease Family/Other CAD (coronary artery disease) Heart disease Grandfather CAD (coronary artery disease) Heart disease Diabetes Sister Lung disease Denies family history of Clotting disorder Chronic kidney disease (CKD) Suicide Anesthesia complication Bleeding disorder Stroke Social History Smoking and tobacco status: former smoker Quit status (tobacco): has quit using tobacco Year quit tobacco: 2000 Former quit date comment: 4ppd x 22 years Second hand smoke exposure: No Smoking risk assessment/counseling performed?: No Alcohol intake: current Alcohol intake frequency: holidays/special occasions only Desire information about alcohol rehabilitation?: No Counseling given: No Substance/Drug Use: never Desire information about substance/drug rehabilitation?: No Counseling given: No Adopted: No Caregiver/support person: No Lives independently: Yes Household members: spouse Housing: House Marital status: Number of children: 2 service: No Current occupational status: disabled Pets and animals: Yes Do you think of yourself as: Straight/Heterosexual Current gender identity: Male and Female Vitals/I&O/Wt Last Vital Signs Temp 97.6 F 03/06/23 13:05 Pulse 85 03/06/23 16:37 Resp 18 03/06/23 16:37 BP 118/63 03/06/23 16:37 Pulse Ox 94 03/06/23 16:37 O2 Del Method Nasal Cannula 03/06/23 16:00 O2 Flow Rate 3 03/06/23 16:00 03/06/23 03/06/23 03/06/23 06:59 14:59 22:59 Output Total 600 / 600 700 / 1300 Balance -600 / -600 -700 / -1300 Weight last 48 hrs Weight 158.304 kg Physical Exam Narrative: Clinical signs of fluid overload Currently on 3 L Variable S1-S2 2+ edema of legs Abdominal distention Morbid obesity Pleasant and cooperative Nonfocal neuro exam Unkept appearance Appears stated age Data 03/06/23 13:30 03/06/23 13:30 A&P Assessment and plan (1) Acute exacerbation of CHF (congestive heart failure): (2) Dyspnea on exertion: (3) CKD (chronic kidney disease) stage 3, GFR 30-59 ml/min: (4) Oxygen dependent: (5) Atrial fibrillation: (6) COPD (chronic obstructive pulmonary disease): (7) CHF (congestive heart failure): (8) Obstructive sleep apnea: (9) Iron deficiency: (10) Diabetes mellitus type II, uncontrolled: Plan Acute CHF exacerbation Preserved ejection fraction heart failure exacerbation EF 60% Clinical signs of fluid overload Start IV diuretics Recent echo report is from December I would not repeat at this point Adjust diuretics Monitor kidney function Check electrolytes Diabetes: We will use consistent carb cardiac diet with sliding scale Patient will benefit from SGLT2 inhibitor Sleep apnea continue CPAP overnight DuoNeb every 4 as needed for shortness of breath on as-needed basis Full code Consistent carb cardiac diet DVT prophylaxis on board Full code Iron deficiency anemia: Hemoglobin stable Lab the patient, hemoglobin 10 stable Creatinine 1.2 BNP 1800 Interpretation of chest x-ray: Mild vascular congestion EKG showing: A-fib heart rate around 80s: Attestations Medical Necessity Statement*: Anticipating discharge within 48 hours Diagnoses Acute exacerbation of CHF (congestive heart failure) I50.9 Dyspnea on exertion R06.09 CKD (chronic kidney disease) stage 3, GFR 30-59 ml/min N18.30 Oxygen dependent Z99.81 Atrial fibrillation I48.91 COPD (chronic obstructive pulmonary disease) J44.9 CHF (congestive heart failure) I50.9 Obstructive sleep apnea G47.33 Iron deficiency E61.1 Diabetes mellitus type II, uncontrolled E11.65
--- NOTE | 2023-03-06 17:08 | ECG_ITS ---
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 Measurements Intervals [place] Rate: 80 P: 0 MD: 0 QRS: 133 QRSD: 95 T: -32 QT: 357 QTc: 414 Interpretive Statements ATRIAL FIBRILLATION POSSIBLE RIGHT VENTRICULAR HYPERTROPHY [SOME/ALL OF: PROMINENT R IN V1, LATE TRANSITION, RAD, FLOR, SSS] POSSIBLE ANTERIOR MYOCARDIAL INFARCTION , PROBABLY OLD [30 ms Q WAVE IN V3/V4, OR R < 0.2 mV IN V4] Compared to ECG 03/06/2023 14:18:31 Myocardial infarct finding now present Incomplete right bundle-branch block no longer present T-wave abnormality no longer present Possible ischemia no longer present Electronically Signed On 03-06-2023 20:43:09 CDT by Denis Helm M.D. [id number]
[2023-03-06] MEDS: fluoxetine 20 mg Capsule PO (18:37)
[2023-03-06] MEDS: enoxaparin 40 mg/0.4 mL Syringe SUBCUT (18:38)
[2023-03-06 18:54] LABS: Thyroid Stimulating Hormone 4.65 uIU/mL (0.27-4.20)
[2023-03-06] MEDS: FUROsemide 10 mg/mL SDV 10mL 60 MG IVP (19:18)
[2023-03-06] MEDS: lidocaine 5% Patch 1 PATCH TOPICAL (19:18)
--- NOTE | 2023-03-06 19:20 | ECG_ITS ---
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 Measurements Intervals [place] Rate: 80 P: 0 [place]: 0 QRS: 126 QRSD: 108 T: -47 QT: 371 QTc: 430 Interpretive Statements ATRIAL FIBRILLATION INCOMPLETE RIGHT BUNDLE BRANCH BLOCK [90+ ms QRS DURATION, TERMINAL R IN V1/V2, 40+ ms S IN I/aVL/V4/V5/V6] POSSIBLE RIGHT VENTRICULAR HYPERTROPHY [SOME/ALL OF: PROMINENT R IN V1, LATE TRANSITION, RAD, FLOR, SSS] MODERATE T-WAVE ABNORMALITY, CONSIDER INFERIOR ISCHEMIA [-0.1+ mV T-WAVE IN II/aVF] Compared to ECG 03/06/2023 17:08:15 Incomplete right bundle-branch block now present T-wave abnormality now present Possible ischemia now present Myocardial infarct finding no longer present Electronically Signed On 03-07-2023 11:06:15 CDT by Denis Helm M.D. [id number]
[2023-03-06 19:31] LABS: Troponin 5 6HR 55.79 ng/L (0-15)
[2023-03-06 19:32] LABS: Troponin 5 6HR Delta -0.21 ng/L (0-12)
[2023-03-06] MEDS: ipratropium-albuterol 3 mL Neb INHALATION (20:29)
[2023-03-06] MEDS: budesonide 0.5 mg/2 mL Neb INHALATION (20:29)
[2023-03-06] MEDS: doxepin 50 mg Capsule PO (20:54)
[2023-03-06] MEDS: tamsulosin 0.4 mg Capsule PO (20:54)
--- NOTE | 2023-03-06 21:29 | PC.NURSE ---
RT Thomson witnessed the patient give himself insulin from his home supply. SHAHEEN Martin and this nurse educated pt on taking medications from home without letting a nurse know first or having an order for it. Home meds take and locked in [facility].
[2023-03-06 21:32] LABS: Glucose Point of Care 240 mg/dL (70-110)
[2023-03-07] VITALS (11 sets, daily range): BP systolic 106–144; BP diastolic 70–83; PULSE 74–100; RESP 16–20; TEMP 36.4–37; O2SAT 88–97
[2023-03-07] MEDS: FUROsemide 10 mg/mL SDV 10mL 60 MG IVP ×2 (05:26→17:08)
[2023-03-07] MEDS: magnesium oxide 400 mg tablet PO (05:26)
[2023-03-07] MEDS: atorvastatin 40 mg Tablet PO (05:27)
[2023-03-07] MEDS: lidocaine 5% Patch 1 PATCH TOPICAL (05:27)
[2023-03-07] MEDS: aspirin 325 mg Tablet PO (05:27)
--- NOTE | 2023-03-07 06:02 | P.PN_ITS ---
Subjective Subjective: No significant overnight events Negative diuresis No signs of contraction alkalosis Hemoglobin stable A-fib without RVR EKG showing A-fib Nonsignificant delta troponin Vitals/I&O/Wt Last Vital Signs Temp 98.6 F 03/07/23 03:58 Pulse 74 03/07/23 03:58 Resp 17 03/07/23 03:58 BP 125/81 03/07/23 03:58 Pulse Ox 97 03/07/23 03:58 O2 Del Method Nasal Cannula 03/06/23 20:00 O2 Flow Rate 3 03/06/23 21:35 03/06/23 03/06/23 03/07/23 14:59 22:59 06:59 Intake Total 120 / 120 Output Total 600 / 600 700 / 1300 Balance -600 / -600 -580 / -1180 Weight last 48 hrs Weight 158.168 kg Weight 158.304 kg Physical Exam Narrative: Morbidly obese male Currently doing well on 3L Variable S1-S2 Lower extremity edema 1+ Abdomen distended Nontender Nonfocal neuro exam Data 03/06/23 13:30 03/07/23 08:28 A&P Assessment and plan (1) Acute exacerbation of CHF (congestive heart failure): (2) Dyspnea on exertion: (3) CKD (chronic kidney disease) stage 3, GFR 30-59 ml/min: (4) Oxygen dependent: (5) Atrial fibrillation: (6) COPD (chronic obstructive pulmonary disease): (7) Obesity: Qualifiers: Body mass index: BMI 45.0-49.9 Obesity classification: adult class 3 (BMI >= 40) Obesity type: unspecified obesity type Serious obesity comorbidity presence: unspecified whether serious comorbidity present Qualified Code(s): E66.01 - Morbid (severe) obesity due to excess calories; Z68.42 - Body mass index [BMI] 45.0-49.9, adult (8) Essential (primary) hypertension: (9) Obstructive sleep apnea: Plan Diastolic CHF exacerbation likely related to sleep apnea Continue IV diuresis We will use Bumex at the time of discharge Patient will be discharged likely tomorrow No electrolyte imbalance No contraction alkalosis Obstructive sleep apnea: CPAP at night Chronic hypoxia uses 3 L at baseline A-fib without RVR Patient is using aspirin along AV dea blocking agent I would recommend anticoagulating agent at the time of discharge Full code Cardiac consistent carb diet Insulin sliding-scale Attestations Medical Necessity Statement*: Discharge tomorrow Coding Level of Care Code 60140 Moderate MDM includes number and complexity of problems actively addressed during encounter, amount and/or complexity of data reviewed/ordered and described risk of complication, morbidity or mortality of management as do cumented Diagnoses Acute exacerbation of CHF (congestive heart failure) I50.9 Dyspnea on exertion R06.09 CKD (chronic kidney disease) stage 3, GFR 30-59 ml/min N18.30 Oxygen dependent Z99.81 Atrial fibrillation I48.91 COPD (chronic obstructive pulmonary disease) J44.9 Obesity E66.01; Z68.42 Body mass index: BMI 45.0-49.9 Obesity classification: adult class 3 (BMI >= 40) Obesity type: unspecified obesity type Serious obesity comorbidity presence: unspecified whether serious comorbidity present Essential (primary) hypertension I10 Obstructive sleep apnea G47.33
[2023-03-07 06:23] LABS: Glucose Point of Care 122 mg/dL (70-110)
[2023-03-07] MEDS: budesonide 0.5 mg/2 mL Neb INHALATION ×2 (07:41→20:27)
[2023-03-07] MEDS: albuterol 2.5 mg/3 mL Neb INHALATION ×3 (07:41→20:27)
[2023-03-07 09:13] LABS: Anion Gap 14.5 (5-19); Blood Urea Nitrogen 24 mg/dL (6-20); Calcium 8.9 mg/dL (8.5-10.5); Carbon Dioxide 29 mmol/L (22-29); Chloride 101 mmol/L (98-107); Glomerular Filtration Rate 68.8 mL/min (90-130); Glucose 138 mg/dL (65-115); Magnesium 2.3 mg/dL (1.7-2.3); Osmolality Calculated 298 mOsm/kg (285-295); Potassium 3.5 mmol/L (3.5-5.1); Sodium 141 mmol/L (136-145)
[2023-03-07] MEDS: montelukast sodium 10 mg Tablet PO (10:02)
[2023-03-07] MEDS: fluoxetine 20 mg Capsule PO ×2 (10:02→17:08)
[2023-03-07] MEDS: sennosides-docusate Tablet 1 TAB PO (10:02)
[2023-03-07] MEDS: potassium chloride ER 20 mEq Tablet 40 MEQ PO ×2 (10:03→21:11)
[2023-03-07] MEDS: doxepin 50 mg Capsule PO ×3 (10:03→20:48)
[2023-03-07] MEDS: hyDRALAzine 50 mg Tablet 100 MG PO ×3 (10:03→20:48)
[2023-03-07 12:06] LABS: Glucose Point of Care 207 mg/dL (70-110)
[2023-03-07] MEDS: insulin lispro 100 unit/1 mL SUBCUT ×2 (13:14→18:00)
[2023-03-07 16:35] LABS: Glucose Point of Care 348 mg/dL (70-110)
[2023-03-07] MEDS: enoxaparin 40 mg/0.4 mL Syringe SUBCUT (17:08)
[2023-03-07] MEDS: tamsulosin 0.4 mg Capsule PO (20:49)
[2023-03-08] VITALS: BP 131/91; PULSE 128; RESP 18; TEMP 36.6; O2SAT 97
[2023-03-08 04:00] VITALS: BP 145/82; PULSE 93; RESP 18; TEMP 36.4; O2SAT 97
[2023-03-08] MEDS: lidocaine 5% Patch 1 PATCH TOPICAL (04:33)
[2023-03-08] MEDS: FUROsemide 10 mg/mL SDV 10mL 60 MG IVP (04:33)
[2023-03-08] MEDS: aspirin 325 mg Tablet PO (05:41)
[2023-03-08] MEDS: atorvastatin 40 mg Tablet PO (05:41)
[2023-03-08] MEDS: magnesium oxide 400 mg tablet PO (05:41)
[2023-03-08 06:22] LABS: Glucose Point of Care 158 mg/dL (70-110)
[2023-03-08 06:28] LABS: Anion Gap 11.5 (5-19); Blood Urea Nitrogen 22 mg/dL (6-20); Calcium 8.9 mg/dL (8.5-10.5); Carbon Dioxide 31 mmol/L (22-29); Chloride 100 mmol/L (98-107); Glomerular Filtration Rate 68.8 mL/min (90-130); Glucose 110 mg/dL (65-115); Osmolality Calculated 292 mOsm/kg (285-295); Potassium 3.5 mmol/L (3.5-5.1); Sodium 139 mmol/L (136-145)
[2023-03-08 08:00] VITALS: BP 145/81; PULSE 100; PULSE 90; RESP 16; RESP 18; O2SAT 93; O2SAT 97
[2023-03-08] MEDS: albuterol 2.5 mg/3 mL Neb INHALATION (08:07)
[2023-03-08] MEDS: budesonide 0.5 mg/2 mL Neb INHALATION (08:07)
[2023-03-08] MEDS: montelukast sodium 10 mg Tablet PO (09:36)
[2023-03-08] MEDS: doxepin 50 mg Capsule PO (09:36)
[2023-03-08] MEDS: fluoxetine 20 mg Capsule PO (09:36)
[2023-03-08] MEDS: hyDRALAzine 50 mg Tablet 100 MG PO (09:36)
[2023-03-08] MEDS: sennosides-docusate Tablet 1 TAB PO (09:36)
[2023-03-08] MEDS: insulin lispro 100 unit/1 mL SUBCUT ×2 (09:37→12:21)
--- NOTE | 2023-03-08 10:11 | P.DS_ITS ---
Discharge Providers Date of Admission: 03/06/23 16:23 Date of Discharge: March 08, 2023 Attending Provider at Admission: Megan Gonzalez MD Attending Provider at Discharge: Megan Gonzalez MD Primary Care Provider: JAQUI Garcia Diagnoses at Discharge Discharge Diagnosis (1) Acute exacerbation of CHF (congestive heart failure): Status: Acute (2) Dyspnea on exertion: Status: Acute (3) CKD (chronic kidney disease) stage 3, GFR 30-59 ml/min: Status: Acute (4) Oxygen dependent: Status: Acute (5) Atrial fibrillation: Status: Acute (6) COPD (chronic obstructive pulmonary disease): Status: Chronic (7) Obesity: Status: Acute Qualifiers: Obesity type: unspecified obesity type Obesity classification: adult class 3 (BMI >= 40) Serious obesity comorbidity presence: unspecified whether serious comorbidity present Body mass index: BMI 45.0-49.9 Qualified Code(s): E66.01 - Morbid (severe) obesity due to excess calories; Z68.42 - Body mass index [BMI] 45.0-49.9, adult (8) Essential (primary) hypertension: Status: Chronic (9) Obstructive sleep apnea: Status: Acute Reason for Visit Reason for Visit: SOB Hospital Course Hospital Course 57-year-old male who was admitted for management evaluation of diastolic CHF exacerbation at home he was taking Lasix 40 mg twice a day which did not relieve his symptoms, patient is stating that he is watching his sodium and fluid intake however he does have sleep apnea, he does not use CPAP, he uses 3 L of oxygen [id number], during his hospitalization overnight pulse ox study did show significant hypoxia, I will refer him for sleep study, I will switch his Lasix to Bumex 1 mg twice a day, I have counseled patient to use 2 mg twice a day if symptoms worsen, patient clinically is doing much better no orthopnea or PND. Recent echo was done in December during this visit I have not repeated his echo, EKG troponin unremarkable A-fib without RVR, Physical Exam Narrative: Patient is awake and alert Morbidly obese Signs of fluid overload slightly improved Awake and alert Using 3 L of oxygen Nonfocal neuro exam GCS 15 Discharge Data Studies Completed and Pending Completed Studies During Hospitalization Category Date Time Status XR chest 1V portable [id number] Stat Exams 03/06/23 13:19 Completed Radiology Impressions Chest X-Ray 03/06/23 13: IMPRESSION: 1. Cardiac enlargement unchanged. No acute process noted at this time. Laboratory Results WBC 5.8 10^3/uL (4.0-10.0) 03/06/23 13:30 RBC 3.95 10^6/uL (4.1-5.3) L 03/06/23 13:30 Hgb 10.3 g/dL (11.7-16.6) L 03/06/23 13:30 Hct 35.3 % (42.0-52.0) L 03/06/23 13:30 MCV 89.4 fl (80-94) 03/06/23 13:30 MCH 26.1 pg (28.0-34.0) L 03/06/23 13: MCHC 29.2 g/dL (30.0-36.0) L 03/06/23 13: RDW 16.5 % (12.1-15.1) H 03/06/23 13:30 Plt Count 355 10^3/cmm (130-400) 03/06/23 13:30 MPV 9.4 fL (7.4-10.4) 03/06/23 13:30 Neut % (Auto) 68.1 % 03/06/23 13:30 Lymph % (Auto) 21.4 % 03/06/23 13:30 [place] % (Auto) 8.1 % 03/06/23 13:30 Eos % (Auto) 1.2 % 03/06/23 13:30 Baso % (Auto) 0.7 % 03/06/23 13:30 Neut # (Auto) 3.95 10^3/uL (1.8-7.7) 03/06/23 13:30 Lymph # (Auto) 1.2 10^3/uL (0.8-4.8) 03/06/23 13:30 [place] # (Auto) 0.5 10^3/uL (0.2-0.9) 03/06/23 13:30 Eos # (Auto) 0.1 10^3/uL (0.0-0.8) 03/06/23 13:30 Baso # (Auto) 0.0 10^3/uL (0.0-0.1) 03/06/23 13:30 Nucleated RBC % (auto) 0 % 03/06/23 13:30 Nucleated RBCs # 0.0 /100WBC 03/06/23 13:30 Sodium 139 mmol/L (136-145) 03/08/23 04:35 Potassium 3.5 mmol/L (3.5-5.1) 03/08/23 04:35 Chloride 100 mmol/L (98-107) 03/08/23 04:35 Carbon Dioxide 31 mmol/L (22-29) H 03/08/23 04:35 Anion Gap 11.5 (5-19) 03/08/23 04:35 BUN 22 mg/dL (6-20) H 03/08/23 04:35 Creatinine 1.1 mg/dL (0.7-1.2) 03/08/23 04:35 GFR Calculation 68.8 mL/min (90-130) L 03/08/23 04:35 Glucose 110 mg/dL (65-115) 03/08/23 04:35 POC Glucose 158 mg/dL (70-110) H 03/08/23 06:17 Calculated Osmolality 292 mOsm/kg (285-295) 03/08/23 04:35 Calcium 8.9 mg/dL (8.5-10.5) 03/08/23 04:35 Magnesium 2.3 mg/dL (1.7-2.3) 03/07/23 08:28 Total Bilirubin 0.4 mg/dL (0.15-1.2) 03/06/23 13:30 AST 22 U/L (0-40) 03/06/23 13:30 ALT 21 U/L (0-41) 03/06/23 13:30 Alkaline Phosphatase 94 U/L (40-130) 03/06/23 13:30 Troponin T Baseline 56 ng/L (0-15) H 03/06/23 13:30 Troponin T 120 Minute 57.09 ng/L (0-15) H 03/06/23 15:37 Delta Troponin T 1.09 ABS# (0-10) 03/06/23 15:37 Troponin T Hi Sens 6Hr 55.79 ng/L (0-15) H 03/06/23 19:05 Troponin T Hi Sens 6Hr Delta -0.21 ng/L (0-12) L 04/25/23 19:05 NT-Pro-B Natriuret Pep 1800 pg/mL (0-125) H 03/06/23 13:30 Total Protein 6.5 g/dL (6.6-8.7) L 03/06/23 13:30 Albumin 3.8 g/dL (3.5-5.2) 03/06/23 13:30 Globulin 2.7 g/dL (1.3-4.6) 03/06/23 13:30 TSH 4.65 uIU/mL (0.27-4.20) H 03/06/23 15:37 Urine Color Yellow (Yellow) 03/06/23 15:08 Urine Appearance Hazy (CLEAR) A 03/06/23 15:08 Urine pH 5 (5-7) 03/06/23 15:08 Ur Specific [place] 1.020 (1.005-1.030) 03/06/23 15:08 Urine Protein Trace (Negative) 03/06/23 15:08 Urine Glucose (UA) 4+ (Normal) H 03/06/23 15:08 Urine Ketones Negative (Negative) 03/06/23 15:08 Urine Blood Neg (Negative) 03/06/23 15:08 Urine Nitrate Negative (Negative) 03/06/23 15:08 Urine Bilirubin Neg (Negative) 03/06/23 15:08 Urine Urobilinogen Neg mg/dL (Negative) 03/06/23 15:08 Ur Leukocyte Esterase Negative (Negative) 03/06/23 15:08 Urine RBC Rare /hpf (0-2) 03/06/23 15:08 Urine WBC Rare /hpf (0-5) 03/06/23 15:08 Ur Squamous Epith Cells 0-4 /hpf (0-5) H 03/06/23 15:08 Amorphous Sediment 1+ /hpf 03/06/23 15:08 Urine Bacteria None /hpf (NONE) 03/06/23 15:08 Urine Sperm 2+ /hpf 03/06/23 15:08 Vitals Last Vital Signs Temp 97.6 F 03/08/23 04:00 Pulse 100 03/08/23 08:00 Resp 16 03/08/23 08:00 BP 145/81 03/08/23 08:00 Pulse Ox 97 03/08/23 08:00 O2 Del Method Nasal Cannula 03/08/23 08:00 O2 Flow Rate 3 03/08/23 08:00 Discharge Plan Discharge Patient Disposition: Home Condition: Stable Prescriptions: New potassium chloride 20 mEq tablet extended release 20 meq PO DAILY Qty: 60 2RF bumetanide 1 mg tablet 1 mg PO BID Qty: 60 6RF Continued lidocaine 5 % adhesive patch,medicated 1 patch TOPICAL .COMPLEX Rx Instructions: apply one patch daily as needed for pain (on for 12 hours and off for 12 hours) (DME) lancets [OneTouch Delica Lancets] 33 gauge misc See Rx Instructions .ROUTE .MEDSUPPLY Qty: 200 5RF Rx Instructions: 4 times daily budesonide-formoterol [Symbicort] 160-4.5 mcg/actuation HFA aerosol inhaler 2 puff inhalation BID Qty: 10.2 3RF albuterol sulfate 2.5 mg /3 mL (0.083 %) solution for nebulization 2.5 mg INHALATION QID PRN (Reason: bronchospasm) Qty: 75 3RF (DME) blood sugar diagnostic Strip See Rx Instructions .ROUTE .MEDSUPPLY Qty: 200 5RF Rx Instructions: 4 times a day as needed Levemir FlexTouch U-100 Insuln 100 unit/mL (3 mL) insulin pen 40 unit SUBCUT BID Qty: 30 2RF amlodipine 5 mg tablet 5 mg PO QAM Qty: 90 0RF atorvastatin 40 mg tablet 40 mg PO QAM Qty: 90 0RF doxepin 50 mg capsule 50 mg PO TID Qty: 270 0RF empagliflozin 25 mg tablet 25 mg PO QAM Qty: 30 2RF fluoxetine [Prozac] 20 mg capsule 20 mg PO BID Qty: 180 0RF hydralazine 100 mg tablet 100 mg PO TID Qty: 270 0RF Novolin R FlexPen 100 unit/mL (3 mL) insulin pen See Rx Instructions .ROUTE .COMPLEX Qty: 15 2RF Rx Instructions: sliding scale up to qid [id number]- 400=30U>400= 32U (DME) blood-glucose meter [ShangPinuch Ultra2 Meter] Kit See Rx Instructions .ROUTE .MEDSUPPLY Qty: 1 0RF Rx Instructions: use daily magnesium oxide 400 mg magnesium capsule 400 mg PO QAM oxybutynin chloride 5 mg tablet 5 mg PO Q6H PRN (Reason: bladder spasms) Qty: 30 0RF oxycodone 5 mg tablet 5 mg PO Q4H PRN (Reason: pain) Qty: 10 0RF aspirin 325 mg Tablet 325 mg PO QAM tamsulosin 0.4 mg capsule 0.4 mg PO BEDTIME propranolol 80 mg capsule,extended release 24hr 80 mg PO QAM montelukast 10 mg tablet 10 mg PO DAILY docusate sodium 250 mg Capsule 500 mg PO DAILY cholecalciferol (vitamin D3) 1,250 mcg (50,000 unit) Capsule 50,000 unit PO .TWICE A WEEK Rx Instructions: on mon and sun metformin 500 mg tablet extended release 24 hr 1,000 mg PO QAM ipratropium-albuterol 0.5 mg-3 mg(2.5 mg base)/3 mL solution for nebulization 3 ml inhalation Q4H PRN (Reason: shortness of breath or wheezing) Qty: 180 0RF Rx Instructions: until breathing returns to target peak flow/parameters Discontinued furosemide [Lasix] 40 mg tablet 40 mg PO BID Qty: 60 2RF sulfamethoxazole-trimethoprim 800-160 mg tablet 1 tab PO BID Rx Instructions: for 10 days (rx filled 02/26/23) Discharge Orders: Discharge Order (Routine); Ordered 03/08/23 Ordered By: Megan Gonzalez Other Ambulatory Orders: Sleep Study/Titration (Routine) Timeframe: 1 Week Facility: [facility] - Location: [facility] Ordered By: Megan Gonzalez Referrals: Mateo Sifuentes FNP-C [Primary Care Provider] - 03/15/23 10:20 am Discharge Diet: Cardiac Discharge Activity: Increase activity as tolerated Patient Instructions: Opioid Safety Discharge Attestations Time Spent in Discharge Care*: greater than 30 min Quality Metrics Clinical Quality Measures [ No reported AMI, CVA or VTE this stay] Coding Level of Care Code Acute Code for Chg Fwd Diagnoses Acute exacerbation of CHF (congestive heart failure) I50.9 Dyspnea on exertion R06.09 CKD (chronic kidney disease) stage 3, GFR 30-59 ml/min N18.30 Oxygen dependent Z99.81 Atrial fibrillation I48.91 COPD (chronic obstructive pulmonary disease) J44.9 Obesity E66.01; Z68.42 Obesity type: unspecified obesity type Obesity classification: adult class 3 (BMI >= 40) Serious obesity comorbidity presence: unspecified whether serious comorbidity present Body mass index: BMI 45.0-49.9 Essential (primary) hypertension I10 Obstructive sleep apnea G47.33
[2023-03-08 12:00] VITALS: BP 155/85; PULSE 98; RESP 17; O2SAT 95
[2023-03-08 13:01] VITALS: BP 155/85; PULSE 98; RESP 17; O2SAT 95
[2023-03-08 14:26] LABS: Glucose Point of Care 198 mg/dL (70-110)
== END 2023-03-08 12:30 | disposition home health service (06) ==
LOC: ER 15:14 → MEDSURG 16:37
PROVIDERS: Admitting Provider Internal Medicine; Emergency Provider Emergency Medicine; PCP Nurse Practitioner; Visit Provider Internal Medicine
DX: I13.0 Hypertensive heart and chronic kidney disease with heart failure and stage 1 through stage 4 chronic kidney disease, or unspecified chronic kidney disease (principal); E11.22 Type 2 diabetes mellitus with diabetic chronic kidney disease; N18.30 Chronic kidney disease, stage 3 unspecified; E11.40 Type 2 diabetes mellitus with diabetic neuropathy, unspecified; J96.11 Chronic respiratory failure with hypoxia; J44.9 Chronic obstructive pulmonary disease, unspecified; I48.91 Unspecified atrial fibrillation; I25.10 Atherosclerotic heart disease of native coronary artery without angina pectoris; I45.10 Unspecified right bundle-branch block; E66.01 Morbid (severe) obesity due to excess calories; Z68.42 Body mass index [BMI] 45.0-49.9, adult; Z87.891 Personal history of nicotine dependence; I50.30 Unspecified diastolic (congestive) heart failure; G47.33 Obstructive sleep apnea (adult) (pediatric); Z79.4 Long term (current) use of insulin; Z79.84 Long term (current) use of oral hypoglycemic drugs; Z79.82 Long term (current) use of aspirin; Z99.81 Dependence on supplemental oxygen
CPT/HCPCS: 36415; 36416; 71045; 80048; 80053; 81001; 82962; 83735; 83880; 84443; 84484; 85025; 93005; 94640; 94660; 96372; 96374; 96376; 99285; G0378; J1650; J1815; J1940; J7613; J7626

== ENCOUNTER → 2023-03-09 10:52 | Outpatient (BNVA) | payer MEDICARE, OTHER, SELFPAY | PROVIDERS: PCP Nurse Practitioner; Visit Provider Internal Medicine Pulmonary Disease | DX: J44.9 Chronic obstructive pulmonary disease, unspecified (principal); G47.33 Obstructive sleep apnea (adult) (pediatric); I50.9 Heart failure, unspecified; R59.0 Localized enlarged lymph nodes; Z87.891 Personal history of nicotine dependence; E66.01 Morbid (severe) obesity due to excess calories; Z68.42 Body mass index [BMI] 45.0-49.9, adult; J82.83 Eosinophilic asthma | CPT/HCPCS: 99214 ==

== ENCOUNTER → 2023-03-14 14:43 | Outpatient (BNVA) | payer MEDICARE, OTHER, SELFPAY | PROVIDERS: PCP Nurse Practitioner; Visit Provider Internal Medicine | DX: I25.10 Atherosclerotic heart disease of native coronary artery without angina pectoris (principal); G47.33 Obstructive sleep apnea (adult) (pediatric); E66.01 Morbid (severe) obesity due to excess calories; Z68.42 Body mass index [BMI] 45.0-49.9, adult; I13.0 Hypertensive heart and chronic kidney disease with heart failure and stage 1 through stage 4 chronic kidney disease, or unspecified chronic kidney disease; E11.22 Type 2 diabetes mellitus with diabetic chronic kidney disease; E11.65 Type 2 diabetes mellitus with hyperglycemia; N18.30 Chronic kidney disease, stage 3 unspecified; I50.9 Heart failure, unspecified; Z87.891 Personal history of nicotine dependence; Z79.4 Long term (current) use of insulin | CPT/HCPCS: 99214 ==

== ENCOUNTER 2023-03-19 20:36 | Emergency (ER) | payer MEDICARE, OTHER, SELFPAY ==
[2023-03-19 20:38] VITALS: BP 147/84; PULSE 149; RESP 18; TEMP 36.6; O2SAT 88
--- NOTE | 2023-03-19 20:55 | XRR_ITS ---
PROCEDURE INFORMATION: Exam: XR Chest Exam date and time: 03/19/2023 9:01 PM Age: 57 years old Clinical indication: Shortness of breath; Prior surgery; Surgery date: 6+ months; Surgery type: Heart stents; Additional info: Dyspnea TECHNIQUE: Imaging protocol: Radiologic exam of the chest. Views: 1 view. COMPARISON: CR XR chest 1V portable [id number] 03/06/2023 1:44 PM FINDINGS: Lungs: No acute pneumonia or edema. Pleural spaces: Unremarkable. No pleural effusion. No pneumothorax. Heart/Mediastinum: Unremarkable. No cardiomegaly. Bones/joints: Unremarkable. XR/XR chest 1V portable [id number] IMPRESSION: There are no acute concerning abnormalities.
--- NOTE | 2023-03-19 20:59 | W.ED.SOB ---
HPI - SOB/Dyspnea General: Chief Complaint: Shortness of Breath/Dyspnea Stated Complaint: Sob Time Seen by Provider: 03/19/23 20:42 History of Present Illness: HPI Narrative: Presents to the ER with complaints of increasing fluid and increasing shortness of breath. Patient states he is probably gained 10 pounds fluid in the last 24 hours even after taking additional dose of Bumex. Patient was recently seen here for the same thing. Patient denies any chest pain at this time. Patient does have a distended abdomen and pitting edema on his legs. MD elicited complaint: shortness of breath Pertinent past history: congestive heart failure Onset (ago): hour(s) (In the last 24 hours) Timing: constant and progressively worsening Severity: moderate Exacerbating factors: lying flat Relieving factors: nothing Known history of: congestive heart failure Associated symptoms: Reports orthopnea; Deny abdominal pain, chest pain, fever(s), nausea, palpitations or vomiting Review of Systems General: Reports: 10 or more systems reviewed and unremarkable except in HPI and below Const: Denies: fever(s) or chills Eyes: Denies: change in vision or photophobia ENMT: Denies: throat pain or enlarged tonsils Card: Reports: irregular heart rhythm and orthopnea; Denies: chest pain or palpitations Resp: Reports: dyspnea; Denies: productive cough or non-productive cough GI: Denies: abdominal pain, nausea or vomiting : Denies: flank pain, difficulty urinating or dysuria Musc: Denies: neck pain or back pain Skin/Breast: Denies: rash or pruritus PFSH ED PFSH: Medical History Acute exacerbation of CHF (congestive heart failure) Anxiety Arteriosclerotic coronary artery disease Atrial fibrillation CHF (congestive heart failure) CKD (chronic kidney disease) stage 3, GFR 30-59 ml/min COPD (chronic obstructive pulmonary disease) Diabetes mellitus type II, uncontrolled Dietary noncompliance Dyspnea on exertion Essential (primary) hypertension Iron deficiency Neuropathy Obesity Obstructive sleep apnea Oxygen dependent Recurrent bronchospasm Surgical History H/O heart artery stent 09/2011 History of carpal tunnel surgery of right wrist 2011 History of colonoscopy Family History Father , AGE 74 Diabetes Heart disease Mother , LUNG CANCER AGE 55 Cancer CAD (coronary artery disease) Lung disease Heart disease Grandmother CAD (coronary artery disease) Cancer Dementia Heart disease Family/Other CAD (coronary artery disease) Heart disease Grandfather CAD (coronary artery disease) Heart disease Diabetes Sister Lung disease Denies family history of Clotting disorder Chronic kidney disease (CKD) Suicide Anesthesia complication Bleeding disorder Stroke Social History Smoking and tobacco status: former smoker Quit status (tobacco): has quit using tobacco Year quit tobacco: 2000 Former quit date comment: 4ppd x 22 years Second hand smoke exposure: No Smoking risk assessment/counseling performed?: No Alcohol intake: current Alcohol intake frequency: holidays/special occasions only Desire information about alcohol rehabilitation?: No Counseling given: No Substance/Drug Use: never Desire information about substance/drug rehabilitation?: No Counseling given: No Adopted: No Caregiver/support person: No Lives independently: Yes Household members: spouse Housing: House Marital status: Number of children: 2 service: No Current occupational status: disabled Pets and animals: Yes Do you think of yourself as: Straight/Heterosexual Current gender identity: Male and Female Physical Exam Const: COMMON NORMALS: no acute distress, average body habitus, patient oriented x3, healthy appearing, alert and well nourished HENMT: COMMON NORMALS: normocephalic, atraumatic, hearing grossly normal bilaterally, external ears normal, Normal external nose present and moist oral mucous membranes HEAD & SCALP: normocephalic and atraumatic NOSE: Normal external nose present EXTERNAL EAR: Yes external ears normal Eye: COMMON NORMALS: Equal, round and reactive pupils present, EOMs intact bilaterally, conjunctivae normal and no scleral icterus CONJUNCTIVA: Yes conjunctivae normal PUPIL: Yes Equal, round and reactive pupils present Neck/C-Spine: COMMON NORMALS: full ROM, no lymphadenopathy, supple, no meningeal signs, no JVD and Thyroid normal THYROID: Thyroid normal Lymph: LYMPHATIC: no lymphadenopathy noted Chest: COMMONS NORMALS: normal inspection of the chest and normal palpation of entire chest wall Resp: COMMON NORMALS: normal respiratory effort, No retractions, No use of accessory muscles and clear to auscultation bilaterally AUSCULTATION: clear to auscultation bilaterally Cardio: COMMON NORMALS: no JVD RATE: tachycardic RHYTHM: abnormal rhythm irregularly irregular GI: COMMON NORMALS: Soft to palpation INSPECTION: Yes abdominal distension and Yes central obesity AUSCULTATION: Yes normoactive bowel sounds PALPATION: Yes Soft to palpation Neuro: COMMON NORMALS: patient oriented x3 SENSORIUM/ORIENTATION: Yes alert MENINGEAL SIGNS: Yes no meningeal signs Course Vital Signs: Vital signs: Vital Signs Temperature 97.8 F 03/19/23 20:38 Pulse Rate 149 H 03/19/23 20:38 Respiratory Rate 18 03/19/23 20:38 Blood Pressure 147/84 03/19/23 20:38 Pulse Oximetry 96 03/19/23 21:48 Oxygen Delivery Me thod Nasal Cannula 03/19/23 20:38 Fraction of Inspir ed Oxygen 3 03/19/23 20:38 MDM - SOB/Dyspnea Medical Decision Making Presents to the ER with complaining of increasing shortness of breath and fluid overload. Patient also was found to have a heart rate of 149 bpm upon arrival. Physical exam was performed and lab work imaging and EKG was obtained EKG showed A-fib with RVR patient was given 20 mg of Cardizem slowed his heart rate down to 102. Patient does have a history of known A-fib. Patient BUN/creatinine was 30 and 1.0 patient's chest x-ray was read off as negative patient's abdominal CT scan was read off as increasing soft tissue anasarca with a right pleural effusion not significantly changed. Patient was informed of these results and the need for increasing diuresis. They chose to go home and trial it on an outpatient basis knowing that it may not be effective and they may have to return for inpatient and I admission and IV diuresis. Patient will be placed on additional 40 mg Lasix today to take in conjunction with his Bumex patient is to weigh himself every day. Patient should follow-up with his primary care doc in approximately 1 week Differential Diagnosis Likely congestive heart failure; Unlikely acute exacerbation of chronic obstructive airways disease, community acquired pneumonia, asthma with exacerbation or pulmonary embolism Medical Records I reviewed the patient's medical records. . Lab Data I reviewed the patient's lab results. 03/19/23 20:55 03/19/23 20:55 Labs/Radiology: Radiology Impressions Chest X-Ray 03/19/23 20:55 IMPRESSION: There are no acute concerning abnormalities. Abdomen/Pelvis CT 03/19/23 22:12 IMPRESSION: When compared with 02/28/2023, intra-abdominal ascites appears to have increased. There is increasing soft tissue anasarca. Right pleural effusion is not significantly changed. There is a pericardial effusion which is not significantly changed. Laboratory Results WBC 7.4 10^3/uL (4.0-10.0) 03/19/23 20:55 RBC 4.01 10^6/uL (4.1-5.3) L 03/19/23 20:55 Hgb 10.6 g/dL (11.7-16.6) L 03/19/23 20:55 Hct 35.7 % (42.0-52.0) L 03/19/23 20:55 MCV 89.0 fl (80-94) 03/19/23 20:55 MCH 26.4 pg (28.0-34.0) L 03/19/23 20: MCHC 29.7 g/dL (30.0-36.0) L 03/19/23 20:55 RDW 16.3 % (12.1-15.1) H 03/19/23 20:55 Plt Count 314 10^3/cmm (130-400) 03/19/23 20:55 MPV 10.0 fL (7.4-10.4) 03/19/23 20:55 Neut % (Auto) 73.5 % 03/19/23 20:55 Lymph % (Auto) 17.2 % 03/19/23 20:55 [place] % (Auto) 7.9 % 03/19/23 20:55 Eos % (Auto) 0.7 % 03/19/23 20:55 Baso % (Auto) 0.3 % 03/19/23 20:55 Neut # (Auto) 5.46 10^3/uL (1.8-7.7) 03/19/23 20:55 Lymph # (Auto) 1.3 10^3/uL (0.8-4.8) 03/19/23 20:55 [place] # (Auto) 0.6 10^3/uL (0.2-0.9) 03/19/23 20:55 Eos # (Auto) 0.1 10^3/uL (0.0-0.8) 03/19/23 20:55 Baso # (Auto) 0.0 10^3/uL (0.0-0.1) 03/19/23 20:55 Nucleated RBC % (auto) 0 % 03/19/23 20:55 Nucleated RBCs # 0.0 /100WBC 03/19/23 20:55 Sodium 139 mmol/L (136-145) 03/19/23 20:55 Potassium 3.8 mmol/L (3.5-5.1) 03/19/23 20:55 Chloride 97 mmol/L (98-107) L 03/19/23 20:55 Carbon Dioxide 32 mmol/L (22-29) H 03/19/23 20:55 Anion Gap 13.8 (5-19) 03/19/23 20:55 BUN 30 mg/dL (6-20) H 03/19/23 20:55 Creatinine 1.0 mg/dL (0.7-1.2) 03/19/23 20:55 GFR Calculation 76.7 mL/min (90-130) L 03/19/23 20:55 Glucose 251 mg/dL (65-115) H 03/19/23 20:55 Calculated Osmolality 303 mOsm/kg (285-295) H 03/19/23 20:55 Calcium 8.9 mg/dL (8.5-10.5) 03/19/23 20:55 Magnesium 2.0 mg/dL (1.7-2.3) 03/19/23 20:55 Total Bilirubin 0.5 mg/dL (0.15-1.2) 03/19/23 20:55 AST 26 U/L (0-40) 03/19/23 20:55 ALT 27 U/L (0-41) 03/19/23 20:55 Alkaline Phosphatase 120 U/L (40-130) 03/19/23 20:55 Troponin T Baseline 69 ng/L (0-15) H 03/19/23 20:55 Troponin T 120 Minute 63.88 ng/L (0-15) H 03/19/23 22:50 Delta Troponin T -5.12 ABS# (0-10) L 03/19/23 22:50 NT-Pro-B Natriuret Pep 2265 pg/mL (0-125) H 03/19/23 20:55 Total Protein 6.4 g/dL (6.6-8.7) L 03/19/23 20:55 Albumin 3.7 g/dL (3.5-5.2) 03/19/23 20:55 Globulin 2.7 g/dL (1.3-4.6) 03/19/23 20:55 EKG Data EKG 1: I personally reviewed and interpreted this EKG as follows: EKG Interpretation Date: 03/19/23 EKG interpretation time: 21:45 Prior EKG tracings: not available for review Interpretation: EKG showed atrial fibrillation with ventricular rate of 91 bpm, QRS duration 88, QTc of 404, possible right ventricular hypertrophy, probably old anterolateral myocardial infarction with Q waves in 1 and aVL V3 456, moderate T wave abnormality negative T waves in 2 and aVF. Discharge Plan Discharge Patient Disposition: Home Clinical Impression: Atrial fibrillation with rapid ventricular response CHF (congestive heart failure) Qualifiers: Heart failure type: unspecified Heart failure chronicity: chronic Qualified Code(s): I50.9 - Heart failure, unspecified Condition: Stable Prescriptions: New furosemide 40 mg tablet 40 mg PO QAM Qty: 5 0RF No Action lidocaine 5 % adhesive patch,medicated 1 patch TOPICAL .COMPLEX Rx Instructions: apply one patch daily as needed for pain (on for 12 hours and off for 12 hours) (DME) lancets [OneTouch Delica Lancets] 33 gauge misc See Rx Instructions .ROUTE .MEDSUPPLY Qty: 200 5RF Rx Instructions: 4 times daily bumetanide 1 mg tablet 1 mg PO TID amlodipine 10 mg tablet 10 mg PO QAM Qty: 90 3RF potassium chloride 20 mEq tablet extended release 20 meq PO DAILY Qty: 60 2RF budesonide-formoterol [Symbicort] 160-4.5 mcg/actuation HFA aerosol inhaler 2 puff inhalation BID Qty: 10.2 3RF albuterol sulfate 2.5 mg /3 mL (0.083 %) solution for nebulization 2.5 mg INHALATION QID PRN (Reason: bronchospasm) Qty: 75 3RF (DME) blood sugar diagnostic Strip See Rx Instructions .ROUTE .MEDSUPPLY Qty: 200 5RF Rx Instructions: 4 times a day as needed Levemir FlexTouch U-100 Insuln 100 unit/mL (3 mL) insulin pen 40 unit SUBCUT BID Qty: 30 2RF atorvastatin 40 mg tablet 40 mg PO QAM Qty: 90 0RF doxepin 50 mg capsule 50 mg PO TID Qty: 270 0RF empagliflozin 25 mg tablet 25 mg PO QAM Qty: 30 2RF fluoxetine [Prozac] 20 mg capsule 20 mg PO BID Qty: 180 0RF hydralazine 100 mg tablet 100 mg PO TID Qty: 270 0RF Novolin R FlexPen 100 unit/mL (3 mL) insulin pen See Rx Instructions .ROUTE .COMPLEX Qty: 15 2RF Rx Instructions: sliding scale up to qid 110-489=[id number]=24K>400= 32U levothyroxine 25 mcg tablet 25 mcg PO DAILY Qty: 90 0RF Ozempic 2 mg/dose (8 mg/3 mL) pen injector 2 mg SUBCUT .weekly Qty: 3 2RF (DME) blood-glucose meter [OneTouch Ultra2 Meter] Kit See Rx Instructions .ROUTE .MEDSUPPLY Qty: 1 0RF Rx Instructions: use daily magnesium oxide 400 mg magnesium capsule 400 mg PO QAM oxybutynin chloride 5 mg tablet 5 mg PO Q6H PRN (Reason: bladder spasms) Qty: 30 0RF oxycodone 5 mg tablet 5 mg PO Q4H PRN (Reason: pain) Qty: 10 0RF aspirin 325 mg Tablet 325 mg PO QAM tamsulosin 0.4 mg capsule 0.4 mg PO BEDTIME propranolol 80 mg capsule,extended release 24hr 80 mg PO QAM montelukast 10 mg tablet 10 mg PO DAILY docusate sodium 250 mg Capsule 500 mg PO DAILY metformin 500 mg tablet extended release 24 hr 1,000 mg PO QAM cholecalciferol (vitamin D3) 1,250 mcg (50,000 unit) capsule 50,000 unit PO .weekly Rx Instructions: on mon and wed ipratropium-albuterol 0.5 mg-3 mg(2.5 mg base)/3 mL solution for nebulization 3 ml inhalation Q4H PRN (Reason: shortness of breath or wheezing) Qty: 180 0RF Rx Instructions: until breathing returns to target peak flow/parameters Discharge Orders: Discharge ED (Routine); Ordered 03/19/23 Ordered By: Lucho Khan Referrals: Mateo Sifuentes FNP-C [Primary Care Provider] - 1 week Patient Instructions: Congestive Heart Failure, A-fib (Atrial Fibrillation) (ED) Coding Level of Care Code ED [employer] for Alycia Ivy
[2023-03-19] MEDS: FUROsemide 10 mg/mL SDV 4mL 40 MG IVP (21:12)
[2023-03-19] MEDS: dilTIAZem 5 mg/mL SDV 5 mL 20 MG IVP (21:12)
[2023-03-19 21:24] LABS: Troponin(5th) Baseline 69 ng/L (0-15)
[2023-03-19 21:26] LABS: Basophils % 0.3 %; Eosinophils # 0.1 10^3/uL (0.0-0.8); Eosinophils % 0.7 %; Hematocrit 35.7 % (42.0-52.0); Hemoglobin 10.6 g/dL (11.7-16.6); Lymphocytes # 1.3 10^3/uL (0.8-4.8); Lymphocytes % 17.2 %; Mean Corpuscular HGB Conc 29.7 g/dL (30.0-36.0); Mean Corpuscular Hemoglobin 26.4 pg (28.0-34.0); Monocytes # 0.6 10^3/uL (0.2-0.9); Monocytes % 7.9 %; Neutrophils # 5.46 10^3/uL (1.8-7.7); Neutrophils % 73.5 %; Nucleated Red Blood Cells % 0 %; Platelet Count 314 10^3/cmm (130-400); Red Blood Count 4.01 10^6/uL (4.1-5.3); Red Cell Distribution Width 16.3 % (12.1-15.1); White Blood Count 7.4 10^3/uL (4.0-10.0)
[2023-03-19 21:31] LABS: Alanine Aminotransferase 27 U/L (0-41); Albumin Level 3.7 g/dL (3.5-5.2); Alkaline Phosphatase 120 U/L (40-130); Anion Gap 13.8 (5-19); Aspartate Amino Transferase 26 U/L (0-40); Blood Urea Nitrogen 30 mg/dL (6-20); Calcium 8.9 mg/dL (8.5-10.5); Carbon Dioxide 32 mmol/L (22-29); Chloride 97 mmol/L (98-107); Globulin 2.7 g/dL (1.3-4.6); Glomerular Filtration Rate 76.7 mL/min (90-130); Glucose 251 mg/dL (65-115); NT Pro B Type Natriuretic Pept 2265 pg/mL (0-125); Osmolality Calculated 303 mOsm/kg (285-295); Potassium 3.8 mmol/L (3.5-5.1); Sodium 139 mmol/L (136-145); Total Bilirubin 0.5 mg/dL (0.15-1.2); Total Protein 6.4 g/dL (6.6-8.7)
[2023-03-19 21:48] VITALS: O2SAT 96
--- NOTE | 2023-03-19 22:12 | CTR_ITS ---
PROCEDURE INFORMATION: Exam: CT Abdomen And Pelvis Without Contrast Exam date and time: 03/19/2023 10:26 PM Age: 57 years old Clinical indication: Abdominal pain; Acute; Additional info: Abd distension, chf, fluid overload, TECHNIQUE: Imaging protocol: Computed tomography of the abdomen and pelvis without contrast. Radiation optimization: All CT scans at this facility use at least one of these dose optimization techniques: automated exposure control; mA and/or kV adjustment per patient size (includes targeted exams where dose is matched to clinical indication); or iterative reconstruction. REPORTING DATA: Count of CT and Cardiac NM exams in prior 12 months: This patient has received 2 known CTs and 0 known cardiac nuclear medicine studies in the 12 months prior to the current study. COMPARISON: [place] [id number] 02/28/2023 5:12 PM RADIATION DOSE METRICS: Total DLP (mGy-cm): 1286.23 FINDINGS: Pleural spaces: There is moderate right pleural effusion. No pneumothorax. Heart: There is moderate pericardial effusion. Liver: Findings are consistent with liver cirrhosis. No mass on these noncontrast images. Gallbladder and bile ducts: Normal. No calcified stones. No ductal dilation. Pancreas: Normal. No ductal dilation. Spleen: Normal. No splenomegaly. Adrenal glands: There is a left adrenal nodule which is unchanged. Kidneys and ureters: Normal. No hydronephrosis. Stomach and bowel: Unremarkable. No obstruction. No mucosal thickening. Appendix: The appendix is visualized and appears normal. Intraperitoneal space: There is moderate ascites in the abdomen and pelvis which has increased in the interval. Vasculature: Unremarkable. No abdominal aortic aneurysm. Lymph nodes: Unremarkable. No enlarged lymph nodes. Urinary bladder: Unremarkable as visualized. Reproductive: Unremarkable as visualized. Bones/joints: Degenerative change is identified in the spine. There is bilateral spondylolysis at L5/S1. Soft tissues: There is soft tissue anasarca. CT/CT abdomen pelvis wo con [id number] IMPRESSION: When compared with 02/28/2023, intra-abdominal ascites appears to have increased. There is increasing soft tissue anasarca. Right pleural effusion is not significantly changed. There is a pericardial effusion which is not significantly changed.
[2023-03-19 23:24] LABS: Troponin 5 2HR 63.88 ng/L (0-15)
[2023-03-19 23:34] LABS: Troponin 5 2HR Delta -5.12 ABS# (0-10)
--- NOTE | 2023-03-21 15:37 | DCPLANNER ---
promotion manager called patient due to no primary care provider - no answer at this time.
== END 2023-03-19 23:13 | disposition home or self-care (01) ==
PROVIDERS: Emergency Provider Emergency Medicine; PCP Nurse Practitioner
DX: I48.20 Chronic atrial fibrillation, unspecified (principal); Z79.82 Long term (current) use of aspirin; Z79.4 Long term (current) use of insulin; Z87.891 Personal history of nicotine dependence; I13.0 Hypertensive heart and chronic kidney disease with heart failure and stage 1 through stage 4 chronic kidney disease, or unspecified chronic kidney disease; E11.22 Type 2 diabetes mellitus with diabetic chronic kidney disease; N18.30 Chronic kidney disease, stage 3 unspecified; I50.9 Heart failure, unspecified; J44.9 Chronic obstructive pulmonary disease, unspecified; Z99.81 Dependence on supplemental oxygen
CPT/HCPCS: 71045; 74176; 80053; 83735; 83880; 84484; 85025; 96374; 96375; 99285; J1940; J3490

== ENCOUNTER 2023-04-14 11:57 | Emergency (ER) | payer MEDICARE, OTHER, SELFPAY ==
[2023-04-14 12:01] VITALS: BP 130/61; PULSE 71; RESP 16; TEMP 36.9; O2SAT 92; BMI 47.4
--- NOTE | 2023-04-14 12:02 | XRR_ITS ---
PROCEDURE INFORMATION: Exam: XR Chest Exam date and time: 04/14/2023 12:43 PM Age: 57 years old Clinical indication: Shortness of breath; Additional info: SOB TECHNIQUE: Imaging protocol: Radiologic exam of the chest. Views: 1 view. COMPARISON: CR (CHEST, ) 03/19/2023 9:01 PM FINDINGS: Lungs: Interstitial markings are indistinct. There is mild diffuse pulmonary ground-glass opacity. There is no focal consolidation. Pleural spaces: There is no pleural effusion or pneumothorax. Heart/Mediastinum: There is mild enlargement of the cardiac silhouette. Bones/joints: Bones are unremarkable. XR/XR chest 1V portable [id number] IMPRESSION: Cardiac enlargement and pulmonary ground-glass opacity with indistinct central interstitial markings suggests pulmonary edema. The findings are mildly decreased since 03/19/2023.
--- NOTE | 2023-04-14 12:09 | ECG_ITS ---
[facility] Test Date: 2023-04-14 Pat Name: Fariba Rossi Department: Room: Gender: Male Pit Boss: : 1965 Requested By: Valerie Saini Order Number: [id number] Marion MD: Denis Helm M.D. Measurements Intervals [place] Rate: 74 P: 267 AL: 157 QRS: 134 QRSD: 91 T: -77 QT: 379 QTc: 421 Interpretive Statements SINUS RHYTHM WITH OCCASIONAL SUPRAVENTRICULAR PREMATURE COMPLEXES POSSIBLE RIGHT VENTRICULAR HYPERTROPHY [SOME/ALL OF: PROMINENT R IN V1, LATE TRANSITION, RAD, FLOR, SSS] LATERAL MYOCARDIAL INFARCTION , OF INDETERMINATE AGE [40+ ms Q WAVE AND/OR ST/T ABNORMALITY IN I/aVL/V5/V6] MODERATE T-WAVE ABNORMALITY, CONSIDER INFERIOR ISCHEMIA [-0.1+ mV T-WAVE IN II/aVF] Compared to ECG 03/06/2023 21:28:49 Myocardial infarct finding now present Atrial fibrillation no longer present Incomplete right bundle-branch block no longer present T-wave abnormality still present Possible ischemia still present Electronically Signed On 04-14-2023 21:00:53 CDT by Denis Helm M.D. [id number]
--- NOTE | 2023-04-14 12:13 | ED_ITS ---
HPI - SOB/Dyspnea General: Chief Complaint: Shortness of Breath/Dyspnea Stated Complaint: WEAKNESS; FALL Time Seen by Provider: 04/14/23 11:59 Source: patient and EMS Mode of arrival: EMS Limitations: no limitations History of Present Illness: HPI Narrative: 57-year-old male with a history of COPD along with CHF diabetes morbid obesity states that over the last 2 days has had slight cough is also been having increasing shortness of breath he states that he does retain fluid at times he states he been having some weakness hearing ground-level fall today without any injuries but states that he is just felt extremely fatigued and had a hard time walking. Denies any headache. Associated symptoms: Deny abdominal pain, chest pain, fever(s), nausea or vomiting Review of Systems Const: Reports: fatigue and malaise; Denies: fever(s) or chills Eyes: Denies: eye discomfort ENMT: Denies: throat pain or dental pain Card: Denies: chest pain Resp: Reports: dyspnea and non-productive cough GI: Denies: abdominal pain, nausea, vomiting or diarrhea : Denies: dysuria Musc: Denies: neck pain or back pain Skin/Breast: Denies: rash Neuro: Denies: headache(s) PFSH ED PFSH: Medical History Acute exacerbation of CHF (congestive heart failure) Anxiety Arteriosclerotic coronary artery disease Atrial fibrillation CHF (congestive heart failure) CKD (chronic kidney disease) stage 3, GFR 30-59 ml/min COPD (chronic obstructive pulmonary disease) Diabetes mellitus type II, uncontrolled Dietary noncompliance Dyspnea on exertion Essential (primary) hypertension Iron deficiency Neuropathy Obesity Obstructive sleep apnea Oxygen dependent Recurrent bronchospasm Surgical History H/O heart artery stent 09/2011 History of carpal tunnel surgery of right wrist 2011 History of colonoscopy Family History Father , AGE 74 Diabetes Heart disease Mother , LUNG CANCER AGE 55 Cancer CAD (coronary artery disease) Lung disease Heart disease Grandmother CAD (coronary artery disease) Cancer Dementia Heart disease Family/Other CAD (coronary artery disease) Heart disease Grandfather CAD (coronary artery disease) Heart disease Diabetes Sister Lung disease Denies family history of Clotting disorder Chronic kidney disease (CKD) Suicide Anesthesia complication Bleeding disorder Stroke Social History Smoking and tobacco status: former smoker Quit status (tobacco): has quit using tobacco Year quit tobacco: 2000 Former quit date comment: 4ppd x 22 years Second hand smoke exposure: No Smoking risk assessment/counseling performed?: No Alcohol intake: current Alcohol intake frequency: holidays/special occasions only Desire information about alcohol rehabilitation?: No Counseling given: No Substance/Drug Use: never Desire information about substance/drug rehabilitation?: No Counseling given: No Adopted: No Caregiver/support person: No Lives independently: Yes Household members: spouse Housing: House Marital status: Number of children: 2 service: No Current occupational status: disabled Pets and animals: Yes Do you think of yourself as: Straight/Heterosexual Current gender identity: Male and Female Course Vital Signs: Vital signs: Vital Signs Temperature 98.4 F 04/14/23 12:01 Pulse Rate 91 04/14/23 13:54 Respiratory Rate 16 04/14/23 13:54 Blood Pressure 106/76 04/14/23 12:31 Pulse Oximetry 92 04/14/23 13:54 Oxygen Delivery Me thod Nasal Cannula 04/14/23 13:54 Oxygen Flow Rate 4 04/14/23 13:54 MDM - SOB/Dyspnea Medical Decision Making Patient presents with dyspnea is likely from his CHF, COPD given Decadron here he has chronic hypercapnia no signs of any acute respiratory failure his ABG is compensated patient was refusing treatments here he refuses Lasix here. He is on Lasix at home he is at his baseline I feel he is stable for discharge she is follow-up with PCP and return if worsening. Medical Records I reviewed the patient's medical records. Lab Data I reviewed the patient's lab results. 04/14/23 11:05 04/14/23 11:05 Labs/Radiology: Radiology Impressions Chest X-Ray 04/14/23 12:02 IMPRESSION: Cardiac enlargement and pulmonary ground-glass opacity with indistinct central interstitial markings suggests pulmonary edema. The findings are mildly decreased since 03/19/2023. Laboratory Results WBC 9.0 10^3/uL (4.0-10.0) 04/14/23 11:05 RBC 3.72 10^6/uL (4.1-5.3) L 04/14/23 11:05 Hgb 9.6 g/dL (11.7-16.6) L 04/14/23 11:05 Hct 32.8 % (42.0-52.0) L 04/14/23 11:05 MCV 88.2 fl (80-94) 04/14/23 11:05 MCH 25.8 pg (28.0-34.0) L 04/14/23 11:05 MCHC 29.3 g/dL (30.0-36.0) L 04/14/23 11:05 RDW 17.0 % (12.1-15.1) H 04/14/23 11:05 Plt Count 290 10^3/cmm (130-400) 04/14/23 11:05 MPV 9.3 fL (7.4-10.4) 04/14/23 11:05 Neut % (Auto) 71.3 % 04/14/23 11:05 Lymph % (Auto) 15.3 % 04/14/23 11:05 [place] % (Auto) 11.8 % 04/14/23 11:05 Eos % (Auto) 1.0 % 04/14/23 11:05 Baso % (Auto) 0.2 % 04/14/23 11:05 Neut # (Auto) 6.38 10^3/uL (1.8-7.7) 04/14/23 11:05 Lymph # (Auto) 1.4 10^3/uL (0.8-4.8) 04/14/23 11:05 [place] # (Auto) 1.1 10^3/uL (0.2-0.9) H 04/14/23 11:05 Eos # (Auto) 0.1 10^3/uL (0.0-0.8) 04/14/23 11:05 Baso # (Auto) 0.0 10^3/uL (0.0-0.1) 04/14/23 11:05 Nucleated RBC % (auto) 0 % 04/14/23 11:05 Nucleated RBCs # 0.0 /100WBC 04/14/23 11:05 PT 19.40 SECONDS (12.1-14.9) H 04/14/23 11:05 INR 1.58 (0.8-1.2) H 04/14/23 11:05 Specimen Type Arterial 04/14/23 12:19 Sample Site Radial, right 04/14/23 12:19 ABG pH 7.49 (7.35-7.45) H 04/14/23 12:19 ABG pCO2 62.8 mmHg (35-45) H* 04/14/23 12:19 ABG pO2 65.9 mmHg (80.0-100.0) L 04/14/23 12:19 ABG HCO3 47.2 mmol/L (22-26) H 04/14/23 12:19 ABG Base Excess 20.8 mmol/L (-2.0-2.0) H 04/14/23 12:19 Alex Test Pos 04/14/23 12:19 Hematocrit 31.0 % (42-52) L 04/14/23 12:19 O2 Delivery Device Nc 04/14/23 12:19 FiO2 4.0 % 04/14/23 12:19 Bail Attacher ID Pablo 04/14/23 12:19 Sodium 142 mmol/L (136-145) 04/14/23 11:05 Potassium 3.3 mmol/L (3.5-5.1) L 04/14/23 11:05 Chloride 89 mmol/L (98-107) L 04/14/23 11:05 Carbon Dioxide 42 mmol/L (22-29) H* 04/14/23 11:05 Anion Gap 14.3 (5-19) 04/14/23 11:05 BUN 18 mg/dL (6-20) 04/14/23 11:05 Creatinine 1.0 mg/dL (0.7-1.2) 04/14/23 11:05 GFR Calculation 76.7 mL/min (90-130) L 04/14/23 11:05 Glucose 191 mg/dL (65-115) H 04/14/23 11:05 Calculated Osmolality 301 mOsm/kg (285-295) H 04/14/23 11:05 Calcium 9.3 mg/dL (8.5-10.5) 04/14/23 11:05 Total Bilirubin 0.8 mg/dL (0.15-1.2) 04/14/23 11:05 AST 22 U/L (0-40) 04/14/23 11:05 ALT 23 U/L (0-41) 04/14/23 11:05 Alkaline Phosphatase 98 U/L (40-130) 04/14/23 11:05 Troponin T Baseline 76 ng/L (0-15) H 04/14/23 11:05 Troponin T 120 Minute 75.50 ng/L (0-15) H 04/14/23 12:42 Delta Troponin T -0.50 ABS# (0-10) L 04/14/23 12:42 NT-Pro-B Natriuret Pep 4253 pg/mL (0-125) H 04/14/23 11:05 Total Protein 6.5 g/dL (6.6-8.7) L 04/14/23 11:05 Albumin 3.6 g/dL (3.5-5.2) 04/14/23 11:05 Globulin 2.9 g/dL (1.3-4.6) 04/14/23 11:05 TSH 3.38 uIU/mL (0.27-4.20) 04/14/23 11:05 SARS-CoV-2 Ag (Rapid) negative (Negative) 04/14/23 13:45 Discharge Plan Discharge Patient Disposition: Home Clinical Impression: CHF (congestive heart failure), Dyspnea Condition: Stable Prescriptions: No Action lidocaine 5 % adhesive patch,medicated 1 patch TOPICAL .COMPLEX Rx Instructions: apply one patch daily as needed for pain (on for 12 hours and off for 12 hours) (DME) lancets [OneTouch Delica Lancets] 33 gauge misc See Rx Instructions .ROUTE .MEDSUPPLY Qty: 200 5RF Rx Instructions: 4 times daily amlodipine 10 mg tablet 10 mg PO QAM Qty: 90 3RF potassium chloride 20 mEq tablet extended release 20 meq PO DAILY Qty: 60 2RF budesonide-formoterol [Symbicort] 160-4.5 mcg/actuation HFA aerosol inhaler 2 puff inhalation BID Qty: 10.2 3RF albuterol sulfate 2.5 mg /3 mL (0.083 %) solution for nebulization 2.5 mg INHALATION QID PRN (Reason: bronchospasm) Qty: 75 3RF (DME) blood sugar diagnostic Strip See Rx Instructions .ROUTE .MEDSUPPLY Qty: 200 5RF Rx Instructions: 4 times a day as needed Levemir FlexTouch U-100 Insuln 100 unit/mL (3 mL) insulin pen 40 unit SUBCUT BID Qty: 30 2RF atorvastatin 40 mg tablet 40 mg PO QAM Qty: 90 0RF doxepin 50 mg capsule 50 mg PO TID Qty: 270 0RF empagliflozin 25 mg tablet 25 mg PO QAM Qty: 30 2RF fluoxetine [Prozac] 20 mg capsule 20 mg PO BID Qty: 180 0RF hydralazine 100 mg tablet 100 mg PO TID Qty: 270 0RF Novolin R FlexPen 100 unit/mL (3 mL) insulin pen See Rx Instructions .ROUTE .COMPLEX Qty: 15 2RF Rx Instructions: sliding scale up to qid 110-232=[id number]=02 U>400= 32U levothyroxine 25 mcg tablet 25 mcg PO DAILY Qty: 90 0RF (DME) blood-glucose meter [OneTouch Ultra2 Meter] Kit See Rx Instructions .ROUTE .MEDSUPPLY Qty: 1 0RF Rx Instructions: use daily metolazone 5 mg tablet 5 mg PO DAILY PRN (Reason: weight gain and swelling) Qty: 30 0RF bumetanide 1 mg tablet 1 mg PO BID Qty: 60 1RF magnesium oxide 400 mg magnesium capsule 400 mg PO QAM aspirin 325 mg Tablet 325 mg PO QAM tamsulosin 0.4 mg capsule 0.4 mg PO BEDTIME montelukast 10 mg tablet 10 mg PO DAILY docusate sodium 250 mg Capsule 500 mg PO DAILY metformin 500 mg tablet extended release 24 hr 1,000 mg PO QAM furosemide 40 mg tablet 40 mg PO QAM Qty: 5 0RF digoxin 250 mcg (0.25 mg) tablet 250 mcg PO DAILY spironolactone 25 mg tablet 25 mg PO DAILY FeroSul 325 mg (65 mg iron) tablet 325 mg PO DAILY Eliquis 5 mg tablet 5 mg PO BID metoprolol tartrate 37.5 mg tablet 37.5 mg PO BID ipratropium-albuterol 0.5 mg-3 mg(2.5 mg base)/3 mL solution for nebulization 3 ml inhalation Q4H PRN (Reason: shortness of breath or wheezing) Qty: 180 0RF Rx Instructions: until breathing returns to target peak flow/parameters Discharge Orders: Discharge ED (Routine); Ordered 04/14/23 Ordered By: Valerie Saini Referrals: Mateo Sifuentes, HEAT TREAT SUPERVISOR-C [Primary Care Provider] - 1-3 days Discharge Diet: Advance as tolerated Discharge Activity: Resume usual activity Patient Instructions: Heart Failure (ED), Dyspnea (ED) Coding Level of Care Code ED [place] Or Grounds Superintendent for Alycia Ivy
[2023-04-14 12:19] LABS: Basophils % 0.2 %; Eosinophils # 0.1 10^3/uL (0.0-0.8); Hematocrit 32.8 % (42.0-52.0); Hemoglobin 9.6 g/dL (11.7-16.6); Lymphocytes # 1.4 10^3/uL (0.8-4.8); Lymphocytes % 15.3 %; Mean Corpuscular HGB Conc 29.3 g/dL (30.0-36.0); Mean Corpuscular Hemoglobin 25.8 pg (28.0-34.0); Mean Corpuscular Volume 88.2 fl (80-94); Mean Platelet Volume 9.3 fL (7.4-10.4); Monocytes # 1.1 10^3/uL (0.2-0.9); Monocytes % 11.8 %; Neutrophils # 6.38 10^3/uL (1.8-7.7); Neutrophils % 71.3 %; Nucleated Red Blood Cells % 0 %; Platelet Count 290 10^3/cmm (130-400); Red Blood Count 3.72 10^6/uL (4.1-5.3)
[2023-04-14 12:31] VITALS: BP 106/76; PULSE 72; RESP 16; O2SAT 93
[2023-04-14 12:31] LABS: ABG PH Result 7.49 (7.35-7.45); Base Excess ABG 20.8 mmol/L (-2.0-2.0); Blood Gas Allen Test Pos; Blood Gas Sample Site Radial, right; Blood Gas Sample Type Arterial; HCO3 ABG 47.2 mmol/L (22-26); Oxygen Device NC; PO2 ABG 65.9 mmHg (80.0-100.0)
[2023-04-14 12:32] LABS: ABG PCO2 62.8 mmHg (35-45)
[2023-04-14 12:56] LABS: Troponin(5th) Baseline 76 ng/L (0-15)
[2023-04-14 13:06] LABS: Alanine Aminotransferase 23 U/L (0-41); Albumin Level 3.6 g/dL (3.5-5.2); Alkaline Phosphatase 98 U/L (40-130); Anion Gap 14.3 (5-19); Aspartate Amino Transferase 22 U/L (0-40); Blood Urea Nitrogen 18 mg/dL (6-20); Calcium 9.3 mg/dL (8.5-10.5); Chloride 89 mmol/L (98-107); Globulin 2.9 g/dL (1.3-4.6); Glomerular Filtration Rate 76.7 mL/min (90-130); Glucose 191 mg/dL (65-115); NT Pro B Type Natriuretic Pept 4253 pg/mL (0-125); Osmolality Calculated 301 mOsm/kg (285-295); Potassium 3.3 mmol/L (3.5-5.1); Sodium 142 mmol/L (136-145); Thyroid Stimulating Hormone 3.38 uIU/mL (0.27-4.20); Total Bilirubin 0.8 mg/dL (0.15-1.2); Total Protein 6.5 g/dL (6.6-8.7)
[2023-04-14 13:08] LABS: INR 1.58 (0.8-1.2)
[2023-04-14 13:12] LABS: Carbon Dioxide 42 mmol/L (22-29)
[2023-04-14 13:54] VITALS: PULSE 91; RESP 16; O2SAT 92
--- NOTE | 2023-04-14 14:15 | ECG_ITS ---
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 Measurements Intervals [place] Rate: 70 P: 0 CA: 0 QRS: 134 QRSD: 92 T: -52 QT: 398 QTc: 429 Interpretive Statements ATRIAL FIBRILLATION POSSIBLE RIGHT VENTRICULAR HYPERTROPHY [SOME/ALL OF: PROMINENT R IN V1, LATE TRANSITION, RAD, FLOR, SSS] POSSIBLE ANTERIOR MYOCARDIAL INFARCTION , OF INDETERMINATE AGE [30 ms Q WAVE IN V3/V4, OR R < 0.2 mV IN V4] MODERATE T-WAVE ABNORMALITY, CONSIDER INFERIOR ISCHEMIA [-0.1+ mV T-WAVE IN II/aVF] Compared to ECG 04/14/2023 12:09:43 Sinus rhythm no longer present Myocardial infarct finding still present T-wave abnormality still present Possible ischemia still present Electronically Signed On 04-14-2023 21:05:28 CDT by Denis Helm M.D. [id number]
[2023-04-14 14:23] LABS: SARS Covid-2 Antigen negative (Negative)
== END 2023-04-14 15:23 | disposition home or self-care (01) ==
PROVIDERS: Emergency Provider Emergency Medicine; PCP Nurse Practitioner
DX: I11.0 Hypertensive heart disease with heart failure (principal); I50.9 Heart failure, unspecified; R06.00 Dyspnea, unspecified; Z79.01 Long term (current) use of anticoagulants; Z79.82 Long term (current) use of aspirin; Z79.4 Long term (current) use of insulin; Z20.822 Contact with and (suspected) exposure to COVID-19; Z87.891 Personal history of nicotine dependence; I13.0 Hypertensive heart and chronic kidney disease with heart failure and stage 1 through stage 4 chronic kidney disease, or unspecified chronic kidney disease; E11.22 Type 2 diabetes mellitus with diabetic chronic kidney disease; N18.30 Chronic kidney disease, stage 3 unspecified; I25.10 Atherosclerotic heart disease of native coronary artery without angina pectoris; Z99.81 Dependence on supplemental oxygen; J44.9 Chronic obstructive pulmonary disease, unspecified
CPT/HCPCS: 36600; 71045; 80053; 82803; 83880; 84443; 84484; 85025; 85610; 87426; 93005; 96374; 99285

== ENCOUNTER → 2023-04-18 09:09 | Outpatient (BNVA) | payer MEDICARE, OTHER, SELFPAY | PROVIDERS: PCP Nurse Practitioner; Visit Provider Nurse Practitioner | DX: J44.9 Chronic obstructive pulmonary disease, unspecified (principal); I50.9 Heart failure, unspecified; R09.02 Hypoxemia; R06.00 Dyspnea, unspecified; R26.9 Unspecified abnormalities of gait and mobility; E87.6 Hypokalemia | CPT/HCPCS: 80048; 83880 ==

== ENCOUNTER 2023-04-24 20:00 | Outpatient (CLI) | payer MEDICARE, OTHER, SELFPAY | END 2023-04-24 20:01 | disposition home or self-care (01) | LOC: SLEEP 04-25 07:29 | PROVIDERS: PCP Nurse Practitioner; Visit Provider Internal Medicine | DX: G47.34 Idiopathic sleep related nonobstructive alveolar hypoventilation (principal); G47.33 Obstructive sleep apnea (adult) (pediatric) | CPT/HCPCS: 95811 ==

== ENCOUNTER 2023-05-21 11:00 | Outpatient (CLI) | payer MEDICARE, OTHER, SELFPAY | END 2023-05-21 11:01 | disposition home or self-care (01) | LOC: SLEEP 05-22 09:01 | PROVIDERS: PCP Nurse Practitioner; Visit Provider Nurse Practitioner | DX: G47.33 Obstructive sleep apnea (adult) (pediatric) (principal); G47.36 Sleep related hypoventilation in conditions classified elsewhere; R09.02 Hypoxemia; J44.9 Chronic obstructive pulmonary disease, unspecified | CPT/HCPCS: G0399 ==

== ENCOUNTER 2023-05-31 14:05 | Outpatient (CLI) | payer MEDICARE, OTHER, SELFPAY ==
[2023-05-31 14:23] LABS: Basophils # 0.1 10^3/uL (0.0-0.1); Basophils % 0.8 %; Eosinophils # 0.1 10^3/uL (0.0-0.8); Eosinophils % 1.2 %; Hematocrit 41.3 % (42.0-52.0); Hemoglobin 13.3 g/dL (11.7-16.6); Lymphocytes # 2.3 10^3/uL (0.8-4.8); Lymphocytes % 35.1 %; Mean Corpuscular HGB Conc 32.2 g/dL (30.0-36.0); Mean Corpuscular Hemoglobin 27.3 pg (28.0-34.0); Mean Corpuscular Volume 84.6 fl (80-94); Monocytes # 0.6 10^3/uL (0.2-0.9); Monocytes % 8.3 %; Neutrophils # 3.62 10^3/uL (1.8-7.7); Neutrophils % 54.3 %; Nucleated Red Blood Cells % 0 %; Platelet Count 400 10^3/cmm (130-400); Red Blood Count 4.88 10^6/uL (4.1-5.3); Red Cell Distribution Width 16.8 % (12.1-15.1); White Blood Count 6.7 10^3/uL (4.0-10.0)
[2023-05-31 14:44] LABS: Bilirubin Urine Neg (Negative); Blood Urine Neg (Negative); Glucose Urine UA 4+ (Normal); Ketones Urine Negative (Negative); Leukocyte Esterase Urine Negative (Negative); Nitrate Urine Negative (Negative); Protein Urine Neg (Negative); RBC Urine 0-4 /hpf (0-2); Specific Gravity, Urine 1.005 (1.005-1.030); Squamous Epithelial Cell Urine 0-4 /hpf (0-5); Urine Appearance Clear (CLEAR); Urine Color Yellow (Yellow); WBC Urine 0-4 /hpf (0-5); pH Urine 6.5 (5-7)
[2023-05-31 14:45] LABS: Add Urine Culture? No
[2023-05-31 15:04] LABS: Alanine Aminotransferase 23 U/L (0-41); Alkaline Phosphatase 119 U/L (40-130); Anion Gap 18.2 (5-19); Aspartate Amino Transferase 27 U/L (0-40); Blood Urea Nitrogen 49 mg/dL (6-20); Calcium 9.6 mg/dL (8.5-10.5); Carbon Dioxide 36 mmol/L (22-29); Chloride 80 mmol/L (98-107); Globulin 3.6 g/dL (1.3-4.6); Glomerular Filtration Rate 41.6 mL/min (90-130); Glucose 434 mg/dL (65-115); Iron 60 ug/dL (59-158); Osmolality Calculated 304 mOsm/kg (285-295); Potassium 3.2 mmol/L (3.5-5.1); Sodium 131 mmol/L (136-145); Total Bilirubin 0.5 mg/dL (0.15-1.2); Total Iron Binding Capacity 373 mcg/dl; Total Protein 7.6 g/dL (6.6-8.7); Unsaturated Iron Binding 313 ug/dL (112-347)
[2023-05-31 15:05] LABS: Calcium 9.7 mg/dL (8.5-10.5)
[2023-05-31 15:11] LABS: Parathyroid Hormone 56.7 pg/mL (15-65)
[2023-05-31 15:20] LABS: 25 Hydroxy Vitamin D 50 ng/mL (30-100)
[2023-05-31 16:37] LABS: Urobilinogen Urine Norm (Negative)
== END 2023-05-31 14:06 | disposition home or self-care (01) ==
LOC: LAB 14:07
PROVIDERS: PCP Nurse Practitioner; Visit Provider Nurse Practitioner
DX: I48.91 Unspecified atrial fibrillation (principal)
CPT/HCPCS: 80053; 81001; 82306; 82310; 83540; 83550; 83970; 85025

== ENCOUNTER 2023-06-09 13:41 | Outpatient (CLI) | payer MEDICARE, OTHER, SELFPAY ==
[2023-06-09 13:49] LABS: Add Urine Microscopic? NO; Charge for UA Resulting for Rev
[2023-06-09 13:54] LABS: Basophils # 0.1 10^3/uL (0.0-0.1); Basophils % 0.7 %; Eosinophils # 0.1 10^3/uL (0.0-0.8); Eosinophils % 1.5 %; Hematocrit 40.6 % (42.0-52.0); Hemoglobin 13.4 g/dL (11.7-16.6); Lymphocytes # 2.1 10^3/uL (0.8-4.8); Lymphocytes % 22.1 %; Mean Corpuscular Hemoglobin 27.2 pg (28.0-34.0); Mean Corpuscular Volume 82.5 fl (80-94); Mean Platelet Volume 10.8 fL (7.4-10.4); Monocytes # 0.7 10^3/uL (0.2-0.9); Monocytes % 7.8 %; Neutrophils # 6.43 10^3/uL (1.8-7.7); Neutrophils % 67.5 %; Nucleated Red Blood Cells % 0 %; Platelet Count 319 10^3/cmm (130-400); Red Blood Count 4.92 10^6/uL (4.1-5.3); Red Cell Distribution Width 15.5 % (12.1-15.1); White Blood Count 9.5 10^3/uL (4.0-10.0)
[2023-06-09 14:14] LABS: Bilirubin Urine Neg (Negative); Blood Urine Neg (Negative); Glucose Urine UA 4+ (Normal); Ketones Urine Negative (Negative); Leukocyte Esterase Urine Negative (Negative); Nitrate Urine Negative (Negative); Protein Urine Neg (Negative); Specific Gravity, Urine 1.005 (1.005-1.030); Urine Appearance Clear (CLEAR); Urine Color Straw (Yellow); Urobilinogen Urine Norm (Negative); pH Urine 6 (5-7)
[2023-06-09 14:22] LABS: Estmated Average Glucose 246; Hemoglobin A1C 10.2 % (4.0-6.0)
[2023-06-09 14:30] LABS: Alanine Aminotransferase 26 U/L (0-41); Alkaline Phosphatase 133 U/L (40-130); Anion Gap 17.8 (5-19); Aspartate Amino Transferase 24 U/L (0-40); Blood Urea Nitrogen 51 mg/dL (6-20); Calcium 11.1 mg/dL (8.5-10.5); Carbon Dioxide 36 mmol/L (22-29); Chloride 78 mmol/L (98-107); Cholesterol 251 mg/dL (0-200); Globulin 3.5 g/dL (1.3-4.6); Glomerular Filtration Rate 44.6 mL/min (90-130); HDL Cholesterol 31 mg/dL (60-100); Osmolality Calculated 306 mOsm/kg (285-295); Sodium 129 mmol/L (136-145); Total Bilirubin 0.3 mg/dL (0.15-1.2); Total Protein 7.5 g/dL (6.6-8.7); Triglycerides 505 mg/dL (0-150); VLDL Cholestrol Calculation 101 mg/dL (0-30)
[2023-06-09 15:08] LABS: Thyroid Stimulating Hormone 1.84 uIU/mL (0.27-4.20); Vitamin B12 737 pg/mL (232-1245)
[2023-06-09 15:16] LABS: Glucose 533 mg/dL (65-115); Potassium 2.8 mmol/L (3.5-5.1)
[2023-06-09 16:03] LABS: LDL Cholesterol Direct 148 mg/dL (0-100)
== END 2023-06-09 13:42 | disposition home or self-care (01) ==
PROVIDERS: PCP Nurse Practitioner; Visit Provider Nurse Practitioner
DX: E11.65 Type 2 diabetes mellitus with hyperglycemia (principal); E55.9 Vitamin D deficiency, unspecified; I50.9 Heart failure, unspecified
CPT/HCPCS: 80048; 80053; 80061; 81003; 82607; 83036; 83721; 84443; 85025

== ENCOUNTER 2023-06-11 11:50 | Outpatient (CLI) | payer MEDICARE, OTHER, SELFPAY ==
[2023-06-11 12:38] LABS: Anion Gap 15.2 (5-19); Blood Urea Nitrogen 46 mg/dL (6-20); Calcium 10.8 mg/dL (8.5-10.5); Carbon Dioxide 40 mmol/L (22-29); Chloride 81 mmol/L (98-107); Glomerular Filtration Rate 41.6 mL/min (90-130); Glucose 453 mg/dL (65-115); Osmolality Calculated 308 mOsm/kg (285-295); Potassium 3.2 mmol/L (3.5-5.1); Sodium 133 mmol/L (136-145)
== END 2023-06-11 11:51 | disposition home or self-care (01) ==
PROVIDERS: PCP Nurse Practitioner; Visit Provider Nurse Practitioner
DX: I13.0 Hypertensive heart and chronic kidney disease with heart failure and stage 1 through stage 4 chronic kidney disease, or unspecified chronic kidney disease (principal); N18.9 Chronic kidney disease, unspecified; I50.9 Heart failure, unspecified
CPT/HCPCS: 80048

== ENCOUNTER 2023-06-17 17:01 | Emergency (ER) | payer MEDICARE, OTHER, SELFPAY ==
[2023-06-17 17:02] VITALS: BP 137/66; PULSE 83; RESP 18; TEMP 36.9; O2SAT 92; BMI 38.8
--- NOTE | 2023-06-17 17:16 | XRR_ITS ---
PROCEDURE INFORMATION: Exam: XR Chest Exam date and time: 06/17/2023 5:32 PM Age: 57 years old Clinical indication: Pain; Chest pressure; Additional info: Chest pain TECHNIQUE: Imaging protocol: Radiologic exam of the chest. Views: 1 view. COMPARISON: CR (CHEST, ) 04/14/2023 12:43 PM FINDINGS: Lungs: There is unchanged hyperinflation with coarse interstitial lung markings of probable fibrosis. No lobar consolidation. The pulmonary vascularity is within normal limits. Pleural spaces: Unremarkable. No pleural effusion. No pneumothorax. Heart/Mediastinum: The heart is enlarged. Bones/joints: No acute abnormality. XR/XR chest 1V portable [id number] IMPRESSION: No active pulmonary disease.
--- NOTE | 2023-06-17 17:17 | ED_ITS ---
HPI - Chest Pain General: Chief Complaint: Chest Pain Stated Complaint: CHEST PAIN Time Seen by Provider: 06/17/23 17:16 History of Present Illness: 57-year-old male patient comes in today for complaints of substernal chest discomfort. Patient reports pain started about 30 minutes prior to arrival to the ER. EMS was dispatched to his home patient's pain had resolved by the time EMS had arrived. Patient was given 325 aspirin and 1 nitroglycerin tablet. Patient remains pain-free. EMS reported that after the nitroglycerin patient did get hypotensive but it has since recovered. Patient has a history of diabetes mellitus, coronary artery disease, BPH, atrial fibs, chronic an ticoagulation, CHF. Patient had a Angiocath with stent placement in 2010. Onset (ago): hour(s) Associated symptoms: Deny dyspnea, fever(s), nausea or vomiting Review of Systems General: Reports: 10 or more systems reviewed and unremarkable except in HPI and below Const: Denies: fever(s) Card: Reports: chest pain Resp: Denies: dyspnea GI: Denies: nausea, vomiting, diarrhea or constipation : Denies: difficulty urinating Musc: Denies: neck pain or back pain Skin/Breast: Denies: rash PFSH ED PFSH: Medical History Acute exacerbation of CHF (congestive heart failure) Anxiety Arteriosclerotic coronary artery disease Atrial fibrillation CHF (congestive heart failure) CKD (chronic kidney disease) stage 3, GFR 30-59 ml/min COPD (chronic obstructive pulmonary disease) Diabetes mellitus type II, uncontrolled Dietary noncompliance Dyspnea on exertion Essential (primary) hypertension Iron deficiency Neuropathy Obesity Obstructive sleep apnea Oxygen dependent Recurrent bronchospasm Surgical History H/O heart artery stent 09/2011 History of carpal tunnel surgery of right wrist 2011 History of colonoscopy Family History Father , AGE 74 Diabetes Heart disease Mother , LUNG CANCER AGE 55 Cancer CAD (coronary artery disease) Lung disease Heart disease Grandmother CAD (coronary artery disease) Cancer Dementia Heart disease Family/Other CAD (coronary artery disease) Heart disease Grandfather CAD (coronary artery disease) Heart disease Diabetes Sister Lung disease Denies family history of Clotting disorder Chronic kidney disease (CKD) Suicide Anesthesia complication Bleeding disorder Stroke Social History Smoking and tobacco status: former smoker Quit status (tobacco): has quit using tobacco Year quit tobacco: 2000 Former quit date comment: 4ppd x 22 years Second hand smoke exposure: No Smoking risk assessment/counseling performed?: No Alcohol intake: current Alcohol intake frequency: holidays/special occasions only Desire information about alcohol rehabilitation?: No Counseling given: No Substance/Drug Use: never Desire information about substance/drug rehabilitation?: No Counseling given: No Adopted: No Caregiver/support person: No Lives independently: Yes Household members: spouse Housing: House Marital status: Number of children: 2 service: No Current occupational status: disabled Pets and animals: Yes Do you think of yourself as: Straight/Heterosexual Current gender identity: Male and Female Physical Exam Const: COMMON NORMALS: alert HENMT: COMMON NORMALS: normocephalic HEAD & SCALP: normocephalic Neck/C-Spine: COMMON NORMALS: full ROM Chest: COMMONS NORMALS: normal inspection of the chest Resp: COMMON NORMALS: normal respiratory effort and clear to auscultation bilaterally AUSCULTATION: clear to auscultation bilaterally Cardio: COMMON NORMALS: regular rate and regular rhythm RATE: regular rate RHYTHM: regular rhythm GI: COMMON NORMALS: Soft to palpation and non-tender PALPATION: Yes Soft to palpation : COMMON NORMALS: Yes no CVA tenderness BLADDER/KIDNEY EXAM: Yes no CVA tenderness Back/Pelvis: COMMON NORMALS: no CVA tenderness and thoracic and lumbar spine normal to inspection Extremity: COMMON NORMALS: no pedal edema Neuro: SENSORIUM/ORIENTATION: Yes alert Psych: COMMON NORMALS: cooperative Skin: COMMON NORMALS: turgor normal GENERAL SKIN EXAM: turgor normal Course ED course: 1754, EKG showed atrial fibrillation with a computer reading of a possible recent anteroseptal myocardial infarction. Some ST changes were noted in V2 and V3 with slight elevation. EKG was sent to Dr. Palma for evaluation. 1755, Dr. Palma reviewed EKG from today does see some changes in his ST V2 and V3 but does not believe they are acute but to await labs and go from there. Vital Signs: Vital signs: Vital Signs Temperature 98.5 F 06/17/23 17:02 Pulse Rate 88 06/17/23 19:27 Respiratory Rate 16 06/17/23 19:27 Blood Pressure 136/73 06/17/23 19:27 Pulse Oximetry 98 06/17/23 19:27 Oxygen Delivery Me thod Nasal Cannula 06/17/23 18:30 Oxygen Flow Rate 2 06/17/23 18:11 MDM - Chest Pain Medical Decision Making 57-year-old male patient was brought in by EMS for concerns of chest pain. On exam patient pain was resolved. Patient received 325 of aspirin and 1 nitro in route to the ER. Patient reported that the pain was improved prior to EMS arriving. Nitro had dropped patient's blood pressure in route. On exam respirations were even lungs were clear to auscultation. Vital signs were normal. EKG showed a sinus rhythm with some ST abnormalities. Differential diagnosis includes not limited to ACS, dyspepsia, stable angina, CHF. Laboratory values were unremarkable. First troponin was at 91-second troponin was at 96 2 hours later. Delta curve was appropriate. Patient normally runs a slightly elevated troponin into the 70s to 90s. Patient had no further pain while in the emergency department. Patient was stable and was discharged home with recommendations for follow-up with cardiology for further evaluation and treatment. Patient and spouse both reported understanding. Case management was requested to have assist with cardiac follow-up appointment. Patient does see a remote ruby on rails developer Dr. Isabel out of [place]. Lab Data 06/17/23 16:50 06/17/23 16:50 Radiology Impressions Chest X-Ray 06/17/23 17:16 IMPRESSION: No active pulmonary disease. Laboratory Results WBC 8.8 10^3/uL (4.0-10.0) 06/17/23 16:50 RBC 4.88 10^6/uL (4.1-5.3) 06/17/23 16:50 Hgb 13.7 g/dL (11.7-16.6) 06/17/23 16:50 Hct 42.0 % (42.0-52.0) 06/17/23 16:50 MCV 86.1 fl (80-94) 06/17/23 16:50 MCH 28.1 pg (28.0-34.0) 06/17/23 16:50 MCHC 32.6 g/dL (30.0-36.0) 06/17/23 16:50 RDW 15.9 % (12.1-15.1) H 06/17/23 16:50 Plt Count 284 10^3/cmm (130-400) 06/17/23 16:50 MPV 10.1 fL (7.4-10.4) 06/17/23 16:50 Neut % (Auto) 55.9 % 06/17/23 16:50 Lymph % (Auto) 31.6 % 06/17/23 16:50 [place] % (Auto) 7.4 % 06/17/23 16:50 Eos % (Auto) 4.0 % 06/17/23 16:50 Baso % (Auto) 0.6 % 06/17/23 16:50 Neut # (Auto) 4.91 10^3/uL (1.8-7.7) 06/17/23 16:50 Lymph # (Auto) 2.8 10^3/uL (0.8-4.8) 06/17/23 16:50 [place] # (Auto) 0.7 10^3/uL (0.2-0.9) 06/17/23 16:50 Eos # (Auto) 0.4 10^3/uL (0.0-0.8) 06/17/23 16:50 Baso # (Auto) 0.1 10^3/uL (0.0-0.1) 06/17/23 16:50 Nucleated RBC % (auto) 0 % 06/17/23 16:50 Nucleated RBCs # 0.0 /100WBC 06/17/23 16:50 PT 13.30 SECONDS (12.1-14.9) 06/17/23 16:50 INR 0.98 (0.8-1.2) 06/17/23 16:50 APTT 28.5 SECONDS (23.9-36.7) 06/17/23 16:50 Sodium 137 mmol/L (136-145) 06/17/23 16:50 Potassium 3.1 mmol/L (3.5-5.1) L 06/17/23 16:50 Chloride 84 mmol/L (98-107) L 06/17/23 16:50 Carbon Dioxide 38 mmol/L (22-29) H 06/17/23 16:50 Anion Gap 18.1 (5-19) 06/17/23 16:50 BUN 34 mg/dL (6-20) H 06/17/23 16:50 Creatinine 2.0 mg/dL (0.7-1.2) H 06/17/23 16:50 GFR Calculation 34.5 mL/min (90-130) L 06/17/23 16:50 Glucose 101 mg/dL (65-115) 06/17/23 16:50 POC Glucose 140 mg/dL (70-110) H 06/17/23 17:57 Calculated Osmolality 292 mOsm/kg (285-295) 06/17/23 16:50 Calcium 9.6 mg/dL (8.5-10.5) 06/17/23 16:50 Total Bilirubin 0.3 mg/dL (0.15-1.2) 06/17/23 16:50 AST 21 U/L (0-40) 06/17/23 16:50 ALT 20 U/L (0-41) 06/17/23 16:50 Alkaline Phosphatase 102 U/L (40-130) 06/17/23 16:50 Troponin T Baseline 91 ng/L (0-15) H 06/17/23 18:14 Troponin T 120 Minute 97.45 ng/L (0-15) H 06/17/23 19:14 Delta Troponin T 6.45 ABS# (0-10) 06/17/23 19:14 NT-Pro-B Natriuret Pep 595 pg/mL (0-125) H 06/17/23 16:50 Total Protein 7.4 g/dL (6.6-8.7) 06/17/23 16:50 Albumin 4.1 g/dL (3.5-5.2) 06/17/23 16:50 Globulin 3.3 g/dL (1.3-4.6) 06/17/23 16:50 Lipase 22 U/L (13-60) 06/17/23 16:50 EKG Data EKG 1: EKG interpretation date: 06/17/23 EKG interpretation time: 17:46 Prior EKG tracings: not available for review Interpretation: EKG shows an irregular rhythm at 82 bpm, probable atrial fibrillation, ST abnormalities noted in V2 and V3, no other ectopy is noted. Computer generated interpretation: Atrial fibrillation, anteroseptal myocardial infarction, probably recent, acute MT, unconfirmed report. Discharge Plan Discharge Patient Disposition: Home Clinical Impression: Chest pain Qualifiers: Chest pain type: unspecified Qualified Code(s): R07.9 - Chest pain, unspecified Condition: Stable Prescriptions: No Action lidocaine 5 % adhesive patch,medicated 1 patch TOPICAL .COMPLEX Rx Instructions: apply one patch daily as needed for pain (on for 12 hours and off for 12 hours) (DME) lancets [OneTouch Delica Lancets] 33 gauge misc See Rx Instructions .ROUTE .MEDSUPPLY Qty: 200 5RF Rx Instructions: 4 times daily amlodipine 10 mg tablet 10 mg PO QAM Qty: 90 3RF (DME) Inogen See Rx Instructions .Route .MEDSUPPLY Qty: 1 0RF Rx Instructions: As directed (DME) Wheel chair [id number] See Rx Instructions .Route .MEDSUPPLY Qty: 1 0RF Rx Instructions: As directed metolazone 5 mg tablet 5 mg PO DAILY PRN (Reason: weight gain and swelling) Qty: 30 0RF budesonide-formoterol [Symbicort] 160-4.5 mcg/actuation HFA aerosol inhaler 2 puff inhalation BID Qty: 10.2 3RF (DME) blood sugar diagnostic Strip See Rx Instructions .ROUTE .MEDSUPPLY Qty: 200 5RF Rx Instructions: 4 times a day as needed atorvastatin 40 mg tablet 40 mg PO QAM Qty: 90 0RF doxepin 50 mg capsule 50 mg PO TID Qty: 270 0RF hydralazine 100 mg tablet 100 mg PO TID Qty: 270 0RF Novolin R FlexPen 100 unit/mL (3 mL) insulin pen See Rx Instructions .ROUTE .COMPLEX Qty: 15 2RF Rx Instructions: sliding scale up to qid 110-828=59P654-975=01F908-393=40N413-270=35V029-643=63O456-808=82J708- 400=30U>400= 32U levothyroxine 25 mcg tablet 25 mcg PO DAILY Qty: 90 0RF torsemide 20 mg tablet 50 mg PO DAILY Patient Comments: From [place] fluoxetine [Prozac] 20 mg capsule 20 mg PO .three times day Qty: 90 2RF (DME) blood-glucose meter [OneTouch Ultra2 Meter] Kit See Rx Instructions .ROUTE .MEDSUPPLY Qty: 1 0RF Rx Instructions: use daily (DME) BiPAP See Rx Instructions .Route .MEDSUPPLY Qty: 1 0RF Rx Instructions: As directed empagliflozin 25 mg tablet 25 mg PO QAM Qty: 30 0RF potassium chloride 20 mEq tablet extended release 40 meq PO TID Qty: 90 0RF Rx Instructions: dose change no med sent (DME) cpap machine See Rx Instructions .Route .MEDSUPPLY Qty: 1 0RF Rx Instructions: As directed auto titrate cpap machine 6-16cm with supplies Repatha SureClick 140 mg/mL pen injector 140 mg SUBCUT .every 14 days Qty: 2 2RF Levemir FlexTouch U-100 Insuln 100 unit/mL (3 mL) insulin pen 55 unit SUBCUT BID Qty: 30 2RF Rx Instructions: dose change no med sent magnesium oxide 400 mg magnesium capsule 400 mg PO QAM aspirin 325 mg Tablet 325 mg PO QAM tamsulosin 0.4 mg capsule 0.4 mg PO BEDTIME montelukast 10 mg tablet 10 mg PO DAILY docusate sodium 250 mg Capsule 500 mg PO DAILY metformin 500 mg tablet extended release 24 hr 1,000 mg PO QAM digoxin 250 mcg (0.25 mg) tablet 250 mcg PO DAILY spironolactone 25 mg tablet 25 mg PO DAILY FeroSul 325 mg (65 mg iron) tablet 325 mg PO DAILY Eliquis 5 mg tablet 5 mg PO BID metoprolol tartrate 37.5 mg tablet 37.5 mg PO BID ipratropium-albuterol 0.5 mg-3 mg(2.5 mg base)/3 mL solution for nebulization 3 ml inhalation Q4H PRN (Reason: shortness of breath or wheezing) Qty: 180 0RF Rx Instructions: until breathing returns to target peak flow/parameters Discharge Orders: Discharge ED (Routine); Ordered 06/17/23 Ordered By: Moreno Parrish Referrals: Mateo Sifuentes, UTILITY SYSTEM OPERATOR-C [Primary Care Provider] - Discharge Diet: Usual diet Discharge Activity: Increase activity as tolerated Patient Instructions: Chest Pain (ED) Activity Restrictions/Additional Instructions: Follow-up with remote ruby on rails developer for further evaluation and treatment. Return to ED for new concerns or worsening symptoms. Coding Level of Care Code ED Chief Order Dispatcher for Alycia Ivy
[2023-06-17 17:20] VITALS: BP 137/66; PULSE 81; O2SAT 95
--- NOTE | 2023-06-17 17:26 | ECG_ITS ---
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 Measurements Intervals [place] Rate: 82 P: 0 ID: 0 QRS: 79 QRSD: 93 T: 206 QT: 386 QTc: 453 Interpretive Statements Multifocal atrial rhythm ANTEROSEPTAL MYOCARDIAL INFARCTION , PROBABLY RECENT [40+ ms Q WAVE IN V1-V4] ACUTE KS Diffuse nonspecific ST-T changes Compared to ECG 04/14/2023 14:15:31 Atrial abnormality no longer present Myocardial infarct finding still present Electronically Signed On 06-17-2023 19:55:05 CDT by Tim Palma M.D. [email or web address]
[2023-06-17 17:33] LABS: Basophils # 0.1 10^3/uL (0.0-0.1); Basophils % 0.6 %; Eosinophils # 0.4 10^3/uL (0.0-0.8); Hemoglobin 13.7 g/dL (11.7-16.6); Lymphocytes # 2.8 10^3/uL (0.8-4.8); Lymphocytes % 31.6 %; Mean Corpuscular HGB Conc 32.6 g/dL (30.0-36.0); Mean Corpuscular Hemoglobin 28.1 pg (28.0-34.0); Mean Corpuscular Volume 86.1 fl (80-94); Mean Platelet Volume 10.1 fL (7.4-10.4); Monocytes # 0.7 10^3/uL (0.2-0.9); Monocytes % 7.4 %; Neutrophils # 4.91 10^3/uL (1.8-7.7); Neutrophils % 55.9 %; Nucleated Red Blood Cells % 0 %; Platelet Count 284 10^3/cmm (130-400); Red Blood Count 4.88 10^6/uL (4.1-5.3); Red Cell Distribution Width 15.9 % (12.1-15.1); White Blood Count 8.8 10^3/uL (4.0-10.0)
--- NOTE | 2023-06-17 17:47 | PC.NURSE ---
this board writer asked provider about medication order for aspirin and nitro. provider did not want the medications given d/t pt getting nitro and aspirin enroute. documented not given.
[2023-06-17 17:59] LABS: INR 0.98 (0.8-1.2); Partial Thromboplastin Time 28.5 SECONDS (23.9-36.7)
[2023-06-17 18:00] LABS: Glucose Point of Care 140 mg/dL (70-110)
[2023-06-17 18:11] VITALS: BP 158/69; PULSE 86; RESP 19; O2SAT 100
[2023-06-17 18:28] LABS: Alanine Aminotransferase 20 U/L (0-41); Albumin Level 4.1 g/dL (3.5-5.2); Alkaline Phosphatase 102 U/L (40-130); Anion Gap 18.1 (5-19); Aspartate Amino Transferase 21 U/L (0-40); Blood Urea Nitrogen 34 mg/dL (6-20); Calcium 9.6 mg/dL (8.5-10.5); Carbon Dioxide 38 mmol/L (22-29); Chloride 84 mmol/L (98-107); Globulin 3.3 g/dL (1.3-4.6); Glomerular Filtration Rate 34.5 mL/min (90-130); Glucose 101 mg/dL (65-115); Lipase 22 U/L (13-60); NT Pro B Type Natriuretic Pept 595 pg/mL (0-125); Osmolality Calculated 292 mOsm/kg (285-295); Potassium 3.1 mmol/L (3.5-5.1); Sodium 137 mmol/L (136-145); Total Bilirubin 0.3 mg/dL (0.15-1.2); Total Protein 7.4 g/dL (6.6-8.7)
[2023-06-17 18:30] VITALS: PULSE 91; O2SAT 100
[2023-06-17] MEDS: potassium chloride ER 20 mEq Tablet 40 MEQ PO (18:50)
[2023-06-17 19:03] LABS: Troponin(5th) Baseline 91 ng/L (0-15)
[2023-06-17 19:27] VITALS: BP 136/73; PULSE 88; RESP 16; O2SAT 98
[2023-06-17 19:51] LABS: Troponin 5 2HR 97.45 ng/L (0-15)
[2023-06-17 19:58] LABS: Troponin 5 2HR Delta 6.45 ABS# (0-10)
[2023-06-17 20:21] VITALS: BP 126/65; PULSE 106; RESP 18; O2SAT 97
--- NOTE | 2023-06-18 10:40 | DCPLANNER ---
pre press manager had message to schedule a follow up appointment for patient with cardiology. pre press manager spoke with patient, he stated that he sees a gradall operator in [place], and he has an appointment scheduled.
== END 2023-06-17 20:24 | disposition home or self-care (01) ==
PROVIDERS: Internal Medicine; Emergency Provider Nurse Practitioner Family; PCP Nurse Practitioner
DX: R07.9 Chest pain, unspecified (principal); Z79.82 Long term (current) use of aspirin; Z79.4 Long term (current) use of insulin; Z79.84 Long term (current) use of oral hypoglycemic drugs; Z87.891 Personal history of nicotine dependence; I13.0 Hypertensive heart and chronic kidney disease with heart failure and stage 1 through stage 4 chronic kidney disease, or unspecified chronic kidney disease; E11.22 Type 2 diabetes mellitus with diabetic chronic kidney disease; N18.30 Chronic kidney disease, stage 3 unspecified; I50.9 Heart failure, unspecified; J44.9 Chronic obstructive pulmonary disease, unspecified; Z99.81 Dependence on supplemental oxygen
CPT/HCPCS: 36415; 36416; 71045; 80053; 82962; 83690; 83880; 84484; 85025; 85610; 85730; 93005; 99285

== ENCOUNTER 2023-07-03 11:35 | Outpatient (CLI) | payer MEDICARE, OTHER, SELFPAY ==
[2023-07-03 12:53] LABS: Anion Gap 14.5 (5-19); Blood Urea Nitrogen 38 mg/dL (6-20); Calcium 9.1 mg/dL (8.5-10.5); Carbon Dioxide 38 mmol/L (22-29); Chloride 88 mmol/L (98-107); Glomerular Filtration Rate 48.1 mL/min (90-130); Glucose 286 mg/dL (65-115); Osmolality Calculated 303 mOsm/kg (285-295); Potassium 3.5 mmol/L (3.5-5.1); Sodium 137 mmol/L (136-145)
== END 2023-07-03 11:36 | disposition home or self-care (01) ==
LOC: LAB 11:37
PROVIDERS: PCP Nurse Practitioner; Visit Provider Nurse Practitioner
DX: I50.31 Acute diastolic (congestive) heart failure (principal)
CPT/HCPCS: 80048

== ENCOUNTER 2023-07-13 11:09 | Outpatient (CLI) | payer MEDICARE, OTHER, SELFPAY ==
[2023-07-13 12:25] LABS: Anion Gap 14.5 (5-19); Blood Urea Nitrogen 48 mg/dL (6-20); Calcium 9.7 mg/dL (8.5-10.5); Carbon Dioxide 37 mmol/L (22-29); Chloride 90 mmol/L (98-107); Glomerular Filtration Rate 47.9 mL/min (90-130); Glucose 270 mg/dL (65-115); Osmolality Calculated 308 mOsm/kg (285-295); Potassium 3.5 mmol/L (3.5-5.1); Sodium 138 mmol/L (136-145)
== END 2023-07-13 11:10 | disposition home or self-care (01) ==
PROVIDERS: PCP Nurse Practitioner; Visit Provider Nurse Practitioner
DX: I13.0 Hypertensive heart and chronic kidney disease with heart failure and stage 1 through stage 4 chronic kidney disease, or unspecified chronic kidney disease (principal); N18.9 Chronic kidney disease, unspecified
CPT/HCPCS: 80048

== ENCOUNTER 2023-08-09 13:28 | Outpatient (CLI) | payer MEDICARE, OTHER, SELFPAY ==
[2023-08-09 13:57] LABS: Anion Gap 12.7 (5-19); Blood Urea Nitrogen 27 mg/dL (6-20); Calcium 9.3 mg/dL (8.5-10.5); Carbon Dioxide 32 mmol/L (22-29); Chloride 100 mmol/L (98-107); Glomerular Filtration Rate 47.9 mL/min (90-130); Glucose 251 mg/dL (65-115); Osmolality Calculated 304 mOsm/kg (285-295); Potassium 4.7 mmol/L (3.5-5.1); Sodium 140 mmol/L (136-145)
== END 2023-08-09 13:29 | disposition home or self-care (01) ==
PROVIDERS: PCP Nurse Practitioner; Visit Provider Nurse Practitioner
DX: I50.32 Chronic diastolic (congestive) heart failure (principal)
CPT/HCPCS: 80048

== ENCOUNTER → 2023-10-02 09:36 | Outpatient (BNVA) | payer MEDICARE, OTHER, SELFPAY | PROVIDERS: PCP Nurse Practitioner; Visit Provider Nurse Practitioner | DX: E11.65 Type 2 diabetes mellitus with hyperglycemia (principal) | CPT/HCPCS: 80053; 80061; 81000; 83036 ==

== ENCOUNTER 2023-10-12 10:15 | Outpatient (CLI) | payer MEDICARE, OTHER, SELFPAY ==
[2023-10-12 11:11] LABS: Alanine Aminotransferase 35 U/L (0-41); Albumin Level 4.1 g/dL (3.5-5.2); Alkaline Phosphatase 135 U/L (40-130); Anion Gap 12.1 (5-19); Aspartate Amino Transferase 27 U/L (0-40); Blood Urea Nitrogen 24 mg/dL (6-20); Calcium 9.3 mg/dL (8.5-10.5); Carbon Dioxide 31 mmol/L (22-29); Chloride 101 mmol/L (98-107); Globulin 3.4 g/dL (1.3-4.6); Glomerular Filtration Rate 56.5 mL/min (90-130); Glucose 171 mg/dL (65-115); Osmolality Calculated 298 mOsm/kg (285-295); Potassium 4.1 mmol/L (3.5-5.1); Sodium 140 mmol/L (136-145); Total Bilirubin 0.4 mg/dL (0.15-1.2); Total Protein 7.5 g/dL (6.6-8.7)
== END 2023-10-12 10:16 | disposition home or self-care (01) ==
PROVIDERS: PCP Nurse Practitioner; Visit Provider Nurse Practitioner
DX: E87.6 Hypokalemia (principal)
CPT/HCPCS: 36415; 80053

== ENCOUNTER 2023-10-23 08:33 | Outpatient (CLI) | payer MEDICARE, OTHER, SELFPAY ==
--- NOTE | 2023-10-23 08:58 | XR_ITS ---
WS: [id number] Exam: XR chest 2V* [id number] Date/Time of Exam: 10/23/2023 9:08 AM Reason For Exam: R06.09 - Other forms of dyspnea Comparison 06/17/2023. Comparison 06/17/2023. There is cardiac enlargement with mild pulmonary vascular congestion suggesting low-grade CHF. The sylvain ngs are fully expanded. No pleural effusions or pneumothorax. The mediastinum and osseous thorax are intact. IMPRESSION: 1. Cardiac enlargement with mild pulmonary vascular congestion suggesting low-grade CHF.
[2023-10-23 09:01] LABS: Basophils % 0.4 %; Eosinophils % 0.5 %; Lymphocytes # 1.4 10^3/uL (0.8-4.8); Lymphocytes % 16.6 %; Mean Corpuscular HGB Conc 30.8 g/dL (30-55); Mean Corpuscular Hemoglobin 27.5 pg (27-33); Mean Corpuscular Volume 89.4 fl (82-101); Mean Platelet Volume 9.2 fL (7.4-10.4); Monocytes # 0.6 10^3/uL (0.2-0.9); Monocytes % 7.5 %; Neutrophils # 6.16 10^3/uL (1.8-7.7); Nucleated Red Blood Cells % 0 %; Platelet Count 328 10^3/cmm (157-399); Red Blood Count 4.14 10^6/uL (3.85-5.65); Red Cell Distribution Width 13.6 % (12.1-15.1); White Blood Count 8.31 10^3/uL (3.29-11.43)
[2023-10-23 09:36] LABS: Alanine Aminotransferase 37 U/L (0-41); Alkaline Phosphatase 117 U/L (40-130); Anion Gap 15.5 (5-19); Aspartate Amino Transferase 26 U/L (0-40); Blood Urea Nitrogen 28 mg/dL (6-20); Calcium 9.6 mg/dL (8.5-10.5); Carbon Dioxide 30 mmol/L (22-29); Chloride 95 mmol/L (98-107); Globulin 3.6 g/dL (1.3-4.6); Glomerular Filtration Rate 47.9 mL/min (90-130); Glucose 270 mg/dL (65-115); NT Pro B Type Natriuretic Pept 2607 pg/mL (0-125); Osmolality Calculated 297 mOsm/kg (285-295); Potassium 4.5 mmol/L (3.5-5.1); Sodium 136 mmol/L (136-145); Total Bilirubin 1.2 mg/dL (0.15-1.2); Total Protein 7.6 g/dL (6.6-8.7)
[2023-10-23 10:45] LABS: Adenovirus Not Detected (NOT DETECT); Chlamydia Pneumoniae Not Detected (NOT DETECT); Coronavirus 229E,HKU1,NL63,OC4 Not Detected (NOT DETECT); Human Metapneumovirus Not Detected (NOT DETECT); Human Rhinovirus/Enterovirus Not Detected (NOT DETECT); Influenza A Not Detected (NOT DETECT); Influenza A H1 Not Detected (NOT DETECT); Influenza A H1-2009 Not Detected (NOT DETECT); Influenza A H3 Not Detected (NOT DETECT); Influenza B Not Detected (NOT DETECT); Mycoplasma Pneumoniae Not Detected (NOT DETECT); Parainfluenza Virus Type 1 Not Detected (NOT DETECT); Parainfluenza Virus Type 2 Not Detected (NOT DETECT); Parainfluenza Virus Type 3 Not Detected (NOT DETECT); Parainfluenza Virus Type 4 Not Detected (NOT DETECT); Respiratory Syncytial Virus A Not Detected (NOT DETECT); Respiratory Syncytial Virus B Not Detected (NOT DETECT); SARS-COV-2 Not Detected (NOT DETECT)
== END 2023-10-23 08:34 | disposition home or self-care (01) ==
LOC: LAB 08:34
PROVIDERS: PCP Nurse Practitioner; Visit Provider Nurse Practitioner
DX: J44.9 Chronic obstructive pulmonary disease, unspecified (principal); R06.09 Other forms of dyspnea; I50.9 Heart failure, unspecified; M35.1 Other overlap syndromes; R05.9 Cough, unspecified; I51.7 Cardiomegaly
CPT/HCPCS: 36415; 71046; 80053; 83880; 85025; 87486; 87581; 87633

== ENCOUNTER → 2023-12-05 09:19 | Outpatient (BNVA) | payer MEDICARE, OTHER, SELFPAY | PROVIDERS: PCP Nurse Practitioner; Visit Provider Nurse Practitioner Family | DX: M25.562 Pain in left knee (principal); M17.12 Unilateral primary osteoarthritis, left knee; W19.XXXA Unspecified fall, initial encounter | CPT/HCPCS: 73562 ==

== ENCOUNTER → 2023-12-25 10:04 | Outpatient (BNVA) | payer MEDICARE, OTHER, SELFPAY | PROVIDERS: PCP Nurse Practitioner; Visit Provider Nurse Practitioner | DX: E11.65 Type 2 diabetes mellitus with hyperglycemia; F41.9 Anxiety disorder, unspecified; I25.10 Atherosclerotic heart disease of native coronary artery without angina pectoris; I10 Essential (primary) hypertension; E11.29 Type 2 diabetes mellitus with other diabetic kidney complication; E03.9 Hypothyroidism, unspecified; J45.909 Unspecified asthma, uncomplicated; K59.01 Slow transit constipation; I50.9 Heart failure, unspecified; R39.11 Hesitancy of micturition | CPT/HCPCS: 80053; 80061; 81000; 83036 ==

== ENCOUNTER 2024-03-01 12:54 | Inpatient (IN) | payer MEDICARE, SELFPAY ==
[2024-03-01] VITALS (61 sets, daily range): BP systolic 97–121; BP diastolic 59–77; PULSE 78–156; RESP 13–32; TEMP 36.8; O2SAT 85–100
--- NOTE | 2024-03-01 12:57 | XRR_ITS ---
PROCEDURE INFORMATION: Exam: XR Chest Exam date and time: 03/01/2024 1:11 PM Age: 58 years old Clinical indication: Angina pectoris; Patient HX: Chest pain; HTN; HX cardiac stent 2010 TECHNIQUE: Imaging protocol: Radiologic exam of the chest. Views: 1 view. COMPARISON: CR XR chest 2V* [id number] 10/23/2023 9:12 AM FINDINGS: Lungs: There is pulmonary vascular prominence with interstitial hazy infiltrates consistent with heart failure and interstitial edema. Pleural spaces: Unremarkable. No pleural effusion. No pneumothorax. Heart/Mediastinum: The cardiac silhouette is enlarged but unchanged. Bones/joints: Unremarkable. XR/XR chest 1V portable [id number] IMPRESSION: Findings consistent with heart failure and interstitial edema.
--- NOTE | 2024-03-01 13:00 | PC.NURSE ---
Pt on bedside potline monitor
--- NOTE | 2024-03-01 13:13 | ECG_ITS ---
[facility] Test Date: 2024-03-01 Pat Name: Fariba Rossi Department: Room: Gender: Male Post Anesthesia Room Nurse: : 1965 Requested By: Valerie Saini Order Number: [id number] Marion MD: Rios Casiano M.D. Measurements Intervals [place] Rate: 156 P: 122 IN: 92 QRS: 113 QRSD: 156 T: -43 QT: 318 QTc: 513 Interpretive Statements ECTOPIC ATRIAL TACHYCARDIA WITH SHORT IN INTERVAL, POSSIBLE ATRIAL FLUTTER INTRAVENTRICULAR CONDUCTION DELAY [130+ ms QRS DURATION] POSSIBLE RIGHT VENTRICULAR HYPERTROPHY [SOME/ALL OF: PROMINENT R IN V1, LATE TRANSITION, RAD, FLOR, SSS] SEPTAL MYOCARDIAL INFARCTION , PROBABLY OLD [40+ ms Q WAVE IN V1/V2] CRITICAL TEST RESULT INTERPRETATION BASED ON A DEFAULT AGE OF 40 YEARS Compared to ECG 06/17/2023 17:26:41 Intraventricular conduction delay now present Atrial abnormality now present ST (T wave) deviation no longer present Myocardial infarct finding still present Electronically Signed On 03-02-2024 8:10:51 CDT by Rios Casiano M.D. [email or web address]
--- NOTE | 2024-03-01 13:13 | W.ED.CHESTPA ---
HPI - Chest Pain General: Chief Complaint: Chest Pain Stated Complaint: chest pains Time Seen by Provider: 03/01/24 12:59 Source: patient Mode of arrival: ambulatory Limitations: no limitations History of Present Illness: 58-year-old male extensive cardiac history states he started having chest pain 1 hour ago he states the sharp pain center of his chest he rates his pain a 9 out of 10 currently. He is in atrial flutter here he states he had a heart cath at [facility] on Sunday he has had a history of stents and heart attacks in the past denies any shortness of breath denies any worse improved factors Associated symptoms: Deny abdominal pain, dyspnea, fever(s), nausea or vomiting Review of Systems Const: Denies: fever(s), chills, body aches or change in appetite Eyes: Denies: blurry vision or eye discomfort ENMT: Denies: throat pain or dental pain Card: Reports: chest pain Resp: Denies: dyspnea GI: Denies: abdominal pain, nausea, vomiting or diarrhea Musc: Denies: neck pain or back pain Skin/Breast: Denies: rash Neuro: Denies: headache(s) PFSH ED PFSH: Medical History Dyspnea on exertion Acute exacerbation of CHF (congestive heart failure) CKD (chronic kidney disease) stage 3, GFR 30-59 ml/min Oxygen dependent Atrial fibrillation COPD (chronic obstructive pulmonary disease) Iron deficiency CHF (congestive heart failure) Recurrent bronchospasm Dietary noncompliance Obesity Obstructive sleep apnea Anxiety Neuropathy Arteriosclerotic coronary artery disease Essential (primary) hypertension Diabetes mellitus type II, uncontrolled Surgical History History of colonoscopy H/O heart artery stent 09/2011 History of carpal tunnel surgery of right wrist 2011 Family History Father , AGE 74 Diabetes Heart disease Mother , LUNG CANCER AGE 55 Cancer CAD (coronary artery disease) Lung disease Heart disease Grandmother CAD (coronary artery disease) Cancer Dementia Heart disease Family/Other CAD (coronary artery disease) Heart disease Grandfather CAD (coronary artery disease) Heart disease Diabetes Sister Lung disease Denies family history of Clotting disorder Chronic kidney disease (CKD) Suicide Anesthesia complication Bleeding disorder Stroke Social History Smoking and tobacco/nicotine status: former use of tobacco/nicotine Quit status (tobacco/nicotine): has quit using Year quit tobacco: 2000 Former quit date comment: 4ppd x 22 years Second hand smoke exposure: No Alcohol intake: current Alcohol intake frequency: holidays/special occasions only Substance/Drug Use: never Adopted: No Caregiver/support person: No Lives independently: Yes Household members: spouse Housing: House Marital status: Number of children: 2 service: No Current occupational status: disabled Pets and animals: Yes Do you think of yourself as: Straight/Heterosexual Current gender identity: Male and Female Physical Exam Const: COMMON NORMALS: patient oriented x3 HENMT: COMMON NORMALS: normocephalic and atraumatic HEAD & SCALP: normocephalic and atraumatic Eye: COMMON NORMALS: Equal, round and reactive pupils present and EOMs intact bilaterally PUPIL: Yes Equal, round and reactive pupils present Neck/C-Spine: COMMON NORMALS: full ROM and supple Chest: COMMONS NORMALS: normal inspection of the chest and normal palpation of entire chest wall Resp: COMMON NORMALS: normal respiratory effort, No retractions, No use of accessory muscles and clear to auscultation bilaterally AUSCULTATION: clear to auscultation bilaterally Cardio: COMMON NORMALS: No murmurs present (Cardio) RATE: tachycardic RHYTHM: abnormal rhythm irregularly irregular GI: COMMON NORMALS: Normal to inspection, nondistended, normoactive bowel sounds present, Soft to palpation, non-tender and no masses PALPATION: Yes Soft to palpation Extremity: COMMON NORMALS: normal to inspection and full ROM Neuro: COMMON NORMALS: patient oriented x3, moves all extremities and no focal motor deficits Psych: COMMON NORMALS: mental status grossly normal, Normal thought process present and cooperative THOUGHT PROCESS: Normal thought process present Skin: COMMON NORMALS: no rashes or lesions noted and no wounds GENERAL SKIN EXAM: no rashes or lesions noted Course Vital Signs: Vital signs: Vital Signs Pulse Rate 137 H 03/01/24 14:35 Respiratory Rate 17 03/01/24 14:35 Blood Pressure 98/59 03/01/24 14:35 Pulse Oximetry 94 03/01/24 14:35 Oxygen Delivery Me thod Room Air 03/01/24 13:03 MDM - Chest Pain Medical Decision Making Patient presents here with chest pain he is also in A-fib with RVR his pains improved here his distal troponins at his baseline did start him on amiodarone he still in A-fib will admit to cardiac stepdown for his A-fib and will trend troponins. Medical Records I reviewed the patient's medical records. Lab Data I reviewed the patient's lab results. 03/01/24 13:43 03/01/24 13:43 Radiology Impressions Chest X-Ray 03/01/24 12:57 IMPRESSION: Findings consistent with heart failure and interstitial edema. Laboratory Results WBC 6.33 10^3/uL (3.29-11.43) 03/01/24 13:43 RBC 4.31 10^6/uL (3.85-5.65) 03/01/24 13:43 Hgb 12.00 g/dL (11.27-16.99) 03/01/24 13:43 Hct 40.0 % (37-53) 03/01/24 13:43 MCV 92.8 fl (82-101) 03/01/24 13:43 MCH 27.8 pg (27-33) 03/01/24 13:43 MCHC 30.0 g/dL (30-55) 03/01/24 13:43 RDW 16.1 % (12.1-15.1) H 03/01/24 13:43 Plt Count 342 10^3/cmm (157-399) 03/01/24 13:43 MPV 9.3 fL (7.4-10.4) 03/01/24 13:43 Neut % (Auto) 72.9 % 03/01/24 13:43 Lymph % (Auto) 16.7 % 03/01/24 13:43 [place] % (Auto) 8.5 % 03/01/24 13:43 Eos % (Auto) 1.1 % 03/01/24 13:43 Baso % (Auto) 0.5 % 03/01/24 13:43 Neut # (Auto) 4.61 10^3/uL (1.8-7.7) 03/01/24 13:43 Lymph # (Auto) 1.1 10^3/uL (0.8-4.8) 03/01/24 13:43 [place] # (Auto) 0.5 10^3/uL (0.2-0.9) 03/01/24 13:43 Eos # (Auto) 0.1 10^3/uL (0.0-0.8) 03/01/24 13:43 Baso # (Auto) 0.0 10^3/uL (0.0-0.1) 03/01/24 13:43 Nucleated RBC % (auto) 0 % 03/01/24 13:43 Nucleated RBCs # 0.0 /100WBC 03/01/24 13:43 PT 14.70 SECONDS (12.1-14.9) 03/01/24 13:43 INR 1.11 (0.8-1.2) 03/01/24 13:43 Sodium 136 mmol/L (136-145) 03/01/24 13:43 Potassium 4.4 mmol/L (3.5-5.1) 03/01/24 13:43 Chloride 93 mmol/L (98-107) L 03/01/24 13:43 Carbon Dioxide 33 mmol/L (22-29) H 03/01/24 13:43 Anion Gap 14.4 (5-19) 03/01/24 13:43 BUN 18 mg/dL (6-20) 03/01/24 13:43 Creatinine 1.3 mg/dL (0.7-1.2) H 03/01/24 13:43 GFR Calculation 56.5 mL/min (90-130) L 03/01/24 13:43 Glucose 381 mg/dL (65-115) H 03/01/24 13:43 Calculated Osmolality 300 mOsm/kg (285-295) H 03/01/24 13:43 Calcium 9.2 mg/dL (8.5-10.5) 03/01/24 13:43 Total Bilirubin 0.8 mg/dL (0.15-1.2) 03/01/24 13:43 AST 29 U/L (0-40) 03/01/24 13:43 ALT 33 U/L (0-41) 03/01/24 13:43 Alkaline Phosphatase 221 U/L (40-130) H 03/01/24 13:43 Troponin T Baseline 93 ng/L (0-15) H 03/01/24 13:43 NT-Pro-B Natriuret Pep 2194 pg/mL (0-125) H 03/01/24 13:43 Total Protein 7.6 g/dL (6.6-8.7) 03/01/24 13:43 Albumin 4.0 g/dL (3.5-5.2) 03/01/24 13:43 Globulin 3.6 g/dL (1.3-4.6) 03/01/24 13:43 Lipase 26 U/L (13-60) 03/01/24 13:43 Digoxin 0.3 ng/mL (0.6-1.2) L 03/01/24 13:43 All radiology interpretation(s) finalized by discharge EKG Data EKG 1: I personally reviewed and interpreted this EKG as follows: EKG interpretation date: 03/01/24 EKG interpretation time: 13:03 Interpretation: atrial flutter bifasicular block hr 151 qrs 149 qtc 403 Discharge Plan Discharge Patient Disposition: Admitted As Inpatient Clinical Impression: Chest pain, Atrial fibrillation with RVR Condition: Stable Prescriptions: No Action (DME) lancets [OneTouch Delica Lancets] 33 gauge misc See Rx Instructions .ROUTE .MEDSUPPLY Qty: 200 5RF Rx Instructions: 4 times daily (DME) Inogen See Rx Instructions .Route .MEDSUPPLY Qty: 1 0RF Rx Instructions: As directed (DME) Wheel chair [id number] See Rx Instructions .Route .MEDSUPPLY Qty: 1 0RF Rx Instructions: As directed (DME) blood sugar diagnostic Strip See Rx Instructions .ROUTE .MEDSUPPLY Qty: 200 5RF Rx Instructions: 4 times a day as needed doxepin 50 mg capsule 50 mg PO TID Qty: 270 1RF hydralazine 100 mg tablet 100 mg PO TID Qty: 270 1RF levothyroxine 25 mcg tablet 25 mcg PO DAILY Qty: 90 1RF montelukast 10 mg tablet 10 mg PO DAILY Qty: 90 1RF potassium chloride 20 mEq tablet extended release See Rx Instructions PO .COMPLEX Qty: 270 5RF Rx Instructions: 60mEq am 40mEq noon 40mEq 6pm 60mEq bedtime orally; tamsulosin 0.4 mg capsule 0.4 mg PO BEDTIME Qty: 90 1RF (DME) blood-glucose meter [OneTouch Ultra2 Meter] Kit See Rx Instructions .ROUTE .MEDSUPPLY Qty: 1 0RF Rx Instructions: use daily (DME) BiPAP See Rx Instructions .Route .MEDSUPPLY Qty: 1 0RF Rx Instructions: As directed (DME) cpap machine See Rx Instructions .Route .MEDSUPPLY Qty: 1 0RF Rx Instructions: As directed auto titrate cpap machine 6-16cm with supplies (DME) insulin syringe-needle U-100 [BD Insulin Syringe Ultra-Fine] 1 mL 31 gauge x 5/16 syringe See Rx Instructions .Route Qty: 300 5RF Rx Instructions: use 1 three time day atorvastatin 40 mg tablet 40 mg PO QAM Qty: 90 1RF insulin degludec [Tresiba FlexTouch U-200] 200 unit/mL (3 mL) insulin pen 60 unit SUBCUT BID Qty: 18 4RF Novolin R FlexPen 100 unit/mL (3 mL) insulin pen See Rx Instructions .ROUTE .COMPLEX Qty: 60 5RF Rx Instructions: sliding scale up to qid 110-597=10W349-487=31Z254-760=70M850-516=83L639-487=28W009-317=65D869-669=55N>400= 32U Ozempic 1 mg/dose (4 mg/3 mL) pen injector 1 mg SUBCUT .weekly Qty: 3 0RF Rx Instructions: plan increase in 4 weeks. 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
[2024-03-01] MEDS: aspirin 81 mg Chew Tablet 324 MG PO (13:22)
[2024-03-01] MEDS: amiodarone 50 mg/mL SDV 3 mL 150 MG IVP (13:44)
[2024-03-01] MEDS: morphine 4 mg/mL SDV 1 mL IVP (13:45)
[2024-03-01] MEDS: ondansetron 2 mg/ML SDV 2 mL 4 MG IVP (13:45)
[2024-03-01] MEDS: sodium chloride 0.9% 500 ML 999 ML IV (13:52)
[2024-03-01 14:04] LABS: Basophils % 0.5 %; Eosinophils # 0.1 10^3/uL (0.0-0.8); Eosinophils % 1.1 %; Lymphocytes # 1.1 10^3/uL (0.8-4.8); Lymphocytes % 16.7 %; Mean Corpuscular Hemoglobin 27.8 pg (27-33); Mean Corpuscular Volume 92.8 fl (82-101); Mean Platelet Volume 9.3 fL (7.4-10.4); Monocytes # 0.5 10^3/uL (0.2-0.9); Monocytes % 8.5 %; Neutrophils # 4.61 10^3/uL (1.8-7.7); Neutrophils % 72.9 %; Nucleated Red Blood Cells % 0 %; Platelet Count 342 10^3/cmm (157-399); Red Blood Count 4.31 10^6/uL (3.85-5.65); Red Cell Distribution Width 16.1 % (12.1-15.1); White Blood Count 6.33 10^3/uL (3.29-11.43)
[2024-03-01] MEDS: dilTIAZem 5 mg/mL SDV 5 mL 10 MG IVP (14:12)
[2024-03-01 14:24] LABS: Digoxin 0.3 ng/mL (0.6-1.2); INR 1.11 (0.8-1.2)
[2024-03-01 14:26] LABS: Alanine Aminotransferase 33 U/L (0-41); Alkaline Phosphatase 221 U/L (40-130); Anion Gap 14.4 (5-19); Aspartate Amino Transferase 29 U/L (0-40); Blood Urea Nitrogen 18 mg/dL (6-20); Calcium 9.2 mg/dL (8.5-10.5); Carbon Dioxide 33 mmol/L (22-29); Chloride 93 mmol/L (98-107); Globulin 3.6 g/dL (1.3-4.6); Glomerular Filtration Rate 56.5 mL/min (90-130); Glucose 381 mg/dL (65-115); Lipase 26 U/L (13-60); Osmolality Calculated 300 mOsm/kg (285-295); Potassium 4.4 mmol/L (3.5-5.1); Sodium 136 mmol/L (136-145); Total Bilirubin 0.8 mg/dL (0.15-1.2); Total Protein 7.6 g/dL (6.6-8.7)
[2024-03-01 14:27] LABS: Creatinine Clr Calc Pharmacy 86.9538; Troponin(5th) Baseline 93 ng/L (0-15)
[2024-03-01 14:45] LABS: NT Pro B Type Natriuretic Pept 2194 pg/mL (0-125)
--- NOTE | 2024-03-01 14:57 | ECG_ITS ---
[facility] Test Date: 2024-03-01 Pat Name: Fariba Rossi Department: Room: Gender: Male First Assistant: : 1965 Requested By: Valerie Saini Order Number: [id number] Reading MD: Rios Casiano M.D. Measurements Intervals [place] Rate: 136 P: 111 GA: 188 QRS: 116 QRSD: 159 T: -61 QT: 337 QTc: 507 Interpretive Statements Atrial TACHYCARDIA versus atrial flutter INTRAVENTRICULAR CONDUCTION DELAY [130+ ms QRS DURATION] POSSIBLE RIGHT VENTRICULAR HYPERTROPHY [SOME/ALL OF: PROMINENT R IN V1, LATE TRANSITION, RAD, FLOR, SSS] SEPTAL MYOCARDIAL INFARCTION , PROBABLY OLD [40+ ms Q WAVE IN V1/V2] Compared to ECG 03/01/2024 13:13:36 No significant changes Electronically Signed On 03-02-2024 8:16:31 CDT by Rios Casiano M.D. [id number]
--- NOTE | 2024-03-01 15:25 | PM.HP ---
Providers/Chief Complaint Admitting Physician: Arthur Neil MD Primary Care Provider: Mateo Sifuentes, PIE CHEF-C Chief Complaint: chest pains History of Present Illness Fariba Rossi is a 58 year old male with past medical history of CAD, uncontrolled type 2 diabetes mellitus, morbid obesity, obstructive sleep apnea on home vent with 3 L of oxygen, A-fib who recently underwent cardiac angiogram at [facility] in last 1 week where he as per the patient's caregiver at bedside he was found to have normal coronaries with significant aortic stenosis for which he was advised aortic replacement and he is being worked up for possible TAVR versus aortic valve replacement. He presents to the ER today because of retrosternal chest pain along with burning sensation and nausea. In the ER he was found to have A-fib with RVR with borderline hypotension for which he received 1 L IV fluid bolus 10 minutes of IV Cardizem and started on amiodarone drip. When seen in CSU his heart rate is running in 130s with blood pressure of 110 systolic, patient saturating 85% while sitting up in the bed on room air dosing of what able to help with history. Review of Systems General: Reports: 10 or more systems reviewed and unremarkable except in HPI and below Const: Denies: fever(s), chills, body aches, change in appetite, change in weight, malaise, night sweats, diaphoresis, change in sleep pattern, daytime sleepiness or snoring Eyes: Denies: change in vision, blurry vision, photophobia, eye discomfort or eye discharge ENMT: Denies: throat pain, enlarged tonsils, hoarseness, mouth pain, oral sores, dry mouth, tinnitus, nasal congestion or post nasal drip Card: Denies: chest pain, palpitations, irregular heart rhythm, edema, swelling of feet/ankles, lightheadedness, syncope, pre-syncope, dyspnea on exertion, orthopnea, leg pain with exertion or acrocyanosis Resp: Denies: dyspnea, productive cough, non-productive cough, wheezing, stridor, pain on inspiration, change in phlegm color, hemoptysis or chest congestion GI: Denies: abdominal pain, nausea, vomiting, hematemesis, coffee ground emesis, dysphagia, heartburn, diarrhea, constipation, bloating, GI cramping, change in bowel habits, pain on defecation, hematochezia or melena : Denies: flank pain, difficulty urinating, dysuria, urinary frequency, urinary urgency, urinary hesitancy, urinary dribbling, difficulty starting urination, change in urine stream, nocturia or hematuria Musc: Denies: neck pain, back pain, extremity pain, joint pain, joint swelling, joint redness, joint stiffness or limited range of motion Neuro: Denies: headache(s), numbness in extremities, weakness in extremities, sensory changes, lack of coordination, difficulty walking, frequent falls, dizziness, vertigo, confusion, Slurred speech present, difficulty communicating thoughts or seizure-like activity Psych: Denies: anxiety, depression, mood swings, panic attacks, hopelessness or irritability Endo: Denies: polyuria, polydipsia, tired all the time, cold intolerance, excessive sweating, flushing or heat intolerance [place]/Lymph: Denies: easy bruising or easy bleeding All/Imm: Denies: tongue swelling, facial swelling or acute wheezing Medications/Allergies Home Medications Medication Instructions Recorded Confirmed Last Taken Type blood-glucose meter (OneTouch #1 ea 01/04/20 03/01/24 Unknown Rx Ultra2 Meter kit) lancets 33 gauge (OneTouch Delica #200 ea 04/13/20 03/01/24 Unknown Rx Lancets) magnesium oxide 400 mg PO [facility] 04/22/22 03/01/24 03/01/24 History blood sugar diagnostic #200 ea 11/29/22 03/01/24 Unknown Rx aspirin 325 mg tablet 325 mg PO [facility] 03/06/23 03/01/24 03/01/24 History apixaban 5 mg tablet (Eliquis) 5 mg PO BID 04/14/23 03/01/24 03/01/24 History spironolactone 25 mg tablet 25 mg PO DAILY 04/14/23 03/01/24 03/01/24 History Inogen #1 ea 04/18/23 03/01/24 Unknown Rx Wheel chair [id number] #1 ea 04/18/23 03/01/24 Unknown Rx BiPAP #1 ea 05/16/23 03/01/24 Unknown Rx cpap machine #1 ea 06/12/23 03/01/24 Unknown Rx insulin syringe-needle U-100 1 mL #300 ea 06/20/23 03/01/24 Unknown Rx 31 gauge x 5/16 (BD Insulin Syringe Ultra-Fine) atorvastatin 40 mg tablet 40 mg PO QAM #90 tabs 12/14/23 03/01/24 03/01/24 Rx doxepin 50 mg capsule 50 mg PO TID #270 caps 12/25/23 03/01/24 03/01/24 Rx hydralazine 100 mg tablet 100 mg PO TID #270 tabs 12/25/23 03/01/24 03/01/24 Rx levothyroxine 25 mcg tablet 25 mcg PO DAILY #90 tabs 12/25/23 03/01/24 03/01/24 Rx montelukast 10 mg tablet 10 mg PO DAILY #90 tabs 12/25/23 03/01/24 03/01/24 Rx potassium chloride 20 mEq See Rx Instructions PO .COMPLEX 12/25/23 03/01/24 03/01/24 Rx tablet,extended release #270 tabs tamsulosin 0.4 mg capsule 0.4 mg PO BEDTIME #90 caps 12/25/23 03/01/24 02/29/24 Rx insulin degludec 200 unit/mL (3 60 unit (0.3 mL) SUBCUT BID #18 mL 12/31/23 03/01/24 03/01/24 Rx mL) subcutaneous pen (Tresiba FlexTouch U-200 insulin) insulin regular human 100 unit/mL See Rx Instructions .Route 12/31/23 03/01/24 03/01/24 Rx (3 mL) subcutaneous pen (Novolin R .COMPLEX #60 mL FlexPen) semaglutide 1 mg/dose (4 mg/3 mL) 1 mg (0.75 mL) SUBCUT .weekly #3 mL 01/14/24 03/01/24 Unknown Rx subcutaneous pen injector (Ozempic) fluoxetine 20 mg capsule (Prozac) 20 mg PO TID 03/01/24 03/01/24 03/01/24 History metoprolol tartrate 25 mg tablet 25 mg PO BID 03/01/24 03/01/24 03/01/24 History nitroglycerin 0.4 mg sublingual 0.4 mg buccal PRN PRN Chest Pain 03/01/24 03/01/24 Unknown History tablet torsemide 20 mg tablet 60 mg PO BID 03/01/24 03/01/24 03/01/24 History Allergies Allergy/AdvReac Type Severity Reaction Status Date / Time lisinopril Allergy ADR-Cough Verified 03/01/24 13:03 PFSH Acute PFSH: Medical History (Updated 03/01/24 @ 17:01 by Arthur Neil MD) CKD (chronic kidney disease) stage 3, GFR 30-59 ml/min Obstructive sleep apnea Primary localized osteoarthrosis of left lower leg Localized primary osteoarthritis of right lower leg Urgency-frequency syndrome Essential (primary) hypertension Dyspnea on exertion Acute exacerbation of CHF (congestive heart failure) Oxygen dependent Atrial fibrillation COPD (chronic obstructive pulmonary disease) Iron deficiency CHF (congestive heart failure) Recurrent bronchospasm Dietary noncompliance Obesity Anxiety Neuropathy Arteriosclerotic coronary artery disease Diabetes mellitus type II, uncontrolled Surgical History History of colonoscopy H/O heart artery stent 09/2011 History of carpal tunnel surgery of right wrist 2011 Family History Father , AGE 74 Diabetes Heart disease Mother , LUNG CANCER AGE 55 Cancer CAD (coronary artery disease) Lung disease Heart disease Grandmother CAD (coronary artery disease) Cancer Dementia Heart disease Family/Other CAD (coronary artery disease) Heart disease Grandfather CAD (coronary artery disease) Heart disease Diabetes Sister Lung disease Denies family history of Clotting disorder Chronic kidney disease (CKD) Suicide Anesthesia complication Bleeding disorder Stroke Social History Smoking and tobacco/nicotine status: former use of tobacco/nicotine Quit status (tobacco/nicotine): has quit using Year quit tobacco: 2000 Former quit date comment: 4ppd x 22 years Second hand smoke exposure: No Alcohol intake: current Alcohol intake frequency: holidays/special occasions only Substance/Drug Use: never Adopted: No Caregiver/support person: No Lives independently: Yes Household members: spouse Housing: House Marital status: Number of children: 2 service: No Current occupational status: disabled Pets and animals: Yes Do you think of yourself as: Straight/Heterosexual Current gender identity: Male and Female Vitals/I&O/Wt Last Vital Signs Pulse 137 H 03/01/24 14:35 Resp 17 03/01/24 14:35 BP 98/59 03/01/24 14:35 Pulse Ox 94 03/01/24 14:35 O2 Del Method Room Air 03/01/24 13:03 03/01/24 03/01/24 03/01/24 06:59 14:59 22:59 Intake Total 500 / 500 Balance 500 / 500 Weight last 48 hrs Weight 145.15 kg Physical Exam Narrative: General: No acute distress, drowsy but on waking up AO x3, morbidly obese HEENT: PERRLA, pupils bilaterally equal and reactive Chest: Normal vesicular breath sounds, no added sounds, equal good air entry bilaterally CVS: S1-S2 irregularly irregular, no murmurs, tachycardia, no gallops, no rubs Abdomen: Soft, nontender, no organomegaly, bowel sounds present Neuro: No focal deficits, no facial deformity, AO x3, power 5/5 in all limbs Data 03/01/24 13:43 03/01/24 13:43 A&P Assessment and plan (1) Atrial fibrillation with RVR: Present in the ER. Associated with mild hypotension. Started on amiodarone drip after bolus. Continue with amiodarone drip for now. Digoxin load with 500 mcg one-time followed by 250 every 6 hours for 2 doses. Check digoxin level after completion of loading dose. Continue with metoprolol 25 mg twice daily. If blood pressures are stable can try 5 mg of IV metoprolol in between. Continue with home dose of Eliquis. Will switch to heparin drip if troponin cycled shows significant delta. (2) CHF (congestive heart failure): Last echocardiogram within 1 year shows EF of 55 to 60% with trace MR. Currently in ICU heart failure most likely in setting of RVR. Received IV fluid boluses in the ER. No further IV fluids for now. Place Bailon catheter. IV Lasix 40 mg one-time. Strict input charting, daily weights. (3) Chest pain: Last angiogram from December 2022 showed nonobstructive CAD with patent LAD and RCA stent. Apparently had angiogram at [facility] over the last 1 week. Will await records. Currently chest pain most likely secondary to type II AR in setting of A-fib with RVR with congestive heart failure. Troponin cycle. Appreciate recent A1c and lipid panel. Continue with aspirin, statin, beta-joy. (4) Asthma-COPD overlap syndrome: Ipratropium, Xopenex every 6 hours, Pulmicort twice daily. Ox supplementation keeping saturation over 90%. No concerns for asthma exacerbation. (5) Obstructive sleep apnea: On home vent. Noncompliant Patient is agreeable to give a trial of home vent again. Patient can use his home equipment. Check ABG (6) CKD (chronic kidney disease) stage 3, GFR 30-59 ml/min: (7) Diabetes mellitus type II, uncontrolled: Uncontrolled. Appreciate A1c recently of 10.2. Continue with Lantus 50 units twice daily along with sliding scale ACHS. Qualifiers: Glycemic state: with hyperglycemia Qualified Code(s): E11.65 - Type 2 diabetes mellitus with hyperglycemia (8) Essential (primary) hypertension: Goal blood pressure less than 140/90 mmHg with mean over 65. Currently blood pressure soft most likely in setting of RVR. Hold off on multiple antihypertensives. Continue with metoprolol. Will restart medications as per goal blood pressures. Plan Full code Cardiac diabetic diet Eliquis will be sufficient for DVT prophylaxis Attestations Medical Necessity Statement*: Admission for than 2 midnights for management of A-fib with RVR, uncontrolled type diabetes mellitus Diagnoses Atrial fibrillation with RVR I48.91 CHF (congestive heart failure) I50.9 Chest pain R07.9 Asthma-COPD overlap syndrome J44.9 Obstructive sleep apnea G47.33 CKD (chronic kidney disease) stage 3, GFR 30-59 ml/min N18.30 Uncontrolled type 2 diabetes mellitus with hyperglycemia E11.65 Glycemic state: with hyperglycemia Essential (primary) hypertension I10
[2024-03-01] MEDS: metoprolol tartrate 1 mg/1 mL SDV 5 mL 5 MG IVP (15:44)
[2024-03-01] MEDS: digoxin 250 mcg/ml INJ 2 mL 500 MCG IVP (15:45)
[2024-03-01 15:49] LABS: D Dimer 0.52 ug/mLFEU (0-0.59)
[2024-03-01 15:53] LABS: Troponin 5 2HR 84.18 ng/L (0-15)
[2024-03-01 16:04] LABS: Troponin 5 2HR Delta -8.82 ABS# (0-10)
[2024-03-01 16:45] LABS: Glucose Point of Care 457 mg/dL (70-110)
--- NOTE | 2024-03-01 17:02 | PC.NURSE ---
provider order for digoxin was 500mcg. 750mcg not given per verbal order from physician
--- NOTE | 2024-03-01 17:08 | ECG_ITS ---
[facility] Test Date: 2024-03-01 Pat Name: Fariba Rossi Department: Room: 106 Gender: Male Batch Freezer: : 1965 Requested By: Arthur Neil Order Number: [id number] Reading MD: Rios Casiano M.D. Measurements Intervals [place] Rate: 114 P: 118 [place]: 190 QRS: 115 QRSD: 164 T: -65 QT: 358 QTc: 495 Interpretive Statements Indeterminate tachycardia likely atrial fibrillation INTRAVENTRICULAR CONDUCTION DELAY [130+ ms QRS DURATION] POSSIBLE RIGHT VENTRICULAR HYPERTROPHY [SOME/ALL OF: PROMINENT R IN V1, LATE TRANSITION, RAD, FLOR, SSS] SEPTAL MYOCARDIAL INFARCTION , PROBABLY OLD [40+ ms Q WAVE IN V1/V2] Compared to ECG 03/01/2024 15:03:37 No significant changes Electronically Signed On 03-02-2024 8:12:48 CDT by Rios Casiano M.D. [id number]
[2024-03-01] MEDS: insulin lispro 100 unit/1 mL SUBCUT ×2 (17:31→21:05)
[2024-03-01] MEDS: apixaban 5 mg Tablet PO (17:31)
[2024-03-01] MEDS: FUROsemide 10 mg/mL SDV 4mL 40 MG IVP (17:31)
[2024-03-01 17:33] LABS: ABG PH Result 7.38 (7.35-7.45); Blood Gas Allen Test Pos; Blood Gas Operator Identificat CAK; Blood Gas Sample Site Radial, left; Blood Gas Sample Type Arterial; Ionized Calcium Level - ABG 1.2 mmol/L (1.1-1.4); Methemoglobin 0.5 % (0.4-1.5); Oxygen Device NC; PO2 FiO2 Ratio Arterial Blood 0; Potassium Level - ABG 5.5 mmol/L (3.5-5.0)
[2024-03-01 17:35] LABS: ABG PCO2 58.4 mmHg (35-45); Alveolar-Arterial Oxygen Gradi 13.8 mmHg (5-10); Arterial Blood Gas Hematocrit 33.5 % (42-52); Base Excess ABG 8.1 mmol/L (-2.0-2.0); Carboxyhemoglobin 1.2 %THgb (0.4-20.1); HCO3 ABG 34.8 mmol/L (22-26); HGB O2 Sat 83.1 % (95-100); Oxygen Saturation ABG 84.5; Total Hemoglobin 10.9 g/dL (14-18)
[2024-03-01 17:59] LABS: Amphetamines Screen Urine Negative (Negative); Barbiturates Screen Urine Negative (Negative); Benzodiazepines Screen Urine Negative (Negative); Cocaine Screen Urine Negative (Negative); Opiate Screen Urine Positive (Negative); PCP Screen Urine Negative (Negative); THC Screen Urine Negative (Negative)
[2024-03-01] MEDS: metoprolol tartrate 50 mg Tablet PO ×2 (18:04→21:05)
[2024-03-01] MEDS: insulin glargine 100 units/1 mL 50 UNIT SUBCUT (18:04)
[2024-03-01] MEDS: budesonide 0.5 mg/2 mL Neb INHALATION (19:27)
[2024-03-01] MEDS: levalbuterol 0.63 mg/3 mL Neb 0.630000000000000004 MG INHALATION (19:27)
[2024-03-01] MEDS: ipratropium 0.5 mg/2.5 mL Neb INHALATION (19:27)
[2024-03-01 19:28] LABS: Add Urine Microscopic? YES; Amorphous Sediment Urine TRACE /hpf; Bacteria Urine TRACE /hpf; Bilirubin Urine Neg (Negative); Blood Urine Neg (Negative); Glucose Urine UA 4+ (Normal); Ketones Urine Negative (Negative); Leukocyte Esterase Urine Negative (Negative); Mucus Urine 2+ /hpf; Nitrate Urine Negative (Negative); Protein Urine 1+ (Negative); RBC Urine 0-4 /hpf (0-2); Squamous Epithelial Cell Urine 0-4 /hpf (0-5); Urine Appearance SL Hazy (CLEAR); Urine Color Yellow (Yellow); Urobilinogen Urine Neg (Negative); pH Urine 5 (5-7)
--- NOTE | 2024-03-01 19:37 | ECG_ITS ---
[facility] Test Date: 2024-03-01 Pat Name: Fariba Rossi Department: Room: 106 Gender: Male Equipment Inspector: : 1965 Requested By: Arthur Neil Order Number: [id number] Reading MD: Rois Casiano M.D. Measurements Intervals [place] Rate: 81 P: 267 AK: 216 QRS: 120 QRSD: 138 T: -77 QT: 388 QTc: 451 Interpretive Statements SINUS RHYTHM WITH FIRST DEGREE AV BLOCK WITH FREQUENT SUPRAVENTRICULAR PREMATURE COMPLEXES IN A BIGEMINAL PATTERN INTRAVENTRICULAR CONDUCTION DELAY [130+ ms QRS DURATION] POSSIBLE RIGHT VENTRICULAR HYPERTROPHY [SOME/ALL OF: PROMINENT R IN V1, LATE TRANSITION, RAD, FLOR, SSS] Compared to ECG 03/01/2024 17:08:38 First degree AV block now present Myocardial infarct finding no longer present Electronically Signed On 03-02-2024 8:17:37 CDT by Rios Casiano M.D. [id number]
[2024-03-01 20:43] LABS: Troponin 5 6HR 137.1 ng/L (0-15); Troponin 5 6HR Delta 44.1 ng/L (0-12)
[2024-03-01 21:00] LABS: Glucose Point of Care 404 mg/dL (70-110)
[2024-03-01] MEDS: bisacodyl 5 mg Tablet 10 MG PO (21:05)
[2024-03-01] MEDS: fluoxetine 20 mg Capsule PO (21:05)
[2024-03-01] MEDS: digoxin 250 mcg/ml INJ 2 mL IVP (21:05)
[2024-03-01] MEDS: tamsulosin 0.4 mg Capsule 0.400000000000000022 MG PO (21:05)
--- NOTE | 2024-03-01 22:44 | ECG_ITS ---
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 Measurements Intervals [place] Rate: 57 P: -74 W[place]: 232 QRS: 132 QRSD: 89 T: 139 QT: 381 QTc: 373 Interpretive Statements SINUS BRADYCARDIA WITH FIRST DEGREE AV BLOCK POSSIBLE RIGHT VENTRICULAR HYPERTROPHY [SOME/ALL OF: PROMINENT R IN V1, LATE TRANSITION, RAD, FLOR, SSS] ANTEROSEPTAL MYOCARDIAL INFARCTION , OF INDETERMINATE AGE [40+ ms Q WAVE IN V1-V4] Compared to ECG 03/01/2024 19:37:15 Myocardial infarct finding now present Sinus rhythm no longer present Intraventricular conduction delay no longer present Electronically Signed On 03-02-2024 8:18:16 CDT by Rios Casiano M.D. [id number]
[2024-03-02] VITALS (65 sets, daily range): BP systolic 106–139; BP diastolic 65–87; PULSE 57–82; RESP 15–29; TEMP 36.3–36.9; O2SAT 93–100; BMI 47.2
[2024-03-02 00:09] LABS: Glucose Point of Care 284 mg/dL (70-110)
[2024-03-02 05:02] LABS: Basophils % 0.5 %; Eosinophils # 0.1 10^3/uL (0.0-0.8); Eosinophils % 1.4 %; Hematocrit 36.9 % (37-53); Lymphocytes # 1.4 10^3/uL (0.8-4.8); Lymphocytes % 19.2 %; Mean Corpuscular HGB Conc 29.8 g/dL (30-55); Mean Corpuscular Hemoglobin 28.2 pg (27-33); Mean Corpuscular Volume 94.6 fl (82-101); Mean Platelet Volume 9.5 fL (7.4-10.4); Monocytes # 0.7 10^3/uL (0.2-0.9); Monocytes % 9.8 %; Neutrophils # 5.06 10^3/uL (1.8-7.7); Neutrophils % 68.8 %; Nucleated Red Blood Cells % 0 %; Platelet Count 322 10^3/cmm (157-399); Red Cell Distribution Width 16.2 % (12.1-15.1); White Blood Count 7.35 10^3/uL (3.29-11.43)
[2024-03-02 05:16] LABS: Alanine Aminotransferase 28 U/L (0-41); Albumin Level 3.5 g/dL (3.5-5.2); Alkaline Phosphatase 166 U/L (40-130); Anion Gap 14.1 (5-19); Aspartate Amino Transferase 34 U/L (0-40); Blood Urea Nitrogen 21 mg/dL (6-20); Calcium 8.9 mg/dL (8.5-10.5); Carbon Dioxide 29 mmol/L (22-29); Chloride 100 mmol/L (98-107); Globulin 3.7 g/dL (1.3-4.6); Glomerular Filtration Rate 47.9 mL/min (90-130); Glucose 174 mg/dL (65-115); Magnesium 2.2 mg/dL (1.7-2.3); Osmolality Calculated 293 mOsm/kg (285-295); Phosphorus 3.9 mg/dL (2.5-4.5); Potassium 5.1 mmol/L (3.5-5.1); Sodium 138 mmol/L (136-145); Total Bilirubin 0.5 mg/dL (0.15-1.2); Total Protein 7.2 g/dL (6.6-8.7)
[2024-03-02] MEDS: levalbuterol 0.63 mg/3 mL Neb 0.630000000000000004 MG INHALATION ×3 (07:26→21:23)
[2024-03-02] MEDS: ipratropium 0.5 mg/2.5 mL Neb INHALATION ×3 (07:26→21:23)
[2024-03-02] MEDS: budesonide 0.5 mg/2 mL Neb INHALATION ×2 (07:27→21:23)
--- NOTE | 2024-03-02 08:18 | ECG_ITS ---
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 Measurements Intervals [place] Rate: 79 P: 0 PA: 0 QRS: 123 QRSD: 150 T: -39 QT: 381 QTc: 439 Interpretive Statements ATRIAL FIBRILLATION INTRAVENTRICULAR CONDUCTION DELAY [130+ ms QRS DURATION] POSSIBLE RIGHT VENTRICULAR HYPERTROPHY [SOME/ALL OF: PROMINENT R IN V1, LATE TRANSITION, RAD, FLOR, SSS] SEPTAL MYOCARDIAL INFARCTION , OF INDETERMINATE AGE [40+ ms Q WAVE IN V1/V2] Compared to ECG 03/02/2024 00:16:17 Intraventricular conduction delay now present Sinus bradycardia no longer present First degree AV block no longer present Myocardial infarct finding still present Electronically Signed On 03-03-2024 14:58:23 CDT by Rios Casiano M.D. [id number]
[2024-03-02 08:31] LABS: Digoxin 1.3 ng/mL (0.6-1.2)
[2024-03-02] MEDS: fluoxetine 20 mg Capsule PO ×3 (08:42→21:23)
[2024-03-02] MEDS: levothyroxine 25 mcg Tablet PO (08:42)
[2024-03-02] MEDS: apixaban 5 mg Tablet PO ×2 (08:42→17:52)
[2024-03-02] MEDS: atorvastatin 40 mg Tablet PO (08:42)
[2024-03-02] MEDS: metoprolol tartrate 50 mg Tablet PO ×2 (08:42→21:23)
[2024-03-02] MEDS: insulin lispro 100 unit/1 mL SUBCUT ×4 (08:43→21:23)
[2024-03-02] MEDS: insulin glargine 100 units/1 mL 50 UNIT SUBCUT (08:43)
[2024-03-02] MEDS: pantoprazole DR 40 mg Tablet PO (08:43)
--- NOTE | 2024-03-02 11:15 | P.PN_ITS ---
Subjective 2 Subjective: No acute events overnight. Today morning patient seen laying flat in the bed. States he is feeling better. No further chest pain. Breathing feels the same. Saturating 88% on 2 L of oxygen while laying down. Improving to 92% on sitting up. Overnight heart rate went down to high 50s. Only received 1 dose of digoxin load. Vitals/I&O/Wt Last Vital Signs Temp 98.5 F 03/02/24 08:00 Pulse 71 03/02/24 08:00 Resp 17 03/02/24 08:00 BP 108/68 03/02/24 08:00 Pulse Ox 98 03/02/24 08:00 O2 Del Method Nasal Cannula 03/02/24 08:00 O2 Flow Rate 3 03/02/24 07:28 03/01/24 03/02/24 03/02/24 22:59 06:59 14:59 Intake Total 1499.424 / 1999.424 250 / 2249.424 440 / 440 Output Total 1450 / 1450 Balance 49.424 / 549.424 250 / 799.424 440 / 440 Weight last 48 hrs Weight 145.15 kg Weight 145.15 kg Physical Exam 2 Narrative: General: No acute distress, AO x3, morbidly obese HEENT: PERRLA, pupils bilaterally equal and reactive Chest: Normal vesicular breath sounds, no added sounds, equal good air entry bilaterally CVS: S1-S2 irregularly irregular, no murmurs, tachycardia, no gallops, no rubs Abdomen: Soft, nontender, no organomegaly, bowel sounds present Neuro: No focal deficits, no facial deformity, AO x3, power 5/5 in all limbs Urinary Catheter Management: Bailon: Cath Placed During This Visit: yes Reason for Continuing Indwelling Catheter: Accurate Measurement of Urinary Output in Critically Ill Patients Urinary Catheter Date of Insertion: 03/01/24 Urinary Catheter Time of Insertion: 18:35 Data 03/02/24 03:54 03/02/24 03:54 A&P Assessment and plan (1) Atrial fibrillation with RVR: Heart rate better controlled. Still in A-fib. In between has few rhythms of normal sinus rhythm. Continue with amiodarone drip for now. Switch to 200 mg oral daily twice daily once loading is completed. Post digoxin load. Digoxin level today morning 1.3. Continue with metoprolol 50 mg twice daily. Continue with home dose of Eliquis. (2) CHF (congestive heart failure): Last echocardiogram within 1 year shows EF of 55 to 60% with trace MR. Received IV fluid boluses in the ER. No further IV fluids for now. Currently still net positive in fluid balance. Continue Bailon catheter. Repeat IV Lasix 40 mg one-time. Takes torsemide 60 mg twice daily at home. Might repeat 1 more dose of IV Lasix in evening depending on urine output. Strict input charting, daily weights. (3) Chest pain: Resolved for now. Currently chest pain most likely type II in nature in setting of RVR. Last angiogram from December 2022 showed nonobstructive CAD with patent LAD and RCA stent. Apparently had angiogram at [facility] over the last 1 week. Will await records. Appreciate recent A1c and lipid panel. Continue with aspirin, statin, beta-joy. (4) Asthma-COPD overlap syndrome: Ipratropium, Xopenex every 6 hours, Pulmicort twice daily. Ox supplementation keeping saturation over 90%. No concerns for asthma exacerbation. (5) Obstructive sleep apnea: On home vent. Noncompliant Patient is agreeable to give a trial of home vent again. Patient can use his home equipment. Check ABG (6) CKD (chronic kidney disease) stage 3, GFR 30-59 ml/min: Baseline creatinine 1.3-1.5. Currently creatinine at baseline. (7) Diabetes mellitus type II, uncontrolled: Uncontrolled. Appreciate A1c recently of 10.2. Increase Lantus to 60 units twice daily, sliding scale to moderate dose protocol. Qualifiers: Glycemic state: with hyperglycemia Qualified Code(s): E11.65 - Type 2 diabetes mellitus with hyperglycemia (8) Essential (primary) hypertension: Goal blood pressure less than 140/90 mmHg with mean over 65. Currently blood pressure soft most likely in setting of RVR. Hold off on multiple antihypertensives. Continue with metoprolol. Will restart medications as per goal blood pressures. Plan Full code Cardiac diabetic diet Eliquis will be sufficient for DVT prophylaxis Attestations 2 Medical Necessity Statement*: Requires further hospitalization for management of A-fib with RVR leading to hypoxia in setting of obstructive sleep apnea, congestive heart failure in a patient with history of CKD and uncontrolled type 2 diabetes mellitus Diagnoses Atrial fibrillation with RVR I48.91 CHF (congestive heart failure) I50.9 Chest pain R07.9 Asthma-COPD overlap syndrome J44.9 Obstructive sleep apnea G47.33 CKD (chronic kidney disease) stage 3, GFR 30-59 ml/min N18.30 Uncontrolled type 2 diabetes mellitus with hyperglycemia E11.65 Glycemic state: with hyperglycemia Essential (primary) hypertension I10
[2024-03-02 11:51] LABS: Glucose Point of Care 225 mg/dL (70-110)
[2024-03-02] MEDS: FUROsemide 10 mg/mL SDV 4mL 40 MG IVP ×2 (13:04→17:52)
[2024-03-02] MEDS: acetaminophen 325 mg Tablet 650 MG PO (15:34)
[2024-03-02 17:26] LABS: Glucose Point of Care 153 mg/dL (70-110)
[2024-03-02] MEDS: insulin glargine 100 units/1 mL 60 UNIT SUBCUT (17:52)
[2024-03-02] MEDS: amiodarone 200 mg Tablet PO (17:52)
[2024-03-02 19:52] LABS: Glucose Point of Care 148 mg/dL (70-110)
[2024-03-02] MEDS: tamsulosin 0.4 mg Capsule 0.400000000000000022 MG PO (21:23)
[2024-03-03] VITALS (13 sets, daily range): BP systolic 112–136; BP diastolic 71–93; PULSE 65–78; RESP 14–19; TEMP 36.3–36.8; O2SAT 96–99
[2024-03-03] MEDS: ipratropium 0.5 mg/2.5 mL Neb INHALATION ×3 (01:38→21:04)
[2024-03-03] MEDS: levalbuterol 0.63 mg/3 mL Neb 0.630000000000000004 MG INHALATION ×3 (01:39→21:03)
[2024-03-03 04:23] LABS: Basophils % 0.4 %; Eosinophils % 0.2 %; Hematocrit 36.6 % (37-53); Lymphocytes # 1.6 10^3/uL (0.8-4.8); Lymphocytes % 15.6 %; Mean Corpuscular HGB Conc 30.6 g/dL (30-55); Mean Corpuscular Hemoglobin 27.9 pg (27-33); Mean Platelet Volume 9.6 fL (7.4-10.4); Monocytes # 1.1 10^3/uL (0.2-0.9); Monocytes % 10.8 %; Neutrophils % 72.4 %; Nucleated Red Blood Cells % 0 %; Platelet Count 338 10^3/cmm (157-399); Red Blood Count 4.02 10^6/uL (3.85-5.65); Red Cell Distribution Width 15.9 % (12.1-15.1); White Blood Count 10.48 10^3/uL (3.29-11.43)
[2024-03-03 04:43] LABS: Alanine Aminotransferase 432 U/L (0-41); Albumin Level 3.5 g/dL (3.5-5.2); Alkaline Phosphatase 204 U/L (40-130); Anion Gap 13.9 (5-19); Aspartate Amino Transferase 594 U/L (0-40); Blood Urea Nitrogen 41 mg/dL (6-20); Calcium 9.2 mg/dL (8.5-10.5); Carbon Dioxide 27 mmol/L (22-29); Chloride 98 mmol/L (98-107); Creatinine Clr Calc Pharmacy 58.1121; Globulin 3.7 g/dL (1.3-4.6); Glomerular Filtration Rate 34.4 mL/min (90-130); Glucose 121 mg/dL (65-115); Osmolality Calculated 287 mOsm/kg (285-295); Potassium 5.9 mmol/L (3.5-5.1); Sodium 133 mmol/L (136-145); Total Bilirubin 0.8 mg/dL (0.15-1.2); Total Protein 7.2 g/dL (6.6-8.7)
[2024-03-03] MEDS: atorvastatin 40 mg Tablet PO (05:40)
[2024-03-03 06:37] LABS: Glucose Point of Care 57 mg/dL (70-110)
[2024-03-03 07:07] LABS: Glucose Point of Care 63 mg/dL (70-110)
[2024-03-03] MEDS: budesonide 0.5 mg/2 mL Neb INHALATION ×2 (08:21→21:04)
[2024-03-03] MEDS: fluoxetine 20 mg Capsule PO ×3 (09:32→21:52)
[2024-03-03] MEDS: apixaban 5 mg Tablet PO ×2 (09:32→18:38)
[2024-03-03] MEDS: pantoprazole DR 40 mg Tablet PO (09:32)
[2024-03-03] MEDS: amiodarone 200 mg Tablet PO ×2 (09:32→18:38)
[2024-03-03] MEDS: metoprolol tartrate 50 mg Tablet PO ×2 (09:32→21:52)
[2024-03-03] MEDS: levothyroxine 25 mcg Tablet PO (09:32)
[2024-03-03] MEDS: FUROsemide 10 mg/mL SDV 4mL 40 MG IVP (09:32)
--- NOTE | 2024-03-03 09:50 | PC.CHAP ---
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 [] Patient/Family/Request visit [] Outpatient visit [] Follow-up visit [] Physician referral [] Code/Alert [x] Routine visit [] Staff referral [] Actively dying [] Patient sleeping [] Family support [] [] Out of room [] Palliative care [] [] Receiving care in room [] Pre-surgical visit [] Trauma [] Long length of stay [] ICU visit [] Other: Relational/Emotional Strength [] Patient feels connected with others/family/visitors/staff [] Distress [] Loneliness/isolation [] Abandonment Spirituality of Patient [] Person of Kizzy [] Attends Yazidi of their Kizzy [] Believes in Prayer [] Reads Bible or Orthodoxy materials [] There are Spiritual issues to be addressed Racing Secretary And Handicapper Interventions [x] Prayer [] Active listening [] Non-anxious presence [] Spiritual/emotional support [] Crisis/trauma care [] Spiritual counseling [] Bereavement support [] Provided bereavement packet [x] Provided Bible/devotional materials [] Provided toy/stuffed animal, coloring book to patient or family member [] Provided Communion [] Anointing/[place] [] Salvation [] Completed spiritual assessment [] Other: Impact on Illness or Injury [] Angry [] Fearful [] Anxious [] Often cries [] Exhaustion [] Unable to work [] Unable to attend islam [] Unable to walk/stand [] Unable to read [] Unable to drive [] Unable to eat/drink [] Unable to sleep [] Unable to be with family [] Patient intubated [] Other: Summary Time spent with patient
[2024-03-03] MEDS: insulin glargine 100 units/1 mL 60 UNIT SUBCUT ×2 (10:13→18:38)
[2024-03-03 10:16] LABS: Creatine Phosphokinase 429 U/L (39-308)
[2024-03-03 12:35] LABS: Glucose Point of Care 254 mg/dL (70-110)
[2024-03-03] MEDS: insulin lispro 100 unit/1 mL SUBCUT ×2 (12:52→18:36)
--- NOTE | 2024-03-03 15:13 | PC.SOCIAL ---
Pg 2 IMM Explained to pt Pg 2 IMM. No questions voiced. Provided pt a copy. Initialed, dated, & timed a copy & placed in chart.
[2024-03-03 17:59] LABS: Glucose Point of Care 145 mg/dL (70-110)
[2024-03-03 20:55] LABS: Glucose Point of Care 148 mg/dL (70-110)
[2024-03-03] MEDS: tamsulosin 0.4 mg Capsule 0.400000000000000022 MG PO (21:52)
--- NOTE | 2024-03-03 22:30 | PM.PN ---
Subjective Subjective: Lower extremity edema has been improving but has not resolved. He is wearing compression stockings. He feels still edematous around his lower abdomen. Vitals/I&O/Wt Last Vital Signs Temp 98.3 F 03/03/24 20:00 Pulse 78 03/03/24 21:06 Resp 18 03/03/24 21:06 BP 114/79 03/03/24 20:00 Pulse Ox 98 03/03/24 21:06 O2 Del Method Nasal Cannula 03/03/24 21:06 O2 Flow Rate 3 03/03/24 21:06 03/03/24 03/03/24 03/03/24 06:59 14:59 22:59 Intake Total 436 / 436 360 / 796 Output Total 0 / 1200 400 / 400 Balance 0 / -127.469 36 / 36 360 / 396 Weight last 48 hrs Weight 153.314 kg Weight 151.046 kg Weight 152.226 kg Weight 145.15 kg Physical Exam Narrative: On second visit accompanied by his . Const: COMMON NORMALS: patient oriented x3 and alert GENERAL APPEARANCE: cooperative NUTRITIONAL APPEARANCE: obese morbidly obese ORIENTATION/CONSCIOUSNESS: Yes awake HENMT: COMMON NORMALS: oropharynx normal Neck/C-Spine: COMMON NORMALS: no JVD Resp: COMMON NORMALS: normal respiratory effort and clear to auscultation bilaterally AUSCULTATION: clear to auscultation bilaterally Cardio: COMMON NORMALS: no JVD, regular rhythm, S1 normal heart sound present, S2 normal heart sound present and No murmurs present (Cardio) RHYTHM: regular rhythm HEART SOUNDS: S1 normal heart sound present and S2 normal heart sound present GI: COMMON NORMALS: Normal to inspection, nondistended, normoactive bowel sounds present, Soft to palpation and non-tender PALPATION: Yes Soft to palpation OTHER: 1+ edema lower abdomen Extremity: COMMON NORMALS: no joint enlargement and no pedal edema OTHER: Difficult to assess possibly 2+ edema bilateral lower extremities, has compression socks on. Neuro: COMMON NORMALS: patient oriented x3 and moves all extremities SENSORIUM/ORIENTATION: Yes alert Skin: COMMON NORMALS: no rashes or lesions noted GENERAL SKIN EXAM: no rashes or lesions noted Urinary Catheter Management: Bailon: Cath Placed During This Visit: yes, but has since been removed by the nurse Reason for Continuing Indwelling Catheter: Decision to DC Catheter Urinary Catheter Date of Insertion: 03/01/24 Urinary Catheter Time of Insertion: 18:35 Date Urinary Catheter Removed: 03/02/24 Time Urinary Catheter Discontinued: 17:09 Data 03/03/24 03:21 03/03/24 03:21 A&P Assessment and plan (1) CKD (chronic kidney disease) stage 3, GFR 30-59 ml/min: Reviewed vitals, CBC, BMP, noted worsening kidney function, BUN up to 41, creatinine up to 2. Potassium up to 5.9. Noted in negative balance this morning. Hold diuretic. Noted also transaminitis. Check CK, reviewed, CK4 129. Noted mild rhabdomyolysis. Hold statin. Recheck CK. Reassess kidney function. Reviewed albumin. Discussed with corrections caseworker. He does have severe aortic stenosis, although so far has not been hypotensive. Monitor blood pressures. Baseline creatinine 1.3-1.5. Currently creatinine at baseline. (2) Transaminitis: Noted new transaminitis, AST 594, ALT 432. Noted ROMEL on CKD as above. Check CK, noted elevated 429. Held diuretics for now. Recheck kidney function. Check viral hepatitis panel, although less likely. (3) Atrial fibrillation with RVR: With new transaminitis stop amiodarone drip, hold oral amiodarone. Continue metoprolol. Monitor telemetry. Recheck chemistry. Check magnesium. Heart rate better controlled. Still in A-fib. In between has few rhythms of normal sinus rhythm. Continue with amiodarone drip for now. Switch to 200 mg oral daily twice daily once loading is completed. Post digoxin load. Digoxin level today morning 1.3. Continue with metoprolol 50 mg twice daily. Continue with home dose of Eliquis. (4) CHF (congestive heart failure): Severe exacerbation of metastatic CHF complicated by ROMEL on CKD, new transaminitis. Hold IV diuretics for now with noted ROMEL on CKD. Reassess renal function. Last echocardiogram within 1 year shows EF of 55 to 60% with trace MR. Received IV fluid boluses in the ER. No further IV fluids for now. Currently still net positive in fluid balance. Continue Bailon catheter. Takes torsemide 60 mg twice daily at home. Strict input charting, daily weights. (5) Chest pain: Resolved most likely type II in nature in setting of RVR. Last angiogram from December 2022 showed nonobstructive CAD with patent LAD and RCA stent. Apparently had angiogram at [facility] over the last 1 week. Appreciate recent A1c and lipid panel. Continue with aspirin, statin, beta-joy. (6) Asthma-COPD overlap syndrome: Ipratropium, Xopenex every 6 hours, Pulmicort twice daily. Ox supplementation keeping saturation over 90%. No concerns for asthma exacerbation. (7) Obstructive sleep apnea: On home vent. Noncompliant Patient is agreeable to give a trial of home vent again. Patient can use his home equipment. Check ABG (8) Diabetes mellitus type II, uncontrolled: Uncontrolled. Appreciate A1c recently of 10.2. Increase Lantus to 60 units twice daily, sliding scale to moderate dose protocol. Qualifiers: Glycemic state: with hyperglycemia Qualified Code(s): E11.65 - Type 2 diabetes mellitus with hyperglycemia (9) Essential (primary) hypertension: Goal blood pressure less than 140/90 mmHg with mean over 65. Currently blood pressure soft most likely in setting of RVR. Hold off on multiple antihypertensives. Continue with metoprolol. Will restart medications as per goal blood pressures. Plan Full code Cardiac diabetic diet Eliquis will be sufficient for DVT prophylaxis Attestations Medical Necessity Statement*: Continue admission for assessment of management of decompensated congestive heart failure complicated by severe aortic stenosis, ROMEL on CKD, new transaminitis, rhabdomyolysis. and High MDM includes amount and/or complexity of data reviewed/ordered [ resulted lab(s)/test(s), ordered lab(s)/test(s) and other healthcare professional discussion] as documented Diagnoses CKD (chronic kidney disease) stage 3, GFR 30-59 ml/min N18.30 Transaminitis R74.01 Atrial fibrillation with RVR I48.91 CHF (congestive heart failure) I50.9 Chest pain R07.9 Asthma-COPD overlap syndrome J44.9 Obstructive sleep apnea G47.33 Uncontrolled type 2 diabetes mellitus with hyperglycemia E11.65 Glycemic state: with hyperglycemia Essential (primary) hypertension I10
[2024-03-03 23:12] LABS: Hepatitis A Antibody IgM Non-Reactive (Nonreactive); Hepatitis B Core IgM Non-Reactive (Nonreactive); Hepatitis B Surface Antigen Non-Reactive (Nonreactive); Hepatitis C Virus Antibody Non-Reactive (Nonreactive)
[2024-03-04] VITALS (10 sets, daily range): BP systolic 124–158; BP diastolic 77–107; PULSE 59–80; RESP 16–20; TEMP 36.6–37; O2SAT 94–99
[2024-03-04] MEDS: ipratropium 0.5 mg/2.5 mL Neb INHALATION ×3 (03:00→14:37)
[2024-03-04] MEDS: levalbuterol 0.63 mg/3 mL Neb 0.630000000000000004 MG INHALATION ×3 (03:00→14:37)
[2024-03-04 03:13] LABS: Glucose Point of Care 61 mg/dL (70-110)
[2024-03-04 05:28] LABS: Basophils % 0.2 %; Eosinophils % 0.2 %; Hematocrit 36.9 % (37-53); Lymphocytes # 1.6 10^3/uL (0.8-4.8); Mean Corpuscular HGB Conc 30.1 g/dL (30-55); Mean Corpuscular Hemoglobin 26.9 pg (27-33); Mean Corpuscular Volume 89.6 fl (82-101); Mean Platelet Volume 9.5 fL (7.4-10.4); Monocytes # 1.2 10^3/uL (0.2-0.9); Neutrophils # 7.07 10^3/uL (1.8-7.7); Neutrophils % 71.1 %; Nucleated Red Blood Cells % 0 %; Platelet Count 322 10^3/cmm (157-399); Red Blood Count 4.12 10^6/uL (3.85-5.65); Red Cell Distribution Width 15.6 % (12.1-15.1); White Blood Count 9.94 10^3/uL (3.29-11.43)
[2024-03-04 05:54] LABS: Albumin Level 3.7 g/dL (3.5-5.2); Alkaline Phosphatase 210 U/L (40-130); Anion Gap 14.5 (5-19); Blood Urea Nitrogen 50 mg/dL (6-20); Calcium 9.1 mg/dL (8.5-10.5); Carbon Dioxide 30 mmol/L (22-29); Chloride 96 mmol/L (98-107); Creatinine Clr Calc Pharmacy 58.3569; Globulin 3.7 g/dL (1.3-4.6); Glomerular Filtration Rate 34.4 mL/min (90-130); Glucose 111 mg/dL (65-115); Osmolality Calculated 294 mOsm/kg (285-295); Potassium 5.5 mmol/L (3.5-5.1); Sodium 135 mmol/L (136-145); Total Bilirubin 0.8 mg/dL (0.15-1.2); Total Protein 7.4 g/dL (6.6-8.7)
[2024-03-04 05:56] LABS: Magnesium 2.4 mg/dL (1.7-2.3)
[2024-03-04 06:19] LABS: Aspartate Amino Transferase 1573 U/L (0-40)
[2024-03-04 06:23] LABS: Creatine Phosphokinase 402 U/L (39-308)
[2024-03-04 06:38] LABS: Glucose Point of Care 92 mg/dL (70-110)
[2024-03-04 07:00] LABS: Alanine Aminotransferase 1454 U/L (0-41)
[2024-03-04] MEDS: budesonide 0.5 mg/2 mL Neb INHALATION (07:19)
[2024-03-04] MEDS: insulin glargine 100 units/1 mL 60 UNIT SUBCUT (08:39)
[2024-03-04] MEDS: apixaban 5 mg Tablet PO ×2 (08:39→17:05)
[2024-03-04] MEDS: levothyroxine 25 mcg Tablet PO (08:39)
[2024-03-04] MEDS: pantoprazole DR 40 mg Tablet PO (08:39)
[2024-03-04] MEDS: metoprolol tartrate 50 mg Tablet PO ×2 (08:39→20:43)
[2024-03-04] MEDS: fluoxetine 20 mg Capsule PO ×3 (08:39→20:44)
--- NOTE | 2024-03-04 09:24 | USR_ITS ---
PROCEDURE INFORMATION: Exam: US Abdomen; Limited Exam date and time: 03/04/2024 3:36 PM Age: 58 years old Clinical indication: Other: Increasing lfts; Additional info: Hepatic vein duplex, assess for thrombosis, rapidly rising transaminitis. PT ate @ 0900- to be kept npo for this TECHNIQUE: Imaging protocol: Real time ultrasound of the abdomen with image documentation. Limited exam focused on the region of clinical interest. COMPARISON: CT abdomen pelvis con [id number] 03/19/2023 10:26 PM FINDINGS: Hepatic veins: No evidence of thrombus within the hepatic veins. US/US ABD DOPPLER [id number] IMPRESSION: No evidence of thrombus within the hepatic veins.
--- NOTE | 2024-03-04 09:59 | PC.CHAP ---
Pastoral Care Encounter/Spiritual Assessment Type of Contact [] Declined ent nurse visit [] Patient/Family/Request visit [] Outpatient visit [] Follow-up visit [] Physician referral [] Code/Alert [X] Routine visit [] Staff referral [] Actively dying [] Patient sleeping [X] Family support [] [] Out of room [] Palliative care [] [] Receiving care in room [] Pre-surgical visit [] Trauma [] Long length of stay [] ICU visit [] Other: Relational/Emotional Strength [X] Patient feels connected with others/family/visitors/staff [] Distress [] Loneliness/isolation [] Abandonment Spirituality of Patient [X] Person of Kizzy [] Attends Sikh of their Kizzy [X] Believes in Prayer [] Reads Bible or Catholic materials [] There are Spiritual issues to be addressed Immigration Consultant Interventions [X] Prayer [X] Active listening [X Non-anxious presence [X] Spiritual/emotional support [] Crisis/trauma care [] Spiritual counseling [] Bereavement support [] Provided bereavement packet [] Provided Bible/devotional materials [] Provided toy/stuffed animal, coloring book to patient or family member [] Provided Communion [] Anointing/[place] [] Salvation [X] Completed spiritual assessment [] Other: Impact on Illness or Injury [] Angry [] Fearful [] Anxious [] Often cries [] Exhaustion [] Unable to work [] Unable to attend restoration [] Unable to walk/stand [] Unable to read [] Unable to drive [] Unable to eat/drink [] Unable to sleep [] Unable to be with family [] Patient intubated [] Other: Summary Time spent with patient 5 MIN
[2024-03-04 11:10] LABS: Glucose Point of Care 95 mg/dL (70-110)
[2024-03-04] MEDS: dextrose 10% 250 ML 1000 ML IV (14:19)
[2024-03-04 14:25] LABS: Glucose Point of Care 60 mg/dL (70-110)
--- NOTE | 2024-03-04 14:25 | PC.NURSE ---
Patient called nursing staff to room saying that he was not feeling well and getting weak. He is currently NPO for an ultrasound. Patient is A/O x 4. Blood sugar is check and that was 60. After reviewing the MAR he was given dextrose 10% since he needs to be NPO for ultrasound. Juice, snacks, and glucagon were not an option due to the NPO. Nursing stayed with patient while the IV ran and patient said he was starting to feel better. Blood sugar will be repeated after D10.
[2024-03-04 14:38] LABS: Glucose Point of Care 176 mg/dL (70-110)
[2024-03-04 15:15] LABS: Glucose Point of Care 101 mg/dL (70-110)
[2024-03-04 15:34] LABS: Glucose Point of Care 94 mg/dL (70-110)
[2024-03-04 17:04] LABS: Glucose Point of Care 92 mg/dL (70-110)
[2024-03-04 17:04] LABS: Glucose Point of Care 77 mg/dL (70-110)
--- NOTE | 2024-03-04 17:36 | PC.NURSE ---
Talked with provider about his Lantus dose and his blood sugars today and that he has been low the last two nights. Lantus is put on hold for now per Dr Pinon.
[2024-03-04 20:17] LABS: Glucose Point of Care 140 mg/dL (70-110)
[2024-03-04] MEDS: tamsulosin 0.4 mg Capsule 0.400000000000000022 MG PO (20:43)
--- NOTE | 2024-03-04 22:56 | P.PN_ITS ---
Subjective 2 Subjective: Feeling sleepy. Denies pain or discomfort. Vitals/I&O/Wt Last Vital Signs Temp 98.6 F 03/04/24 19:53 Pulse 72 03/04/24 19:53 Resp 20 H 03/04/24 19:53 BP 133/87 03/04/24 19:53 Pulse Ox 94 03/04/24 19:53 O2 Del Method Nasal Cannula 03/04/24 20:00 O2 Flow Rate 3 03/04/24 20:00 03/04/24 03/04/24 03/04/24 06:59 14:59 22:59 Intake Total 120 / 1156 350 / 350 480 / 830 Balance 120 / 756 350 / 350 480 / 830 Weight last 48 hrs Weight 153.768 kg Weight 153.314 kg Weight 151.046 kg Physical Exam 2 Narrative: On second visit accompanied by his . Const: COMMON NORMALS: patient oriented x3 and alert GENERAL APPEARANCE: c ooperative NUTRITIONAL APPEARANCE: obese morbidly obese O RIENTATION/CONSCIOUSNESS: Yes awake HENMT: COMMON NORMALS: oropharynx normal Neck/C-Spine: COMMON NORMALS: no JVD Resp: COMMON NORMALS: normal respiratory effort and clear to auscultation bilaterally AUSCULTATION: clear to auscultation bilaterally Cardio: COMMON NORMALS: no JVD, regular rhythm, S1 normal heart sound present, S2 normal heart sound present and No murmurs present (Cardio) RHYTHM: regular rhythm HEART SOUNDS: S1 normal heart sound present and S2 normal heart sound present GI: COMMON NORMALS: Normal to inspection, nondistended, normoactive bowel sounds present, Soft to palpation and non-tender PALPATION: Yes Soft to palpation OTHER: 1+ edema lower abdomen Extremity: COMMON NORMALS: no joint enlargement and no pedal edema OTHER: Trace edema bilateral lower extremities, has compression socks on. Neuro: COMMON NORMALS: patient oriented x3 and moves all extremities S ENSORIUM/ORIENTATION: Yes alert Skin: COMMON NORMALS: no rashes or lesions noted GENERAL SKIN EXAM: no rashes or lesions noted Urinary Catheter Management: Bailon: Cath Placed During This Visit: yes, but has since been removed by the nurse Reason for Continuing Indwelling Catheter: Decision to DC Catheter Urinary Catheter Date of Insertion: 03/01/24 Urinary Catheter Time of Insertion: 18:35 Date Urinary Catheter Removed: 03/02/24 Time Urinary Catheter Discontinued: 17:09 Data 03/04/24 05:11 03/04/24 05:11 A&P Assessment and plan (1) CKD (chronic kidney disease) stage 3, GFR 30-59 ml/min: ROMEL on CKD. Reviewed vitals, CBC, r potassium, BUN, creatinine, no worsening renal function today, creatinine 2. BUN is somewhat worse at 50. He is not hypotensive. Reviewed albumin, normal. Trace peripheral edema. Trace edema of the abdomen. Hold off additional diuretics. Recheck renal function. Reviewed, [id number]. Noted mild rhabdomyolysis. Hold statin. Recheck CK. Reassess kidney function. Discussed with nurse outreach case manager. He does have severe aortic stenosis, although so far has not been hypotensive. Monitor blood pressures. Baseline creatinine 1.3-1.5. Currently creatinine at baseline. (2) Transaminitis: Reviewed vitals, CMP, viral hepatitis panel. Noted additional worsening transaminitis, 1573 AST, 1454 ALT. Requested hepatic vein duplex, reviewed, no thrombosis. Acute liver injury of unclear source, possibly secondary to amiodarone. Continue to withhold medication. Reassess liver parameters. Monitor blood pressures. Concerning feature is he has developed hypoglycemia, although is on Lantus. Held Lantus entirely for now. Reassess glucose. Mental status remained good so far, monitor for any signs of acute liver failure. Will check INR. Has not received any since 03/02 but will also hold acetaminophen. (3) Hypoglycemia: Reviewed Accu-Cheks. Hold Lantus. Reassess glucose. Concern for possible acute liver failure. Reassess liver parameters. Check INR. Monitor mental status. Recheck sodium. (4) Atrial fibrillation with RVR: With new transaminitis stop amiodarone drip, hold oral amiodarone. Continue metoprolol. Monitor telemetry. Recheck chemistry. Check magnesium. Heart rate better controlled. Still in A-fib. In between has few rhythms of normal sinus rhythm. Continue with amiodarone drip for now. Switch to 200 mg oral daily twice daily once loading is completed. Post digoxin load. Digoxin level today morning 1.3. Continue with metoprolol 50 mg twice daily. Continue with home dose of Eliquis. (5) CHF (congestive heart failure): Severe exacerbation of metastatic CHF complicated by ROMEL on CKD, new transaminitis. Hold IV diuretics for now with noted ROMEL on CKD. Reassess renal function. Last echocardiogram within 1 year shows EF of 55 to 60% with trace MR. Received IV fluid boluses in the ER. No further IV fluids for now. Currently still net positive in fluid balance. Continue Bailon catheter. Takes torsemide 60 mg twice daily at home. Strict input charting, daily weights. (6) Chest pain: Resolved most likely type II in nature in setting of RVR. Last angiogram from December 2022 showed nonobstructive CAD with patent LAD and RCA stent. Apparently had angiogram at [facility] over the last 1 week. Appreciate recent A1c and lipid panel. Continue with aspirin, statin, beta-joy. (7) Asthma-COPD overlap syndrome: Ipratropium, Xopenex every 6 hours, Pulmicort twice daily. Ox supplementation keeping saturation over 90%. No concerns for asthma exacerbation. (8) Obstructive sleep apnea: On home vent. Noncompliant Patient is agreeable to give a trial of home vent again. Patient can use his home equipment. Check ABG (9) Diabetes mellitus type II, uncontrolled: Uncontrolled. Appreciate A1c recently of 10.2. Increase Lantus to 60 units twice daily, sliding scale to moderate dose protocol. Qualifiers: Glycemic state: with hyperglycemia Qualified Code(s): E11.65 - Type 2 diabetes mellitus with hyperglycemia (10) Essential (primary) hypertension: Goal blood pressure less than 140/90 mmHg with mean over 65. Currently blood pressure soft most likely in setting of RVR. Hold off on multiple antihypertensives. Continue with metoprolol. Will restart medications as per goal blood pressures. Plan Rhabdomyolysis: Reviewed CK, 402 with improvement today. Recheck CK. Hold off additional diuretic. Full code Cardiac diabetic diet Eliquis will be sufficient for DVT prophylaxis Attestations 2 Medical Necessity Statement*: Continue admission for assessment of management of decompensated congestive heart failure complicated by severe aortic stenosis, ROMEL on CKD, worsening new transaminitis, rhabdomyolysis. and High MDM includes number and complexity of problems actively addressed during encounter and amount and/or complexity of data reviewed/ordered [ resulted lab(s)/test(s), ordered lab(s)/test(s) and other healthcare professional discussion] as documented Diagnoses CKD (chronic kidney disease) stage 3, GFR 30-59 ml/min N18.30 Transaminitis R74.01 Hypoglycemia E16.2 Atrial fibrillation with RVR I48.91 CHF (congestive heart failure) I50.9 Chest pain R07.9 Asthma-COPD overlap syndrome J44.9 Obstructive sleep apnea G47.33 Uncontrolled type 2 diabetes mellitus with hyperglycemia E11.65 Glycemic state: with hyperglycemia Essential (primary) hypertension I10
[2024-03-05] VITALS (9 sets, daily range): BP systolic 135–144; BP diastolic 87–101; PULSE 60–68; RESP 18–26; TEMP 36.8–37; O2SAT 92–97; BMI 50.1
[2024-03-05] MEDS: ipratropium 0.5 mg/2.5 mL Neb INHALATION ×2 (01:47→09:33)
[2024-03-05] MEDS: levalbuterol 0.63 mg/3 mL Neb 0.630000000000000004 MG INHALATION ×2 (01:47→09:34)
[2024-03-05 03:41] LABS: Basophils % 0.3 %; Eosinophils % 0.1 %; Lymphocytes # 1.6 10^3/uL (0.8-4.8); Lymphocytes % 15.3 %; Mean Corpuscular HGB Conc 30.8 g/dL (30-55); Mean Corpuscular Hemoglobin 27.8 pg (27-33); Mean Platelet Volume 9.4 fL (7.4-10.4); Monocytes # 1.3 10^3/uL (0.2-0.9); Monocytes % 12.7 %; Neutrophils % 70.9 %; Nucleated Red Blood Cells % 0.3 %; Platelet Count 289 10^3/cmm (157-399); Red Cell Distribution Width 15.6 % (12.1-15.1); White Blood Count 10.57 10^3/uL (3.29-11.43)
[2024-03-05 03:53] LABS: INR 2.03 (0.8-1.2)
[2024-03-05 04:12] LABS: Albumin Level 3.5 g/dL (3.5-5.2); Alkaline Phosphatase 230 U/L (40-130); Anion Gap 14.5 (5-19); Blood Urea Nitrogen 57 mg/dL (6-20); Calcium 9.2 mg/dL (8.5-10.5); Carbon Dioxide 29 mmol/L (22-29); Chloride 95 mmol/L (98-107); Creatinine Clr Calc Pharmacy 58.4591; Globulin 4.1 g/dL (1.3-4.6); Glomerular Filtration Rate 34.4 mL/min (90-130); Glucose 85 mg/dL (65-115); Osmolality Calculated 291 mOsm/kg (285-295); Potassium 5.5 mmol/L (3.5-5.1); Sodium 133 mmol/L (136-145); Total Bilirubin 0.8 mg/dL (0.15-1.2); Total Protein 7.6 g/dL (6.6-8.7)
[2024-03-05 04:13] LABS: Creatine Phosphokinase 313 U/L (39-308)
[2024-03-05 04:30] LABS: Aspartate Amino Transferase 1565 U/L (0-40)
--- NOTE | 2024-03-05 04:48 | PC.NURSE ---
pt is refusing to wear telemetry, attempted multiple time over past two nights to put back on pt pt is also refusing to allow nursing staff to measure urine output
[2024-03-05 04:49] LABS: Alanine Aminotransferase 1633 U/L (0-41)
[2024-03-05 07:40] LABS: Glucose Point of Care 73 mg/dL (70-110)
[2024-03-05] MEDS: levothyroxine 25 mcg Tablet PO (08:42)
[2024-03-05] MEDS: metoprolol tartrate 50 mg Tablet PO ×2 (08:42→21:57)
[2024-03-05] MEDS: apixaban 5 mg Tablet PO ×2 (08:42→17:03)
[2024-03-05] MEDS: pantoprazole DR 40 mg Tablet PO (08:42)
[2024-03-05] MEDS: fluoxetine 20 mg Capsule PO ×3 (08:42→21:57)
[2024-03-05] MEDS: albumin 25 G/100 ML BAG 60 G IV (09:32)
[2024-03-05] MEDS: budesonide 0.5 mg/2 mL Neb INHALATION (09:34)
[2024-03-05 11:34] LABS: Glucose Point of Care 94 mg/dL (70-110)
--- NOTE | 2024-03-05 12:43 | PC.SOCIAL ---
IMM Updated Updated pt on IMM. No questions voiced. Provided pt a copy. Initialed, dated, & timed copy in chart.
[2024-03-05 17:00] LABS: Glucose Point of Care 114 mg/dL (70-110)
[2024-03-05 20:40] LABS: Glucose Point of Care 204 mg/dL (70-110)
--- NOTE | 2024-03-05 21:39 | P.PN_ITS ---
Subjective 2 Subjective: He has had a few episodes of dyspnea. Vitals/I&O/Wt Last Vital Signs Temp 98.6 F 03/05/24 20:00 Pulse 63 03/05/24 20:15 Resp 18 03/05/24 20:15 BP 142/101 03/05/24 20:00 Pulse Ox 97 03/05/24 20:15 O2 Del Method Nasal Cannula 03/05/24 20:15 O2 Flow Rate 3 03/05/24 20:15 03/05/24 03/05/24 03/05/24 06:59 14:59 22:59 Intake Total 580 / 580 240 / 820 Output Total 1225 / 1225 525 / 1750 Balance -645 / -645 -285 / -930 Weight last 48 hrs Weight 153.966 kg Weight 153.966 kg Weight 153.768 kg Physical Exam 2 Const: COMMON NORMALS: patient oriented x3 and alert GENERAL APPEARANCE: c ooperative NUTRITIONAL APPEARANCE: obese morbidly obese O RIENTATION/CONSCIOUSNESS: Yes awake HENMT: COMMON NORMALS: oropharynx normal Neck/C-Spine: COMMON NORMALS: no JVD Resp: COMMON NORMALS: normal respiratory effort and clear to auscultation bilaterally AUSCULTATION: clear to auscultation bilaterally Cardio: COMMON NORMALS: no JVD, regular rhythm, S1 normal heart sound present, S2 normal heart sound present and No murmurs present (Cardio) RHYTHM: regular rhythm HEART SOUNDS: S1 normal heart sound present and S2 normal heart sound present GI: COMMON NORMALS: Normal to inspection, nondistended, normoactive bowel sounds present, Soft to palpation and non-tender PALPATION: Yes Soft to palpation OTHER: 1+ edema lower abdomen Extremity: COMMON NORMALS: no joint enlargement and no pedal edema OTHER: 1+ edema bilateral lower extremities. Neuro: COMMON NORMALS: patient oriented x3 and moves all extremities S ENSORIUM/ORIENTATION: Yes alert Skin: COMMON NORMALS: no rashes or lesions noted GENERAL SKIN EXAM: no rashes or lesions noted Urinary Catheter Management: Bailon: Cath Placed During This Visit: yes, but has since been removed by the nurse Reason for Continuing Indwelling Catheter: Decision to DC Catheter Urinary Catheter Date of Insertion: 03/01/24 Urinary Catheter Time of Insertion: 18:35 Date Urinary Catheter Removed: 03/02/24 Time Urinary Catheter Discontinued: 17:09 Data 03/05/24 03:13 03/05/24 03:13 A&P Assessment and plan (1) CKD (chronic kidney disease) stage 3, GFR 30-59 ml/min: ROMEL on CKD. Unimproved, reviewed BUN, creatinine, BUN with worsening up to 57 today. Creatinine the same at 2. Repeat potassium, 5.5. Continues on low potassium diet. Given a dose of albumin. Recheck chemistry. Monitor SHUN. Diuretics on hold. Discussed with him difficulty in determining volume status. Attempted bedside ultrasound but could not obtain any usable views of IVC. Reviewed CK, Continues to downtrend down to 313. Discussed with embedded case manager. Hold statin. Recheck CK. Reassess kidney function. He does have severe aortic stenosis, although so far has not been hypotensive. Monitor blood pressures. Baseline creatinine 1.3-1.5. Currently creatinine at baseline. (2) Transaminitis: Reviewed lipid parameters, T. bili, ST, LD, alk phos, discussed with him, additional mild increase but rise appears to have slowed down. Reviewed INR, 2.03. He is awake and alert. Discussed with him concerns yesterday regarding possibility of acute liver failure, although appears hopefully rise in transaminases slowed down. Will repeat liver parameters. Hepatic vein duplex w/o thrombosis. Acute liver injury of unclear source, possibly secondary to amiodarone. Continue to withhold medication. Reassess liver parameters. Monitor blood pressures. Continue off amiodarone. Hold statin. Avoid acetaminophen. Has not received any since 03/02 but will also hold acetaminophen. (3) Hypoglycemia: Reviewed glucose, hypopnea is better today, early in the morning 85, but through the day improved, after 114, 204 this evening. Continue to hold Lantus. Reassess glucose. Reviewed Accu-Cheks. Hold Lantus. Reassess glucose. Concern for possible acute liver failure. Reassess liver parameters. Check INR. Monitor mental status. Recheck sodium. (4) Atrial fibrillation with RVR: Reassess liver parameters, monitor for risk of bleeding with Eliquis with liver dysfunction. In case of progressive worsening may have to discontinue. Will hold morning dose for now. With new transaminitis stop amiodarone drip, hold oral amiodarone. Continue metoprolol. Monitor telemetry. Recheck chemistry. Check magnesium. Heart rate better controlled. Still in A-fib. In between has few rhythms of normal sinus rhythm. Continue with amiodarone drip for now. Switch to 200 mg oral daily twice daily once loading is completed. Post digoxin load. Digoxin level today morning 1.3. Continue with metoprolol 50 mg twice daily. Continue with home dose of Eliquis. (5) CHF (congestive heart failure): Severe exacerbation of metastatic CHF complicated by ROMEL on CKD, new transaminitis. Hold IV diuretics for now with noted ROMEL on CKD. Reassess renal function. Last echocardiogram within 1 year shows EF of 55 to 60% with trace MR. Received IV fluid boluses in the ER. No further IV fluids for now. Currently still net positive in fluid balance. Continue Bailon catheter. Takes torsemide 60 mg twice daily at home. Strict input charting, daily weights. (6) Chest pain: Resolved most likely type II in nature in setting of RVR. Last angiogram from December 2022 showed nonobstructive CAD with patent LAD and RCA stent. Apparently had angiogram at [facility] over the last 1 week. Appreciate recent A1c and lipid panel. Continue with aspirin, statin, beta-joy. (7) Asthma-COPD overlap syndrome: Ipratropium, Xopenex every 6 hours, Pulmicort twice daily. Ox supplementation keeping saturation over 90%. No concerns for asthma exacerbation. (8) Obstructive sleep apnea: On home vent. Noncompliant Patient is agreeable to give a trial of home vent again. Patient can use his home equipment. Check ABG (9) Diabetes mellitus type II, uncontrolled: Uncontrolled. Appreciate A1c recently of 10.2. Increase Lantus to 60 units twice daily, sliding scale to moderate dose protocol. Qualifiers: Glycemic state: with hyperglycemia Qualified Code(s): E11.65 - Type 2 diabetes mellitus with hyperglycemia (10) Essential (primary) hypertension: Goal blood pressure less than 140/90 mmHg with mean over 65. Currently blood pressure soft most likely in setting of RVR. Hold off on multiple antihypertensives. Continue with metoprolol. Will restart medications as per goal blood pressures. Plan Rhabdomyolysis: Reviewed CK, 402 with improvement today. Recheck CK. Hold off additional diuretic. Full code Cardiac diabetic diet Eliquis will be sufficient for DVT prophylaxis Attestations 2 Medical Necessity Statement*: Continue admission for assessment and management of rapid rise in transaminases, liver dysfunction, hypoglycemia, decompensated congestive heart failure complicated by severe aortic stenosis, ROMEL on CKD, rhabdomyolysis. and High MDM includes amount and/or complexity of data reviewed/ordered [ resulted lab(s)/test(s), ordered lab(s)/test(s) and other healthcare professional discussion] and described risk of complication, morbidity or mortality of management as documented Diagnoses CKD (chronic kidney disease) stage 3, GFR 30-59 ml/min N18.30 Transaminitis R74.01 Hypoglycemia E16.2 Atrial fibrillation with RVR I48.91 CHF (congestive heart failure) I50.9 Chest pain R07.9 Asthma-COPD overlap syndrome J44.9 Obstructive sleep apnea G47.33 Uncontrolled type 2 diabetes mellitus with hyperglycemia E11.65 Glycemic state: with hyperglycemia Essential (primary) hypertension I10
[2024-03-05] MEDS: tamsulosin 0.4 mg Capsule 0.400000000000000022 MG PO (21:57)
[2024-03-05] MEDS: insulin lispro 100 unit/1 mL SUBCUT (21:57)
[2024-03-06] VITALS (11 sets, daily range): BP systolic 128–156; BP diastolic 85–101; PULSE 56–68; RESP 16–28; TEMP 36.5–37.1; O2SAT 93–98
[2024-03-06 02:58] LABS: Basophils % 0.3 %; Eosinophils # 0.1 10^3/uL (0.0-0.8); Eosinophils % 0.7 %; Hematocrit 36.5 % (37-53); Lymphocytes # 1.4 10^3/uL (0.8-4.8); Lymphocytes % 15.7 %; Mean Corpuscular HGB Conc 30.7 g/dL (30-55); Mean Corpuscular Hemoglobin 27.6 pg (27-33); Mean Corpuscular Volume 89.9 fl (82-101); Mean Platelet Volume 9.4 fL (7.4-10.4); Monocytes # 1.3 10^3/uL (0.2-0.9); Monocytes % 14.3 %; Neutrophils % 68.2 %; Nucleated Red Blood Cells % 0 %; Platelet Count 269 10^3/cmm (157-399); Red Blood Count 4.06 10^6/uL (3.85-5.65); Red Cell Distribution Width 15.6 % (12.1-15.1); White Blood Count 9.09 10^3/uL (3.29-11.43)
[2024-03-06 03:24] LABS: Albumin Level 3.7 g/dL (3.5-5.2); Alkaline Phosphatase 240 U/L (40-130); Blood Urea Nitrogen 47 mg/dL (6-20); Calcium 8.8 mg/dL (8.5-10.5); Carbon Dioxide 29 mmol/L (22-29); Chloride 98 mmol/L (98-107); Creatinine Clr Calc Pharmacy 68.8278; Globulin 3.7 g/dL (1.3-4.6); Glomerular Filtration Rate 41.5 mL/min (90-130); Glucose 140 mg/dL (65-115); Osmolality Calculated 299 mOsm/kg (285-295); Sodium 137 mmol/L (136-145); Total Bilirubin 0.8 mg/dL (0.15-1.2); Total Protein 7.4 g/dL (6.6-8.7)
[2024-03-06 03:30] LABS: Creatine Phosphokinase 292 U/L (39-308)
[2024-03-06 03:37] LABS: Alanine Aminotransferase 1359 U/L (0-41)
[2024-03-06 03:39] LABS: Aspartate Amino Transferase 905 U/L (0-40)
[2024-03-06 06:23] LABS: Glucose Point of Care 96 mg/dL (70-110)
[2024-03-06] MEDS: budesonide 0.5 mg/2 mL Neb INHALATION (07:35)
[2024-03-06] MEDS: levalbuterol 0.63 mg/3 mL Neb 0.630000000000000004 MG INHALATION ×2 (07:35→13:17)
[2024-03-06] MEDS: ipratropium 0.5 mg/2.5 mL Neb INHALATION ×2 (07:35→13:17)
[2024-03-06] MEDS: fluoxetine 20 mg Capsule PO ×3 (09:27→22:08)
[2024-03-06] MEDS: pantoprazole DR 40 mg Tablet PO (09:27)
[2024-03-06] MEDS: levothyroxine 25 mcg Tablet PO (09:27)
[2024-03-06] MEDS: metoprolol tartrate 50 mg Tablet PO ×2 (09:27→22:08)
[2024-03-06] MEDS: TORSEmide 20 mg Tablet PO (10:49)
[2024-03-06 11:22] LABS: Glucose Point of Care 86 mg/dL (70-110)
[2024-03-06 16:55] LABS: Glucose Point of Care 105 mg/dL (70-110)
[2024-03-06 21:06] LABS: Glucose Point of Care 133 mg/dL (70-110)
[2024-03-06] MEDS: tamsulosin 0.4 mg Capsule 0.400000000000000022 MG PO (22:08)
--- NOTE | 2024-03-06 22:43 | PM.PN ---
Subjective Subjective: Denies chest pain or pressure. Denies pain or discomfort. Has gotten up in his room. Vitals/I&O/Wt Last Vital Signs Temp 97.9 F 03/06/24 20:00 Pulse 63 03/06/24 20:00 Resp 28 H 03/06/24 20:00 BP 135/91 03/06/24 20:00 Pulse Ox 98 03/06/24 20:00 O2 Del Method Nasal Cannula 03/06/24 20:00 O2 Flow Rate 3 03/06/24 19:53 03/06/24 03/06/24 03/06/24 06:59 14:59 22:59 Intake Total 600 / 1660 840 / 840 520 / 1360 Output Total 1400 / 3150 2600 / 2600 Balance -800 / -1490 840 / 840 -2080 / -1240 Weight last 48 hrs Weight 156.217 kg Weight 156.217 kg Weight 153.966 kg Weight 153.966 kg Physical Exam Const: COMMON NORMALS: patient oriented x3 and alert GENERAL APPEARANCE: cooperative NUTRITIONAL APPEARANCE: obese morbidly obese ORIENTATION/CONSCIOUSNESS: Yes awake HENMT: COMMON NORMALS: oropharynx normal Neck/C-Spine: COMMON NORMALS: no JVD Resp: COMMON NORMALS: normal respiratory effort and clear to auscultation bilaterally AUSCULTATION: clear to auscultation bilaterally Cardio: COMMON NORMALS: no JVD, regular rhythm, S1 normal heart sound present, S2 normal heart sound present and No murmurs present (Cardio) RHYTHM: regular rhythm HEART SOUNDS: S1 normal heart sound present and S2 normal heart sound present GI: COMMON NORMALS: Normal to inspection, nondistended, normoactive bowel sounds present, Soft to palpation and non-tender PALPATION: Yes Soft to palpation OTHER: 1+ edema lower abdomen Extremity: COMMON NORMALS: no joint enlargement and no pedal edema OTHER: 1+ edema bilateral lower extremities. Neuro: COMMON NORMALS: patient oriented x3 and moves all extremities SENSORIUM/ORIENTATION: Yes alert Skin: COMMON NORMALS: no rashes or lesions noted GENERAL SKIN EXAM: no rashes or lesions noted Urinary Catheter Management: Bailon: Cath Placed During This Visit: yes, but has since been removed by the nurse Reason for Continuing Indwelling Catheter: Decision to DC Catheter Urinary Catheter Date of Insertion: 03/01/24 Urinary Catheter Time of Insertion: 18:35 Date Urinary Catheter Removed: 03/02/24 Time Urinary Catheter Discontinued: 17:09 Data 03/06/24 02:19 03/06/24 02:19 A&P Assessment and plan (1) CKD (chronic kidney disease) stage 3, GFR 30-59 ml/min: ROMEL on CKD. Reviewed vitals, CBC, CMP. Reviewed CK which now normalized. Reviewed BUN, creatinine, anion gap, bicarb, potassium. Discussed with him mild improvement in renal function, BUN down to 47, creatinine down to 1.7. He is producing urine. Discussed maintaining fluid restriction. For now we had held off IV diuretics, discussed with him restarting oral diuretic at lower dose for now. Reassessing renal function, response. Discussed with child support case officer. Reassess chemistry, monitor SHUN Hold statin. He does have severe aortic stenosis, although so far has not been hypotensive. Monitor blood pressures. Baseline creatinine 1.3-1.5. Currently creatinine at baseline. (2) Transaminitis: Reviewed CMP, T. bili, AST, LT, alk phos. Improvement in AST down to 905, ALT down to 1359. T. bili normal. Alk phos with lag, still mild rise to 240. Reassess CMP and INR. Hepatic vein duplex w/o thrombosis. Acute liver injury of unclear source, possibly secondary to amiodarone. Continue to withhold medication. Reassess liver parameters. Monitor blood pressures. Continue off amiodarone. Hold statin. Avoid acetaminophen. Has not received any since 03/02 but will also hold acetaminophen. (3) Hypoglycemia: Reviewed glucose, no further hypoglycemia, but not requiring insulin so far. Reassess glucose. Reviewed Accu-Cheks. Hold Lantus. Reassess glucose. Concern for possible acute liver failure. Reassess liver parameters. Recheck INR. Monitor mental status. Recheck sodium. (4) Atrial fibrillation with RVR: Reassess liver parameters, monitor for risk of bleeding with Eliquis with liver dysfunction. In case of progressive worsening may have to discontinue. Will hold morning dose for now. With new transaminitis stop amiodarone drip, hold oral amiodarone. Continue metoprolol. Monitor telemetry. Recheck chemistry. Check magnesium. Heart rate better controlled. Still in A-fib. In between has few rhythms of normal sinus rhythm. Continue with amiodarone drip for now. Switch to 200 mg oral daily twice daily once loading is completed. Post digoxin load. Digoxin level today morning 1.3. Continue with metoprolol 50 mg twice daily. Continue with home dose of Eliquis. (5) CHF (congestive heart failure): CHF complicated by ROMEL on CKD, new transaminitis. Some improvement in renal function, resume lower dose torsemide. Reassess renal parameters, electrolytes, monitor SHUN. Hold IV diuretics for now with noted ROMEL on CKD. Reassess renal function. Last echocardiogram within 1 year shows EF of 55 to 60% with trace MR. Received IV fluid boluses in the ER. No further IV fluids for now. Currently still net positive in fluid balance. Continue Bailon catheter. Takes torsemide 60 mg twice daily at home. Strict input charting, daily weights. (6) Chest pain: Resolved most likely type II in nature in setting of RVR. Last angiogram from December 2022 showed nonobstructive CAD with patent LAD and RCA stent. Apparently had angiogram at [facility] over the last 1 week. Appreciate recent A1c and lipid panel. Continue with aspirin, statin, beta-joy. (7) Asthma-COPD overlap syndrome: Ipratropium, Xopenex every 6 hours, Pulmicort twice daily. Ox supplementation keeping saturation over 90%. No concerns for asthma exacerbation. (8) Obstructive sleep apnea: On home vent. Noncompliant Patient is agreeable to give a trial of home vent again. Patient can use his home equipment. Check ABG (9) Diabetes mellitus type II, uncontrolled: Uncontrolled. Appreciate A1c recently of 10.2. Increase Lantus to 60 units twice daily, sliding scale to moderate dose protocol. Qualifiers: Glycemic state: with hyperglycemia Qualified Code(s): E11.65 - Type 2 diabetes mellitus with hyperglycemia (10) Essential (primary) hypertension: Goal blood pressure less than 140/90 mmHg with mean over 65. Currently blood pressure soft most likely in setting of RVR. Hold off on multiple antihypertensives. Continue with metoprolol. Will restart medications as per goal blood pressures. Plan Rhabdomyolysis: Reviewed CK, now normalized. Full code Cardiac diabetic diet Eliquis will be sufficient for DVT prophylaxis Attestations Medical Necessity Statement*: Continue admission for assessment and management of rapid rise in transaminases, liver dysfunction, hypoglycemia, decompensated congestive heart failure complicated by severe aortic stenosis, ROMEL on CKD. and High MDM includes amount and/or complexity of data reviewed/ordered [ resulted lab(s)/test(s), ordered lab(s)/test(s) and other healthcare professional discussion] as documented Diagnoses CKD (chronic kidney disease) stage 3, GFR 30-59 ml/min N18.30 Transaminitis R74.01 Hypoglycemia E16.2 Atrial fibrillation with RVR I48.91 CHF (congestive heart failure) I50.9 Chest pain R07.9 Asthma-COPD overlap syndrome J44.9 Obstructive sleep apnea G47.33 Uncontrolled type 2 diabetes mellitus with hyperglycemia E11.65 Glycemic state: with hyperglycemia Essential (primary) hypertension I10
[2024-03-07] VITALS (7 sets, daily range): BP systolic 128–155; BP diastolic 87–98; PULSE 61–65; RESP 18–28; TEMP 36.4–36.8; O2SAT 96–98; BMI 51.2
[2024-03-07 04:19] LABS: Basophils % 0.4 %; Eosinophils # 0.1 10^3/uL (0.0-0.8); Eosinophils % 0.8 %; Hematocrit 36.5 % (37-53); Lymphocytes # 1.3 10^3/uL (0.8-4.8); Lymphocytes % 17.6 %; Mean Corpuscular Hemoglobin 27.8 pg (27-33); Mean Corpuscular Volume 89.7 fl (82-101); Mean Platelet Volume 9.2 fL (7.4-10.4); Monocytes % 13.1 %; Neutrophils # 5.09 10^3/uL (1.8-7.7); Neutrophils % 67.2 %; Nucleated Red Blood Cells % 0.4 %; Platelet Count 220 10^3/cmm (157-399); Red Blood Count 4.07 10^6/uL (3.85-5.65); Red Cell Distribution Width 15.8 % (12.1-15.1); White Blood Count 7.57 10^3/uL (3.29-11.43)
[2024-03-07 04:28] LABS: INR 1.39 (0.8-1.2)
[2024-03-07 04:38] LABS: Albumin Level 3.6 g/dL (3.5-5.2); Alkaline Phosphatase 229 U/L (40-130); Anion Gap 12.7 (5-19); Aspartate Amino Transferase 530 U/L (0-40); Blood Urea Nitrogen 45 mg/dL (6-20); Calcium 8.6 mg/dL (8.5-10.5); Carbon Dioxide 29 mmol/L (22-29); Chloride 95 mmol/L (98-107); Creatinine Clr Calc Pharmacy 78.6801; Globulin 3.6 g/dL (1.3-4.6); Glomerular Filtration Rate 47.9 mL/min (90-130); Glucose 166 mg/dL (65-115); Osmolality Calculated 289 mOsm/kg (285-295); Potassium 4.7 mmol/L (3.5-5.1); Sodium 132 mmol/L (136-145); Total Bilirubin 0.8 mg/dL (0.15-1.2); Total Protein 7.2 g/dL (6.6-8.7)
[2024-03-07 05:01] LABS: Alanine Aminotransferase 1148 U/L (0-41)
[2024-03-07 06:37] LABS: Glucose Point of Care 157 mg/dL (70-110)
[2024-03-07] MEDS: budesonide 0.5 mg/2 mL Neb INHALATION (07:29)
[2024-03-07] MEDS: levalbuterol 0.63 mg/3 mL Neb 0.630000000000000004 MG INHALATION (07:29)
[2024-03-07] MEDS: ipratropium 0.5 mg/2.5 mL Neb INHALATION (07:29)
[2024-03-07] MEDS: fluoxetine 20 mg Capsule PO ×2 (09:45→16:52)
[2024-03-07] MEDS: TORSEmide 20 mg Tablet 40 MG PO (09:46)
[2024-03-07] MEDS: pantoprazole DR 40 mg Tablet PO (09:47)
[2024-03-07] MEDS: levothyroxine 25 mcg Tablet PO (09:47)
[2024-03-07] MEDS: metoprolol tartrate 50 mg Tablet PO (09:50)
[2024-03-07] MEDS: insulin lispro 100 unit/1 mL SUBCUT ×2 (09:51→13:05)
[2024-03-07 10:04] LABS: Glucose Point of Care 230 mg/dL (70-110)
[2024-03-07 11:38] LABS: Glucose Point of Care 156 mg/dL (70-110)
--- NOTE | 2024-03-07 12:31 | PC.SOCIAL ---
IMM Updated Updated pt on IMM. No questions voiced. Provided pt a copy. Initialed, dated, & timed copy in chart.
[2024-03-07 16:59] LABS: Glucose Point of Care 128 mg/dL (70-110)
--- NOTE | 2024-03-07 17:19 | P.DS_ITS ---
Discharge Providers Date of Admission: 03/01/24 14:45 Date of Discharge: March 07, 2024 Attending Provider at Admission: Arthur Neil MD Attending Provider at Discharge: Hank Pinon Primary Care Provider: JAQUI Garcia Diagnoses at Discharge Discharge Diagnosis (1) CKD (chronic kidney disease) stage 3, GFR 30-59 ml/min: Status: Acute (2) Transaminitis: Status: Acute (3) Hypoglycemia: Status: Acute (4) Atrial fibrillation with RVR: Status: Acute (5) CHF (congestive heart failure): Status: Chronic (6) Chest pain: Status: Acute (7) Asthma-COPD overlap syndrome: Status: Chronic (8) Obstructive sleep apnea: Status: Acute (9) Diabetes mellitus type II, uncontrolled: Status: Chronic Qualifiers: Glycemic state: with hyperglycemia Qualified Code(s): E11.65 - Type 2 diabetes mellitus with hyperglycemia (10) Essential (primary) hypertension: Status: Acute Reason for Visit Reason for Visit: chest pains Hospital Course Hospital Course Pleasant 58 old gentleman with history of obesity, ELEONORA, CKD, HTN, COPD, DM 2, CAD, angiogram last year with patent LAD, RCA, angiogram at [facility] within the last month with reportedly normal coronaries but was found to have severe aortic stenosis and has been advised to have TAVR versus surgical replacement. He follows with the team in [place] at [facility] for these arrangements and states has coming up appointments. He was admitted after presenting with chest pain with atrial fibrillation with RVR found in ER. Blood pressure was low 98/59, received fluid boluses, he was loaded with digoxin, started on amiodarone drip. Resumed on oral metoprolol. On presentation with decompensated diastolic CHF, was started on IV diuretics. However, developed acute kidney injury as well as rapidly rising transaminitis up to 1500s AST and ALT, INR rising up to 2, and became hypoglycemic to the point that his insulin had to be stopped entirely. Diuretics as well as amiodarone had to be stopped. Continued on metoprolol and heart rates remained controlled. Was given albumin. Kidney function gradually showing improvement, creatinine down to 1.5. Liver further assessed with viral hepatitis panel, which was negative, duplex of hepatic veins did not show thrombosis. Liver parameters are showing improvement. Suspect either acute liver injury with concern that he was progressing to acute liver failure with rapid decline in liver function with rising INR, hypoglycemia, possibly secondary to amiodarone versus possibly shock liver due to hypotension prior to the admission. Liver parameters are improving, INR improving. He remains awake and alert. Please follow-up both kidney and liver function. He was resumed on oral diuretic with torsemide which she has been tolerating well so far increasing from 20 to 40 mg, and is to continue 60 mg but only daily after discharge. Please reassess volume status. He is cautioned to monitor his blood pressures as he may be at risk of severe hypotension with severe aortic stenosis, hydralazine for now is not continued. Please reassess blood pressures. He is overall feeling better, ambulating in the room, feels ready to discharge and will be following up with primary provider as well as cardiology team in [place] to continue arrangements for aortic valve repair or replacement. He knows to seek medical attention in case of worsening or new concerning symptoms. Physical Exam Const: COMMON NORMALS: patient oriented x3 and alert GENERAL APPEARANCE: cooperative NUTRITIONAL APPEARANCE: obese morbidly obese ORIENTATION/CONSCIOUSNESS: Yes awake HENMT: COMMON NORMALS: oropharynx normal Neck/C-Spine: COMMON NORMALS: no JVD Resp: COMMON NORMALS: normal respiratory effort and clear to auscultation bilaterally AUSCULTATION: clear to auscultation bilaterally Cardio: COMMON NORMALS: no JVD, regular rhythm, S1 normal heart sound present, S2 normal heart sound present and No murmurs present (Cardio) RHYTHM: regular rhythm HEART SOUNDS: S1 normal heart sound present and S2 normal heart sound present GI: COMMON NORMALS: Normal to inspection, nondistended, normoactive bowel sounds present, Soft to palpation and non-tender PALPATION: Yes Soft to palpation OTHER: 1+ edema lower abdomen Extremity: COMMON NORMALS: no joint enlargement and no pedal edema OTHER: 1+ edema bilateral lower extremities. Neuro: COMMON NORMALS: patient oriented x3 and moves all extremities SENSORIUM/ORIENTATION: Yes alert Skin: COMMON NORMALS: no rashes or lesions noted GENERAL SKIN EXAM: no rashes or lesions noted Urinary Catheter Management: [place]: Cath Placed During This Visit: yes, but has since been removed by the nurse Reason for Continuing Indwelling Catheter: Decision to DC Catheter Urinary Catheter Date of Insertion: 03/01/24 Urinary Catheter Time of Insertion: 18:35 Date Urinary Catheter Removed: 03/02/24 Time Urinary Catheter Discontinued: 17:09 Discharge Data Studies Completed and Pending Completed Studies During Hospitalization Category Date Time Status XR chest 1V portable [id number] Stat Exams 03/01/24 12:57 Completed US ABD DOPPLER [id number] Routine Ultrasound 03/04/24 09:24 Completed Pending at discharge Category Date Time Status Complete Blood Count w/Auto AM LABS Lab 03/08/24 04:00 Ordered Complete Blood Count w/Auto AM LABS Lab 03/09/24 04:00 Ordered Comprehensive Metabolic Panel AM LABS Lab 03/08/24 04:00 Ordered Comprehensive Metabolic Panel AM LABS Lab 03/09/24 04:00 Ordered Radiology Impressions Chest X-Ray 03/01/24 12:57 IMPRESSION: Findings consistent with heart failure and interstitial edema. Abd US Ao-IVC-BPG Limited 03/04/24 09:24 IMPRESSION: No evidence of thrombus within the hepatic veins. Laboratory Results WBC 7.57 10^3/uL (3.29-11.43) 03/07/24 04:06 RBC 4.07 10^6/uL (3.85-5.65) 03/07/24 04:06 Hgb 11.30 g/dL (11.27-16.99) 03/07/24 04:06 Hct 36.5 % (37-53) L 03/07/24 04:06 MCV 89.7 fl (82-101) 03/07/24 04:06 MCH 27.8 pg (27-33) 03/07/24 04:06 MCHC 31.0 g/dL (30-55) 03/07/24 04:06 RDW 15.8 % (12.1-15.1) H 03/07/24 04:06 Plt Count 220 10^3/cmm (157-399) 03/07/24 04:06 MPV 9.2 fL (7.4-10.4) 03/07/24 04:06 Neut % (Auto) 67.2 % 03/07/24 04:06 Lymph % (Auto) 17.6 % 03/07/24 04:06 [place] % (Auto) 13.1 % 03/07/24 04:06 Eos % (Auto) 0.8 % 03/07/24 04:06 Baso % (Auto) 0.4 % 03/07/24 04:06 Neut # (Auto) 5.09 10^3/uL (1.8-7.7) 03/07/24 04:06 Lymph # (Auto) 1.3 10^3/uL (0.8-4.8) 03/07/24 04:06 [place] # (Auto) 1.0 10^3/uL (0.2-0.9) H 03/07/24 04:06 Eos # (Auto) 0.1 10^3/uL (0.0-0.8) 03/07/24 04:06 Baso # (Auto) 0.0 10^3/uL (0.0-0.1) 03/07/24 04:06 Nucleated RBC % (auto) 0.4 % 03/07/24 04:06 Nucleated RBCs # 0.0 /100WBC 03/07/24 04:06 PT 17.50 SECONDS (12.1-14.9) H 03/07/24 04:06 INR 1.39 (0.8-1.2) H 03/07/24 04:06 D-Dimer 0.52 ug/mLFEU (0-0.59) 03/01/24 13:43 Specimen Type Arterial 03/01/24 17:22 Sample Site Radial, left 03/01/24 17:22 ABG pH 7.38 (7.35-7.45) 03/01/24 17:22 ABG pCO2 58.4 mmHg (35-45) H 03/01/24 17:22 ABG pO2 53.0 mmHg (80.0-100.0) L 03/01/24 17:22 ABG PO2/FiO2 Ratio 0 03/01/24 17:22 ABG HCO3 34.8 mmol/L (22-26) H 03/01/24 17:22 ABG O2 Saturation 84.5 03/01/24 17:22 ABG Base Excess 8.1 mmol/L (-2.0-2.0) H 03/01/24 17:22 Alex Test Pos 03/01/24 17:22 A-a O2 Gradient 13.8 mmHg (5-10) H 03/01/24 17:22 Hematocrit 33.5 % (42-52) L 03/01/24 17:22 Hgb O2 Saturation 83.1 % (95-100) L 03/01/24 17:22 Carboxyhemoglobin 1.2 %THgb (0.4-20.1) 03/01/24 17:22 Methemoglobin 0.5 % (0.4-1.5) 03/01/24 17:22 Total Hemoglobin 10.9 g/dL (14-18) L 03/01/24 17:22 Sodium 135.0 mmol/L (131-143) 03/01/24 17:22 Potassium 5.5 mmol/L (3.5-5.0) H 03/01/24 17:22 Glucose 408.0 mg/dL (70-115) H 03/01/24 17:22 Ionized Calcium 1.2 mmol/L (1.1-1.4) 03/01/24 17:22 O2 Delivery Device Nc 03/01/24 17:22 O2 Liters/Min 3.0 % 03/01/24 17:22 FiO2 32.0 % 03/01/24 17:22 Sexual Health Physician ID Cak 03/01/24 17:22 Sodium 132 mmol/L (136-145) L 03/07/24 04:06 Potassium 4.7 mmol/L (3.5-5.1) 03/07/24 04:06 Chloride 95 mmol/L (98-107) L 03/07/24 04:06 Carbon Dioxide 29 mmol/L (22-29) 03/07/24 04:06 Anion Gap 12.7 (5-19) 03/07/24 04:06 BUN 45 mg/dL (6-20) H 03/07/24 04:06 Creatinine 1.5 mg/dL (0.7-1.2) H 03/07/24 04:06 GFR Calculation 47.9 mL/min (90-130) L 03/07/24 04:06 Glucose 166 mg/dL (65-115) H 03/07/24 04:06 POC Glucose 128 mg/dL (70-110) H 03/07/24 16:53 Calculated Osmolality 289 mOsm/kg (285-295) 03/07/24 04:06 Calcium 8.6 mg/dL (8.5-10.5) 03/07/24 04:06 Phosphorus 3.9 mg/dL (2.5-4.5) 03/02/24 03:54 Magnesium 2.4 mg/dL (1.7-2.3) H 03/04/24 05:11 Total Bilirubin 0.8 mg/dL (0.15-1.2) 03/07/24 04:06 AST 530 U/L (0-40) H 03/07/24 04:06 ALT 1148 U/L (0-41) H 03/07/24 04:06 Alkaline Phosphatase 229 U/L (40-130) H 03/07/24 04:06 Creatine Kinase 292 U/L (39-308) 03/06/24 02:19 Troponin T Baseline 93 ng/L (0-15) H 03/01/24 13:43 Troponin T 120 Minute 84.18 ng/L (0-15) H 03/01/24 15:24 Delta Troponin T -8.82 ABS# (0-10) L 03/01/24 15:24 Troponin T Hi Sens 6Hr 137.1 ng/L (0-15) H 03/01/24 20:08 Troponin T Hi Sens 6Hr Delta 44.1 ng/L (0-12) H* 03/01/24 20:08 NT-Pro-B Natriuret Pep 2194 pg/mL (0-125) H 03/01/24 13:43 Total Protein 7.2 g/dL (6.6-8.7) 03/07/24 04:06 Albumin 3.6 g/dL (3.5-5.2) 03/07/24 04:06 Globulin 3.6 g/dL (1.3-4.6) 03/07/24 04:06 Lipase 26 U/L (13-60) 03/01/24 13:43 Urine Color Yellow (Yellow) 03/01/24 17:42 Urine Appearance Sl hazy (CLEAR) A 03/01/24 17:42 Urine pH 5 (5-7) 03/01/24 17:42 Ur Specific [place] 1.010 (1.005-1.030) 03/01/24 17:42 Urine Protein 1+ (Negative) H 03/01/24 17:42 Urine Glucose (UA) 4+ (Normal) H 03/01/24 17:42 Urine Ketones Negative (Negative) 03/01/24 17:42 Urine Blood Neg (Negative) 03/01/24 17:42 Urine Nitrate Negative (Negative) 03/01/24 17:42 Urine Bilirubin Neg (Negative) 03/01/24 17:42 Urine Urobilinogen Neg mg/dL (Negative) 03/01/24 17:42 Ur Leukocyte Esterase Negative (Negative) 03/01/24 17:42 Urine RBC 0-4 /hpf (0-2) H 03/01/24 17:42 Urine WBC 5-10 /hpf (0-5) H 03/01/24 17:42 Ur Squamous Epith Cells 0-4 /hpf (0-5) H 03/01/24 17:42 Amorphous Sediment Trace /hpf 03/01/24 17:42 Urine Bacteria Trace /hpf (NONE) 03/01/24 17:42 Hyaline Casts 5-10 /lpf H 03/01/24 17:42 Urine Mucus 2+ /hpf 03/01/24 17:42 Digoxin 1.3 ng/mL (0.6-1.2) H 03/02/24 03:35 Urine Opiates Screen Positive ng/mL (Negative) H 03/01/24 17:42 Ur Barbiturates Screen Negative ng/mL (Negative) 03/01/24 17:42 Ur Phencyclidine Scrn Negative ng/mL (Negative) 03/01/24 17:42 Ur Amphetamines Screen Negative ng/mL (Negative) 03/01/24 17:42 U Benzodiazepines Scrn Negative ng/mL (Negative) 03/01/24 17:42 Urine Cocaine Screen Negative ng/mL (Negative) 03/01/24 17:42 U Marijuana (THC) Screen Negative ng/mL (Negative) 03/01/24 17:42 Hepatitis A IgM Ab Non-reactive (Nonreactive) 03/03/24 03:21 Hep Bs Antigen Non-reactive (Nonreactive) 03/03/24 03:21 Hep B Core IgM Ab Non-reactive (Nonreactive) 03/03/24 03:21 Hepatitis C Antibody Non-reactive (Nonreactive) 03/03/24 03:21 Vitals Last Vital Signs Temp 97.6 F 03/07/24 16:00 Pulse 61 03/07/24 16:00 Resp 22 H 03/07/24 16:00 BP 148/91 03/07/24 16:00 Pulse Ox 98 04/26/24 07:31 O2 Del Method Nasal Cannula 03/07/24 13:10 O2 Flow Rate 3 03/07/24 13:10 Discharge Plan Discharge Patient Disposition: Home Condition: Stable Prescriptions: New insulin lispro 100 unit/mL solution See Rx Instructions .ROUTE .COMPLEX PRN (Reason: hyperglycemia) Qty: 10 0RF Rx Instructions: Glucose: 141-180 - 2 units 181-220 - 3 221-260 - 4 261-300 - 5 301-350 - 6 351-400 - 7 >400 - 8 units Continued (DME) lancets [OneTouch Delica Lancets] 33 gauge misc See Rx Instructions .ROUTE .MEDSUPPLY Qty: 200 5RF Rx Instructions: 4 times daily (DME) Inogen See Rx Instructions .Route .MEDSUPPLY Qty: 1 0RF Rx Instructions: As directed (DME) Wheel chair [id number] See Rx Instructions .Route .MEDSUPPLY Qty: 1 0RF Rx Instructions: As directed (DME) blood sugar diagnostic Strip See Rx Instructions .ROUTE .MEDSUPPLY Qty: 200 5RF Rx Instructions: 4 times a day as needed doxepin 50 mg capsule 50 mg PO TID Qty: 270 1RF levothyroxine 25 mcg tablet 25 mcg PO DAILY Qty: 90 1RF montelukast 10 mg tablet 10 mg PO DAILY Qty: 90 1RF tamsulosin 0.4 mg capsule 0.4 mg PO BEDTIME Qty: 90 1RF (DME) blood-glucose meter [OneTouch Ultra2 Meter] Kit See Rx Instructions .ROUTE .MEDSUPPLY Qty: 1 0RF Rx Instructions: use daily (DME) BiPAP See Rx Instructions .Route .MEDSUPPLY Qty: 1 0RF Rx Instructions: As directed (DME) cpap machine See Rx Instructions .Route .MEDSUPPLY Qty: 1 0RF Rx Instructions: As directed auto titrate cpap machine 6-16cm with supplies (DME) insulin syringe-needle U-100 [BD Insulin Syringe Ultra-Fine] 1 mL 31 gauge x 5/16 syringe See Rx Instructions .Route Qty: 300 5RF Rx Instructions: use 1 three time day atorvastatin 40 mg tablet 40 mg PO QAM Qty: 90 1RF magnesium oxide 400 mg magnesium capsule 400 mg PO QAM aspirin 325 mg Tablet 325 mg PO QAM spironolactone 25 mg tablet 25 mg PO DAILY Eliquis 5 mg tablet 5 mg PO BID Prozac 20 mg capsule 20 mg PO TID nitroglycerin 0.4 mg tablet, sublingual 0.4 mg buccal PRN PRN (Reason: Chest Pain) Changed torsemide 20 mg tablet 60 mg PO DAILY Qty: 30 0RF metoprolol tartrate 25 mg tablet 50 mg PO BID Qty: 90 0RF potassium chloride 20 mEq tablet extended release 40 meq PO DAILY Qty: 30 0RF Rx Instructions: 40 mEq orally ; Discontinued hydralazine 100 mg tablet 100 mg PO TID Qty: 270 1RF insulin degludec [Tresiba FlexTouch U-200] 200 unit/mL (3 mL) insulin pen 60 unit SUBCUT BID Qty: 18 4RF Novolin R FlexPen 100 unit/mL (3 mL) insulin pen See Rx Instructions .ROUTE .COMPLEX Qty: 60 5RF Rx Instructions: sliding scale up to qid 110-336=[id number]=65W183-500=[id number]=[id number]=34G413-503=77G>40 0= 32U Ozempic 1 mg/dose (4 mg/3 mL) pen injector 1 mg SUBCUT .weekly Qty: 3 0RF Rx Instructions: plan increase in 4 weeks. Discharge Orders: Discharge Order (Routine); Ordered 03/07/24 Ordered By: Hank Pinon Referrals: Mateo Sifuentes FNP-C [Primary Care Provider] - 4-7 days (Please call Mateo Sifuentes's Office on Sunday at [phone] to schedule a follow up appointment. Thank you.) Yolanda Taylor FNP [Nurse Practitioner] - (Yolanda Taylor's Office has your information and will be calling you to schedule a follow up appointment. Thank you.) Patient Instructions: Insulin Lispro (By injection) (Humalog, Humalog Pen, Lispro-PFC,..., Heart Failure (DC), Acute Kidney Injury (GEN), Rhabdomyolysis (GEN), Hypoglycemia in a Person with Diabetes (GEN), CHF Stoplight, Opioid Safety Activity Restrictions/Additional Instructions: Limit fluid intake to 1 L/day. Continue 60 mg torsemide only once daily for now. Please have your primary doctor reassess your volume status after congestive heart failure. Follow-up with cardiology for arrangements for aortic valve repair. Have your primary doctor reassess your kidney function and liver function after acute kidney injury and liver injury. Avoid amiodarone. Follow-up with your primary doctor and cardiology for reassessment of atrial fibrillation after episode of rapid ventricular response on admission. Monitor heart rate and blood pressure 3 times daily. Write down values to bring to her appointment. Be aware that with aortic stenosis your blood pressure can become low and may be difficult to raise. In case blood pressure is getting low, hold metoprolol and torsemide. You are not resumed on hydralazine to avoid hypotension. Do not restart insulin for now due to low blood glucose while in the hospital. Continue only as needed sliding scale patient to continue consistent carbohydrate diet. Monitor blood glucose, avoid hypoglycemia as hypoglycemia can be dangerous and risk of stroke, other complications. In case blood glucose is lower than 80 take sugary snacks, recheck in 15-20 minutes, if not increasing or if changes in mental status or other complications call 911 immediately. Seek medical attention in case of any worsening or new concerning symptoms. Discharge Attestations Time Spent in Discharge Care*: greater than 30 min Quality Metrics Clinical Quality Measures [ No reported AMI, CVA or VTE this stay] Coding Level of Care Code 68816 Total time (in minutes) for Discharge: 40 Diagnoses CKD (chronic kidney disease) stage 3, GFR 30-59 ml/min N18.30 Transaminitis R74.01 Hypoglycemia E16.2 Atrial fibrillation with RVR I48.91 CHF (congestive heart failure) I50.9 Chest pain R07.9 Asthma-COPD overlap syndrome J44.9 Obstructive sleep apnea G47.33 Uncontrolled type 2 diabetes mellitus with hyperglycemia E11.65 Glycemic state: with hyperglycemia Essential (primary) hypertension I10
== END 2024-03-07 18:44 | disposition home or self-care (01) | DRG 291 ==
LOC: ER 14:56 → CSU 15:11
PROVIDERS: Admitting Provider Student in an Organized Health Care Education/Training Program; Emergency Provider Emergency Medicine; PCP Nurse Practitioner; Visit Provider Internal Medicine
DX: I13.0 Hypertensive heart and chronic kidney disease with heart failure and stage 1 through stage 4 chronic kidney disease, or unspecified chronic kidney disease (principal); I50.33 Acute on chronic diastolic (congestive) heart failure; Z68.43 Body mass index [BMI] 50.0-59.9, adult; N17.9 Acute kidney failure, unspecified; I48.91 Unspecified atrial fibrillation; J44.9 Chronic obstructive pulmonary disease, unspecified; E11.22 Type 2 diabetes mellitus with diabetic chronic kidney disease; N18.30 Chronic kidney disease, stage 3 unspecified; E11.65 Type 2 diabetes mellitus with hyperglycemia; E11.649 Type 2 diabetes mellitus with hypoglycemia without coma; E11.40 Type 2 diabetes mellitus with diabetic neuropathy, unspecified; R74.01 Elevation of levels of liver transaminase levels; G47.33 Obstructive sleep apnea (adult) (pediatric); E66.01 Morbid (severe) obesity due to excess calories; I25.10 Atherosclerotic heart disease of native coronary artery without angina pectoris; I35.0 Nonrheumatic aortic (valve) stenosis; I95.9 Hypotension, unspecified; R09.02 Hypoxemia; Z99.81 Dependence on supplemental oxygen; Z79.4 Long term (current) use of insulin; Z79.82 Long term (current) use of aspirin; Z79.01 Long term (current) use of anticoagulants; Z95.5 Presence of coronary angioplasty implant and graft
CPT/HCPCS: 36415; 36416; 36600; 51702; 71045; 76705; 80051; 80053; 80074; 80162; 80306; 81001; 82330; 82550; 82805; 82962; 83690; 83735; 83880; 84100; 84484; 85025; 85378; 85610; 93005; 94640; 96365; 96366; 96372; 96375; 96376; 99291; A4222; A9270; J0282; J0283; J1160; J1815; J1940; J2270; J2405; J3490; J7040; J7614; J7626; J7644; J7799; P9046

== ENCOUNTER 2024-08-05 13:00 | Inpatient (IN) | payer MEDICARE, OTHER, SELFPAY ==
[2024-08-05] VITALS (19 sets, daily range): BP systolic 101–138; BP diastolic 69–108; PULSE 83–109; RESP 15–22; TEMP 36.4–36.8; O2SAT 91–100; BMI 47.4; BMI 45.7
--- NOTE | 2024-08-05 13:05 | XRR_ITS ---
PROCEDURE INFORMATION: Exam: XR Chest Exam date and time: 08/05/2024 1:18 PM Age: 59 years old Clinical indication: Shortness of breath; Prior surgery; Surgery date: 6+ months; Surgery type: Cardiac stents; Additional info: SOB TECHNIQUE: Imaging protocol: Radiologic exam of the chest. Views: 1 view. COMPARISON: CR XR chest 1V portable [id number] 03/01/2024 1:11 PM FINDINGS: Airway: Airways are patent. Lungs: Low lung volumes causes crowding of the bronchovascular structures. No consolidations. Bilateral bronchial wall thickening. Pleural spaces: No pleural effusions or pneumothorax. Heart/Mediastinum: Aortic valve replacement. Moderate cardiomegaly. Cardiomediastinal silhouette is magnified due to technique. Vasculature: Calcified aortic knob. Bones/joints: No acute skeletal abnormality. Soft tissues: No acute soft tissue findings. XR/XR chest 1V portable [id number] IMPRESSION: Mild acute bronchitis/reactive airways disease.
--- NOTE | 2024-08-05 13:05 | CT_ITS ---
WS: [id number] CT HEAD TECHNIQUE: Noncontrast CT of the head obtained from the skullbase to the vertex. CLINICAL INFORMATION: syncope COMPARISON: None. DLP: 508.[address] scans at [facility] use at least one of these dose optimization techniques: automated e xposure control; mA and/or kV adjustment per patient size (includes targeted exams where dose is matc hed to clinical indication); or iterative reconstruction. FINDINGS: Some images degraded by beam hardening artifact. No evidence of intracranial hemorrhage or mass effect. Ventricular system and basal cisterns are mejía nt. Mild small vessel changes with mild parenchymal volume loss. No extra-axial fluid collections. No evidence of mass or mass effect. Small amount of fluid in the RIGHT maxillary sinus. Mastoid air cells are well aerated. Small amount of fluid in the RIGHT maxillary sinus. CT/CT head wo con* [id number] IMPRESSION: 1. No evidence of intracranial hemorrhage or mass effect. 2. No acute intracranial findings.
--- NOTE | 2024-08-05 13:05 | ECG_ITS ---
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 Measurements Intervals Cascade Rate: 88 P: 0 KS: 0 QRS: 117 QRSD: 153 T: -56 QT: 425 QTc: 517 Interpretive Statements ATRIAL FIBRILLATION RIGHT AXIS DEVIATION [QRS AXIS > 100] RIGHT BUNDLE BRANCH BLOCK [120+ ms QRS DURATION, UPRIGHT V1, 40+ ms S IN I/aVL/V4/V5/V6] MODERATE T-WAVE ABNORMALITY, CONSIDER INFERIOR ISCHEMIA [-0.1+ mV T-WAVE IN II/aVF] Compared to ECG 03/02/2024 08:18:21 Right-axis deviation now present Right bundle-branch block now present Intraventricular conduction delay no longer present Atrial abnormality no longer present Myocardial infarct finding no longer present Electronically Signed On 08-05-2024 16:51:38 CDT by Denis Helm M.D. [email or web address]
--- NOTE | 2024-08-05 13:07 | ED_ITS ---
HPI - SOB/Dyspnea 2 General: Chief Complaint: Shortness of Breath/Dyspnea Stated Complaint: sob, dizziness Time Seen by Provider: 08/05/24 13:02 Source: patient and EMS Mode of arrival: EMS Limitations: no limitations History of Present Illness: HPI Narrative: 59-year-old male has a history of conges tive heart failure along with COPD states that today he is feeling short of breath also felt lightheaded states that he believes he had a syncope event he had fell denies hitting his head he states that he has felt lightheaded throughout the day and has had multiple near syncopal events. Per EMS he is typically on 4 L ahead increasing to 6 L she denies any chest pain. Associated symptoms: Reports syncope; Deny abdominal pain, chest pain, fever(s), nausea or vomiting Related Data Home Medications Medication Instructions Recorded Confirmed magnesium oxide 400 mg PO QAM 04/22/22 08/05/24 aspirin 325 mg tablet 325 mg PO QAM 03/06/23 08/05/24 apixaban 5 mg tablet (Eliquis) 5 mg PO BID 04/14/23 08/05/24 nitroglycerin 0.4 mg sublingual 0.4 mg buccal PRN PRN Chest Pain 03/01/24 08/05/24 tablet furosemide 40 mg tablet 40 mg PO BID 07/09/24 08/05/24 insulin degludec 200 unit/mL (3 45 unit SUBCUT DAILY 08/05/24 08/05/24 mL) subcutaneous pen (Tresiba FlexTouch U-200 insulin) metolazone 5 mg tablet 5 mg PO DAILY 08/05/24 08/05/24 potassium chloride 20 mEq 40 meq PO BID 08/05/24 08/05/24 tablet,extended release Previous Rx's Medication Instructions Recorded blood-glucose meter (OneTouch #1 ea 01/04/20 Ultra2 Meter kit) lancets 33 gauge (OneTouch Delica #200 ea 04/13/20 Lancets) blood sugar diagnostic #200 ea 11/29/22 Inogen #1 ea 04/18/23 Wheel chair [id number] #1 ea 04/18/23 BiPAP #1 ea 05/16/23 cpap machine #1 ea 06/12/23 insulin syringe-needle U-100 1 mL #300 ea 06/20/23 31 gauge x 5/16 (BD Insulin Syringe Ultra-Fine) insulin lispro 100 unit/mL See Rx Instructions .Route 03/07/24 subcutaneous solution .COMPLEX PRN hyperglycemia #10 mL atorvastatin 40 mg tablet 40 mg PO QAM #90 tabs 07/09/24 doxepin 50 mg capsule 50 mg PO TID PRN anxiety #270 caps 07/09/24 fluoxetine 20 mg capsule (Prozac) 20 mg PO DAILY #90 caps 07/09/24 levothyroxine 25 mcg tablet 25 mcg PO DAILY #90 tabs 07/09/24 metoprolol tartrate 100 mg tablet 100 mg PO BID #60 tabs 07/09/24 montelukast 10 mg tablet 10 mg PO DAILY #90 tabs 07/09/24 tamsulosin 0.4 mg capsule 0.4 mg PO BEDTIME #90 caps 07/09/24 Allergies Allergy/AdvReac Type Severity Reaction Status Date / Time lisinopril Allergy ADR-Cough Verified 07/09/24 10:06 amiodarone AdvReac Severe Unknown Unverified 07/09/24 10:06 Review of Systems 2 Const: Denies: fever(s), chills, body aches or change in appetite ENMT: Denies: throat pain or dental pain Card: Reports: syncope; Denies: chest pain Resp: Reports: dyspnea and wheezing GI: Denies: abdominal pain, nausea, vomiting or diarrhea Musc: Denies: neck pain or back pain Skin/Breast: Denies: rash Neuro: Denies: headache(s) PFSH ED 2 PFSH: Medical History CKD (chronic kidney disease) stage 3, GFR 30-59 ml/min Obstructive sleep apnea Primary localized osteoarthrosis of left lower leg Localized primary osteoarthritis of right lower leg Urgency-frequency syndrome Essential (primary) hypertension Dyspnea on exertion Acute exacerbation of CHF (congestive heart failure) Oxygen dependent Atrial fibrillation COPD (chronic obstructive pulmonary disease) Iron deficiency CHF (congestive heart failure) Recurrent bronchospasm Dietary noncompliance Obesity Anxiety Neuropathy Arteriosclerotic coronary artery disease Diabetes mellitus type II, uncontrolled Surgical History History of colonoscopy H/O heart artery stent 09/2011 History of carpal tunnel surgery of right wrist 2011 Family History Father , AGE 74 Diabetes Heart disease Mother , LUNG CANCER AGE 55 Cancer CAD (coronary artery disease) Lung disease Heart disease Grandmother CAD (coronary artery disease) Cancer Dementia Heart disease Family/Other CAD (coronary artery disease) Heart disease Grandfather CAD (coronary artery disease) Heart disease Diabetes Sister Lung disease Denies family history of Clotting disorder Chronic kidney disease (CKD) Suicide Anesthesia complication Bleeding disorder Stroke Social History Smoking and tobacco/nicotine status: former use of tobacco/nicotine Quit status (tobacco/nicotine): has quit using Year quit tobacco: 2000 Former quit date comment: 4ppd x 22 years Second hand smoke exposure: No Alcohol intake: current Alcohol intake frequency: holidays/special occasions only Substance/Drug Use: never Adopted: No Caregiver/support person: No Lives independently: Yes Household members: spouse Housing: House Marital status: Number of children: 2 service: No Current occupational status: disabled Pets and animals: Yes Do you think of yourself as: Straight/Heterosexual Current gender identity: Male and Female Physical Exam 2 Const: COMMON NORMALS: patient oriented x3 HENMT: COMMON NORMALS: normocephalic and atraumatic HEAD & SCALP: n ormocephalic and atraumatic Eye: COMMON NORMALS: Equal, round and reactive pupils present and EOMs intact bilaterally PUPIL: Yes Equal, round and reactive pupils present Neck/C-Spine: COMMON NORMALS: full ROM and supple Chest: COMMONS NORMALS: normal inspection of the chest Resp: COMMON NORMALS: No retractions and No use of accessory muscles A USCULTATION: rales and wheezes Cardio: COMMON NORMALS: regular rate, regular rhythm and No murmurs present (Cardio) RATE: regular rate RHYTHM: regular rhythm GI: COMMON NORMALS: Normal to inspection, nondistended, normoactive bowel sounds present, Soft to palpation, non-tender and no masses PALPATION: Yes Soft to palpation Extremity: COMMON NORMALS: full ROM NARRATIVE EXTREMITY EXAM: lower ext edema Neuro: COMMON NORMALS: patient oriented x3, moves all extremities and no focal motor deficits Psych: COMMON NORMALS: mental status grossly normal, Normal thought process present and cooperative THOUGHT PROCESS: Normal thought process present Skin: COMMON NORMALS: no rashes or lesions noted and no wounds GENERAL SKIN EXAM: no rashes or lesions noted Course 2 Vital Signs: Vital signs: Vital Signs Temperature 97.5 F L 08/05/24 13:02 Pulse Rate 84 08/05/24 15:00 Respiratory Rate 18 08/05/24 15:00 Blood Pressure 106/71 08/05/24 15:00 Pulse Oximetry 91 08/05/24 15:00 Oxygen Delivery Me thod Nasal Cannula 08/05/24 15:00 Oxygen Flow Rate 4 08/05/24 15:00 MDM - SOB/Dyspnea Medical Decision Making Patient presents after syncopal event at home he has been hypoxic here requiring more oxygen than his baseline. He did have wheezing likely COPD exacerbation he also has elevated creatinine and BUN at baseline likely some dehydration I did speak to hospitalist will admit at this time. He is had no chest pain. Medical Records I reviewed the patient's medical records. Lab Data I reviewed the patient's lab results. 08/05/24 14:07 08/05/24 14:07 Labs/Radiology: Radiology Impressions Chest X-Ray 08/05/24 13:05 IMPRESSION: Mild acute bronchitis/reactive airways disease. Head CT 08/05/24 13:05 IMPRESSION: 1. No evidence of intracranial hemorrhage or mass effect. 2. No acute intracranial findings. Laboratory Results WBC 6.45 10^3/uL (3.29-11.43) 08/05/24 14:07 RBC 3.74 10^6/uL (3.85-5.65) L 08/05/24 14:07 Hgb 9.30 g/dL (11.27-16.99) L 08/05/24 14:07 Hct 32.0 % (37-53) L 08/05/24 14:07 MCV 85.6 fl (82-101) 08/05/24 14:07 MCH 24.9 pg (27-33) L 08/05/24 14:07 MCHC 29.1 g/dL (30-55) L 08/05/24 14:07 RDW 24.3 % (12.1-15.1) H 08/05/24 14:07 Plt Count 278 10^3/cmm (157-399) 08/05/24 14:07 MPV 9.7 fL (7.4-10.4) 08/05/24 14:07 Neut % (Auto) 73.9 % 08/05/24 14:07 Lymph % (Auto) 15.2 % 08/05/24 14:07 Lake % (Auto) 10.1 % 08/05/24 14:07 Eos % (Auto) 0.3 % 08/05/24 14:07 Baso % (Auto) 0.2 % 08/05/24 14:07 Neut # (Auto) 4.77 10^3/uL (1.8-7.7) 08/05/24 14:07 Lymph # (Auto) 1.0 10^3/uL (0.8-4.8) 08/05/24 14:07 Lake # (Auto) 0.7 10^3/uL (0.2-0.9) 08/05/24 14:07 Eos # (Auto) 0.0 10^3/uL (0.0-0.8) 08/05/24 14:07 Baso # (Auto) 0.0 10^3/uL (0.0-0.1) 08/05/24 14:07 Nucleated RBC % (auto) 0 % 08/05/24 14:07 Nucleated RBCs # 0.0 /100WBC 08/05/24 14:07 PT 23.20 SECONDS (12.1-14.9) H 08/05/24 14:07 INR 1.98 (0.8-1.2) H 08/05/24 14:07 Sodium 137 mmol/L (136-145) 08/05/24 14:07 Potassium 5.2 mmol/L (3.5-5.1) H 08/05/24 14:07 Chloride 94 mmol/L (98-107) L 08/05/24 14:07 Carbon Dioxide 34 mmol/L (22-29) H 08/05/24 14:07 Anion Gap 14.2 (5-19) 08/05/24 14:07 BUN 95 mg/dL (8-23) H* D 08/05/24 14:07 Creatinine 2.7 mg/dL (0.7-1.2) H 08/05/24 14:07 GFR Calculation 24.2 mL/min (90-130) L 08/05/24 14:07 Glucose 128 mg/dL (65-115) H 08/05/24 14:07 Calculated Osmolality 315 mOsm/kg (285-295) H 08/05/24 14:07 Calcium 8.6 mg/dL (8.5-10.5) 08/05/24 14:07 Total Bilirubin 1.8 mg/dL (0.15-1.2) H 08/05/24 14:07 AST 34 U/L (0-40) 08/05/24 14:07 ALT 18 U/L (0-41) 08/05/24 14:07 Alkaline Phosphatase 207 U/L (40-130) H 08/05/24 14:07 Troponin T Baseline 105 ng/L (0-15) H* 08/05/24 14:07 Troponin T 120 Minute 101.7 ng/L (0-15) H 08/05/24 15:03 Delta Troponin T -3.3 ABS# (0-10) L 08/05/24 15:03 NT-Pro-B Natriuret Pep 4713 pg/mL (0-125) H 08/05/24 14:07 Total Protein 7.5 g/dL (6.6-8.7) 08/05/24 14:07 Albumin 3.5 g/dL (3.5-5.2) 08/05/24 14:07 Globulin 4.0 g/dL (1.3-4.6) 08/05/24 14:07 All radiology interpretation(s) finalized by discharge EKG Data EKG 1: I personally reviewed and interpreted this EKG as follows: EKG Interpretation Date: 08/05/24 EKG interpretation time: 13:11 Interpretation: afib hr [address] elevation qrs 153 qtc 471 Discharge Plan Discharge Patient Disposition: Admitted As Inpatient Clinical Impression: Syncope, Hypoxia, Acute exacerbation of chronic obstructive airways disease Condition: Stable Prescriptions: No Action (DME) lancets [OneTouch Delica Lancets] 33 gauge misc See Rx Instructions .ROUTE .MEDSUPPLY Qty: 200 5RF Rx Instructions: 4 times daily (DME) Inogen See Rx Instructions .Route .MEDSUPPLY Qty: 1 0RF Rx Instructions: As directed (DME) Wheel chair [id number] See Rx Instructions .Route .MEDSUPPLY Qty: 1 0RF Rx Instructions: As directed furosemide 40 mg tablet 40 mg PO BID metoprolol tartrate 100 mg tablet 100 mg PO BID Qty: 60 2RF atorvastatin 40 mg tablet 40 mg PO QAM Qty: 90 1RF doxepin 50 mg capsule 50 mg PO TID PRN (Reason: anxiety) Qty: 270 1RF fluoxetine [Prozac] 20 mg capsule 20 mg PO DAILY Qty: 90 1RF levothyroxine 25 mcg tablet 25 mcg PO DAILY Qty: 90 1RF montelukast 10 mg tablet 10 mg PO DAILY Qty: 90 1RF tamsulosin 0.4 mg capsule 0.4 mg PO BEDTIME Qty: 90 1RF (DME) blood sugar diagnostic Strip See Rx Instructions .ROUTE .MEDSUPPLY Qty: 200 5RF Rx Instructions: 4 times a day as needed (DME) blood-glucose meter [OneTouch Ultra2 Meter] Kit See Rx Instructions .ROUTE .MEDSUPPLY Qty: 1 0RF Rx Instructions: use daily (DME) BiPAP See Rx Instructions .Route .MEDSUPPLY Qty: 1 0RF Rx Instructions: As directed (DME) cpap machine See Rx Instructions .Route .MEDSUPPLY Qty: 1 0RF Rx Instructions: As directed auto titrate cpap machine 6-16cm with supplies (DME) insulin syringe-needle U-100 [BD Insulin Syringe Ultra-Fine] 1 mL 31 gauge x 5/16 syringe See Rx Instructions .Route Qty: 300 5RF Rx Instructions: use 1 three time day magnesium oxide 400 mg magnesium capsule 400 mg PO QAM aspirin 325 mg Tablet 325 mg PO QAM Eliquis 5 mg tablet 5 mg PO BID nitroglycerin 0.4 mg tablet, sublingual 0.4 mg buccal PRN PRN (Reason: Chest Pain) insulin lispro 100 unit/mL solution See Rx Instructions .ROUTE .COMPLEX PRN (Reason: hyperglycemia) Qty: 10 0RF Rx Instructions: Glucose: 141-180 - 2 units 181-220 - 3 221-260 - 4 261-300 - 5 301-350 - 6 351-400 - 7 >400 - 8 units metolazone 5 mg tablet 5 mg PO DAILY Rx Instructions: as directed by provider Tresiba FlexTouch U-200 200 unit/mL (3 mL) insulin pen 45 unit SUBCUT DAILY potassium chloride 20 mEq tablet extended release 40 meq PO BID Referrals: Mateo Sifuentes, AERIAL CROP DUSTER-C [Primary Care Provider] - Coding Level of Care Code ED Supervisor [employer] for Alycia Ivy
[2024-08-05] MEDS: ipratropium-albuterol 3 mL Neb INHALATION (13:57)
[2024-08-05] MEDS: FUROsemide 10 mg/mL SDV 10mL 60 MG IVP (14:15)
[2024-08-05 14:24] LABS: Basophils % 0.2 %; Eosinophils % 0.3 %; Lymphocytes % 15.2 %; Mean Corpuscular HGB Conc 29.1 g/dL (30-55); Mean Corpuscular Hemoglobin 24.9 pg (27-33); Mean Corpuscular Volume 85.6 fl (82-101); Mean Platelet Volume 9.7 fL (7.4-10.4); Monocytes # 0.7 10^3/uL (0.2-0.9); Monocytes % 10.1 %; Neutrophils # 4.77 10^3/uL (1.8-7.7); Neutrophils % 73.9 %; Nucleated Red Blood Cells % 0 %; Platelet Count 278 10^3/cmm (157-399); Red Blood Count 3.74 10^6/uL (3.85-5.65); Red Cell Distribution Width 24.3 % (12.1-15.1); White Blood Count 6.45 10^3/uL (3.29-11.43)
[2024-08-05 14:40] LABS: INR 1.98 (0.8-1.2)
[2024-08-05 14:42] LABS: Troponin(5th) Baseline 105 ng/L (0-15)
[2024-08-05 14:48] LABS: Alanine Aminotransferase 18 U/L (0-41); Albumin Level 3.5 g/dL (3.5-5.2); Alkaline Phosphatase 207 U/L (40-130); Calcium 8.6 mg/dL (8.5-10.5); Carbon Dioxide 34 mmol/L (22-29); Chloride 94 mmol/L (98-107); Creatinine Clr Calc Pharmacy 40.1845; Glomerular Filtration Rate 24.2 mL/min (90-130); Glucose 128 mg/dL (65-115); NT Pro B Type Natriuretic Pept 4713 pg/mL (0-125); Osmolality Calculated 315 mOsm/kg (285-295); Sodium 137 mmol/L (136-145); Total Bilirubin 1.8 mg/dL (0.15-1.2); Total Protein 7.5 g/dL (6.6-8.7)
--- NOTE | 2024-08-05 14:53 | PC.PHAR ---
says no narcotics or strong pain meds, please-makes pt unresponsive.
[2024-08-05 14:54] LABS: Anion Gap 14.2 (5-19); Aspartate Amino Transferase 34 U/L (0-40); Potassium 5.2 mmol/L (3.5-5.1)
[2024-08-05 14:55] LABS: Blood Urea Nitrogen 95 mg/dL (8-23)
[2024-08-05] MEDS: methylPREDNISolone sod succ 125 mg/2 mL INJ IVP (15:01)
--- NOTE | 2024-08-05 15:05 | ECG_ITS ---
[facility] Test Date: 2024-08-05 Pat Name: Fariba Rossi Department: Room: Gender: Male Screening Representative: : 1965 Requested By: Valerie Saini Order Number: [id number] Marion MD: Denis Helm M.D. Measurements Intervals [place] Rate: 84 P: 0 TN: 0 QRS: 114 QRSD: 170 T: -53 QT: 436 QTc: 516 Interpretive Statements ATRIAL FIBRILLATION RIGHT AXIS DEVIATION [QRS AXIS > 100] RIGHT BUNDLE BRANCH BLOCK [120+ ms QRS DURATION, UPRIGHT V1, 40+ ms S IN I/aVL/V4/V5/V6] MODERATE T-WAVE ABNORMALITY, CONSIDER INFERIOR ISCHEMIA [-0.1+ mV T-WAVE IN II/aVF] Compared to ECG 08/05/2024 13:11:55 T-wave abnormality still present Possible ischemia still present Electronically Signed On 08-05-2024 16:55:28 CDT by Denis Helm M.D. [id number]
[2024-08-05 15:34] LABS: Troponin 5 2HR Delta -3.3 ABS# (0-10)
[2024-08-05 15:35] LABS: Troponin 5 2HR 101.7 ng/L (0-15)
[2024-08-05] MEDS: sodium chloride 0.9% 500 ML 999 ML IV (15:35)
[2024-08-05 16:05] LABS: Glucose Point of Care 161 mg/dL (70-110)
[2024-08-05 16:51] LABS: ABG PCO2 57.8 mmHg (35-45); ABG PH Result 7.42 (7.35-7.45); Arterial Blood Gas Hematocrit 28.9 % (42-52); Base Excess ABG 10.9 mmol/L (-2.0-2.0); Blood Gas Allen Test Pos; Blood Gas Operator Identificat BUSJA; Blood Gas Sample Site Radial, left; Blood Gas Sample Type Arterial
[2024-08-05 16:52] LABS: Oxygen Device NC
--- NOTE | 2024-08-05 17:01 | P.HP_ITS ---
Providers/Chief Complaint 2 Admitting Physician: Dr Zee Primary Care Provider: Mateo Sifuentes, TESTER OPERATOR-C Chief Complaint: sob, dizziness History of Present Illness Fariba Rossi is a 59 year old male COPD on supplemental oxygen 3 L nasal cannula, CKD, obstructive sleep apnea on BiPAP but he has been noncompliant, hypertension, atrial fibrillation, morbid obesity, type 2 diabetes melitis was brought in by EMS s/p fall at home. As per the patient and his who is at bedside reports that he was walking back from the bathroom with the help of a walker, his legs gave way and he fell and hit his head on the plastic drawers on the side of his bed. He denied feeling dizziness, chest pain, shortness of breath, nausea/vomiting or palpitations prior to the fall. Denies any history of fever, recent travel or sick contact. As per the he has been noncompliant with the breathing treatments and BiPAP In the ER he was found to be short of breath, requiring supplemental oxygen at 6 L, BUNs/creatinine was 95/2.7, baseline creatinine is 1.4, BNP 4700 Review of Systems 2 General: Reports: 10 or more systems reviewed and unremarkable except in HPI and below Medications/Allergies Home Medications Medication Instructions Recorded Confirmed Last Taken Type blood-glucose meter (OneTouch #1 ea 01/04/20 08/05/24 Unknown Rx Ultra2 Meter kit) lancets 33 gauge (OneTouch Delica #200 ea 04/13/20 08/05/24 Unknown Rx Lancets) magnesium oxide 400 mg PO QAM 04/22/22 08/05/24 08/05/24 History blood sugar diagnostic #200 ea 11/29/22 08/05/24 Unknown Rx aspirin 325 mg tablet 325 mg PO QAM 03/06/23 08/05/24 08/05/24 History apixaban 5 mg tablet (Eliquis) 5 mg PO BID 04/14/23 08/05/24 08/05/24 History Inogen #1 ea 04/18/23 08/05/24 Unknown Rx Wheel chair [id number] #1 ea 04/18/23 08/05/24 Unknown Rx BiPAP #1 ea 05/16/23 08/05/24 Unknown Rx cpap machine #1 ea 06/12/23 08/05/24 Unknown Rx insulin syringe-needle U-100 1 mL #300 ea 06/20/23 08/05/24 Unknown Rx 31 gauge x 5/16 (BD Insulin Syringe Ultra-Fine) nitroglycerin 0.4 mg sublingual 0.4 mg buccal PRN PRN Chest Pain 03/01/24 08/05/24 Unknown History tablet insulin lispro 100 unit/mL See Rx Instructions .Route 03/07/24 08/05/24 08/05/24 Rx subcutaneous solution .COMPLEX PRN hyperglycemia #10 mL atorvastatin 40 mg tablet 40 mg PO QAM #90 tabs 07/09/24 08/05/24 08/05/24 Rx doxepin 50 mg capsule 50 mg PO TID PRN anxiety #270 caps 07/09/24 08/05/24 Unknown Rx fluoxetine 20 mg capsule (Prozac) 20 mg PO DAILY #90 caps 07/09/24 08/05/24 08/05/24 Rx furosemide 40 mg tablet 40 mg PO BID 07/09/24 08/05/24 08/05/24 History levothyroxine 25 mcg tablet 25 mcg PO DAILY #90 tabs 07/09/24 08/05/24 08/05/24 Rx metoprolol tartrate 100 mg tablet 100 mg PO BID #60 tabs 07/09/24 08/05/24 08/05/24 Rx montelukast 10 mg tablet 10 mg PO DAILY #90 tabs 07/09/24 08/05/24 08/05/24 Rx tamsulosin 0.4 mg capsule 0.4 mg PO BEDTIME #90 caps 07/09/24 08/05/24 08/04/24 Rx insulin degludec 200 unit/mL (3 45 unit SUBCUT DAILY 08/05/24 08/05/24 08/05/24 History mL) subcutaneous pen (Tresiba FlexTouch U-200 insulin) metolazone 5 mg tablet 5 mg PO DAILY 08/05/24 08/05/24 Unknown History potassium chloride 20 mEq 40 meq PO BID 08/05/24 08/05/24 08/05/24 History tablet,extended release Allergies Allergy/AdvReac Type Severity Reaction Status Date / Time lisinopril Allergy ADR-Cough Verified 07/09/24 10:06 amiodarone AdvReac Severe Unknown Unverified 07/09/24 10:06 PFSH Acute 2 PFSH: Medical History CKD (chronic kidney disease) stage 3, GFR 30-59 ml/min Obstructive sleep apnea Primary localized osteoarthrosis of left lower leg Localized primary osteoarthritis of right lower leg Urgency-frequency syndrome Essential (primary) hypertension Dyspnea on exertion Acute exacerbation of CHF (congestive heart failure) Oxygen dependent Atrial fibrillation COPD (chronic obstructive pulmonary disease) Iron deficiency CHF (congestive heart failure) Recurrent bronchospasm Dietary noncompliance Obesity Anxiety Neuropathy Arteriosclerotic coronary artery disease Diabetes mellitus type II, uncontrolled Surgical History History of colonoscopy H/O heart artery stent 09/2011 History of carpal tunnel surgery of right wrist 2011 Family History Father , AGE 74 Diabetes Heart disease Mother , LUNG CANCER AGE 55 Cancer CAD (coronary artery disease) Lung disease Heart disease Grandmother CAD (coronary artery disease) Cancer Dementia Heart disease Family/Other CAD (coronary artery disease) Heart disease Grandfather CAD (coronary artery disease) Heart disease Diabetes Sister Lung disease Denies family history of Clotting disorder Chronic kidney disease (CKD) Suicide Anesthesia complication Bleeding disorder Stroke Social History Smoking and tobacco/nicotine status: former use of tobacco/nicotine Quit status (tobacco/nicotine): has quit using Year quit tobacco: 2000 Former quit date comment: 4ppd x 22 years Second hand smoke exposure: No Alcohol intake: current Alcohol intake frequency: holidays/special occasions only Substance/Drug Use: never Adopted: No Caregiver/support person: No Lives independently: Yes Household members: spouse Housing: House Marital status: Number of children: 2 service: No Current occupational status: disabled Pets and animals: Yes Do you think of yourself as: Straight/Heterosexual Current gender identity: Male and Female Vitals/I&O/Wt Last Vital Signs Temp 97.5 F L 08/05/24 13:02 Pulse 83 08/05/24 16:30 Resp 18 08/05/24 16:30 BP 101/78 08/05/24 16:30 Pulse Ox 100 08/05/24 15:30 O2 Del Method Nasal Cannula 08/05/24 15:30 O2 Flow Rate 4 08/05/24 15:30 Weight last 48 hrs Weight 141.521 kg Physical Exam 2 Narrative: He is drowsy intermittently but responds to verbal commands, unable to stay awake, unable to obtain history, history provided by his at bedside, not in acute distress Chest air entry equal on both sides, bilateral scattered rhonchi and wheezing present Cardiovascular normal sounds Abdomen soft nontender nondistended normal bowel sounds Extremities bilateral trace edema present lower extremities. Data 08/05/24 14:07 08/05/24 14:07 CT Head: Radiologist's impression: Negative for any acute findings CXR: Radiologist's impression: Mild acute bronchitis/reactive airways disease A&P Assessment and plan (1) Acute exacerbation of chronic obstructive airways disease: (2) Hypoxia: (3) Fall: (4) Acute on chronic kidney failure: (5) Essential (primary) hypertension: (6) Atrial fibrillation with RVR: (7) Diabetes mellitus type II, uncontrolled: Qualifiers: Glycemic state: with hyperglycemia Qualified Code(s): E11.65 - Type 2 diabetes mellitus with hyperglycemia (8) CHF (congestive heart failure): (9) Obstructive sleep apnea: (10) CKD (chronic kidney disease) stage 3, GFR 30-59 ml/min: Plan Fariba Rossi is a 59 year old male COPD on supplemental oxygen 3 L nasal cannula, CKD, obstructive sleep apnea on BiPAP but he has been noncompliant, hypertension, atrial fibrillation, morbid obesity, type 2 diabetes melitis was brought in by EMS s/p fall at home and found to have hemoglobin of 9.3, potassium 5.2, bun 95, creatinine 2.7, total bili 1.8, troponins to set 105, 101, BNP 4700 and ABG showed 7.4/57/132/37/90% on 6 L nasal cannula Fall likely mechanical in combination with acute bronchitis/COPD exacerbation CT head negative for any acute intracranial findings COPD exacerbation/acute bronchitis-ABG noted. Will continue supplemental oxygen to keep saturation more than 90% Will hold off on BiPAP for now DuoNebs every 6 hours IV methylprednisolone 80 mg every 8 hours Mucinex p.o. 600 mg twice daily Syrup Robitussin 10 mL 3 times daily Acute on chronic renal failure-likely secondary to dehydration, creatinine at baseline is 1.4-1.5 Will do IV fluids normal saline at 60 mL/h Monitor for fluid overload. Will hold Lasix for now Probably need nephrology consult CHF-continue ROUGE SIFTER aspirin, Lipitor, , metolazone, metoprolol, potassium chloride Atrial fibrillation-continue ROUGE SIFTER Eliquis Hypothyroidism-continue ROUGE SIFTER levothyroxine Obstructive sleep apnea- needs BiPAP at night Depression-continue ROUGE SIFTER fluoxetine Diabetes mellitus-continue ROUGE SIFTER Tresiba 45 units daily Low-dose correction scale insulin Fingersticks with meals and bedtime BPH-continue ROUGE SIFTER Flomax GI prophylaxis with IV Pepcid twice daily DVT prophylaxis, he is already on Eliquis Cardiac diet As per the , patient's legs give away and he falls/has frequent falls, will do PT/OT eval Attestations 2 Medical Necessity Statement*: He needs continued hospitalization crossing 2 midnights for management of COPD exacerbation/acute bronchitis Time Spent in Patient Care: 45 minutes Coding Level of Care Code Acute Code for [facility] Fwd Diagnoses Acute exacerbation of chronic obstructive airways disease J44.1 Hypoxia R09.02 Fall W19.XXXA Acute on chronic kidney failure N17.9; N18.9 Essential (primary) hypertension I10 Atrial fibrillation with RVR I48.91 Uncontrolled type 2 diabetes mellitus with hyperglycemia E11.65 Glycemic state: with hyperglycemia CHF (congestive heart failure) I50.9 Obstructive sleep apnea G47.33 CKD (chronic kidney disease) stage 3, GFR 30-59 ml/min N18.30 Time Spent (min) 45
[2024-08-05] MEDS: famotidine 20 mg/2 mL INJ IVP (18:06)
--- NOTE | 2024-08-05 18:12 | PC.NURSE ---
attempted report to CSU at 1811, Killian stated that the nurse will call back.
--- NOTE | 2024-08-05 19:13 | PC.NURSE ---
report called to ICU 8 nurse Merlin at 1910. Merlin states they will call when room is clean.
--- NOTE | 2024-08-05 19:22 | PC.NURSE ---
in patient pharmacy called to ask if pt can bring in tresiba flex pen, this nurse spoke with pt , states yes she can bring it in, they have plenty.
--- NOTE | 2024-08-05 19:39 | ECG_ITS ---
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 Measurements Intervals [place] Rate: 89 P: 0 [place]: 0 QRS: 119 QRSD: 169 T: -55 QT: 425 QTc: 519 Interpretive Statements ATRIAL FIBRILLATION RIGHT AXIS DEVIATION [QRS AXIS > 100] RIGHT BUNDLE BRANCH BLOCK [120+ ms QRS DURATION, UPRIGHT V1, 40+ ms S IN I/aVL/V4/V5/V6] MODERATE T-WAVE ABNORMALITY, CONSIDER INFERIOR ISCHEMIA [-0.1+ mV T-WAVE IN II/aVF] Compared to ECG 08/05/2024 15:05:21 T-wave abnormality still present Possible ischemia still present Electronically Signed On 08-06-2024 08:07:33 CDT by Denis Helm M.D. [id number]
[2024-08-05 20:04] LABS: Troponin 5 6HR 98.35 ng/L (0-15)
[2024-08-05 20:15] LABS: Troponin 5 6HR Delta -6.65 ng/L (0-12)
[2024-08-05 21:36] LABS: Glucose Point of Care 93 mg/dL (70-110)
--- NOTE | 2024-08-05 21:44 | PC.NURSE ---
Spoke with Dr. Li over the phone to clarify patient's MAR and potassium level. Received orders to retest patient potassium level and to hold the potassium chloride 40 meq PO. If patient potassium comes back the same or lower than the most recent 5.2, hold kayexalate also.
[2024-08-05] MEDS: guaiFENesin-dextromethorphan UDC 10 mL PO (21:54)
[2024-08-05] MEDS: guaiFENesin 600 mg Tablet PO (21:54)
[2024-08-05] MEDS: tamsulosin 0.4 mg Capsule PO (21:55)
[2024-08-05] MEDS: sodium chloride 0.9% 1,000 ML 60 ML IV (22:34)
[2024-08-05] MEDS: apixaban 5 mg Tablet PO (23:10)
[2024-08-05] MEDS: methylPREDNISolone sod succ 125 mg/2 mL INJ 80 MG IVP (23:15)
[2024-08-05 23:31] LABS: Calcium 8.8 mg/dL (8.5-10.5); Carbon Dioxide 33 mmol/L (22-29); Chloride 93 mmol/L (98-107); Creatinine Clr Calc Pharmacy 49.3174; Glomerular Filtration Rate 30.7 mL/min (90-130); Glucose 166 mg/dL (65-115); Osmolality Calculated 314 mOsm/kg (285-295); Sodium 136 mmol/L (136-145)
[2024-08-05 23:36] LABS: Anion Gap 15.1 (5-19); Potassium 5.1 mmol/L (3.5-5.1)
[2024-08-05 23:38] LABS: Blood Urea Nitrogen 91 mg/dL (8-23)
[2024-08-06] VITALS (36 sets, daily range): BP systolic 82–154; BP diastolic 50–132; PULSE 87–110; RESP 12–25; TEMP 36.5–36.7; O2SAT 85–100
--- NOTE | 2024-08-06 00:24 | PC.NURSE ---
Potassium 5.1. Polystyrene sulfate held as it was less than or equal to previous potassium lab, per Dr. Pinon orders. See earlier note if needed.
[2024-08-06 05:06] LABS: Hematocrit 33.5 % (37-53); Lymphocytes # 0.5 10^3/uL (0.8-4.8); Lymphocytes % 10.4 %; Mean Corpuscular HGB Conc 28.7 g/dL (30-55); Mean Corpuscular Hemoglobin 24.4 pg (27-33); Mean Corpuscular Volume 85.2 fl (82-101); Mean Platelet Volume 9.4 fL (7.4-10.4); Monocytes # 0.1 10^3/uL (0.2-0.9); Monocytes % 1.7 %; Neutrophils % 87.1 %; Nucleated Red Blood Cells % 0 %; Platelet Count 226 10^3/cmm (157-399); Red Blood Count 3.93 10^6/uL (3.85-5.65); Red Cell Distribution Width 24.5 % (12.1-15.1); White Blood Count 4.71 10^3/uL (3.29-11.43)
[2024-08-06] MEDS: atorvastatin 40 mg Tablet PO (05:10)
[2024-08-06] MEDS: aspirin 325 mg Tablet PO (05:10)
[2024-08-06] MEDS: famotidine 20 mg/2 mL INJ IVP ×2 (05:10→17:51)
[2024-08-06] MEDS: magnesium oxide 400 mg tablet PO (05:10)
[2024-08-06 05:34] LABS: Alanine Aminotransferase 16 U/L (0-41); Albumin Level 3.1 g/dL (3.5-5.2); Alkaline Phosphatase 192 U/L (40-130); Anion Gap 18.9 (5-19); Aspartate Amino Transferase 30 U/L (0-40); Calcium 8.7 mg/dL (8.5-10.5); Carbon Dioxide 29 mmol/L (22-29); Chloride 94 mmol/L (98-107); Globulin 4.4 g/dL (1.3-4.6); Glomerular Filtration Rate 27.8 mL/min (90-130); Glucose 215 mg/dL (65-115); Magnesium 3.2 mg/dL (1.7-2.3); Osmolality Calculated 318 mOsm/kg (285-295); Phosphorus 4.9 mg/dL (2.5-4.5); Potassium 4.9 mmol/L (3.5-5.1); Sodium 137 mmol/L (136-145); Total Bilirubin 2.1 mg/dL (0.15-1.2); Total Protein 7.5 g/dL (6.6-8.7)
[2024-08-06 05:54] LABS: Blood Urea Nitrogen 89 mg/dL (8-23)
[2024-08-06] MEDS: methylPREDNISolone sod succ 125 mg/2 mL INJ 80 MG IVP ×2 (06:35→17:51)
[2024-08-06] MEDS: potassium chloride ER 20 mEq Tablet 40 MEQ PO ×2 (08:17→17:51)
[2024-08-06] MEDS: levothyroxine 25 mcg Tablet PO (08:18)
[2024-08-06] MEDS: metOLazone 5 MG Tablet PO (08:18)
[2024-08-06] MEDS: metoprolol tartrate 50 mg Tablet 100 MG PO ×2 (08:18→17:51)
[2024-08-06] MEDS: montelukast sodium 10 mg Tablet PO (08:18)
[2024-08-06] MEDS: apixaban 5 mg Tablet PO ×2 (08:18→17:51)
[2024-08-06] MEDS: guaiFENesin 600 mg Tablet PO ×2 (08:18→17:51)
[2024-08-06] MEDS: fluoxetine 20 mg Capsule PO (08:19)
[2024-08-06] MEDS: cefTRIAXone 1,000 mg SDV 1000 MG IVP (08:19)
[2024-08-06] MEDS: azithromycin 500 MG in sodium chloride 0.9% 250 ML 250 MG IV (08:19)
[2024-08-06] MEDS: guaiFENesin-dextromethorphan UDC 10 mL PO ×2 (08:20→21:40)
[2024-08-06] MEDS: ipratropium-albuterol 3 mL Neb INHALATION ×4 (08:48→19:33)
--- NOTE | 2024-08-06 13:55 | P.PN_ITS ---
Subjective 2 Subjective: No acute overnight events noted. Patient seen at bedside this morning, looking better. Denies any complaints of chest pain or shortness of breath but still noted to be drowsy, losing conversations and dozing off while talking. Medications: Reviewed: Yes Vitals/I&O/Wt Last Vital Signs Temp 98.0 F 08/06/24 04:00 Pulse 94 08/06/24 12:00 Resp 21 H 08/06/24 12:00 BP 115/68 08/06/24 12:00 Pulse Ox 97 08/06/24 12:00 O2 Del Method Nasal Cannula 08/06/24 12:00 O2 Flow Rate 2 08/06/24 06:00 FiO2 35 08/06/24 11:16 08/05/24 08/06/24 08/06/24 22:59 06:59 14:59 Intake Total 500 / 500 888 / 1388 720 / 720 Output Total 250 / 250 450 / 450 Balance 500 / 500 638 / 1138 270 / 270 Weight last 48 hrs Weight 144.5 kg Weight 144.5 kg Weight 141.521 kg Physical Exam 2 Narrative: He is drowsy intermittently but responds to verbal commands, unable to stay awake. Chest air entry equal on both sides, bilateral scattered rhonchi and wheezing present Cardiovascular normal sounds Abdomen soft nontender nondistended normal bowel sounds Extremities bilateral trace edema present lower extremities. Data 08/06/24 04:47 08/06/24 04:47 A&P Assessment and plan (1) Acute exacerbation of chronic obstructive airways disease: (2) Hypoxia: (3) Fall: (4) Acute on chronic kidney failure: (5) Essential (primary) hypertension: (6) Atrial fibrillation with RVR: (7) Diabetes mellitus type II, uncontrolled: Qualifiers: Glycemic state: with hyperglycemia Qualified Code(s): E11.65 - Type 2 diabetes mellitus with hyperglycemia (8) CHF (congestive heart failure): (9) Obstructive sleep apnea: (10) CKD (chronic kidney disease) stage 3, GFR 30-59 ml/min: Plan Fariba Rossi is a 59 year old male COPD on supplemental oxygen 3 L nasal cannula, CKD, obstructive sleep apnea on BiPAP but he has been noncompliant, hypertension, atrial fibrillation, morbid obesity, type 2 diabetes melitis was brought in by EMS s/p fall at home and found to have hemoglobin of 9.3, potassium 5.2, bun 95, creatinine 2.7, total bili 1.8, troponins to set 105, 101, BNP 4700 and ABG showed 7.4/57/132/37/90% on 6 L nasal cannula Fall likely mechanical in combination with acute bronchitis/COPD exacerbation CT head negative for any acute intracranial findings COPD exacerbation/acute bronchitis-ABG noted. Will continue supplemental oxygen to keep saturation more than 90% Will hold off on BiPAP for now DuoNebs every 6 hours IV methylprednisolone 80 mg every 8 hours Mucinex p.o. 600 mg twice daily Syrup Robitussin 10 mL 3 times daily Acute on chronic renal failure-likely secondary to dehydration, creatinine at baseline is 1.4-1.5 Will do IV fluids normal saline at 60 mL/h Monitor for fluid overload. 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 MACHINE OPERATOR aspirin, Lipitor, , metolazone, metoprolol, potassium chloride Atrial fibrillation-continue LEVELING MACHINE OPERATOR Eliquis Hypothyroidism-continue LEVELING MACHINE OPERATOR levothyroxine Obstructive sleep apnea- needs BiPAP/noninvasive vent at night Depression-continue LEVELING MACHINE OPERATOR fluoxetine Diabetes mellitus-continue LEVELING MACHINE OPERATOR Tresiba 45 units daily Low-dose correction scale insulin Fingersticks with meals and bedtime BPH-continue LEVELING MACHINE OPERATOR Flomax GI prophylaxis with IV Pepcid twice daily DVT prophylaxis, he is already on Eliquis Cardiac diet As per the , patient's legs give away and he falls/has frequent falls, will do PT/OT eval 08/06--he looks more comfortable today, less short of breath. Added IV ceftriaxone and azithromycin to the regimen. Chest clear to auscultation bilaterally. Spoke with respiratory therapist for noninvasive vent at night for obstructive sleep apnea. Continue current management. Creatinine trending up to 2.4. Continue normal saline at 100 cc/h. Will hold metolazone. Monitor labs in a.m. Attestations 2 Medical Necessity Statement*: He needs continued hospitalization for management of COPD exacerbation and acute bronchitis with worsening of acute on chronic renal failure Time Spent in Patient Care: 20 minutes Coding Level of Care Code Acute Code for [facility] Fwd Diagnoses Acute exacerbation of chronic obstructive airways disease J44.1 Hypoxia R09.02 Fall W19.XXXA Acute on chronic kidney failure N17.9; N18.9 Essential (primary) hypertension I10 Atrial fibrillation with RVR I48.91 Uncontrolled type 2 diabetes mellitus with hyperglycemia E11.65 Glycemic state: with hyperglycemia CHF (congestive heart failure) I50.9 Obstructive sleep apnea G47.33 CKD (chronic kidney disease) stage 3, GFR 30-59 ml/min N18.30 Time Spent (min) 20
--- NOTE | 2024-08-06 14:02 | PC.OT ---
OT EVALUATION ORDERS RECEIVED; NURSING REQUESTS HOLD AT THIS TIME DUE TO PATIENT CONFUSION
[2024-08-06] MEDS: sodium chloride 0.9% 1,000 ML 100 ML IV (14:40)
[2024-08-06] MEDS: LORazepam 2 mg/mL INJ 1 mL 1 MG IVP (16:45)
--- NOTE | 2024-08-06 17:21 | PC.NURSE ---
Patient started to get out of bed and when this nurse and another nurse went into the room to get him back in bed he started getting aggressive and combative. Doctor Saadia then entered the room alongside the patient's family members. Patient tried grabbing this nurse's badge and pulling on it but it snapped in the back. Patient started cursing at the doctor and nursing staff wanting to get out of the room. Patient was asked if they knew where they were at and the patient stated that they were in a college and having a crazy dream. Doctor ordered for ativan to be given and to start precedex.
--- NOTE | 2024-08-06 18:30 | PC.NURSE ---
Patient's did not bring the needles needed for the patient's home meds. Pharmacy also did not have needles. said that she will bring them tomorrow.
[2024-08-06] MEDS: dexmedeTOMIDine 0.9 % NaCL 400 MCG/100 ML PREMIX IV (19:33)
[2024-08-06] MEDS: tamsulosin 0.4 mg Capsule PO (21:40)
[2024-08-06] MEDS: insulin glargine 100 units/1 mL 20 UNIT SUBCUT (22:00)
[2024-08-06] MEDS: valproic acid inj 500 MG in sodium chloride 0.9% 50 ML 55 MG IV (23:53)
[2024-08-07] VITALS (80 sets, daily range): BP systolic 84–153; BP diastolic 56–117; PULSE 59–121; RESP 1–26; TEMP 36.6–37; O2SAT 89–100
[2024-08-07] MEDS: methylPREDNISolone sod succ 125 mg/2 mL INJ 80 MG IVP ×4 (00:03→21:00)
[2024-08-07] MEDS: dexmedeTOMIDine 0.9 % NaCL 400 MCG/100 ML PREMIX 21.68 MCG IV (00:21)
--- NOTE | 2024-08-07 01:37 | PC.NURSE ---
08/06: 2141: Spoke with Dr. Pinon in reference to patient's BG 381 and no insulin ordered. Received orders for 20 units Subcut insulin NOW and for accucheck routine AC HS. Approximately 2244: Spoke with Dr. Pinon in reference to patient get anxious and refusing BiPAP, trying to get out of bed and yelling and cussing. Received orders for valproic acid IV and to bladder scan patient to assess for retained urine.
[2024-08-07] MEDS: sodium chloride 0.9% 1,000 ML 100 ML IV ×2 (02:10→13:30)
[2024-08-07] MEDS: dexmedeTOMIDine 0.9 % NaCL 400 MCG/100 ML PREMIX 18.06 MCG IV (05:01)
[2024-08-07] MEDS: famotidine 20 mg/2 mL INJ IVP ×2 (05:01→17:17)
[2024-08-07 05:53] LABS: Lymphocytes # 0.4 10^3/uL (0.8-4.8); Lymphocytes % 7.8 %; Mean Corpuscular HGB Conc 29.7 g/dL (30-55); Mean Corpuscular Hemoglobin 24.9 pg (27-33); Mean Platelet Volume 9.2 fL (7.4-10.4); Monocytes # 0.1 10^3/uL (0.2-0.9); Monocytes % 2.4 %; Neutrophils # 4.78 10^3/uL (1.8-7.7); Neutrophils % 89.2 %; Nucleated Red Blood Cells % 0 %; Platelet Count 199 10^3/cmm (157-399); Red Blood Count 3.57 10^6/uL (3.85-5.65); Red Cell Distribution Width 24.3 % (12.1-15.1); White Blood Count 5.36 10^3/uL (3.29-11.43)
[2024-08-07 06:15] LABS: Alanine Aminotransferase 15 U/L (0-41); Alkaline Phosphatase 168 U/L (40-130); Anion Gap 13.4 (5-19); Aspartate Amino Transferase 23 U/L (0-40); Calcium 8.2 mg/dL (8.5-10.5); Carbon Dioxide 32 mmol/L (22-29); Chloride 99 mmol/L (98-107); Creatinine Clr Calc Pharmacy 51.3131; Globulin 3.8 g/dL (1.3-4.6); Glomerular Filtration Rate 30.7 mL/min (90-130); Glucose 336 mg/dL (65-115); Magnesium 3.3 mg/dL (1.7-2.3); Osmolality Calculated 328 mOsm/kg (285-295); Phosphorus 4.4 mg/dL (2.5-4.5); Potassium 5.4 mmol/L (3.5-5.1); Sodium 139 mmol/L (136-145); Total Bilirubin 1.3 mg/dL (0.15-1.2); Total Protein 6.8 g/dL (6.6-8.7)
[2024-08-07 06:22] LABS: Blood Urea Nitrogen 87 mg/dL (8-23)
[2024-08-07] MEDS: cefTRIAXone 1,000 mg SDV 1000 MG IVP (06:40)
[2024-08-07] MEDS: azithromycin 500 MG in sodium chloride 0.9% 250 ML 250 MG IV (06:48)
[2024-08-07 07:47] LABS: Glucose Point of Care 381 mg/dL (70-110)
[2024-08-07 07:53] LABS: Glucose Point of Care 345 mg/dL (70-110)
[2024-08-07] MEDS: ipratropium-albuterol 3 mL Neb INHALATION ×4 (08:08→20:07)
[2024-08-07] MEDS: insulin lispro 100 unit/1 mL SUBCUT ×4 (08:38→22:25)
--- NOTE | 2024-08-07 08:50 | XR_ITS ---
WS: [id number] Portable AP upright chest, 08/07/2024 Clinical Data: Possible aspirations Comparison: Portable chest, 08/05/2024 Findings: No nodules, masses or effusions are seen. The heart is enlarged. There is a an artificial a ortic valve. The pulmonary vascularity is slightly increased. No pneumonia or pneumothorax is seen. T he aortic arch shows calcification. There are monitor leads on the chest wall. XR/XR chest 1V portable [id number] Impression: 1. Cardiomegaly with probable mild pulmonary vascular congestion. 2. Artificial aortic valve. 3. Atherosclerosis.
[2024-08-07] MEDS: INSULIN DEGLUDEC 1 EACH SUBCUT (09:00)
--- NOTE | 2024-08-07 10:43 | PC.NURSE ---
Patient is able to normal flex when this nurse sternal rubs them but does not open eyes or follow commands. This nurse is unable to administer PO meds due to the risk of aspiration. Dr. Zee was made aware and they ordered to non administer the morning PO meds and wait until patient is more awake.
[2024-08-07 11:17] LABS: Glucose Point of Care 293 mg/dL (70-110)
[2024-08-07] MEDS: guaiFENesin-dextromethorphan UDC 10 mL PO ×2 (15:14→22:00)
--- NOTE | 2024-08-07 16:24 | PM.PN ---
Subjective Subjective: Patient was found to be agitated overnight and received 1 dose of IV valproate and was started on Precedex drip. He was unresponsive this morning but Precedex drip discontinued. He is alert awake oriented x 3, sitting in chair, and comprehensive. Reports feeling better, denies any shortness of breath or chest pain at this time. Medications: Reviewed: Yes Vitals/I&O/Wt Last Vital Signs Temp 97.9 F 08/07/24 09:00 Pulse 90 08/07/24 14:00 Resp 17 08/07/24 11:30 BP 137/81 08/07/24 13:30 Pulse Ox 98 08/07/24 13:30 O2 Del Method Nasal Cannula 08/07/24 13:30 O2 Flow Rate 4 08/06/24 19:33 FiO2 35 08/07/24 11:14 08/07/24 08/07/24 08/07/24 06:59 14:59 22:59 Intake Total 1213.791 / 3449.053 1245.420 / 1245.420 Output Total 500 / 1225 600 / 600 500 / 1100 Balance 713.791 / 2224.053 645.420 / 645.420 -500 / 145.420 Weight last 48 hrs Weight 149.593 kg Weight 144.5 kg Weight 144.5 kg Physical Exam Narrative: He is alert awake oriented x 3, not in acute distress, seems calm Chest air entry equal on both sides, bilateral scattered rhonchi and wheezing present but improved as compared to admission Cardiovascular normal sounds Abdomen soft nontender nondistended normal bowel sounds Extremities bilateral trace edema present lower extremities. Data 08/07/24 05:21 08/07/24 05:21 A&P Assessment and plan (1) Acute exacerbation of chronic obstructive airways disease: (2) Hypoxia: (3) Fall: (4) Acute on chronic kidney failure: (5) Essential (primary) hypertension: (6) Atrial fibrillation with RVR: (7) Diabetes mellitus type II, uncontrolled: Qualifiers: Glycemic state: with hyperglycemia Qualified Code(s): E11.65 - Type 2 diabetes mellitus with hyperglycemia (8) CHF (congestive heart failure): (9) Obstructive sleep apnea: (10) CKD (chronic kidney disease) stage 3, GFR 30-59 ml/min: Gala Rossi is a 59 year old male COPD on supplemental oxygen 3 L nasal cannula, CKD, obstructive sleep apnea on BiPAP but he has been noncompliant, hypertension, atrial fibrillation, morbid obesity, type 2 diabetes melitis was brought in by EMS s/p fall at home and found to have hemoglobin of 9.3, potassium 5.2, bun 95, creatinine 2.7, total bili 1.8, troponins to set 105, 101, BNP 4700 and ABG showed 7.4/57/132/37/90% on 6 L nasal cannula Fall likely mechanical in combination with acute bronchitis/COPD exacerbation CT head negative for any acute intracranial findings COPD exacerbation/acute bronchitis-ABG noted. Will continue supplemental oxygen to keep saturation more than 90% Will hold off on BiPAP for now DuoNebs every 6 hours IV methylprednisolone 80 mg every 8 hours Mucinex p.o. 600 mg twice daily Syrup Robitussin 10 mL 3 times daily Acute on chronic renal failure-likely secondary to dehydration, creatinine at baseline is 1.4-1.5 Will do IV fluids normal saline at 60 mL/h Monitor for fluid overload. Will hold Lasix for now Probably need nephrology consult CHF-continue DIRECTOR OF QUALITY CONTROL aspirin, Lipitor, , metolazone, metoprolol, potassium chloride Atrial fibrillation-continue DIRECTOR OF QUALITY CONTROL Eliquis Hypothyroidism-continue DIRECTOR OF QUALITY CONTROL levothyroxine Obstructive sleep apnea- needs BiPAP/noninvasive vent at night Depression-continue DIRECTOR OF QUALITY CONTROL fluoxetine Diabetes mellitus-continue DIRECTOR OF QUALITY CONTROL Tresiba 45 units daily Low-dose correction scale insulin Fingersticks with meals and bedtime BPH-continue DIRECTOR OF QUALITY CONTROL Flomax GI prophylaxis with IV Pepcid twice daily DVT prophylaxis, he is already on Eliquis Cardiac diet As per the , patient's legs give away and he falls/has frequent falls, will do PT/OT eval 08/06--he looks more comfortable today, less short of breath. Added IV ceftriaxone and azithromycin to the regimen. Chest clear to auscultation bilaterally. Spoke with respiratory therapist for noninvasive vent at night for obstructive sleep apnea. Continue current management. Creatinine trending up to 2.4. Continue normal saline at 100 cc/h. Will hold metolazone. Monitor labs in a.m. 08/07--had an episode of agitation yesterday afternoon and was given IV Ativan 0.5 mg and started on BiPAP. Had another episode overnight and received IV valproate along with Precedex drip. He was unresponsive this morning hence Precedex drip discontinued and he gradually became conscious. He is now alert awake oriented x 3 and calm. Chest exam improved. Chest x-ray done showed improved bronchitis. Will continue current management. ROMEL improving with creatinine trending down to 2.2. Anticipating discharge in a.m. Attestations Medical Necessity Statement*: He needs continued hospitalization for management of COPD exacerbation and acute bronchitis with worsening of acute on chronic renal failure. Anticipating discharge in a.m. Time Spent in Patient Care: 20 minutes Coding Level of Care Code Acute Code for [facility] Fwd Diagnoses Acute exacerbation of chronic obstructive airways disease J44.1 Hypoxia R09.02 Fall W19.XXXA Acute on chronic kidney failure N17.9; N18.9 Essential (primary) hypertension I10 Atrial fibrillation with RVR I48.91 Uncontrolled type 2 diabetes mellitus with hyperglycemia E11.65 Glycemic state: with hyperglycemia CHF (congestive heart failure) I50.9 Obstructive sleep apnea G47.33 CKD (chronic kidney disease) stage 3, GFR 30-59 ml/min N18.30 Time Spent (min) 20
[2024-08-07] MEDS: guaiFENesin 600 mg Tablet PO (17:17)
[2024-08-07] MEDS: metoprolol tartrate 50 mg Tablet 100 MG PO (17:17)
[2024-08-07] MEDS: apixaban 5 mg Tablet PO (17:17)
[2024-08-07 17:31] LABS: Glucose Point of Care 375 mg/dL (70-110)
[2024-08-07 21:06] LABS: Glucose Point of Care 140 mg/dL (70-110)
[2024-08-07 21:06] LABS: Glucose Point of Care 400 mg/dL (70-110)
[2024-08-07] MEDS: tamsulosin 0.4 mg Capsule PO (22:00)
[2024-08-07] MEDS: insulin glargine 100 units/1 mL 20 UNIT SUBCUT (22:25)
[2024-08-07] MEDS: sodium chloride 0.9% 1,000 ML 80 ML IV (22:26)
[2024-08-08] VITALS (32 sets, daily range): BP systolic 122–164; BP diastolic 79–117; PULSE 86–105; RESP 14–27; TEMP 36.4–36.8; O2SAT 84–100
[2024-08-08 04:41] LABS: Hematocrit 32.1 % (37-53); Lymphocytes # 0.4 10^3/uL (0.8-4.8); Lymphocytes % 5.3 %; Mean Corpuscular Hemoglobin 23.8 pg (27-33); Mean Corpuscular Volume 84.9 fl (82-101); Mean Platelet Volume 9.5 fL (7.4-10.4); Monocytes # 0.3 10^3/uL (0.2-0.9); Monocytes % 4.5 %; Neutrophils # 6.39 10^3/uL (1.8-7.7); Neutrophils % 89.5 %; Nucleated Red Blood Cells % 0 %; Platelet Count 207 10^3/cmm (157-399); Red Blood Count 3.78 10^6/uL (3.85-5.65); Red Cell Distribution Width 24.4 % (12.1-15.1); White Blood Count 7.14 10^3/uL (3.29-11.43)
[2024-08-08 04:56] LABS: Alanine Aminotransferase 22 U/L (0-41); Albumin Level 3.2 g/dL (3.5-5.2); Alkaline Phosphatase 194 U/L (40-130); Anion Gap 12.3 (5-19); Aspartate Amino Transferase 32 U/L (0-40); Blood Urea Nitrogen 77 mg/dL (8-23); Calcium 8.3 mg/dL (8.5-10.5); Carbon Dioxide 33 mmol/L (22-29); Chloride 98 mmol/L (98-107); Creatinine Clr Calc Pharmacy 57.5762; Glomerular Filtration Rate 34.3 mL/min (90-130); Glucose 312 mg/dL (65-115); Magnesium 3.3 mg/dL (1.7-2.3); Osmolality Calculated 323 mOsm/kg (285-295); Phosphorus 3.6 mg/dL (2.5-4.5); Potassium 4.3 mmol/L (3.5-5.1); Sodium 139 mmol/L (136-145); Total Bilirubin 1.4 mg/dL (0.15-1.2); Total Protein 7.2 g/dL (6.6-8.7)
[2024-08-08] MEDS: famotidine 20 mg/2 mL INJ IVP ×2 (05:22→17:20)
[2024-08-08] MEDS: magnesium oxide 400 mg tablet PO (05:22)
[2024-08-08] MEDS: aspirin 325 mg Tablet PO (05:22)
[2024-08-08] MEDS: atorvastatin 40 mg Tablet PO (05:22)
--- NOTE | 2024-08-08 06:54 | PC.NURSE ---
Patient confused restless most of night, pulling at things without intent to do so. Pulled out iv x 1 and also pulling off bipap mask. Managed to irritate nose- resulting in left nostril bleeding. Pressure held x 5 minutes. oxymask at 3 L used inside of nasal canula to help prevent rebleed. Patient remained oriented to self only this shift. Sitter requested for saftey.
--- NOTE | 2024-08-08 07:57 | PC.NURSE ---
At the beginning of this nurse's shift the patient was asked how they are feeling this morning by this nurse. The patient then answered I'm feeling horny and ready to go . Patient was asked to not make those type of comments which the patient said okay.
[2024-08-08] MEDS: azithromycin 500 MG in sodium chloride 0.9% 250 ML 250 MG IV (08:13)
[2024-08-08] MEDS: guaiFENesin-dextromethorphan UDC 10 mL PO ×3 (08:13→20:35)
[2024-08-08] MEDS: cefTRIAXone 1,000 mg SDV 1000 MG IVP (08:13)
[2024-08-08] MEDS: methylPREDNISolone sod succ 125 mg/2 mL INJ 80 MG IVP (08:14)
[2024-08-08] MEDS: apixaban 5 mg Tablet PO ×2 (08:14→17:20)
[2024-08-08] MEDS: metOLazone 5 MG Tablet PO (08:14)
[2024-08-08] MEDS: metoprolol tartrate 50 mg Tablet 100 MG PO ×2 (08:14→17:20)
[2024-08-08] MEDS: fluoxetine 20 mg Capsule PO (08:14)
[2024-08-08] MEDS: levothyroxine 25 mcg Tablet PO (08:14)
[2024-08-08] MEDS: montelukast sodium 10 mg Tablet PO (08:14)
[2024-08-08] MEDS: guaiFENesin 600 mg Tablet PO ×2 (08:14→17:20)
[2024-08-08] MEDS: insulin lispro 100 unit/1 mL SUBCUT ×3 (08:15→17:20)
[2024-08-08] MEDS: INSULIN DEGLUDEC 1 EACH SUBCUT (08:16)
[2024-08-08] MEDS: ipratropium-albuterol 3 mL Neb INHALATION ×4 (08:18→20:10)
[2024-08-08 08:21] LABS: Glucose Point of Care 293 mg/dL (70-110)
--- NOTE | 2024-08-08 11:14 | PC.SOCIAL ---
IMM Updated IMM dated and initialed, copy placed in chart and given to patient.
--- NOTE | 2024-08-08 11:59 | P.PN_ITS ---
Subjective 2 Subjective: No acute overnight events noted. But has been confused and agitated intermittently. On 1:1 sitter. Spoke to this afternoon at bedside, she still thinks he is confused. Explained to her that he is medically getting better, confusion likely secondary to hospitalization. He denies any complaint of chest pain or shortness of breath. Medications: Reviewed: Yes Vitals/I&O/Wt Last Vital Signs Temp 98.3 F 08/08/24 09:00 Pulse 86 08/08/24 11:38 Resp 16 08/08/24 11:30 BP 122/80 08/08/24 09:00 Pulse Ox 96 08/08/24 11:30 O2 Del Method Nasal Cannula 08/08/24 11:30 O2 Flow Rate 2 08/08/24 11:30 FiO2 3 08/08/24 04:30 08/07/24 08/08/24 08/08/24 22:59 06:59 14:59 Intake Total 823.000 / 2318.420 250 / 2568.420 Output Total 1000 / 1600 1275 / 2875 Balance -177.000 / 718.420 -1025 / -306.580 Weight last 48 hrs Weight 148 kg Weight 149.593 kg Physical Exam 2 Narrative: He is alert awake oriented x 3, not in acute distress, seems calm but confused at times Chest air entry equal on both sides, bilateral scattered rhonchi and wheezing present but improved as compared to admission Cardiovascular normal sounds Abdomen soft nontender nondistended normal bowel sounds Extremities bilateral trace edema present lower extremities. Data 08/08/24 04:20 08/08/24 04:20 A&P Assessment and plan (1) Acute exacerbation of chronic obstructive airways disease: (2) Hypoxia: (3) Fall: (4) Acute on chronic kidney failure: (5) Essential (primary) hypertension: (6) Atrial fibrillation with RVR: (7) Diabetes mellitus type II, uncontrolled: Qualifiers: Glycemic state: with hyperglycemia Qualified Code(s): E11.65 - Type 2 diabetes mellitus with hyperglycemia (8) CHF (congestive heart failure): (9) Obstructive sleep apnea: (10) CKD (chronic kidney disease) stage 3, GFR 30-59 ml/min: Plan Fariba Rossi is a 59 year old male COPD on supplemental oxygen 3 L nasal cannula, CKD, obstructive sleep apnea on BiPAP but he has been noncompliant, hypertension, atrial fibrillation, morbid obesity, type 2 diabetes melitis was brought in by EMS s/p fall at home and found to have hemoglobin of 9.3, potassium 5.2, bun 95, creatinine 2.7, total bili 1.8, troponins to set 105, 101, BNP 4700 and ABG showed 7.4/57/132/37/90% on 6 L nasal cannula Fall likely mechanical in combination with acute bronchitis/COPD exacerbation CT head negative for any acute intracranial findings COPD exacerbation/acute bronchitis-ABG noted. Will continue supplemental oxygen to keep saturation more than 90% Will hold off on BiPAP for now DuoNebs every 6 hours IV methylprednisolone 80 mg every 8 hours Mucinex p.o. 600 mg twice daily Syrup Robitussin 10 mL 3 times daily Acute on chronic renal failure-likely secondary to dehydration, creatinine at baseline is 1.4-1.5 Will do IV fluids normal saline at 60 mL/h Monitor for fluid overload. 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, Lipitor, , metolazone, metoprolol, potassium chloride Atrial fibrillation-continue BLEACH ANALYST Eliquis Hypothyroidism-continue BLEACH ANALYST levothyroxine Obstructive sleep apnea- needs BiPAP/noninvasive vent at night Depression-continue BLEACH ANALYST fluoxetine Diabetes mellitus-continue BLEACH ANALYST Tresiba 45 units daily Low-dose correction scale insulin Fingersticks with meals and bedtime BPH-continue BLEACH ANALYST Flomax GI prophylaxis with IV Pepcid twice daily DVT prophylaxis, he is already on Eliquis Cardiac diet As per the , patient's legs give away and he falls/has frequent falls, will do PT/OT eval 08/06--he looks more comfortable today, less short of breath. Added IV ceftriaxone and azithromycin to the regimen. Chest clear to auscultation bilaterally. Spoke with respiratory therapist for noninvasive vent at night for obstructive sleep apnea. Continue current management. Creatinine trending up to 2.4. Continue normal saline at 100 cc/h. Will hold metolazone. Monitor labs in a.m. 08/07--had an episode of agitation yesterday afternoon and was given IV Ativan 0.5 mg and started on BiPAP. Had another episode overnight and received IV valproate along with Precedex drip. He was unresponsive this morning hence Precedex drip discontinued and he gradually became conscious. He is now alert awake oriented x 3 and calm. Chest exam improved. Chest x-ray done showed improved bronchitis. Will continue current management. ROMEL improving with creatinine trending down to 2.2. Anticipating discharge in a.m. 08/08--he is still agitated and confused intermittently. On one-to-one patient sitter. ROMEL resolved with creatinine of 2.0 at baseline. Chest x-ray improved as compared to admission. He has been feeling well, denies any complaint of shortness of breath or chest pain. still concerned about his confusion, hence will check BMP and ammonia in a.m. and if normal will DC home. Home PT set up by case management. Attestations 2 Medical Necessity Statement*: He needs continued hospitalization for management of confusion with follow-up of BMP and ammonia levels in a.m. Anticipating discharge in a.m. Time Spent in Patient Care: 20 minutes Coding Level of Care Code Acute Code for g Fwd Diagnoses Acute exacerbation of chronic obstructive airways disease J44.1 Hypoxia R09.02 Fall W19.XXXA Acute on chronic kidney failure N17.9; N18.9 Essential (primary) hypertension I10 Atrial fibrillation with RVR I48.91 Uncontrolled type 2 diabetes mellitus with hyperglycemia E11.65 Glycemic state: with hyperglycemia CHF (congestive heart failure) I50.9 Obstructive sleep apnea G47.33 CKD (chronic kidney disease) stage 3, GFR 30-59 ml/min N18.30 Time Spent (min) 20
[2024-08-08 12:21] LABS: Glucose Point of Care 301 mg/dL (70-110)
[2024-08-08 16:46] LABS: Glucose Point of Care 355 mg/dL (70-110)
[2024-08-08] MEDS: tamsulosin 0.4 mg Capsule PO (20:35)
[2024-08-08] MEDS: insulin lispro 100 unit/1 mL 20 UNIT SUBCUT (20:36)
[2024-08-08] MEDS: insulin glargine 100 units/1 mL 20 UNIT SUBCUT (20:36)
[2024-08-08] MEDS: doxepin 50 mg Capsule PO (20:37)
[2024-08-08 20:41] LABS: Glucose Point of Care 419 mg/dL (70-110)
[2024-08-09] VITALS (10 sets, daily range): BP systolic 117–150; BP diastolic 80–113; PULSE 86–98; RESP 15–21; TEMP 36.8–37; O2SAT 92–99
[2024-08-09 04:34] LABS: Blood Urea Nitrogen 66 mg/dL (8-23); Calcium 8.1 mg/dL (8.5-10.5); Carbon Dioxide 32 mmol/L (22-29); Chloride 96 mmol/L (98-107); Glomerular Filtration Rate 44.3 mL/min (90-130); Glucose 249 mg/dL (65-115); Osmolality Calculated 307 mOsm/kg (285-295); Sodium 135 mmol/L (136-145)
[2024-08-09 04:35] LABS: Creatinine Clr Calc Pharmacy 71.5278
[2024-08-09 04:38] LABS: Ammonia 39 umol/L (16-60)
[2024-08-09 04:42] LABS: Anion Gap 10.8 (5-19); Potassium 3.8 mmol/L (3.5-5.1)
[2024-08-09] MEDS: famotidine 20 mg/2 mL INJ IVP (04:54)
[2024-08-09] MEDS: atorvastatin 40 mg Tablet PO (05:00)
[2024-08-09] MEDS: aspirin 325 mg Tablet PO (05:00)
[2024-08-09] MEDS: azithromycin 500 MG in sodium chloride 0.9% 250 ML 250 MG IV (05:52)
[2024-08-09 07:40] LABS: Glucose Point of Care 210 mg/dL (70-110)
[2024-08-09] MEDS: guaiFENesin 600 mg Tablet PO (07:52)
[2024-08-09] MEDS: guaiFENesin-dextromethorphan UDC 10 mL PO (07:52)
[2024-08-09] MEDS: apixaban 5 mg Tablet PO (07:52)
[2024-08-09] MEDS: fluoxetine 20 mg Capsule PO (07:52)
[2024-08-09] MEDS: montelukast sodium 10 mg Tablet PO (07:52)
[2024-08-09] MEDS: metoprolol tartrate 50 mg Tablet 100 MG PO (07:53)
[2024-08-09] MEDS: levothyroxine 25 mcg Tablet PO (07:53)
[2024-08-09] MEDS: metOLazone 5 MG Tablet PO (07:53)
[2024-08-09] MEDS: methylPREDNISolone sod succ 40 mg/mL INJ IVP (07:53)
[2024-08-09] MEDS: insulin lispro 100 unit/1 mL SUBCUT (07:53)
[2024-08-09] MEDS: ipratropium-albuterol 3 mL Neb INHALATION (07:55)
[2024-08-09] MEDS: INSULIN DEGLUDEC 1 EACH SUBCUT (08:02)
--- NOTE | 2024-08-09 09:58 | P.DS_ITS ---
Discharge Providers Date of Admission: 08/05/24 17:58 Date of Discharge: August 09, 2024 Attending Provider at Admission: Kaci Zee MD Attending Provider at Discharge: Kaci Zee MD Primary Care Provider: JAQUI Garcia Diagnoses at Discharge Discharge Diagnosis (1) Acute exacerbation of chronic obstructive airways disease: Status: Acute (2) Hypoxia: Status: Acute (3) Fall: Status: Acute (4) Acute on chronic kidney failure: Status: Acute (5) Essential (primary) hypertension: Status: Chronic (6) Atrial fibrillation with RVR: Status: Acute (7) Diabetes mellitus type II, uncontrolled: Status: Chronic Qualifiers: Glycemic state: with hyperglycemia Qualified Code(s): E11.65 - Type 2 diabetes mellitus with hyperglycemia (8) CHF (congestive heart failure): Status: Chronic (9) Obstructive sleep apnea: Status: Acute (10) CKD (chronic kidney disease) stage 3, GFR 30-59 ml/min: Status: Chronic Reason for Visit Reason for Visit: sob, dizziness Brief History: Fariba Rossi is a 59 year old male COPD on supplemental oxygen 3 L nasal cannula, CKD, obstructive sleep apnea on BiPAP but he has been noncompliant, hypertension, atrial fibrillation, morbid obesity, type 2 diabetes melitis was brought in by EMS s/p fall at home. As per the patient and his who is at bedside reports that he was walking back from the bathroom with the help of a walker, his legs gave way and he fell and hit his head on the plastic drawers on the side of his bed. He denied feeling dizziness, chest pain, shortness of breath, nausea/vomiting or palpitations prior to the fall. Denies any history of fever, recent travel or sick contact. As per the he has been noncompliant with the breathing treatments and BiPAP In the ER he was found to be short of breath, requiring supplemental oxygen at 6 L, BUNs/creatinine was 95/2.7, baseline creatinine is 1.4, BNP 4700 at his baseline. Hospital Course Hospital Course Fariba Rossi is a 59 year old male COPD on supplemental oxygen 3 L nasal cannula, CKD, obstructive sleep apnea on BiPAP but he has been noncompliant, hypertension, atrial fibrillation, morbid obesity, type 2 diabetes melitis was brought in by EMS s/p fall at home and found to have hemoglobin of 9.3, potassium 5.2, bun 95, creatinine 2.7, total bili 1.8, troponins to set 105, 101, BNP 4700 and ABG showed 7.4/57/132/37/90% on 6 L nasal cannula Fall likely mechanical in combination with acute bronchitis/COPD exacerbation CT head negative for any acute intracranial findings COPD exacerbation/acute bronchitis-ABG noted. Will continue supplemental oxygen to keep saturation more than 90% Will hold off on BiPAP for now DuoNebs every 6 hours IV methylprednisolone 80 mg every 8 hours Mucinex p.o. 600 mg twice daily Syrup Robitussin 10 mL 3 times daily Acute on chronic renal failure-likely secondary to dehydration, creatinine at baseline is 1.4-1.5 Will do IV fluids normal saline at 60 mL/h Monitor for fluid overload. Will hold Lasix for now Probably need nephrology consult As per the , patient's legs give away and he falls/has frequent falls, will do PT/OT eval 08/06--he looks more comfortable today, less short of breath. Added IV ceftriaxone and azithromycin to the regimen. Chest clear to auscultation bilaterally. Spoke with respiratory therapist for noninvasive vent at night for obstructive sleep apnea. Continue current management. Creatinine trending up to 2.4. Continue normal saline at 100 cc/h. Will hold metolazone. Monitor labs in a.m. 08/07--had an episode of agitation yesterday afternoon and was given IV Ativan 0.5 mg and started on BiPAP. Had another episode overnight and received IV valproate along with Precedex drip. He was unresponsive this morning hence Precedex drip discontinued and he gradually became conscious. He is now alert awake oriented x 3 and calm. Chest exam improved. Chest x-ray done showed improved bronchitis. Will continue current management. ROMEL improving with creatinine trending down to 2.2. 08/08--he is still agitated and confused intermittently. On one-to-one patient sitter. Confusion ikely secondary to hospitalization, has been calm around family members. ROMEL resolved with creatinine of 2.0 at baseline. Chest x-ray improved as compared to admission. He has been feeling well, denies any complaint of shortness of breath or chest pain. still concerned about his confusion, hence will check BMP and ammonia in a.m. and if normal will DC home. Home PT set up by case management. 08/09--He is doing well this morning, no confusion. Does not need a sitter. ROMEL resolved with creatinine of 1.6. Ammonia was 39, normal. home PT in place. Needs to use non invasive vent at home for ELEONORA regularly. Physical Exam Narrative: He is alert awake oriented x 3, not in acute distress, seems calm but confused at times Chest air entry equal on both sides, clear to ascultation b/l this morning. Cardiovascular normal sounds Abdomen soft nontender nondistended normal bowel sounds Extremities bilateral trace edema present lower extremities. Discharge Data Studies Completed and Pending Completed Studies During Hospitalization Category Date Time Status CT head wo con* [id number] Stat Cat Scan 08/05/24 13:05 Completed XR chest 1V portable [id number] Routine Exams 08/07/24 08:50 Completed XR chest 1V portable [id number] Stat Exams 08/05/24 13:05 Completed Radiology Impressions Head CT 08/05/24 13:05 IMPRESSION: 1. No evidence of intracranial hemorrhage or mass effect. 2. No acute intracranial findings. Chest X-Ray 08/07/24 08:50 Impression: 1. Cardiomegaly with probable mild pulmonary vascular congestion. 2. Artificial aortic valve. 3. Atherosclerosis. Laboratory Results WBC 7.14 10^3/uL (3.29-11.43) 08/08/24 04:20 RBC 3.78 10^6/uL (3.85-5.65) L 08/08/24 04:20 Hgb 9.00 g/dL (11.27-16.99) L 08/08/24 04:20 Hct 32.1 % (37-53) L 08/08/24 04:20 MCV 84.9 fl (82-101) 08/08/24 04:20 MCH 23.8 pg (27-33) L 08/08/24 04:20 MCHC 28.0 g/dL (30-55) L D 08/08/24 04:20 RDW 24.4 % (12.1-15.1) H 08/08/24 04:20 Plt Count 207 10^3/cmm (157-399) 08/08/24 04:20 MPV 9.5 fL (7.4-10.4) 08/08/24 04:20 Neut % (Auto) 89.5 % 08/08/24 04:20 Lymph % (Auto) 5.3 % 08/08/24 04:20 [place] % (Auto) 4.5 % 08/08/24 04:20 Eos % (Auto) 0.0 % 08/08/24 04:20 Baso % (Auto) 0.0 % 08/08/24 04:20 Neut # (Auto) 6.39 10^3/uL (1.8-7.7) 08/08/24 04:20 Lymph # (Auto) 0.4 10^3/uL (0.8-4.8) L 08/08/24 04:20 [place] # (Auto) 0.3 10^3/uL (0.2-0.9) 08/08/24 04:20 Eos # (Auto) 0.0 10^3/uL (0.0-0.8) 08/08/24 04:20 Baso # (Auto) 0.0 10^3/uL (0.0-0.1) 08/08/24 04:20 Nucleated RBC % (auto) 0 % 08/08/24 04:20 Nucleated RBCs # 0.0 /100WBC 08/08/24 04:20 PT 23.20 SECONDS (12.1-14.9) H 08/05/24 14:07 INR 1.98 (0.8-1.2) H 08/05/24 14:07 Specimen Type Arterial 08/05/24 16:45 Sample Site Radial, left 08/05/24 16:45 ABG pH 7.42 (7.35-7.45) 08/05/24 16:45 ABG pCO2 57.8 mmHg (35-45) H 08/05/24 16:45 ABG pO2 132.0 mmHg (80.0-100.0) H 08/05/24 16:45 ABG HCO3 37.0 mmol/L (22-26) H 08/05/24 16:45 ABG Base Excess 10.9 mmol/L (-2.0-2.0) H 08/05/24 16:45 Alex Test Pos 08/05/24 16:45 Hematocrit 28.9 % (42-52) L 08/05/24 16:45 O2 Delivery Device Nc 08/05/24 16:45 O2 Liters/Min 4.0 % 08/05/24 16:45 Interface Developer ID Dee 08/05/24 16:45 Sodium 135 mmol/L (136-145) L 08/09/24 04:02 Potassium 3.8 mmol/L (3.5-5.1) 08/09/24 04:02 Chloride 96 mmol/L (98-107) L 08/09/24 04:02 Carbon Dioxide 32 mmol/L (22-29) H 08/09/24 04:02 Anion Gap 10.8 (5-19) 08/09/24 04:02 BUN 66 mg/dL (8-23) H 08/09/24 04:02 Creatinine 1.6 mg/dL (0.7-1.2) H 08/09/24 04:02 GFR Calculation 44.3 mL/min (90-130) L 08/09/24 04:02 Glucose 249 mg/dL (65-115) H 08/09/24 04:02 POC Glucose 210 mg/dL (70-110) H 08/09/24 07:38 Calculated Osmolality 307 mOsm/kg (285-295) H 08/09/24 04:02 Calcium 8.1 mg/dL (8.5-10.5) L 08/09/24 04:02 Phosphorus 3.6 mg/dL (2.5-4.5) 08/08/24 04:20 Magnesium 3.3 mg/dL (1.7-2.3) H 08/08/24 04:20 Total Bilirubin 1.4 mg/dL (0.15-1.2) H 08/08/24 04:20 AST 32 U/L (0-40) 08/08/24 04:20 ALT 22 U/L (0-41) 08/08/24 04:20 Alkaline Phosphatase 194 U/L (40-130) H 08/08/24 04:20 Ammonia 39 umol/L (16-60) 08/09/24 04:02 Troponin T Baseline 105 ng/L (0-15) H* 08/05/24 14:07 Troponin T 120 Minute 101.7 ng/L (0-15) H 08/05/24 15:03 Delta Troponin T -3.3 ABS# (0-10) L 08/05/24 15:03 Troponin T Hi Sens 6Hr 98.35 ng/L (0-15) H 08/05/24 19:40 Troponin T Hi Sens 6Hr Delta -6.65 ng/L (0-12) L 08/05/24 19:40 NT-Pro-B Natriuret Pep 4713 pg/mL (0-125) H 08/05/24 14:07 Total Protein 7.2 g/dL (6.6-8.7) 08/08/24 04:20 Albumin 3.2 g/dL (3.5-5.2) L 08/08/24 04:20 Globulin 4.0 g/dL (1.3-4.6) 08/08/24 04:20 Vitals Last Vital Signs Temp 98.2 F 08/09/24 04:00 Pulse 98 08/09/24 07:55 Resp 20 H 08/09/24 07:55 BP 144/113 08/09/24 03:00 Pulse Ox 99 08/09/24 07:55 O2 Del Method Nasal Cannula 08/09/24 07:55 O2 Flow Rate 2 08/09/24 07:55 FiO2 30 08/08/24 20:15 Discharge Plan Discharge Patient Disposition: Home Health Service Condition: Stable Prescriptions: New azithromycin 500 mg tablet See Rx Instructions .ROUTE .COMPLEX Qty: 3 0RF Rx Instructions: For 500 mg dose pack: take 500 mg once daily for 3 days Continued furosemide 40 mg tablet 40 mg PO BID metoprolol tartrate 100 mg tablet 100 mg PO BID Qty: 60 2RF atorvastatin 40 mg tablet 40 mg PO QAM Qty: 90 1RF doxepin 50 mg capsule 50 mg PO TID PRN (Reason: anxiety) Qty: 270 1RF fluoxetine [Prozac] 20 mg capsule 20 mg PO DAILY Qty: 90 1RF levothyroxine 25 mcg tablet 25 mcg PO DAILY Qty: 90 1RF montelukast 10 mg tablet 10 mg PO DAILY Qty: 90 1RF tamsulosin 0.4 mg capsule 0.4 mg PO BEDTIME Qty: 90 1RF (DME) cpap machine See Rx Instructions .Route .MEDSUPPLY Qty: 1 0RF Rx Instructions: As directed auto titrate cpap machine 6-16cm with supplies aspirin 325 mg Tablet 325 mg PO QAM Eliquis 5 mg tablet 5 mg PO BID nitroglycerin 0.4 mg tablet, sublingual 0.4 mg buccal PRN PRN (Reason: Chest Pain) insulin lispro 100 unit/mL solution See Rx Instructions .ROUTE .COMPLEX PRN (Reason: hyperglycemia) Qty: 10 0RF Rx Instructions: Glucose: 141-180 - 2 units 181-220 - 3 221-260 - 4 261-300 - 5 301-350 - 6 351-400 - 7 >400 - 8 units metolazone 5 mg tablet 5 mg PO DAILY Rx Instructions: as directed by provider John FlexTouch U-200 200 unit/mL (3 mL) insulin pen 45 unit SUBCUT DAILY potassium chloride 20 mEq tablet extended release 40 meq PO BID Discontinued magnesium oxide 400 mg magnesium capsule 400 mg PO QAM No Action (DME) lancets [OneTouch Delica Lancets] 33 gauge misc See Rx Instructions .ROUTE .MEDSUPPLY Qty: 200 5RF Rx Instructions: 4 times daily (DME) Inogen See Rx Instructions .Route .MEDSUPPLY Qty: 1 0RF Rx Instructions: As directed (DME) Wheel chair [id number] See Rx Instructions .Route .MEDSUPPLY Qty: 1 0RF Rx Instructions: As directed (DME) blood sugar diagnostic Strip See Rx Instructions .ROUTE .MEDSUPPLY Qty: 200 5RF Rx Instructions: 4 times a day as needed (DME) blood-glucose meter [OneTouch Ultra2 Meter] Kit See Rx Instructions .ROUTE .MEDSUPPLY Qty: 1 0RF Rx Instructions: use daily (DME) BiPAP See Rx Instructions .Route .MEDSUPPLY Qty: 1 0RF Rx Instructions: As directed (DME) insulin syringe-needle U-100 [BD Insulin Syringe Ultra-Fine] 1 mL 31 gauge x 5/16 syringe See Rx Instructions .Route Qty: 300 5RF Rx Instructions: use 1 three time day Discharge Orders: Discharge Order (Routine); Ordered 08/09/24 Ordered By: Kaci Zee Referrals: [facility] [Outside] Mateo Sifuentes, [employer] [Primary Care Provider] - Discharge Diet: Cardiac Discharge Activity: Increase activity as tolerated Patient Instructions: Opioid Safety Discharge Attestations Time Spent in Discharge Care*: less than 30 min Quality Metrics Clinical Quality Measures [ No reported AMI, CVA or VTE this stay] Coding Level of Care Code Acute Code for Chg Fwd Diagnoses Acute exacerbation of chronic obstructive airways disease J44.1 Hypoxia R09.02 Fall W19.XXXA Acute on chronic kidney failure N17.9; N18.9 Essential (primary) hypertension I10 Atrial fibrillation with RVR I48.91 Uncontrolled type 2 diabetes mellitus with hyperglycemia E11.65 Glycemic state: with hyperglycemia CHF (congestive heart failure) I50.9 Obstructive sleep apnea G47.33 CKD (chronic kidney disease) stage 3, GFR 30-59 ml/min N18.30
--- NOTE | 2024-08-09 10:54 | PC.NURSE ---
Discharge Note Patient discharged to home via POV accompanied by spouse. Discharge instructions reviewed with patient and/or area representative. Mobile pharmacy medications and/or prescriptions provided. Belongings/home medications returned.
== END 2024-08-09 10:54 | disposition home health service (06) | DRG 191 ==
LOC: ER 15:50 → CSU 17:58 → ICU 20:25
PROVIDERS: Internal Medicine; Admitting Provider Internal Medicine; Emergency Provider Emergency Medicine; PCP Nurse Practitioner; Visit Provider Internal Medicine
DX: J44.1 Chronic obstructive pulmonary disease with (acute) exacerbation (principal); I13.0 Hypertensive heart and chronic kidney disease with heart failure and stage 1 through stage 4 chronic kidney disease, or unspecified chronic kidney disease; N17.9 Acute kidney failure, unspecified; Z68.42 Body mass index [BMI] 45.0-49.9, adult; I48.91 Unspecified atrial fibrillation; E11.65 Type 2 diabetes mellitus with hyperglycemia; G47.33 Obstructive sleep apnea (adult) (pediatric); E66.01 Morbid (severe) obesity due to excess calories; E11.22 Type 2 diabetes mellitus with diabetic chronic kidney disease; N18.30 Chronic kidney disease, stage 3 unspecified; I50.9 Heart failure, unspecified; I25.10 Atherosclerotic heart disease of native coronary artery without angina pectoris; E11.40 Type 2 diabetes mellitus with diabetic neuropathy, unspecified; E03.9 Hypothyroidism, unspecified; W18.30XA Fall on same level, unspecified, initial encounter; N40.0 Benign prostatic hyperplasia without lower urinary tract symptoms; Z99.81 Dependence on supplemental oxygen; Z91.199 Patient's noncompliance with other medical treatment and regimen due to unspecified reason; Z79.899 Other long term (current) drug therapy; Z79.4 Long term (current) use of insulin; Z79.890 Hormone replacement therapy; Z79.01 Long term (current) use of anticoagulants; Z88.8 Allergy status to other drugs, medicaments and biological substances; Z95.5 Presence of coronary angioplasty implant and graft; Z87.891 Personal history of nicotine dependence; R09.02 Hypoxemia; R45.1 Restlessness and agitation
CPT/HCPCS: 36415; 36416; 51702; 51798; 70450; 71045; 80048; 80053; 82140; 82803; 82962; 83735; 83880; 84100; 84484; 85025; 85610; 93005; 94640; 94660; 94664; 96372; 96374; 96375; 96376; 97110; 97116; 97163; 97167; 97530; 97535; 99285; J0456; J0696; J1815; J1940; J2060; J2919; J3490; J7030; J7040; J7050

== ENCOUNTER 2024-08-18 18:35 | Inpatient (IN) | payer MEDICARE, OTHER, SELFPAY ==
[2024-08-18 18:51] VITALS: BP 108/66; PULSE 75; RESP 24; TEMP 36.4; O2SAT 100; BMI 51.0
--- NOTE | 2024-08-18 20:06 | XRR_ITS ---
PROCEDURE INFORMATION: Exam: XR Chest Exam date and time: 08/18/2024 8:56 PM Age: 59 years old Clinical indication: Shortness of breath; Additional info: Chf TECHNIQUE: Imaging protocol: Radiologic exam of the chest. Views: 1 view. COMPARISON: CR XR chest 1V portable [id number] 08/07/2024 10:05 AM FINDINGS: Lungs: Visualized portions of the lungs are clear. Pleural spaces: Unremarkable. No pleural effusion. No pneumothorax. Heart/Mediastinum: The heart is moderately enlarged. There are findings of TAVR. Bones/joints: Unremarkable. XR/XR chest 1V portable [id number] IMPRESSION: No acute infiltrate.
--- NOTE | 2024-08-18 21:03 | ECG_ITS ---
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 Measurements Intervals [place] Rate: 75 P: 0 LA: 0 QRS: 128 QRSD: 167 T: -27 QT: 479 QTc: 536 Interpretive Statements ATRIAL FLUTTER/TACHYCARDIA INTRAVENTRICULAR CONDUCTION DELAY [130+ ms QRS DURATION] POSSIBLE RIGHT VENTRICULAR HYPERTROPHY [SOME/ALL OF: PROMINENT R IN V1, LATE TRANSITION, RAD, FLOR, SSS] Compared to ECG 08/05/2024 19:39:36 Intraventricular conduction delay now present Atrial fibrillation no longer present Right-axis deviation no longer present Right bundle-branch block no longer present T-wave abnormality no longer present Possible ischemia no longer present Electronically Signed On 08-19-2024 01:25:43 CDT by Tim Palma M.D. [id number]
--- NOTE | 2024-08-18 21:20 | ED_ITS ---
HPI - General Adult 2 General: Chief complaint: General Medical Stated complaint: FLUID RETENTION Time Seen by Provider: 08/18/24 21:03 History of Present Illness: Patient presents to the ER by EMS complaints of fluid retention. Patient says about every month he has to come in for IV diuretics due to fluid retention. This time its primarily in his genitals and his abdomen. He is currently on Lasix orally. 40 mg twice a day, patient's said he is probably gained 40 pounds in the last 2 weeks. Patient wears 2 L of oxygen at baseline. Related Data Home Medications Medication Instructions Recorded Confirmed aspirin 325 mg tablet 325 mg PO QAM 03/06/23 08/13/24 apixaban 5 mg tablet (Eliquis) 5 mg PO BID 04/14/23 08/13/24 nitroglycerin 0.4 mg sublingual 0.4 mg buccal PRN PRN Chest Pain 03/01/24 08/13/24 tablet insulin degludec 200 unit/mL (3 45 unit SUBCUT DAILY 08/05/24 08/13/24 mL) subcutaneous pen (Tresiba FlexTouch U-200 insulin) metolazone 5 mg tablet 5 mg PO DAILY 08/05/24 08/13/24 metoprolol tartrate 100 mg tablet 50 mg PO BID 08/13/24 08/13/24 Previous Rx's Medication Instructions Recorded blood-glucose meter (OneTouch #1 ea 01/04/20 Ultra2 Meter kit) lancets 33 gauge (OneTouch Delica #200 ea 04/13/20 Lancets) blood sugar diagnostic #200 ea 11/29/22 Inogen #1 ea 04/18/23 Wheel chair [id number] #1 ea 04/18/23 BiPAP #1 ea 05/16/23 cpap machine #1 ea 06/12/23 insulin syringe-needle U-100 1 mL #300 ea 06/20/23 31 gauge x 5/16 (BD Insulin Syringe Ultra-Fine) insulin lispro 100 unit/mL See Rx Instructions .Route 03/07/24 subcutaneous solution .COMPLEX PRN hyperglycemia #10 mL atorvastatin 40 mg tablet 40 mg PO QAM #90 tabs 07/09/24 doxepin 50 mg capsule 50 mg PO TID PRN anxiety #270 caps 07/09/24 fluoxetine 20 mg capsule (Prozac) 20 mg PO DAILY #90 caps 07/09/24 levothyroxine 25 mcg tablet 25 mcg PO DAILY #90 tabs 07/09/24 montelukast 10 mg tablet 10 mg PO DAILY #90 tabs 07/09/24 tamsulosin 0.4 mg capsule 0.4 mg PO BEDTIME #90 caps 07/09/24 azithromycin 500 mg tablet See Rx Instructions PO .COMPLEX #3 08/09/24 tabs furosemide 40 mg tablet 40 mg PO BID #60 tabs 08/13/24 potassium chloride 20 mEq 40 meq (2 x 20 mEq) PO BID #120 08/13/24 tablet,extended release tabs Allergies Allergy/AdvReac Type Severity Reaction Status Date / Time lisinopril Allergy ADR-Cough Verified 08/18/24 19:00 amiodarone AdvReac Severe Unknown Verified 08/18/24 19:00 PFS ED 2 PFSH: Medical History Diabetes mellitus type II, uncontrolled COPD (chronic obstructive pulmonary disease) CHF (congestive heart failure) Atrial fibrillation with RVR CKD (chronic kidney disease) stage 3, GFR 30-59 ml/min Obstructive sleep apnea Primary localized osteoarthrosis of left lower leg Localized primary osteoarthritis of right lower leg Urgency-frequency syndrome Essential (primary) hypertension Dyspnea on exertion Acute exacerbation of CHF (congestive heart failure) Oxygen dependent Atrial fibrillation Iron deficiency Recurrent bronchospasm Dietary noncompliance Obesity Anxiety Neuropathy Arteriosclerotic coronary artery disease Surgical History History of colonoscopy H/O heart artery stent 09/2011 History of carpal tunnel surgery of right wrist 2011 Family History Father , AGE 74 Diabetes Heart disease Mother , LUNG CANCER AGE 55 Cancer CAD (coronary artery disease) Lung disease Heart disease Grandmother CAD (coronary artery disease) Cancer Dementia Heart disease Family/Other CAD (coronary artery disease) Heart disease Grandfather CAD (coronary artery disease) Heart disease Diabetes Sister Lung disease Denies family history of Clotting disorder Chronic kidney disease (CKD) Suicide Anesthesia complication Bleeding disorder Stroke Social History Smoking and tobacco/nicotine status: former use of tobacco/nicotine Quit status (tobacco/nicotine): has quit using Year quit tobacco: 2000 Former quit date comment: 4ppd x 22 years Second hand smoke exposure: No Alcohol intake: current Alcohol intake frequency: holidays/special occasions only Substance/Drug Use: never Adopted: No Caregiver/support person: No Lives independently: Yes Household members: spouse Housing: House Marital status: Number of children: 2 service: No Current occupational status: disabled Pets and animals: Yes Do you think of yourself as: Straight/Heterosexual Current gender identity: Male and Female Physical Exam 2 Const: COMMON NORMALS: no acute distress, average body habitus, patient oriented x3, no limitations, healthy appearing, alert and well nourished HENMT: COMMON NORMALS: normocephalic, atraumatic, hearing grossly normal bilaterally, external ears normal, Normal external nose present and moist oral mucous membranes HEAD & SCALP: normocephalic and atraumatic NOSE: Normal external nose present EXTERNAL EAR: Yes external ears normal Neck/C-Spine: COMMON NORMALS: full ROM, no lymphadenopathy, supple, no meningeal signs and no JVD Chest: COMMONS NORMALS: normal inspection of the chest and normal palpation of entire chest wall Resp: COMMON NORMALS: normal respiratory effort, No retractions, No use of accessory muscles and clear to auscultation bilaterally (Decreased breath sounds bilaterally) AUSCULTATION: clear to auscultation bilaterally (Decreased breath sounds bilaterally) Cardio: COMMON NORMALS: no JVD, regular rate, regular rhythm, S1 normal heart sound present, S2 normal heart sound present, No gallops present (Cardio) and No clicks present (Cardio) RATE: regular rate RHYTHM: regular rhythm HEART SOUNDS: S1 normal heart sound present and S2 normal heart sound present GI: OTHER: Tight distended nontender Neuro: COMMON NORMALS: patient oriented x3 SENSORIUM/ORIENTATION: Yes alert MENINGEAL SIGNS: Yes no meningeal signs Course 2 Vital Signs: Vital signs: Vital Signs Temperature 97.5 F L 08/18/24 18:51 Pulse Rate 75 08/19/24 01:00 Respiratory Rate 18 08/18/24 23:16 Blood Pressure 122/74 08/19/24 01:00 Pulse Oximetry 100 08/19/24 01:00 Oxygen Delivery Me thod Room Air 08/18/24 22:41 Oxygen Flow Rate 2 08/18/24 18:51 MDM - General Adult Medical Decision Making Patient extensive lab work done as well as CT scan of his chest abdomen pelvis which showed increasing cirrhosis ascites and anasarca as well as pericardial effusion and bilateral pleural effusion, these results was discussed with Dr. Delacruz we will give him 60 mg of IV Las[facility] Records I reviewed the patient's medical records. Lab Data I reviewed the patient's lab results. 08/18/24 22:32 08/18/24 22:32 Radiology Impressions Chest X-Ray 08/18/24 20:06 IMPRESSION: No acute infiltrate. Abdomen/Pelvis CT 08/18/24 23:25 IMPRESSION: 1. Cirrhosis and ascites. Ascites is increased compared with 03/19/2023 2. Anasarca 3. Pericardial effusion 4. Bilateral pleural effusions Chest CT 08/19/24 00:09 IMPRESSION: 1. Increasing pericardial effusion compared with 02/28/2023 2. Small bilateral pleural effusions 3. Anasarca increased from previous. 4. Old granulomatous disease. COMMENTS: For findings below the diaphragm please see the CT abdomen pelvis reported separately. Laboratory Results WBC 5.51 10^3/uL (3.29-11.43) 08/18/24 22:32 RBC 3.15 10^6/uL (3.85-5.65) L 08/18/24 22:32 Hgb 7.90 g/dL (11.27-16.99) L 08/18/24 22:32 Hct 27.5 % (37-53) L 08/18/24 22:32 MCV 87.3 fl (82-101) 08/18/24 22:32 MCH 25.1 pg (27-33) L 08/18/24 22:32 MCHC 28.7 g/dL (30-55) L 08/18/24 22:32 RDW 27.4 % (12.1-15.1) H 08/18/24 22:32 Plt Count 139 10^3/cmm (157-399) L 08/18/24 22:32 MPV 9.4 fL (7.4-10.4) 08/18/24 22:32 Neut % (Auto) 74.9 % 08/18/24 22:32 Lymph % (Auto) 14.5 % 08/18/24 22:32 [place] % (Auto) 9.8 % 08/18/24 22:32 Eos % (Auto) 0.4 % 08/18/24: Baso % (Auto) 0.2 % 08/18/24 22: Neut # (Auto) 4.13 10^3/uL (1.8-7.7) 08/18/24 22:32 Lymph # (Auto) 0.8 10^3/uL (0.8-4.8) 08/18/24 22:32 [place] # (Auto) 0.5 10^3/uL (0.2-0.9) 08/18/24 22: Eos # (Auto) 0.0 10^3/uL (0.0-0.8) 08/18/24: Baso # (Auto) 0.0 10^3/uL (0.0-0.1) 08/18/24 22:32 Nucleated RBC % (auto) 0 % 08/18/24: Nucleated RBCs # 0.0 /100WBC 08/18/24 22:32 Sodium 138 mmol/L (136-145) 08/18/24 22:32 Potassium 3.3 mmol/L (3.5-5.1) L 08/18/24 22:32 Chloride 93 mmol/L (98-107) L 08/18/24 22:32 Carbon Dioxide 35 mmol/L (22-29) H 08/18/24 22:32 Anion Gap 13.3 (5-19) 08/18/24 22:32 BUN 58 mg/dL (8-23) H 08/18/24 22:32 Creatinine 1.5 mg/dL (0.7-1.2) H 08/18/24 22:32 GFR Calculation 47.7 mL/min (90-130) L 08/18/24 22:32 Glucose 167 mg/dL (65-115) H 08/18/24 22:32 Calculated Osmolality 306 mOsm/kg (285-295) H 08/18/24 22:32 Calcium 8.8 mg/dL (8.5-10.5) 08/18/24 22:32 Phosphorus 4.1 mg/dL (2.5-4.5) 08/18/24 22:32 Magnesium 2.0 mg/dL (1.7-2.3) 08/18/24 22:32 Total Bilirubin 1.7 mg/dL (0.15-1.2) H 08/18/24 22:32 AST 27 U/L (0-40) 08/18/24 22:32 ALT 23 U/L (0-41) 08/18/24 22:32 Alkaline Phosphatase 196 U/L (40-130) H 08/18/24 22:32 NT-Pro-B Natriuret Pep 4294 pg/mL (0-125) H 08/18/24 22:32 Total Protein 6.4 g/dL (6.6-8.7) L 08/18/24 22:32 Albumin 3.3 g/dL (3.5-5.2) L 08/18/24 22:32 Globulin 3.1 g/dL (1.3-4.6) 08/18/24 22:32 All radiology interpretation(s) finalized by discharge Discharge Plan Discharge Patient Disposition: Admitted As Inpatient Clinical Impression: Abdominal ascites, Anasarca, Pericardial effusion, Bilateral pleural effusion Condition: Stable Coding Level of Care Code ED Money Room Teller for Alycia Ivy
[2024-08-18 22:39] LABS: Basophils % 0.2 %; Eosinophils % 0.4 %; Hematocrit 27.5 % (37-53); Lymphocytes # 0.8 10^3/uL (0.8-4.8); Lymphocytes % 14.5 %; Mean Corpuscular HGB Conc 28.7 g/dL (30-55); Mean Corpuscular Hemoglobin 25.1 pg (27-33); Mean Corpuscular Volume 87.3 fl (82-101); Mean Platelet Volume 9.4 fL (7.4-10.4); Monocytes # 0.5 10^3/uL (0.2-0.9); Monocytes % 9.8 %; Neutrophils # 4.13 10^3/uL (1.8-7.7); Neutrophils % 74.9 %; Nucleated Red Blood Cells % 0 %; Platelet Count 139 10^3/cmm (157-399); Red Blood Count 3.15 10^6/uL (3.85-5.65); Red Cell Distribution Width 27.4 % (12.1-15.1); White Blood Count 5.51 10^3/uL (3.29-11.43)
[2024-08-18 22:41] VITALS: BP 95/59; PULSE 77; RESP 16; O2SAT 99
[2024-08-18 23:01] LABS: Phosphorus 4.1 mg/dL (2.5-4.5)
[2024-08-18 23:10] LABS: Alanine Aminotransferase 23 U/L (0-41); Albumin Level 3.3 g/dL (3.5-5.2); Alkaline Phosphatase 196 U/L (40-130); Anion Gap 13.3 (5-19); Aspartate Amino Transferase 27 U/L (0-40); Blood Urea Nitrogen 58 mg/dL (8-23); Calcium 8.8 mg/dL (8.5-10.5); Carbon Dioxide 35 mmol/L (22-29); Chloride 93 mmol/L (98-107); Creatinine Clr Calc Pharmacy 77.9239; Globulin 3.1 g/dL (1.3-4.6); Glomerular Filtration Rate 47.7 mL/min (90-130); Glucose 167 mg/dL (65-115); NT Pro B Type Natriuretic Pept 4294 pg/mL (0-125); Osmolality Calculated 306 mOsm/kg (285-295); Potassium 3.3 mmol/L (3.5-5.1); Sodium 138 mmol/L (136-145); Total Bilirubin 1.7 mg/dL (0.15-1.2); Total Protein 6.4 g/dL (6.6-8.7)
[2024-08-18 23:16] VITALS: BP 124/84; PULSE 76; RESP 18; O2SAT 99
--- NOTE | 2024-08-18 23:25 | CTR_ITS ---
PROCEDURE INFORMATION: Exam: CT Abdomen And Pelvis Without Contrast Exam date and time: 08/18/2024 11:33 PM Age: 59 years old Clinical indication: Bloating; Additional info: Anasarca ascites chf TECHNIQUE: Imaging protocol: Computed tomography of the abdomen and pelvis without contrast. Radiation optimization: All CT scans at this facility use at least one of these dose optimization techniques: automated exposure control; mA and/or kV adjustment per patient size (includes targeted exams where dose is matched to clinical indication); or iterative reconstruction. COMPARISON: CT abdomen pelvis con [id number] 03/19/2023 10:26 PM RADIATION DOSE METRICS: Total DLP (mGy-cm): 1661.83 FINDINGS: Lungs: There is some mild dependent atelectasis at the lung bases. Pleural spaces: There are small bilateral pleural effusions right greater than left. Heart: There is a moderate pericardial fluid collection present. Pericardial effusion measures up to 22 mm. This is not fully imaged on this examination. Diaphragm: There is a small hiatal hernia. Liver: Liver has somewhat nodular contours consistent with cirrhosis. Gallbladder and biliary ducts: The gallbladder is normal. There is no common bile duct dilation. Pancreas: The pancreas is normal. Spleen: The spleen is normal. Adrenal glands: The adrenal glands are normal. Kidneys and ureters: The kidneys are normal. There is no evidence of hydronephrosis. There is no evidence of renal or ureteral calcifications. Stomach and bowel: Unremarkable. No obstruction. No mucosal thickening. Appendix: No evidence of appendicitis. Intraperitoneal space: There is a moderate amount of free intraperitoneal fluid present. Vasculature: The aorta demonstrates mild atherosclerotic calcification. There is no evidence of an abdominal aortic aneurysm. Lymph nodes: There is no evidence of lymphadenopathy. Urinary bladder: Unremarkable as visualized. Reproductive: The prostate demonstrates moderate nonspecific enlargement. The seminal vesicles are normal. There are large bilateral hydroceles. Bones/joints: There is bilateral L5 spondylolysis and grade 1 spondylolisthesis at L5-S1 not significantly changed. Soft tissues: There is diffuse edema through the abdominal wall consistent with anasarca increased compared with 03/19/2023. CT/CT abdomen pelvis con [id number] IMPRESSION: 1. Cirrhosis and ascites. Ascites is increased compared with 03/19/2023 2. Anasarca 3. Pericardial effusion 4. Bilateral pleural effusions
[2024-08-18 23:30] VITALS: BP 105/59; PULSE 77; O2SAT 99
[2024-08-19] VITALS (16 sets, daily range): BP systolic 94–131; BP diastolic 50–98; PULSE 57–98; RESP 13–18; TEMP 36.4–36.8; O2SAT 95–100; BMI 50.9
--- NOTE | 2024-08-19 00:09 | CTR_ITS ---
PROCEDURE INFORMATION: Exam: CT Chest Without Contrast; Diagnostic Exam date and time: 08/19/2024 12:33 AM Age: 59 years old Clinical indication: Condition or disease; Lung condition and disease; Other: Chf; Additional info: Chf, anasarca ascites TECHNIQUE: Imaging protocol: Diagnostic computed tomography of the chest without contrast. Radiation optimization: All CT scans at this facility use at least one of these dose optimization techniques: automated exposure control; mA and/or kV adjustment per patient size (includes targeted exams where dose is matched to clinical indication); or iterative reconstruction. COMPARISON: [place] [id number] 02/28/2023 5:12 PM RADIATION DOSE METRICS: Total DLP (mGy-cm): 751.79 FINDINGS: Lungs: There is minimal dependent atelectasis at the lung bases. No acute pulmonary infiltrate is identified. Pleural spaces: There are small bilateral pleural effusions. Heart: There is a moderate pericardial effusion which is larger than the previous examination. There are findings of TAVR. Coronary arteries: There is a stent in the left coronary artery unchanged. Lymph nodes: There is mild right paratracheal adenopathy, largest measuring 12 x 22 mm decreased from 02/28/2023 there are calcified granulomas in both lungs. Vasculature: Unremarkable. No aortic aneurysm. Bones/joints: There is healing fracture of the anterior left 8th rib which is a new finding. There is Schmorl's node deformity superior endplate of T11 new from the previous examination. Soft tissues: There is mild nonspecific gynecomastia. There is edema in the subcutaneous soft tissues of the chest wall in keeping with anasarca which is a change from 02/28/2023. CT/CT chest wo con [id number] IMPRESSION: 1. Increasing pericardial effusion compared with 02/28/2023 2. Small bilateral pleural effusions 3. Anasarca increased from previous. 4. Old granulomatous disease. COMMENTS: For findings below the diaphragm please see the CT abdomen pelvis reported separately.
[2024-08-19] MEDS: FUROsemide 10 mg/mL SDV 10mL 60 MG IVP (00:39)
--- NOTE | 2024-08-19 04:15 | USCV_ITS ---
Fariba Rossi Age: 59 Gender: M : 1965 Exam Date: 08/19/2024 13:01 Ordering Phys: Elsie Delacruz MD Technologist: Exam Location: [facility] [place] Indication: ao tavor pros BP: 124 / 73 HR: 68 Rhythm: Sinus Technical Quality: suboptimal MEASUREMENTS (Male / Female) Normal Values 2D ECHO LV Diastolic Diameter PLAX 4.9 cm 4.2 - 5.9 / 3.9 - 5.3 cm IVS Diastolic Thickness 1.2 cm 0.6 - 1.0 / 0.6 - 0.9 cm IVS Systolic Thickness 2.0 cm LVPW Diastolic Thickness 1.4 cm 0.6 - 1.0 / 0.6 - 0.9 cm LVPW Systolic Thickness 1.7 cm LVOT Diameter 2.4 cm LV Ejection Fraction 2D Teich 59.3 % LV Ejection Fraction MOD 4C 42.4 % LV Ejection Fraction MOD 2C 48.7 % LV Ejection Fraction 2C AL 51.4 % LA Diameter 6.0 cm RA Systolic Volume 4C AL 143.9 ml RA Systolic Volume 4C MOD 141.3 ml Aorta at Sinotubular Diameter 3.5 cm DOPPLER AV Peak Velocity 208.3 cm/s LVOT Peak Velocity 99.0 cm/s AV Area Cont Eq vti 2.3 cm squared AV Area Cont Eq pk 2.1 cm squared TV Peak Velocity 333.0 cm/s TR Peak Velocity 343.0 cm/s TR Peak Gradient 47.1 mmHg TV Peak E Velocity 122.0 cm/s Right Atrial Pressure 3.0 mmHg Pulmonary Artery Systolic Pressu 50.1 mmHg PV Peak Velocity 88.0 cm/s FINDINGS Left Ventricle Normal left ventricular cavity size. Moderate left ventricular hypertrophy. Normal left ventricular systolic function. No regional wall motion abnormalities. Left ventricular ejection fraction is estimated at 60%, Grade III/IV diastolic dysfunction (restrictive filling pattern), severely elevated filling pressures. Right Ventricle Normal right ventricular size. Normal right ventricular systolic function. Moderate pulmonary hypertension, RVSP 50. mmHg. Right Atrium The right atrium is normal in size. Left Atrium The left atrium is normal in size. Mitral Valve Moderately thickened mitral valve. Severe mitral annular calcification. Mild mitral valve regurgitation. Aortic Valve Moderate aortic valve calcification. No aortic valve stenosis. Trace aortic valve regurgitation. Tricuspid Valve Thickened tricuspid valve. Trace tricuspid valve regurgitation. Pulmonic Valve Structurally normal pulmonic valve without significant stenosis. There is no pulmonic regurgitation. Pericardium Small pericardial effusion. Aorta Normal ascending aorta dimension. IVC The inferior vena cava appears normal. CONCLUSIONS Normal left ventricular cavity size. Moderate left ventricular hypertrophy. Normal left ventricular systolic function. No regional wall motion abnormalities. Left ventricular ejection fraction is estimated at 60%, Grade III/IV diastolic dysfunction (restrictive filling pattern), severely elevated filling pressures. Normal right ventricular size. Normal right ventricular systolic function. Moderate pulmonary hypertension, RVSP 50. mmHg. Moderately thickened mitral valve. Severe mitral annular calcification. Mild mitral valve regurgitation. There is small pericardial effusion. Megan Banda MD (Electronically Signed) Final Date: 20 August 2024 06:55 S
--- NOTE | 2024-08-19 04:20 | PM.HP ---
Providers/Chief Complaint Admitting Physician: Elsie Delacruz MD Primary Care Provider: Mateo Sifuentes, CUSTOMER SERVICE CLERK-C Chief Complaint: FLUID RETENTION History of Present Illness Fariba Rossi is a 59 year old male COPD on supplemental oxygen 3 L nasal cannula, CKD, obstructive sleep apnea on BiPAP but he has been noncompliant, hypertension, atrial fibrillation, morbid obesity, type 2 diabetes melitus who was recently here in the hospital between August 05 to August 09, 2024 after sustaining a fall at home. At the time he was diagnosed with COPD exacerbation and acute bronchitis for which she was treated with IV steroids and DuoNebs. ROMEL resolved during hospital stay with creatinine downtrending from 2.7 to a baseline of 1.5. He presented to the hospital via EMS today due to increasing generalized edema involving his abdomen and lower extremities and scrotum. He has continued to be compliant with Lasix 40 mg twice a day at home however has continued to gain weight. His estimates he has gained about 40 pounds in [address] of his chest abdomen and pelvis showed bilateral pleural effusions, increasing anasarca, liver cirrhosis and increasing pericardial effusion compared with February 2023. Review of Systems General: Reports: 10 or more systems reviewed and unremarkable except in HPI and below Const: Denies: fever(s), chills or body aches Eyes: Denies: change in vision, blurry vision or photophobia ENMT: Reports: hoarseness; Denies: throat pain, enlarged tonsils, odynophagia or nasal congestion Card: Denies: chest pain, palpitations, irregular heart rhythm, edema, swelling of feet/ankles, lightheadedness, pre-syncope, dyspnea on exertion or orthopnea Resp: Denies: dyspnea, productive cough, non-productive cough, wheezing, stridor, pain on inspiration, change in phlegm color, hemoptysis or chest congestion GI: Denies: abdominal pain, nausea, vomiting, hematemesis, coffee ground emesis, dysphagia, heartburn, diarrhea, constipation, GI cramping, change in stool character, hematochezia or melena : Denies: flank pain, dysuria, urinary frequency, urinary urgency, urinary hesitancy or hematuria Musc: Denies: neck pain, back pain, extremity pain, joint swelling, joint warmth or deformity Neuro: Denies: headache(s), numbness in extremities, weakness in extremities, sensory changes, difficulty walking, frequent falls, dizziness, vertigo, behavioral changes, Slurred speech present or seizure-like activity Psych: Denies: anxiety, depression, suicidal ideation or homicidal ideation Endo: Denies: polyuria, polydipsia, tired all the time, cold intolerance or hot flashes Eddy/Lymph: Denies: easy bruising or easy bleeding Medications/Allergies Home Medications Medication Instructions Recorded Confirmed Last Taken Type blood-glucose meter (OneTouch #1 ea 01/04/20 08/13/24 Unknown Rx Ultra2 Meter kit) lancets 33 gauge (OneTouch Delica #200 ea 04/13/20 08/13/24 Unknown Rx Lancets) blood sugar diagnostic #200 ea 11/29/22 08/13/24 Unknown Rx aspirin 325 mg tablet 325 mg PO QAM 03/06/23 08/13/24 08/05/24 History apixaban 5 mg tablet (Eliquis) 5 mg PO BID 04/14/23 08/13/24 08/05/24 History Inogen #1 ea 04/18/23 08/13/24 Unknown Rx Wheel chair [id number] #1 ea 04/18/23 08/13/24 Unknown Rx BiPAP #1 ea 05/16/23 08/13/24 Unknown Rx cpap machine #1 ea 06/12/23 08/13/24 Unknown Rx insulin syringe-needle U-100 1 mL #300 ea 06/20/23 08/13/24 Unknown Rx 31 gauge x 5/16 (BD Insulin Syringe Ultra-Fine) nitroglycerin 0.4 mg sublingual 0.4 mg buccal PRN PRN Chest Pain 03/01/24 08/13/24 Unknown History tablet insulin lispro 100 unit/mL See Rx Instructions .Route 03/07/24 08/13/24 08/05/24 Rx subcutaneous solution .COMPLEX PRN hyperglycemia #10 mL atorvastatin 40 mg tablet 40 mg PO QAM #90 tabs 07/09/24 08/13/24 08/05/24 Rx doxepin 50 mg capsule 50 mg PO TID PRN anxiety #270 caps 07/09/24 08/13/24 Unknown Rx fluoxetine 20 mg capsule (Prozac) 20 mg PO DAILY #90 caps 07/09/24 08/13/24 08/05/24 Rx levothyroxine 25 mcg tablet 25 mcg PO DAILY #90 tabs 07/09/24 08/13/24 08/05/24 Rx montelukast 10 mg tablet 10 mg PO DAILY #90 tabs 07/09/24 08/13/24 08/05/24 Rx tamsulosin 0.4 mg capsule 0.4 mg PO BEDTIME #90 caps 07/09/24 08/13/24 08/04/24 Rx insulin degludec 200 unit/mL (3 45 unit SUBCUT DAILY 08/05/24 08/13/24 08/05/24 History mL) subcutaneous pen (Tresiba FlexTouch U-200 insulin) metolazone 5 mg tablet 5 mg PO DAILY 08/05/24 08/13/24 Unknown History azithromycin 500 mg tablet See Rx Instructions PO .COMPLEX #3 08/09/24 08/13/24 Unknown Rx tabs furosemide 40 mg tablet 40 mg PO BID #60 tabs 08/13/24 08/13/24 Unknown Rx metoprolol tartrate 100 mg tablet 50 mg PO BID 08/13/24 08/13/24 Unknown History potassium chloride 20 mEq 40 meq (2 x 20 mEq) PO BID #120 08/13/24 08/13/24 Unknown Rx tablet,extended release tabs Allergies Allergy/AdvReac Type Severity Reaction Status Date / Time lisinopril Allergy ADR-Cough Verified 08/18/24 19:00 amiodarone AdvReac Severe Unknown Verified 08/18/24 19:00 PFSH Acute PFSH: Medical History Diabetes mellitus type II, uncontrolled COPD (chronic obstructive pulmonary disease) CHF (congestive heart failure) Atrial fibrillation with RVR CKD (chronic kidney disease) stage 3, GFR 30-59 ml/min Obstructive sleep apnea Primary localized osteoarthrosis of left lower leg Localized primary osteoarthritis of right lower leg Urgency-frequency syndrome Essential (primary) hypertension Dyspnea on exertion Acute exacerbation of CHF (congestive heart failure) Oxygen dependent Atrial fibrillation Iron deficiency Recurrent bronchospasm Dietary noncompliance Obesity Anxiety Neuropathy Arteriosclerotic coronary artery disease Surgical History History of colonoscopy H/O heart artery stent 09/2011 History of carpal tunnel surgery of right wrist 2012 Family History Father , AGE 74 Diabetes Heart disease Mother , LUNG CANCER AGE 55 Cancer CAD (coronary artery disease) Lung disease Heart disease Grandmother CAD (coronary artery disease) Cancer Dementia Heart disease Family/Other CAD (coronary artery disease) Heart disease Grandfather CAD (coronary artery disease) Heart disease Diabetes Sister Lung disease Denies family history of Clotting disorder Chronic kidney disease (CKD) Suicide Anesthesia complication Bleeding disorder Stroke Social History Smoking and tobacco/nicotine status: former use of tobacco/nicotine Quit status (tobacco/nicotine): has quit using Year quit tobacco: 2000 Former quit date comment: 4ppd x 22 years Second hand smoke exposure: No Alcohol intake: current Alcohol intake frequency: holidays/special occasions only Substance/Drug Use: never Adopted: No Caregiver/support person: No Lives independently: Yes Household members: spouse Housing: House Marital status: Number of children: 2 service: No Current occupational status: disabled Pets and animals: Yes Do you think of yourself as: Straight/Heterosexual Current gender identity: Male and Female Vitals/I&O/Wt Last Vital Signs Temp 97.5 F L 08/18/24 18:51 Pulse 72 08/19/24 03:03 Resp 18 08/18/24 23:16 BP 114/60 08/19/24 03:03 Pulse Ox 100 08/19/24 03:03 O2 Del Method Nasal Cannula 08/19/24 03:28 O2 Flow Rate 2 08/18/24 18:51 Weight last 48 hrs Weight 156.489 kg Weight 156.943 kg Physical Exam Narrative: General: No acute distress, AO x3 HEENT: PERRLA, pupils bilaterally equal and reactive, pallors not present Chest: Normal vesicular breath sounds, no added sounds, equal good air entry bilaterally CVS: S1-S2 regular, no murmurs, no tachycardia, no gallops, no rubs Abdomen: Soft, nontender, no organomegaly, bowel sounds present Neuro: No focal deficits, no facial deformity, AO x3, power 5/5 in all limbs Extremities: Gross anasarca Urinary Catheter Management: [place]: Cath Placed During This Visit: yes Urinary Catheter Date of Insertion: 08/19/24 Data 08/18/24 22:32 08/18/24 22:32 A&P Assessment and plan (1) Anasarca: (2) Liver cirrhosis: (3) Pericardial effusion: (4) Pleural effusion: Plan Patient with a past medical history as noted above currently presenting to the hospital with worsening anasarca after recent discharge from the hospital. Reports compliance with his diuretics at home but has continued to have increasing anasarca. Evaluation today is notable for liver cirrhosis, possibly may have decompensated cirrhosis as a cause of his anasarca. CT of his chest additionally notes a worsening pericardial effusion, will order echocardiogram to assess for any tamponade effect. Currently blood pressure and hemodynamics are otherwise stable. Last echocardiogram dates back to December 2022 at which time I do not see a mention of this pericardial effusion. EF at that time was 55 to 60%, left atrium was dilated and there was mild aortic stenosis. [facility] monitoring Start Lasix 40 mg IV every 12 hours Continue metolazone 5 mg p.o. daily as he does at home Closely monitor urine output and renal function with these interventions. Follow-up echocardiogram Possible paracentesis with radiology in a.m. For body fluid analysis, cytology,SAAG Dvt ppx: Chronically on Eliquis, holding today while pending FOBT given downtrending HB in background of chronic anemia Full code Attestations Medical Necessity Statement*: > 2 midnight stay is anticipated Coding Level of Care Code Acute Code for Chg Fwd High MDM includes number and complexity of problems actively addressed during encounter, amount and/or complexity of data reviewed/ordered and described risk of complication, morbidity or mortality of management as documented Diagnoses Anasarca R60.1 Liver cirrhosis K74.60 Pericardial effusion I31.39 Pleural effusion J90
[2024-08-19] MEDS: atorvastatin 40 mg Tablet PO (05:17)
[2024-08-19] MEDS: FUROsemide 10 mg/mL SDV 4mL 40 MG IVP ×2 (05:17→16:38)
[2024-08-19 05:32] LABS: INR 1.55 (0.8-1.2)
[2024-08-19 05:49] LABS: Ammonia 48 umol/L (16-60)
--- NOTE | 2024-08-19 06:17 | US_ITS ---
WS: [id number] Abdominal ultrasound, limited. History: Evaluate for ascites. Comparison: None. All 4 quadrants are imaged by ultrasound to evaluate for ascites. There is no peritoneal fluid identi fied. US/US abdomen lmt fluid [id number] IMPRESSION: No peritoneal ascites.
[2024-08-19 07:41] LABS: Glucose Point of Care 173 mg/dL (70-110)
[2024-08-19] MEDS: insulin lispro 100 unit/1 mL SUBCUT ×4 (07:52→20:32)
[2024-08-19] MEDS: pantoprazole DR 40 mg Tablet PO ×2 (07:56→16:38)
[2024-08-19] MEDS: levothyroxine 25 mcg Tablet PO (07:56)
[2024-08-19] MEDS: metoprolol tartrate 50 mg Tablet PO (07:56)
[2024-08-19] MEDS: fluoxetine 20 mg Capsule PO (07:56)
[2024-08-19] MEDS: metOLazone 5 MG Tablet PO (07:56)
--- NOTE | 2024-08-19 08:39 | PC.PHAR ---
patient was really unsure about when he last took his medicine at home
--- NOTE | 2024-08-19 11:14 | W.PM.EVENTAC ---
Event Note Event Note: Patient evaluated this morning Patient is not sure about the etiology of liver cirrhosis Will request records from [facility] Low blood pressure Low albumin noted Will request paracentesis Echo report is pending No active complaints Patient has anasarca Currently on 2 L Will discontinue statins and metoprolol
[2024-08-19] MEDS: potassium chloride ER 20 mEq Tablet 40 MEQ PO (11:24)
[2024-08-19] MEDS: albumin 25 G/100 ML BAG 60 G IV ×2 (11:24→20:23)
[2024-08-19 11:35] LABS: Glucose Point of Care 248 mg/dL (70-110)
[2024-08-19 17:04] LABS: Glucose Point of Care 195 mg/dL (70-110)
[2024-08-19 20:24] LABS: Glucose Point of Care 192 mg/dL (70-110)
[2024-08-20] VITALS: BP 123/63; PULSE 62; RESP 18; TEMP 36.6; O2SAT 98
[2024-08-20 04:00] VITALS: BP 111/64; PULSE 74; RESP 18; TEMP 36.6; O2SAT 96
[2024-08-20] MEDS: albumin 25 G/100 ML BAG 60 G IV (04:00)
[2024-08-20] MEDS: FUROsemide 10 mg/mL SDV 4mL 40 MG IVP (04:00)
[2024-08-20 04:15] LABS: Glucose Point of Care 157 mg/dL (70-110)
[2024-08-20 06:04] LABS: Basophils % 0.3 %; Eosinophils % 0.5 %; Hematocrit 28.1 % (37-53); Lymphocytes # 0.9 10^3/uL (0.8-4.8); Lymphocytes % 13.9 %; Mean Corpuscular HGB Conc 29.5 g/dL (30-55); Mean Corpuscular Volume 88.1 fl (82-101); Mean Platelet Volume 9.9 fL (7.4-10.4); Monocytes # 0.6 10^3/uL (0.2-0.9); Monocytes % 9.2 %; Neutrophils # 4.87 10^3/uL (1.8-7.7); Neutrophils % 75.8 %; Nucleated Red Blood Cells % 0.3 %; Platelet Count 135 10^3/cmm (157-399); Red Blood Count 3.19 10^6/uL (3.85-5.65); White Blood Count 6.42 10^3/uL (3.29-11.43)
[2024-08-20 06:35] LABS: Glucose Point of Care 142 mg/dL (70-110)
[2024-08-20 06:36] LABS: Alanine Aminotransferase 22 U/L (0-41); Albumin Level 3.5 g/dL (3.5-5.2); Alkaline Phosphatase 215 U/L (40-130); Anion Gap 14.8 (5-19); Aspartate Amino Transferase 30 U/L (0-40); Blood Urea Nitrogen 56 mg/dL (8-23); Calcium 8.4 mg/dL (8.5-10.5); Carbon Dioxide 35 mmol/L (22-29); Chloride 95 mmol/L (98-107); Creatinine Clr Calc Pharmacy 74.6286; Glomerular Filtration Rate 44.3 mL/min (90-130); Glucose 121 mg/dL (65-115); Osmolality Calculated 311 mOsm/kg (285-295); Sodium 142 mmol/L (136-145); Total Bilirubin 1.4 mg/dL (0.15-1.2); Total Protein 6.5 g/dL (6.6-8.7)
[2024-08-20 06:53] LABS: Potassium 2.8 mmol/L (3.5-5.1)
[2024-08-20 08:00] VITALS: BP 134/108; PULSE 65; RESP 14; TEMP 37.1; O2SAT 95
[2024-08-20] MEDS: fluoxetine 20 mg Capsule PO (08:23)
[2024-08-20] MEDS: potassium chloride ER 20 mEq Tablet 40 MEQ PO (08:23)
[2024-08-20] MEDS: metOLazone 5 MG Tablet PO (08:24)
[2024-08-20] MEDS: levothyroxine 25 mcg Tablet PO (08:24)
[2024-08-20] MEDS: pantoprazole DR 40 mg Tablet PO (08:25)
[2024-08-20] MEDS: lidocaine 1% 5 ML in potassium chloride premix 100 ML 25 ML IV (08:59)
--- NOTE | 2024-08-20 11:02 | PM.DCS ---
Discharge Providers Date of Admission: 08/19/24 02:54 Date of Discharge: August 20, 2024 Attending Provider at Admission: Elsie Delacruz MD Attending Provider at Discharge: Megan Gonzalez MD Primary Care Provider: JAQUI Garcia Diagnoses at Discharge Discharge Diagnosis (1) Anasarca: Status: Acute (2) Liver cirrhosis: Status: Acute (3) Pericardial effusion: Status: Acute (4) Pleural effusion: Status: Acute Reason for Visit Reason for Visit: FLUID RETENTION Hospital Course Hospital Course Fariba Rossi is a 59 year old male COPD on supplemental oxygen 3 L nasal cannula, CKD, obstructive sleep apnea on BiPAP but he has been noncompliant, hypertension, atrial fibrillation, morbid obesity, type 2 diabetes melitus who presented to the hospital for management evaluation of worsening of weight gain and edema. Patient was diagnosed with anasarca, there was concern for worsening pericardial effusion hence echo was requested which showed small pericardial effusion, patient oxygen requirement did not worsen from more than 2 to 3 L supplemental oxygen via nasal cannula, he was diuresed aggressively with metolazone plus Lasix 40 mg IV every 12 hours, he was also given albumin, we requested paracentesis, abdominal ultrasound showed inadequate fluid to be drained, at the time of discharge I have requested patient to keep taking spironolactone and Lasix and follow-up with his copy editor at [facility]. Bailon catheter will be removed before discharge. Physical Exam Narrative: Anasarca Abdominal distention Nontender Pleasant cooperative Nonfocal neuroexam currently on 3 L Hemodynamically stable Urinary Catheter Management: Abilon: Cath Placed During This Visit: yes, but has since been removed by the nurse Reason for Continuing Indwelling Catheter: Acute Urinary Retention or Obstruction Urinary Catheter Date of Insertion: 08/19/24 Date Urinary Catheter Removed: 08/20/24 Time Urinary Catheter Discontinued: 09:17 Discharge Data Studies Completed and Pending Completed Studies During Hospitalization Category Date Time Status CT abdomen pelvis wo con [id number] Stat Cat Scan 08/18/24 23:[address] chest wo con [id number] Stat Cat Scan 08/19/24 00:09 Completed XR chest 1V portable [id number] Stat Exams 08/18/24 20:06 Completed CV. echo complete* [id number] Routine Ultrasound 08/19/24 04:15 Completed US abdomen lmt fluid [id number] Routine Ultrasound 08/19/24 06:17 Completed Pending at discharge Category Date Time Status Amylase, Peritoneal Fluid Routine Lab 08/19/24 06:19 Ordered Albumin Body Fluid Routine Lab 08/19/24 06:19 Ordered Anaerobic Culture Routine Lab 08/19/24 06:19 Ordered Body Fluid Analysis Routine Lab 08/19/24 06:19 Ordered Body Fluid Culture & GS Routine Lab 08/19/24 06:19 Ordered Cyto Order Verification Routine Lab 08/19/24 06:19 Ordered Fecal Occult Blood [Immunochemical Fecal OCB] Routine Lab 08/19/24 04:17 Uncollected Glucose Body Fluid Routine Lab 08/19/24 06:19 Ordered LDH Body Fluid Routine Lab 08/19/24 06:19 Ordered Total Protein Body Fluid Routine Lab 08/19/24 06:19 Ordered Triglycerides Body Fluid Routine Lab 08/19/24 06:19 Ordered pH Body Fluid Routine Lab 08/19/24 06:19 Ordered Cytology [PTH] Routine Pth 08/19/24 06:19 Ordered Radiology Impressions Chest X-Ray 08/18/24 20:06 IMPRESSION: No acute infiltrate. Abdomen/Pelvis CT 08/18/24 23:25 IMPRESSION: 1. Cirrhosis and ascites. Ascites is increased compared with 03/19/2023 2. Anasarca 3. Pericardial effusion 4. Bilateral pleural effusions Chest CT 08/19/24 00:09 IMPRESSION: 1. Increasing pericardial effusion compared with 02/28/2023 2. Small bilateral pleural effusions 3. Anasarca increased from previous. 4. Old granulomatous disease. COMMENTS: For findings below the diaphragm please see the CT abdomen pelvis reported separately. Abdomen Ultrasound 08/19/24 06:17 IMPRESSION: No peritoneal ascites. Laboratory Results WBC 6.42 10^3/uL (3.29-11.43) 08/20/24 04:48 RBC 3.19 10^6/uL (3.85-5.65) L 08/20/24 04:48 Hgb 8.30 g/dL (11.27-16.99) L 08/20/24 04:48 Hct 28.1 % (37-53) L 08/20/24 04:48 MCV 88.1 fl (82-101) 08/20/24 04:48 MCH 26.0 pg (27-33) L 08/20/24 04:48 MCHC 29.5 g/dL (30-55) L 08/20/24 04:48 RDW 27.0 % (12.1-15.1) H 08/20/24 04:48 Plt Count 135 10^3/cmm (157-399) L 08/20/24 04:48 MPV 9.9 fL (7.4-10.4) 08/20/24 04:48 Neut % (Auto) 75.8 % 08/20/24 04:48 Lymph % (Auto) 13.9 % 08/20/24 04:48 [place] % (Auto) 9.2 % 08/20/24 04:48 Eos % (Auto) 0.5 % 08/20/24 04:48 Baso % (Auto) 0.3 % 08/20/24 04:48 Neut # (Auto) 4.87 10^3/uL (1.8-7.7) 08/20/24 04:48 Lymph # (Auto) 0.9 10^3/uL (0.8-4.8) 08/20/24 04:48 [place] # (Auto) 0.6 10^3/uL (0.2-0.9) 08/20/24 04:48 Eos # (Auto) 0.0 10^3/uL (0.0-0.8) 08/20/24 04:48 Baso # (Auto) 0.0 10^3/uL (0.0-0.1) 08/20/24 04:48 Nucleated RBC % (auto) 0.3 % 08/20/24 04:48 Nucleated RBCs # 0.0 /100WBC 08/20/24 04:48 PT 19.10 SECONDS (12.1-14.9) H 08/19/24 04:57 INR 1.55 (0.8-1.2) H 08/19/24 04:57 Sodium 142 mmol/L (136-145) 08/20/24 04:48 Potassium 2.8 mmol/L (3.5-5.1) L* 08/20/24 04:48 Chloride 95 mmol/L (98-107) L 08/20/24 04:48 Carbon Dioxide 35 mmol/L (22-29) H 08/20/24 04:48 Anion Gap 14.8 (5-19) 08/20/24 04:48 BUN 56 mg/dL (8-23) H 08/20/24 04:48 Creatinine 1.6 mg/dL (0.7-1.2) H 08/20/24 04:48 GFR Calculation 44.3 mL/min (90-130) L 08/20/24 04:48 Glucose 121 mg/dL (65-115) H 08/20/24 04:48 POC Glucose 142 mg/dL (70-110) H 08/20/24 06:11 Calculated Osmolality 311 mOsm/kg (285-295) H 08/20/24 04:48 Calcium 8.4 mg/dL (8.5-10.5) L 08/20/24 04:48 Phosphorus 4.1 mg/dL (2.5-4.5) 08/18/24 22:32 Magnesium 2.0 mg/dL (1.7-2.3) 08/18/24 22:32 Total Bilirubin 1.4 mg/dL (0.15-1.2) H 08/20/24 04:48 AST 30 U/L (0-40) 08/20/24 04:48 ALT 22 U/L (0-41) 08/20/24 04:48 Alkaline Phosphatase 215 U/L (40-130) H 08/20/24 04:48 Ammonia 48 umol/L (16-60) 08/19/24 04:57 NT-Pro-B Natriuret Pep 4294 pg/mL (0-125) H 08/18/24 22:32 Total Protein 6.5 g/dL (6.6-8.7) L 08/20/24 04:48 Albumin 3.5 g/dL (3.5-5.2) 08/20/24 04:48 Globulin 3.0 g/dL (1.3-4.6) 08/20/24 04:48 Vitals Last Vital Signs Temp 98.7 F 08/20/24 08:00 Pulse 65 08/20/24 08:00 Resp 14 08/20/24 08:00 BP 134/108 08/20/24 08:00 Pulse Ox 95 08/20/24 08:00 O2 Del Method Room Air 08/20/24 08:00 O2 Flow Rate 3 08/20/24 07:09 Discharge Plan Discharge Patient Disposition: Home Condition: Stable Prescriptions: New bumetanide 1 mg tablet 1 mg PO DAILY Qty: 60 4RF Rx Instructions: Can increase Bumex to 1 mg twice a day in case of worsening of edema Continued (DME) lancets [OneTouch Delica Lancets] 33 gauge misc See Rx Instructions .ROUTE .MEDSUPPLY Qty: 200 5RF Rx Instructions: 4 times daily (DME) Inogen See Rx Instructions .Route .MEDSUPPLY Qty: 1 0RF Rx Instructions: As directed (DME) Wheel chair [id number] See Rx Instructions .Route .MEDSUPPLY Qty: 1 0RF Rx Instructions: As directed doxepin 50 mg capsule 50 mg PO TID PRN (Reason: anxiety) Qty: 270 1RF fluoxetine [Prozac] 20 mg capsule 20 mg PO DAILY Qty: 90 1RF levothyroxine 25 mcg tablet 25 mcg PO DAILY Qty: 90 1RF montelukast 10 mg tablet 10 mg PO DAILY Qty: 90 1RF tamsulosin 0.4 mg capsule 0.4 mg PO BEDTIME Qty: 90 1RF metoprolol tartrate 100 mg tablet 50 mg PO BID potassium chloride 20 mEq tablet extended release 40 meq PO BID Qty: 120 2RF (DME) blood sugar diagnostic Strip See Rx Instructions .ROUTE .MEDSUPPLY Qty: 200 5RF Rx Instructions: 4 times a day as needed (DME) blood-glucose meter [Ot[employer] Pharm[employer]uch Ultra2 Meter] Kit See Rx Instructions .ROUTE .MEDSUPPLY Qty: 1 0RF Rx Instructions: use daily (DME) BiPAP See Rx Instructions .Route .MEDSUPPLY Qty: 1 0RF Rx Instructions: As directed (DME) cpap machine See Rx Instructions .Route .MEDSUPPLY Qty: 1 0RF Rx Instructions: As directed auto titrate cpap machine 6-16cm with supplies (DME) insulin syringe-needle U-100 [BD Insulin Syringe Ultra-Fine] 1 mL 31 gauge x 5/16 syringe See Rx Instructions .Route Qty: 300 5RF Rx Instructions: use 1 three time day Eliquis 5 mg tablet 5 mg PO BID nitroglycerin 0.4 mg tablet, sublingual 0.4 mg buccal PRN PRN (Reason: Chest Pain) insulin lispro 100 unit/mL solution See Rx Instructions .ROUTE .COMPLEX PRN (Reason: hyperglycemia) Qty: 10 0RF Rx Instructions: Glucose: 141-180 - 2 units 181-220 - 3 221-260 - 4 261-300 - 5 301-350 - 6 351-400 - 7 >400 - 8 units metolazone 5 mg tablet 5 mg PO DAILY Rx Instructions: as directed by provider insulin degludec [Tresiba FlexTouch U-200] 200 unit/mL (3 mL) insulin pen 45 unit SUBCUT DAILY hydralazine 100 mg tablet 100 mg PO TID Changed spironolactone 25 mg tablet 50 mg PO DAILY Qty: 60 3RF Discontinued atorvastatin 40 mg tablet 40 mg PO QAM Qty: 90 1RF furosemide 40 mg tablet 40 mg PO BID Qty: 60 2RF aspirin 325 mg Tablet 325 mg PO QAM torsemide 20 mg tablet 40 mg PO BID Discharge Orders: Discharge Order (Routine); Ordered 08/20/24 Ordered By: Megan Gonzalez Referrals: Mateo Sifuentes, ACCOUNTING REPRESENTATIVE-C [Primary Care Provider] - Patient Instructions: Opioid Safety Discharge Attestations Time Spent in Discharge Care*: greater than 30 min Quality Metrics Clinical Quality Measures [ No reported AMI, CVA or VTE this stay] Coding Level of Care Code Acute Code for g Fwd Diagnoses Anasarca R60.1 Liver cirrhosis K74.60 Pericardial effusion I31.39 Pleural effusion J90
[2024-08-20 11:49] LABS: Glucose Point of Care 178 mg/dL (70-110)
[2024-08-20] MEDS: insulin lispro 100 unit/1 mL SUBCUT (11:50)
[2024-08-20 12:00] VITALS: BP 143/84; PULSE 81; RESP 18; TEMP 36.7; O2SAT 99
[2024-08-20 13:04] VITALS: BP 143/84; PULSE 81; RESP 18; TEMP 36.7; O2SAT 99
--- NOTE | 2024-08-20 13:05 | PC.NURSE ---
Discharge instructions given to pt and . Verbalize understanding. No questions or concerns at this time. Pt to private vehicle via wheelchair. has portable tank for pt to go home on.
== END 2024-08-20 13:06 | disposition home or self-care (01) | DRG 948 ==
LOC: ER 08-19 02:22 → MEDSURG 08-19 02:55
PROVIDERS: Admitting Provider Student in an Organized Health Care Education/Training Program; Emergency Provider Emergency Medicine; PCP Nurse Practitioner; Visit Provider Internal Medicine
DX: R60.1 Generalized edema (principal); I31.39 Other pericardial effusion (noninflammatory); J90 Pleural effusion, not elsewhere classified; I13.0 Hypertensive heart and chronic kidney disease with heart failure and stage 1 through stage 4 chronic kidney disease, or unspecified chronic kidney disease; Z68.43 Body mass index [BMI] 50.0-59.9, adult; K74.60 Unspecified cirrhosis of liver; J44.9 Chronic obstructive pulmonary disease, unspecified; E11.22 Type 2 diabetes mellitus with diabetic chronic kidney disease; N18.30 Chronic kidney disease, stage 3 unspecified; I50.9 Heart failure, unspecified; I25.10 Atherosclerotic heart disease of native coronary artery without angina pectoris; E66.01 Morbid (severe) obesity due to excess calories; I48.91 Unspecified atrial fibrillation; G47.33 Obstructive sleep apnea (adult) (pediatric); Z99.89 Dependence on other enabling machines and devices; Z91.199 Patient's noncompliance with other medical treatment and regimen due to unspecified reason; Z79.4 Long term (current) use of insulin; Z79.01 Long term (current) use of anticoagulants; Z79.82 Long term (current) use of aspirin; Z87.891 Personal history of nicotine dependence
CPT/HCPCS: 36415; 36416; 51702; 71045; 71250; 74176; 76705; 80053; 82140; 82962; 83735; 83880; 84100; 85025; 85610; 93005; 93306; 96372; 96374; 99285; J1815; J1940; J3480; P9046

== ENCOUNTER 2024-08-25 12:52 | Emergency (ER) | payer MEDICARE, OTHER, SELFPAY ==
[2024-08-25] MEDS: EPINEPHrine 0.1 mg/mL SYR 10 mL 1 MG IVP ×3 (12:52→13:30)
--- NOTE | 2024-08-25 13:16 | PC.NURSE ---
PATIENT ARRIVED TO ER VIA POV. TRIAGE NURSE, JACOBO, BEGAN CPR DUE TO NO PULSE, AGONAL BREATHING, AND CYANOSIS NOTED. PATIENT BROUGHT TO GROUND DUE TO PATIENT WEIGHT. CODE HUSAM CALLED OVERHEAD, 2 PROVIDERS, NURSE AND TECH LIFTED PATIENT TO BED. CPR RESUMED. PATIENT BROUGHT BACK TO ROOM 10. CPR STARTED: 1245 3 ROUNDS OF EPI GIVEN: 1251, 1255, 1256 PULSE CHECK AT 1259, PEA, TOD 1259. SEE CODE SHEET BY PROFESSIONAL NURSE.
--- NOTE | 2024-08-25 13:33 | W.ED.GENADLT ---
HPI - General Adult General: Chief complaint: Cardiac Arrest/CPR Stated complaint: code blue Time Seen by Provider: 08/25/24 12:53 Source: family Limitations: altered mental status History of Present Illness: 59-year-old male multiple medical issues presenting here with states he did have increased weight should bleed water again was very short of breath complaining of chest pain this morning she states he had quit breathing and route I went out to the parking lot as patient was not breathing in the car and was having chest compressions in the parking lot when I arrived patient was placed on a stretcher and brought to the room. Gave multiple rounds of epinephrine never had any ROSC patient was intubated as well time of was called at 1259 Related Data Home Medications Medication Instructions Recorded Confirmed nitroglycerin 0.4 mg sublingual 0.4 mg buccal PRN PRN Chest Pain 03/01/24 08/19/24 tablet insulin degludec 200 unit/mL (3 45 unit SUBCUT DAILY 08/05/24 08/19/24 mL) subcutaneous pen (Tresiba FlexTouch U-200 insulin) metolazone 5 mg tablet 5 mg PO DAILY 08/05/24 08/19/24 metoprolol tartrate 100 mg tablet 50 mg PO BID 08/13/24 08/19/24 hydralazine 100 mg tablet 100 mg PO TID 08/19/24 08/19/24 Previous Rx's Medication Instructions Recorded blood-glucose meter (OneTouch #1 ea 01/04/20 Ultra2 Meter kit) lancets 33 gauge (OneTouch Delica #200 ea 04/13/20 Lancets) blood sugar diagnostic #200 ea 11/29/22 Inogen #1 ea 04/18/23 Wheel chair [id number] #1 ea 04/18/23 BiPAP #1 ea 05/16/23 cpap machine #1 ea 06/12/23 insulin syringe-needle U-100 1 mL #300 ea 06/20/23 31 gauge x 5/16 (BD Insulin Syringe Ultra-Fine) insulin lispro 100 unit/mL See Rx Instructions .Route 03/07/24 subcutaneous solution .COMPLEX PRN hyperglycemia #10 mL doxepin 50 mg capsule 50 mg PO TID PRN anxiety #270 caps 07/09/24 fluoxetine 20 mg capsule (Prozac) 20 mg PO DAILY #90 caps 07/09/24 levothyroxine 25 mcg tablet 25 mcg PO DAILY #90 tabs 07/09/24 montelukast 10 mg tablet 10 mg PO DAILY #90 tabs 07/09/24 tamsulosin 0.4 mg capsule 0.4 mg PO BEDTIME #90 caps 07/09/24 potassium chloride 20 mEq 40 meq (2 x 20 mEq) PO BID #120 08/13/24 tablet,extended release tabs bumetanide 1 mg tablet 1 mg PO DAILY #60 tabs 08/20/24 spironolactone 25 mg tablet 50 mg (2 x 25 mg) PO DAILY #60 tabs 08/20/24 apixaban 2.5 mg tablet (Eliquis) 2.5 mg PO BID #60 tabs 08/22/24 Allergies Allergy/AdvReac Type Severity Reaction Status Date / Time lisinopril Allergy ADR-Cough Verified 08/18/24 19:00 amiodarone AdvReac Severe Unknown Verified 08/18/24 19:00 Review of Systems General: Reports: ROS unobtainable due to medical condition PFSH ED PFSH: Medical History Atrial fibrillation with RVR Pleural effusion Liver cirrhosis Bilateral pleural effusion Pericardial effusion Anasarca Abdominal ascites Diabetes mellitus type II, uncontrolled COPD (chronic obstructive pulmonary disease) CHF (congestive heart failure) CKD (chronic kidney disease) stage 3, GFR 30-59 ml/min Obstructive sleep apnea Primary localized osteoarthrosis of left lower leg Localized primary osteoarthritis of right lower leg Urgency-frequency syndrome Essential (primary) hypertension Dyspnea on exertion Acute exacerbation of CHF (congestive heart failure) Oxygen dependent Atrial fibrillation Iron deficiency Recurrent bronchospasm Dietary noncompliance Obesity Anxiety Neuropathy Arteriosclerotic coronary artery disease Surgical History History of colonoscopy H/O heart artery stent 09/2011 History of carpal tunnel surgery of right wrist 2011 Family History Father , AGE 74 Diabetes Heart disease Mother , LUNG CANCER AGE 55 Cancer CAD (coronary artery disease) Lung disease Heart disease Grandmother CAD (coronary artery disease) Cancer Dementia Heart disease Family/Other CAD (coronary artery disease) Heart disease Grandfather CAD (coronary artery disease) Heart disease Diabetes Sister Lung disease Denies family history of Clotting disorder Chronic kidney disease (CKD) Suicide Anesthesia complication Bleeding disorder Stroke Social History Smoking and tobacco/nicotine status: former use of tobacco/nicotine Quit status (tobacco/nicotine): has quit using Year quit tobacco: 2000 Former quit date comment: 4ppd x 22 years Second hand smoke exposure: No Alcohol intake: current Alcohol intake frequency: holidays/special occasions only Substance/Drug Use: never Adopted: No Caregiver/support person: No Lives independently: Yes Household members: spouse Housing: House Marital status: Number of children: 2 service: No Current occupational status: disabled Pets and animals: Yes Do you think of yourself as: Straight/Heterosexual Current gender identity: Male and Female Physical Exam Const: COMMON NORMALS: negative for patient oriented x3 GENERAL APPEARANCE: in distress HENMT: COMMON NORMALS: normocephalic and atraumatic HEAD & SCALP: normocephalic and atraumatic Neck/C-Spine: COMMON NORMALS: supple Chest: COMMONS NORMALS: normal inspection of the chest Resp: OTHER: cyanotic on arrival not breathing Cardio: OTHER: pulseless cpr in progress GI: INSPECTION: Yes normal to inspection Extremity: COMMON NORMALS: normal to inspection Neuro: COMMON NORMALS: negative for patient oriented x3 Skin: COMMON NORMALS: no rashes or lesions noted and no wounds GENERAL SKIN EXAM: no rashes or lesions noted Procedures Intubation sedative: none Laryngoscope: Deysi ET Tube Size: 8 ET Tube Uncuffed: No Tube Secured Depth (cm): 25 Tube Secured Location: teeth Tube Placement Confirmation: visualized tube passing through cords, equal breath sounds bilaterally, no breath sounds over epigastrium and confirmation by capnometry Intubation Complications: none MDM - General Adult Medical Decision Making Patient presents here after cardiac arrest patient was intubated he never had ROSC time was called at 1259 Medical Records I reviewed the patient's medical records. No radiology studies performed this visit Discharge Plan Discharge Patient Disposition: Clinical Impression: Cardiac arrest Condition: Stable Prescriptions: No Action (DME) lancets [OneTouch Delica Lancets] 33 gauge misc See Rx Instructions .ROUTE .MEDSUPPLY Qty: 200 5RF Rx Instructions: 4 times daily (DME) Inogen See Rx Instructions .Route .MEDSUPPLY Qty: 1 0RF Rx Instructions: As directed (DME) Wheel chair [id number] See Rx Instructions .Route .MEDSUPPLY Qty: 1 0RF Rx Instructions: As directed doxepin 50 mg capsule 50 mg PO TID PRN (Reason: anxiety) Qty: 270 1RF fluoxetine [Prozac] 20 mg capsule 20 mg PO DAILY Qty: 90 1RF levothyroxine 25 mcg tablet 25 mcg PO DAILY Qty: 90 1RF montelukast 10 mg tablet 10 mg PO DAILY Qty: 90 1RF tamsulosin 0.4 mg capsule 0.4 mg PO BEDTIME Qty: 90 1RF metoprolol tartrate 100 mg tablet 50 mg PO BID potassium chloride 20 mEq tablet extended release 40 meq PO BID Qty: 120 2RF (DME) blood sugar diagnostic Strip See Rx Instructions .ROUTE .MEDSUPPLY Qty: 200 5RF Rx Instructions: 4 times a day as needed (DME) blood-glucose meter [Topcom EuropeTouch Ultra2 Meter] Kit See Rx Instructions .ROUTE .MEDSUPPLY Qty: 1 0RF Rx Instructions: use daily (DME) BiPAP See Rx Instructions .Route .MEDSUPPLY Qty: 1 0RF Rx Instructions: As directed (DME) cpap machine See Rx Instructions .Route .MEDSUPPLY Qty: 1 0RF Rx Instructions: As directed auto titrate cpap machine 6-16cm with supplies (DME) insulin syringe-needle U-100 [BD Insulin Syringe Ultra-Fine] 1 mL 31 gauge x 5/16 syringe See Rx Instructions .Route Qty: 300 5RF Rx Instructions: use 1 three time day Eliquis 2.5 mg tablet 2.5 mg PO BID Qty: 60 2RF nitroglycerin 0.4 mg tablet, sublingual 0.4 mg buccal PRN PRN (Reason: Chest Pain) insulin lispro 100 unit/mL solution See Rx Instructions .ROUTE .COMPLEX PRN (Reason: hyperglycemia) Qty: 10 0RF Rx Instructions: Glucose: 141-180 - 2 units 181-220 - 3 221-260 - 4 261-300 - 5 301-350 - 6 351-400 - 7 >400 - 8 units metolazone 5 mg tablet 5 mg PO DAILY Rx Instructions: as directed by provider insulin degludec [Tresiba FlexTouch U-200] 200 unit/mL (3 mL) insulin pen 45 unit SUBCUT DAILY hydralazine 100 mg tablet 100 mg PO TID bumetanide 1 mg tablet 1 mg PO DAILY Qty: 60 4RF Rx Instructions: Can increase Bumex to 1 mg twice a day in case of worsening of edema spironolactone 25 mg tablet 50 mg PO DAILY Qty: 60 3RF Referrals: Mateo Sifuentes, MICROFILM MACHINE OPERATOR-C [Primary Care Provider] - Coding Level of Care Code ED Foreman Or Supervisor And Operator for Alycia Ivy
[2024-08-25 13:40] VITALS: BP 0/0; PULSE 0; O2SAT 0
--- NOTE | 2024-08-25 13:40 | PC.NURSE ---
[facility] Bob release the body to home at this time. [facility] was contacted patient is not a candidate for [facility], but has been placed on a hold for saving site at this time. is at the bedside and has chosen [facility].
--- NOTE | 2024-08-25 14:05 | PC.NURSE ---
SAVING SIGHT RELEASED PATIENT.
== END 2024-08-25 12:59 | disposition expired ==
PROVIDERS: Emergency Provider Emergency Medicine; PCP Nurse Practitioner
DX: I46.9 Cardiac arrest, cause unspecified (principal); Z79.01 Long term (current) use of anticoagulants; Z79.4 Long term (current) use of insulin; Z87.891 Personal history of nicotine dependence; I13.0 Hypertensive heart and chronic kidney disease with heart failure and stage 1 through stage 4 chronic kidney disease, or unspecified chronic kidney disease; I50.9 Heart failure, unspecified; E11.22 Type 2 diabetes mellitus with diabetic chronic kidney disease; N18.30 Chronic kidney disease, stage 3 unspecified; J44.9 Chronic obstructive pulmonary disease, unspecified
CPT/HCPCS: 31500; 92950; 96374; 96376; 99285; 99291; J0171